=== PATIENT | male | born 1945 | race Caucasian/White ===

== ENCOUNTER 2016-11-13 11:28 | Emergency (ER) | payer MEDICARE ==
[2016-11-13 11:44] VITALS: BP 192/97
--- NOTE | 2016-11-13 12:00 | UC ---
HPI Wound/Suture Re-check - HPI Summary HPI Summary: complaint of soreness in his groin that started last night found a bump in his groin squeezed area and expressed some dime sized pus out of area was painful all night long tender to touch- this morning expressed more pus from wound- yellowish denies fever or chills, dizziness, N/V/D hx DM - not on any medications at this time- intermittently checks blood sugar sees Dr Dos Santos for PCP - History Of Current Complaint Chief Complaint: UCWounds Stated Complaint: WOUND Time Seen by Provider: 11/13/16 11:46 Hx Obtained From: Patient - Allergies/Home Medications Allergies/Adverse Reactions: Allergies Allergy/AdvReac Type Severity Reaction Status Date / Time No Known Allergies Allergy Verified 11/13/16 11:33 Home Medications: Home Medications Zaleplon [Sonata] 10 mg PO PRN 11/13/16 [History] PMH/Surg Hx/FS Hx/Imm Hx Previously Healthy: No - uncontrolled DM, HTN Endocrine History Of: Reports: Diabetes - Not med compliant Denies: Thyroid Disease Cardiovascular History Of: Reports: Hypertension - Not med compliant Denies: Cardiac Disorders Respiratory History Of: Denies: COPD, Asthma GI/ History Of: Denies: Ulcer - Surgical History Surgical History: Yes Surgery Procedure, Year, and Place: cataracts - Family History Known Family History: Positive: Hypertension - parents, Diabetes - parents Negative: Cardiac Disease - Social History Occupation: Disabled Lives: With Family Alcohol Use: None Substance Use Type: Prescribed Smoking Status (MU): Heavy Every Day Tobacco Smoker Type: Cigarettes Amount Used/How Often: 1/2 PPD X 40 YEARS Have You Smoked in the Last Year: Yes Cessation Counseling: Patient Advised to Stop - Immunization History Most Recent Influenza Vaccination: Fall 2015 Review of Systems Constitutional: Negative Skin: Rash Eyes: Negative ENT: Negative Respiratory: Negative Cardiovascular: Negative Gastrointestinal: Negative Genitourinary: Negative Motor: Negative Neurovascular: Negative Musculoskeletal: Negative Neurological: Negative Psychological: Negative All Other Systems Reviewed And Are Negative: Yes Physical Exam Triage Information Reviewed: Yes Appearance: No Pain Distress, Thin Vital Signs: Initial Vital Signs Temp 96.6 F 11/13/16 11:37 Pulse 102 11/13/16 11:37 Resp 16 11/13/16 11:37 BP 192/97 11/13/16 11:37 Pulse Ox 99 11/13/16 11:37 Vital Signs Reviewed: Yes Eyes: Positive: Conjunctiva Clear ENT: Positive: Pharynx normal, TMs normal. Negative: Nasal congestion Neck: Positive: No Lymphadenopathy Respiratory: Positive: Lungs clear, Normal breath sounds, No respiratory distress Cardiovascular: Positive: RRR, No Murmur, Pulses Normal Abdomen Description: Positive: Nontender, Soft Bowel Sounds: Positive: Present Neurological: Positive: Alert Psychological Exam: Normal Skin: Positive: Other - right groin-5x7cm area of redness surrounding dark erythemtous area of [id number] no indurarion beneath Course/Dx - Course Course Of Treatment: exam completed. cellulitis surrounding infected hair follicle. afebrile. elevated blood pressure and pulse tachycardic. will treat for cellulitis with close PCP followup d/t comorbities of uncontrolled HTN and DM. pt states understanding that if he gets a fever, dizziness, N/V/D or area of redness increases or pain increases to proceed to the ED for further evaluation. - Differential Dx - Laceration/Wound Differential Diagnoses: Abscess, Cellulitis Provider Diagnoses: abscess and cellulitis right groin - Physician Notification/Consults Discussed Patient Care With: Dr Busch Time Discussed With Above Provider: 12:27 Discharge - Discharge Plan Condition: Stable Disposition: HOME Prescriptions: Sulfamethox/Trimethoprim DS* [Bactrim DS 800/160 TAB*] 1 tab PO BID #14 tab Patient Education Materials: Cellulitis (ED), Hypertension (ED) Referrals: Viktor Dos Santos MD [Primary Care Provider] - Additional Instructions: Your blood pressure is elevated - please contact Dr Dos Santos to discuss evaluation and treatment for this when you have your cellulitis checked. CELLULITIS What is Cellulitis? Cellulitis is a bacterial infection of the skin and, sometimes, of the tissues beneath the skin. The skin normally has many types of bacteria on it, but intact skin is an effective barrier that keeps bacteria from entering and growing within the body. When there is a break in the skin, bacteria can enter the body and grow there, causing infection. The infection usually affects outer layers of the skin first, and then spreads deeper into body tissues. Cellulitis can affect any area of the body covered by skin, but it is most common on the face or lower part of the legs. Symptoms Might Include: Skin redness that increases in size as the infection spreads Tight, glossy, "stretched" appearance of the skin Pain or tenderness of the area The affected area may be warm or hot to the touch A thin red line (along a vein) from the cellulitis toward the heart Fever Chills, shaking Muscle aches pains Joint stiffness because of swelling around a joint Treatment Recommendations: The healthcare provider may have prescribed an antibiotic medicine. The medicine should be taken until it is completely gone, even if you are feeling better. If you stop taking the medicine early, the infection may not be completely gone, and the medication may not work the next time. If the infection is on your arm or leg, keep it elevated. You may use warm, wet compresses to relieve the pain and help healing. Soak a clean cloth in warm water, wring it out a little, and apply it to the affected site. Leave the soak in place for 15 minutes and repeat often throughout the day. Rest until the fever is gone and the pain and redness have lessened. You may take ibuprofen (Motrin, Advil), or acetaminophen (Tylenol) for pain. These will help ease some of the symptoms but will not cure the infection. Call Your Doctor or Return Here IF: Your fever does not go down with treatment, or it increases to more than 101 F. You are not starting to get better with the treatment within 24 to 36 hours. You have increasing pain, swelling, or chills. You feel drowsy and lethargic, or you have vomiting or diarrhea. You find the redness is spreading or there are red streaks coming from the infected area. The joint or bone under the infected skin becomes painful after the skin has started to heal. You have any new symptoms that worry you
[2016-11-13] MEDS ORDERED: Sulfamethox/Trimethoprim DS 800/160* TAB PO ONE (12:08)
[2016-11-13] MEDS ORDERED: Naproxen TAB* 250 MG PO ONE (12:17)
== END 2016-11-13 12:25 | disposition home or self-care (01) ==
LOC: UCEAST 11:28
DX: L02.214 Cutaneous abscess of groin (principal); L03.314 Cellulitis of groin; F17.210 Nicotine dependence, cigarettes, uncomplicated
CPT/HCPCS: 87070; 87077; 87186; 87205; 87640; 87641; 99212; A9270-GY; G0463

== ENCOUNTER 2017-05-13 13:28 | Emergency (ER) | payer MEDICARE ==
[2017-05-13 14:02] VITALS: BP 171/95
--- NOTE | 2017-05-13 14:55 | UC ---
Lavonne Weeks Alfonso, scribed for Amy Eisenberg MD on 05/13/17 at 1418 . Skin Complaint HPI - HPI Summary HPI Summary: This patient is a 71 year old M presenting to [facility] with a chief complaint of a diffuse rash since 4 days ago. The patient states he thinks that it is shingles. The CC is described as painful and pruritic. Symptoms aggravated and alleviated by nothing. Patient reports skin redness. He denies PMHx of MRSA. Pt has been squeezing and using peroxide and rubbing alcohol on a lesion on his left cheek that he has had the past 2 days. PMHx of shingles, HTN (not medication compliant), and DM (not medication compliant). Patients medications reviewed this visit. High blood pressure noted. - History of Current Complaint Chief Complaint: UCSkin Time Seen by Provider: 05/13/17 14:14 Stated Complaint: POSSIBLE SHINGLES? Hx Obtained From: Patient Onset/Duration: Sudden Onset, Lasting Days - 4, Still Present Skin Exposure Onset/Duration: Days Ago - but unknown how he might have contracted scabies Timing: Constant Onset Severity: Moderate Current Severity: Moderate Pain Intensity: 0 Pain Scale Used: 0-10 Numeric Location: Diffuse Character: Pruritus, Pain, Redness, Raised Aggravating: Nothing Alleviating: Nothing Associated Signs & Symptoms: Positive: Rash - Redness. Negative: Drainage, Red Streaks - Allergy/Home Medications Allergies/Adverse Reactions: Allergies Allergy/AdvReac Type Severity Reaction Status Date / Time No Known Allergies Allergy Verified 11/13/16 11:33 Home Medications: Home Medications celeCOXIB CAP* [CeleBREX CAP*] 200 mg PO DAILY 05/13/17 [History Confirmed 05/13] Review of Systems Constitutional: Negative Skin: Rash - Diffuse, Other - Positive skin redness. Neurovascular: Negative Musculoskeletal: Negative Neurological: Negative Psychological: Negative All Other Systems Reviewed And Are Negative: Yes PMH/Surg Hx/FS Hx/Imm Hx - Additional Past Medical History Additional PMH: shingles Endocrine History: Diabetes Cardiovascular History: Hypertension - Surgical History Surgical History: Yes Surgery Procedure, Year, and Place: cataracts - Family History Known Family History: Positive: Hypertension - parents, Diabetes - parents Negative: Cardiac Disease - Social History Occupation: Disabled Lives: Alone Alcohol Use: None Substance Use Type: Prescribed Smoking Status (MU): Heavy Every Day Tobacco Smoker Type: Cigarettes Amount Used/How Often: 1/2 PPD X 40 YEARS Have You Smoked in the Last Year: Yes - Immunization History Most Recent Influenza Vaccination: Fall 2015 Physical Exam Triage Information Reviewed: Yes Appearance: No Pain Distress, Well-Nourished, Ill-Appearing Vital Signs: Initial Vital Signs Pulse 96 05/13/17 13:59 Resp 18 05/13/17 13:59 BP 171/95 05/13/17 13:59 Pulse Ox 97 05/13/17 13:59 Vital Signs Reviewed: Yes Eyes: Positive: Conjunctiva Clear ENT: Positive: Normal ENT inspection. Negative: Muffled/hoarse voice Neck: Positive: Supple Respiratory: Positive: Lungs clear, Normal breath sounds, No respiratory distress, No accessory muscle use Cardiovascular: Positive: RRR, No Murmur, Pulses Normal, Brisk Capillary Refill Musculoskeletal: Positive: Strength Intact, ROM Intact Neurological: Positive: Alert, Muscle Tone Normal Psychological Exam: Normal Skin: Positive: Other - Diffuse maculopapular excoriated lesions at all extremities and not above the neck. In linear pattern and pruritic. Single erythematous macular lesion to left cheek Course/Dx - Course Course Of Treatment: This patient is a 71 year old M presenting to [facility] with a chief complaint of a diffuse rash since 4 days ago. The patient states he thinks that it is shingles. The CC is described as painful and pruritic. Symptoms aggravated and alleviated by nothing. Patient reports skin redness. He denies PMHx of MRSA. PMHx of shingles, HTN (not medication compliant), and DM ( not medication compliant). Patients medications reviewed this visit. High blood pressure noted. Patient will be discharged with dx scabies and resolving facial abscess with advice to follow up with his PCP and Dr. Cifuentes, dermatology. Pt is agreeable with this plan. - Differential Diagnoses - Skin Complaint Differential Diagnoses: Abscess, Cellulitis, Scabies, Varicella Zoster - Diagnoses Provider Diagnoses: scabies; facial abscess, resolving; HTN in poor control. Discharge - Discharge Plan Condition: Stable Disposition: HOME Prescriptions: Mupirocin 2% OINT* [Bactroban 2 % Oint*] 1 applic TOPICAL BID #1 tube Permethrin [Elimite] 5 % TOPICAL ONCE #1 cre Patient Education Materials: Scabies (ED), Abscess (ED) Referrals: Milla Cifuentes [Medical Doctor] - 3 Days Viktor Dos Santos MD [Primary Care Provider] - 2 Days Additional Instructions: Dr. Eisenberg does not think this is shingles. She thinks it is more likely scabies. She is not sure how you might have gotten scabies. To treat scabies you should apply the cream from the neck to your toes, especially in creases. Leave the cream in place for at least 8 hrs, then wash off. Bag up any clothing of materials that cannot be washed in hot water. Do not apply the permethrin to your face. Please use the mupirocin ointment on the sore of your face. You do not need further peroxide or alcohol on the sore on your face, and do not continue to squeeze it. If you feel it needs squeezing, please seek medical attention. Also your blood pressure was elevated 171/95 today. Please see your doctor within 1 week for a blood pressure recheck. See the trigonometry teacher, Dr. Cifuentes if you have no improvement. The documentation as recorded by the Lavonne juarez Alfonso accurately reflects the service I personally performed and the decisions made by , Amy Eisenberg MD.
== END 2017-05-13 14:54 | disposition home or self-care (01) ==
LOC: UCEAST 13:28
DX: B86 Scabies (principal); L02.01 Cutaneous abscess of face; I10 Essential (primary) hypertension; E11.9 Type 2 diabetes mellitus without complications; Z91.14 Patient's other noncompliance with medication regimen; Z79.1 Long term (current) use of non-steroidal anti-inflammatories (NSAID); F17.210 Nicotine dependence, cigarettes, uncomplicated
CPT/HCPCS: 99212; G0463

== ENCOUNTER → 2017-07-01 11:41 | Emergency (ER) | payer MEDICARE ==
[2017-07-01 11:56] VITALS: BP 168/98
[2017-07-01 13:03] LABS: Urine Bacteria Absent (Absent); Urine Bilirubin Negative (Negative); Urine Glucose 3+(>=500 mg/dL) (Negative); Urine Nitrite Negative (Negative)
[2017-07-01 13:21] LABS: Hematocrit 48 % (42-52); Hemoglobin 16.3 g/dl (14.0-18.0); Mean Corpuscular HGB Conc 34 g/dl (31-36); Mean Corpuscular Hemoglobin 29 pg (27-31); Mean Corpuscular Volume 84 fL (80-94); Mean Platelet Volume 10 um3 (7.4-10.4); Red Cell Distribution Width 14 % (10.5-15); White Blood Count 11.3 10^3/ul (3.5-10.8)
[2017-07-01 13:57] LABS: ALT 45 U/L (7-52); AST 32 U/L (13-39); Albumin 3.7 g/dL (3.2-5.2); Alkaline Phosphatase 89 U/L (34-104); Anion Gap 5 mmol/L (2-11); BUN/Creatinine Ratio 17.5 (8-20); Blood Urea Nitrogen 14 mg/dL (6-24); CO2 Carbon Dioxide 26 mmol/L (22-32); Calcium 9.1 mg/dL (8.6-10.3); Chloride 95 mmol/L (101-111); EGFR African American 123.3 (>60); EGFR Non-African American 95.8 (>60); Globulin 3.4 g/dL (2-4); Glucose 377 mg/dL (70-100); Potassium 4.3 mmol/L (3.5-5.0); Sodium 126 mmol/L (133-145); Total Protein 7.1 g/dL (6.4-8.9)
[2017-07-01 14:15] LABS: Acetaminophen < 15 mcg/mL; Alcohol < 10 mg/dL (<10); Salicylate < 2.50 mg/dL (<30)
[2017-07-01 14:16] LABS: TSH (Thyroid Stimulating Horm) 1.31 mcIU/mL (0.34-5.60)
[2017-07-01 14:52] LABS: Benzodiazepine Urine Screen None Detected (None Detect)
--- NOTE | 2017-07-07 11:20 | ED ---
Psychiatric Complaint - HPI Summary HPI Summary: Pt BIB ambulance and Police on 9.[address] Elliott office called because pt had called making a statement that he was going to shoot himself with a gun and hung up the phone. Pt reports that he does not remember calling the doctor' s office and is adamant about such. He states someone is "setting me up" and never threatened to harm himself. Pt reports that he has no mental health history. Pt reports that he just wants to go home. Pt reports that he was taken off his pain medications. Denies SI/HI and self harm. - History Of Current Complaint Chief Complaint: EDMentalHealth Time Seen by Provider: 07/01/17 11:57 Hx Obtained From: Patient Onset/Duration: Sudden Onset Timing: Constant Severity Initially: Moderate Severity Currently: Moderate Character: Depressed Alleviating Factor(s): Nothing Associated Signs And Symptoms: Positive: Hostile Related History: Positive For: Prior Psychiatric Issues - Risk Factor(s) Completed Suicide Risk Factors: Male - Allergies/Home Medications Allergies/Adverse Reactions: Allergies Allergy/AdvReac Type Severity Reaction Status Date / Time No Known Allergies Allergy Verified 07/01/17 11:51 Home Medications: Home Medications Gabapentin CAP(*) [Neurontin 100 mg CAP(*)] 100 - 200 mg PO TID PRN 07/01/17 [ History Confirmed 07/01/17] Insulin Detemir [Levemir Flextouch] 15 unit SUBCUT QAM 07/01/17 [History Confirmed 07/01/17] Insulin Detemir [Levemir Flextouch] 17 unit SUBCUT QPM 07/01/17 [History Confirmed 07/01/17] Ondansetron ODT TAB* [Zofran 4 MG Odt TAB*] 4 mg PO Q12HR PRN 07/01/17 [History Confirmed 07/01/17] Permethrin 5% CREAM* 1 applic TOPICAL ONCE 07/01/17 [History Confirmed 07/01/17] Zaleplon (NF) [Sonata (NF)] 10 mg PO QPM 07/01/17 [History Confirmed 07/01/17] PMH/Surg Hx/FS Hx/Imm Hx Previously Healthy: No - uncontrolled diabetic Endocrine/Hematology History: Reports: Hx Diabetes - Not med compliant Denies: Hx Thyroid Disease Cardiovascular History: Reports: Hx Hypertension - Not med compliant Denies: Other Cardiovascular Problems/Disorders Respiratory History: Reports: Other Respiratory Problems/Disorders - HISTORY OF PNEUMONIA SEVERAL TIMES PER PATIENT Denies: Hx Asthma, Hx Chronic Obstructive Pulmonary Disease (COPD) GI History: Denies: Hx Ulcer, Other GI Disorders Musculoskeletal History: Denies: Other Musculoskeletal History - CHRONIC BACK PAIN Sensory History: Reports: Hx Cataracts - BILATERAL, Hx Contacts or Glasses - GLASSES-READING Denies: Hx Hearing Aid Opthamlomology History: Reports: Hx Cataracts - BILATERAL, Hx Contacts or Glasses - GLASSES-READING Neurological History: Denies: Other Neuro Impairments/Disorders Psychiatric History: Denies: Hx Eating Disorder, Hx of Violent Episodes Against Others - Surgical History Surgery Procedure, Year, and Place: cataracts Hx Anesthesia Reactions: No Infectious Disease History: No Infectious Disease History: Reports: Hx Hepatitis - Hep C, Hx Shingles - 1998 Denies: Hx Clostridium Difficile, Hx Human Immunodeficiency Virus (HIV), Hx of Known/Suspected MRSA, Hx Tuberculosis, Hx Known/Suspected VRE, Hx Known/ Suspected VRSA, History Other Infectious Disease, Traveled Outside the in Last 30 Days - Family History Known Family History: Positive: Hypertension - parents, Diabetes - parents Negative: Cardiac Disease - Social History Occupation: Unemployed Lives: Alone Alcohol Use: None Hx Substance Use: Yes Substance Use Type: Reports: Prescribed Hx Tobacco Use: Yes Smoking Status (MU): Heavy Every Day Tobacco Smoker Type: Cigarettes Amount Used/How Often: 1/2 PPD X 40 YEARS Have You Smoked in the Last Year: Yes Review of Systems Constitutional: Negative Eyes: Negative Cardiovascular: Negative Respiratory: Negative Musculoskeletal: Negative Skin: Negative Neurological: Negative Positive: Other - angry/hostile All Other Systems Reviewed And Are Negative: Yes Physical Exam Triage Information Reviewed: Yes Vital Signs On Initial Exam: Initial Vitals Temp Pulse Resp BP Pulse Ox 98.7 F 108 16 168/98 100 07/01/17 11:51 07/01/17 11:51 07/01/17 11:51 07/01/17 11:51 07/01/17 11:51 Vital Signs Reviewed: Yes Appearance: Positive: Well-Appearing, Well-Nourished Skin: Positive: Warm, Skin Color Reflects Adequate Perfusion Head/Face: Positive: Normal Head/Face Inspection Neck: Positive: Supple, No Lymphadenopathy Respiratory/Lung Sounds: Positive: Clear to Auscultation, Breath Sounds Present Cardiovascular: Positive: Normal, RRR, Pulses are Symmetrical in both Upper and Lower Extremities Musculoskeletal: Positive: Normal, Strength/ROM Intact Neurological: Positive: Normal, Sensory/Motor Intact Psychiatric: Positive: Patient Uncooperative for Exam - very hostile AVPU Assessment: Alert - [place] Coma Scale Coma Scale Total: 15 Diagnostics - Vital Signs Vital Signs Temp Pulse Resp BP Pulse Ox 07/01/17 11:51 98.7 F 108 16 168/98 100 - Laboratory Lab Results: Lab Results 07/01/17 07/01/17 07/01/17 Range/Units 12:05 12:05 13:09 WBC (3.5-10.8) 10^3/ul RBC (4.0-5.4) 10^6/ul Hgb (14.0-18.0) g/dl Hct (42-52) % MCV (80-94) fL MCH (27-31) pg MCHC (31-36) g/dl RDW (10.5-15) % Plt Count (150-450) 10^3/ul MPV (7.4-10.4) um3 Neut % (Auto) (38-83) % Lymph % (Auto) (25-47) % [place] % (Auto) (1-9) % Eos % (Auto) (0-6) % Baso % (Auto) (0-2) % Absolute Neuts (auto) (1.5-7.7) 10^3/ul Absolute Lymphs (auto) (1.0-4.8) 10^3/ul Absolute Monos (auto) (0-0.8) 10^3/ul Absolute Eos (auto) (0-0.6) 10^3/ul Absolute Basos (auto) (0-0.2) 10^3/ul Absolute Nucleated RBC 10^3/ul Nucleated RBC % Sodium 126 L (133-145) mmol/L Potassium 4.3 (3.5-5.0) mmol/L Chloride 95 L (101-111) mmol/L Carbon Dioxide 26 (22-32) mmol/L Anion Gap 5 (2-11) mmol/L BUN 14 (6-24) mg/dL Creatinine 0.80 (0.67-1.17) mg/dL Est GFR ( Amer) 123.3 (>60) Est GFR (Non-Af Amer) 95.8 (>60) BUN/Creatinine Ratio 17.5 (8-20) Glucose 377 H (70-100) mg/dL Lactic Acid (0.5-2.0) mmol/L Calcium 9.1 (8.6-10.3) mg/dL Total Bilirubin 0.50 (0.2-1.0) mg/dL AST 32 (13-39) U/L ALT 45 (7-52) U/L Alkaline Phosphatase 89 (34-104) U/L Total Protein 7.1 (6.4-8.9) g/dL Albumin 3.7 (3.2-5.2) g/dL Globulin 3.4 (2-4) g/dL Albumin/Globulin Ratio 1.1 (1-3) TSH 1.31 (0.34-5.60) mcIU/mL Urine Color Yellow Urine Appearance Clear Urine pH 6.0 (5-9) Ur Specific [place] 1.037 H (1.010-1.030) Urine Protein 2+(100 mg/dl) H (Negative) Urine Ketones Negative (Negative) Urine Blood Negative (Negative) Urine Nitrate Negative (Negative) Urine Bilirubin Negative (Negative) Urine Urobilinogen Negative (Negative) Ur Leukocyte Esterase Negative (Negative) Urine WBC (Auto) Absent (Absent) Urine RBC (Auto) Trace(0-2/hpf) (Absent) Urine Bacteria Absent (Absent) Urine Glucose 3+(>=500 mg/dl) H (Negative) Salicylates < 2.50 (<30) mg/dL Urine Opiates Screen None detected (None Detect) Acetaminophen < 15 mcg/mL Ur Barbiturates Screen None detected (None Detect) Ur Phencyclidine Scrn None detected (None Detect) Ur Amphetamines Screen None detected (None Detect) U Benzodiazepines Scrn None detected (None Detect) Urine Cocaine Screen None detected (None Detect) U Cannabinoids Screen None detected (None Detect) Serum Alcohol < 10 (<10) mg/dL 07/01/17 07/01/17 Range/Units 13:09 13:09 WBC 11.3 H (3.5-10.8) 10^3/ul RBC 5.70 H (4.0-5.4) 10^6/ul Hgb 16.3 (14.0-18.0) g/dl Hct 48 (42-52) % MCV 84 (80-94) fL MCH 29 (27-31) pg MCHC 34 (31-36) g/dl RDW 14 (10.5-15) % Plt Count 130 L (150-450) 10^3/ul MPV 10 (7.4-10.4) um3 Neut % (Auto) 71.4 (38-83) % Lymph % (Auto) 15.2 L (25-47) % [place] % (Auto) 8.7 (1-9) % Eos % (Auto) 3.2 (0-6) % Baso % (Auto) 1.5 (0-2) % Absolute Neuts (auto) 8.1 H (1.5-7.7) 10^3/ul Absolute Lymphs (auto) 1.7 (1.0-4.8) 10^3/ul Absolute Monos (auto) 1.0 H (0-0.8) 10^3/ul Absolute Eos (auto) 0.4 (0-0.6) 10^3/ul Absolute Basos (auto) 0.2 (0-0.2) 10^3/ul Absolute Nucleated RBC 0.01 10^3/ul Nucleated RBC % 0.1 Sodium (133-145) mmol/L Potassium (3.5-5.0) mmol/L Chloride (101-111) mmol/L Carbon Dioxide (22-32) mmol/L Anion Gap (2-11) mmol/L BUN (6-24) mg/dL Creatinine (0.67-1.17) mg/dL Est GFR ( Amer) (>60) Est GFR (Non-Af Amer) (>60) BUN/Creatinine Ratio (8-20) Glucose (70-100) mg/dL Lactic Acid 1.1 (0.5-2.0) mmol/L Calcium (8.6-10.3) mg/dL Total Bilirubin (0.2-1.0) mg/dL AST (13-39) U/L ALT (7-52) U/L Alkaline Phosphatase (34-104) U/L Total Protein (6.4-8.9) g/dL Albumin (3.2-5.2) g/dL Globulin (2-4) g/dL Albumin/Globulin Ratio (1-3) TSH (0.34-5.60) mcIU/mL Urine Color Urine Appearance Urine pH (5-9) Ur Specific [place] (1.010-1.030) Urine Protein (Negative) Urine Ketones (Negative) Urine Blood (Negative) Urine Nitrate (Negative) Urine Bilirubin (Negative) Urine Urobilinogen (Negative) Ur Leukocyte Esterase (Negative) Urine WBC (Auto) (Absent) Urine RBC (Auto) (Absent) Urine Bacteria (Absent) Urine Glucose (Negative) Salicylates (<30) mg/dL Urine Opiates Screen (None Detect) Acetaminophen mcg/mL Ur Barbiturates Screen (None Detect) Ur Phencyclidine Scrn (None Detect) Ur Amphetamines Screen (None Detect) U Benzodiazepines Scrn (None Detect) Urine Cocaine Screen (None Detect) U Cannabinoids Screen (None Detect) Serum Alcohol (<10) mg/dL Result Diagrams: 07/01/17 13:09 07/01/17 13:09 Lab Statement: Any lab studies that have been ordered have been reviewed, and results considered in the medical decision making process. Course/Dx - Course Course Of Treatment: hostile towards nursing staff and ED staff. He states he denies stating he wants to harm himself and thinks someone is setting him up. Provider states he will need a mental health evaluation prior to leaving. Spoke with Dr. Dos Santos who suggested CT brain d/t new and erratic behavior suggesting infarct. He is refusing this. Also, refusing treatment of his hyperglycemia. He is OK for mental health evaluation at this time as he is refusing health care from the ED. - Differential Dx/Clinical Impression Differential Diagnosis/HQI/PQRI: Positive: Anxiety, Depression, Suicidal Ideation, Suicidal Gesture Provider Diagnosis: Threatening to self Discharge - Discharge Plan Condition: Stable Disposition: HOME Referrals: Viktor Dos Santos MD [Primary Care Provider] - Braxton Elliott DO [Doctor of Osteopathy] - As Soon As Possible
== END | disposition home or self-care (01) ==
LOC: ED 11:41
DX: F91.9 Conduct disorder, unspecified (principal); Z86.79 Personal history of other diseases of the circulatory system
CPT/HCPCS: 36415; 80053; 80307; 80320; 80329; 81003; 81015; 83605; 84443; 85025; 99285; G0480

== ENCOUNTER 2017-09-21 10:24 | Emergency (ER) | payer MEDICARE ==
[2017-09-21 10:49] VITALS: BP 176/87
--- NOTE | 2017-09-21 11:27 | UC ---
Respiratory Complaint HPI - HPI Summary HPI Summary: Pt presents with cough. He is very frustrated, annoyed, and consistently cursing throughout this interview of his symptoms. He tells me that he has had a cough for 3 weeks and refuses to see his PCP because he "hates that cocksucker ". His cough has been productive over the last 5 days - thick yellow/green phlegm. He denies fever, chills, sinus symptoms, SOB, chest pain, abdominal pain , N/V/D/C. He is still smoking daily. - History of Current Complaint Hx Obtained From: Patient Onset/Duration: Gradual Onset Timing: Constant Severity Initially: Mild Severity Currently: Mild Character: Cough: Productive <Trent Barton - Last Filed: 09/21/17 17:04> <Denisse Suarez - Last Filed: 09/21/17 21:34> - History of Current Complaint Chief Complaint: UCRespiratory Stated Complaint: COUGH Time Seen by Provider: 09/21/17 11:26 - Allergies/Home Medications Allergies/Adverse Reactions: Allergies Allergy/AdvReac Type Severity Reaction Status Date / Time No Known Allergies Allergy Verified 07/01/17 11:51 PMH/Surg Hx/FS Hx/Imm Hx Respiratory History: COPD - Surgical History Surgical History: Yes Surgery Procedure, Year, and Place: cataracts - Family History Known Family History: Positive: Hypertension - parents, Diabetes - parents Negative: Cardiac Disease - Social History Occupation: Retired Lives: Alone Alcohol Use: None Substance Use Type: None, Prescribed Smoking Status (MU): Heavy Every Day Tobacco Smoker Type: Cigarettes Amount Used/How Often: 1/2 PPD X 40+ YEARS Have You Smoked in the Last Year: Yes Cessation Counseling: Counseled 3+Min - 10 Min - Immunization History Most Recent Influenza Vaccination: Fall 2015 <Trent Barton - Last Filed: 09/21/17 17:04> Review of Systems Constitutional: Negative Skin: Negative Eyes: Negative ENT: Negative Respiratory: Cough Cardiovascular: Negative Gastrointestinal: Negative Neurological: Negative All Other Systems Reviewed And Are Negative: Yes <Trent Barton - Last Filed: 09/21/17 17:04> Physical Exam Triage Information Reviewed: Yes Appearance: Well-Appearing, Well-Nourished Vital Signs: Initial Vital Signs Temp 97.9 F 09/21/17 10:43 Pulse 101 12/19/17 10:43 Resp 16 09/21/17 10:43 BP 176/87 09/21/17 10:43 Pulse Ox 99 09/21/17 10:43 Vital Signs Reviewed: Yes Eyes: Positive: Conjunctiva Clear. Negative: Conjunctiva Inflamed, Discharge ENT: Positive: Hearing grossly normal, Pharynx normal, TMs normal, Uvula midline. Negative: Pharyngeal erythema, Nasal congestion, Nasal drainage, TM bulging, TM dull, TM red, Tonsillar swelling, Tonsillar exudate, Muffled voice, Hoarse voice, Sinus tenderness Neck: Positive: Supple, Nontender, No Lymphadenopathy Respiratory: Positive: Chest non-tender, No respiratory distress, No accessory muscle use, Crackles - RLL, Wheezing - Throughout Cardiovascular: Positive: RRR, No Murmur, Pulses Normal Neurological: Positive: Alert Skin: Negative: rashes <Trent Barton - Last Filed: 09/21/17 17:04> Vital Signs: Initial Vital Signs Temp 97.9 F 09/21/17 10:43 Pulse 101 09/21/17 10:43 Resp 16 09/21/17 10:43 BP 176/87 09/21/17 10:43 Pulse Ox 99 09/21/17 10:43 <Denisse Suarez - Last Filed: 09/21/17 21:34> Diagnostic Evaluation - Laboratory O2 Sat by Pulse Oximetry: 99 <Trent Barton - Last Filed: 09/21/17 17:04> Respiratory Course/Dx - Course Course Of Treatment: I advised the pt that I would like to get a CXR and he said "fuck that". I told him I would like to give him a Duoneb treatment and he also said "fuck that". Given his strong smoking history, ongoing productive cough, and RLL crackles - will rx for Zpak and albuterol. Advised to follow up with PCP if he worsens or symptoms persist. - Differential Dx/Diagnosis Differential Diagnosis/HQI/PQRI: Aspiration, Asthma, Bronchitis, Exacerbation Of COPD, Influenza, Lower Resp Infection Provider Diagnoses: Cough. Wheezing <Trent Barton - Last Filed: 09/21/17 17:04> Discharge <Trent Barton - Last Filed: 09/21/17 17:04> <Denisse Suarez - Last Filed: 09/21/17 21:34> - Discharge Plan Condition: Stable Disposition: HOME Prescriptions: Albuterol HFA INHALER* [Ventolin HFA Inhaler*] 1 - 2 puff INH Q6H PRN #1 mdi PRN Reason: Cough Azithromycin TAB* [Zithromax TAB (Z-YUSEF) 250 mg #6 tabs] 2 tab PO .TODAY, THEN 1 DAILY #1 yusef Patient Education Materials: Acute Bronchitis (ED) Referrals: No Primary Care Phys,NOPCP [Primary Care Provider] - Additional Instructions: If you develop a fever, SOB, chest pain, new or worsening symptoms - please call your PCP or go to the ED. Attestation Statement User Type: Provider - I was available for consult. This patient was seen by the [facility]. The patient was not presented to, seen by, or examined by me. -Jeffery <Denisse Suarez - Last Filed: 09/21/17 21:34>
== END 2017-09-21 11:47 | disposition home or self-care (01) ==
LOC: UCEAST 10:24
DX: R05 Cough (principal); R06.2 Wheezing; Z72.0 Tobacco use
CPT/HCPCS: 99212; G0463

== ENCOUNTER 2018-04-19 06:38 | Day surgery (SDC) | payer MEDICARE ==
[~2018-04-19 06:38] MED LIST: Acetaminophen TAB* 325 MG PO PRN; Buffered Lidocaine 0.9% SYRIN* 5 ML/SYR SYRINGE INTRADERM ONE
[2018-04-19] MEDS ORDERED: Midazolam* 1 MG/ML 2 ML VIAL (2 MG) ONE (07:22)
[2018-04-19] MEDS ORDERED: Phenylephrine 2.5% OPTH.SOL* 2 ML BTL ONE (07:45)
[2018-04-19] MEDS ORDERED: Neomycin/Polymy/Dex OPHTH.OIN* 3.5 GM ONE (07:45)
[2018-04-19] MEDS ORDERED: Lidocaine 1%* 5 ML VIAL ONE (07:45)
[2018-04-19] MEDS ORDERED: Cyclopentolate 1% OPTH.SOL* 2 ML BTL ONE (07:45)
[2018-04-19] MEDS ORDERED: Ketorolac 0.5% OPHTH (NF) 0.5 % 5 ML BTL ONE (07:45)
[2018-04-19] MEDS ORDERED: Tropicamide 1% OPTH.SOL* BTL ONE (07:45)
[2018-04-19] MEDS ORDERED: Tetracaine 0.5% OPTH.SOL 4 ML* 1 DROP BTL ONE (07:45)
[2018-04-19] MEDS ORDERED: Phenylephr/Ketorolac 1%/0.3% OPH DROP BTL ONE ×2 (07:46→09:15)
[2018-04-19 08:00] VITALS: BP 130/80
--- NOTE | 2018-04-19 10:43 | OP ---
DATE OF OPERATION/DATE OF DICTATION: 04/19/2018 - [facility] DATE OF : 1945. SURGEON: Dr. Gonzales Simmons. IMPLEMENTATION ARCHITECT: None. ANESTHESIA: Topical with intravenous sedation. PRE-OP DIAGNOSIS: Cataract, right eye. POST-OP DIAGNOSIS: Cataract, right eye. OPERATIVE PROCEDURE: Phacoemulsification and cataract extraction with posterior chamber intraocular lens implant, right eye. COMPLICATIONS: None. BLOOD LOSS: None. DESCRIPTION OF PROCEDURE: The patient was brought to the operating room and received a small amount of intravenous sedation. A drop of Tetracaine was placed in his right eye. He was prepped and draped in the usual sterile fashion for ophthalmic surgery and attention was directed to the right eye where a speculum was placed. A paracentesis was created at the 11 o'clock position and 0.1 cc of 1 percent preservative-free Lidocaine was injected into the anterior chamber followed by DisCoVisc. The eye was digitally stabilized while a 2.75 mm keratome was used to create a triplanar clear corneal incision at the 9 o'clock position. A continuous curvilinear capsulorrhexis was created with a cystotome and Utrata forceps. BSS on a cannula was used to hydrodissect the lens from the capsule. Phacoemulsification was performed in a divide-and- conquer technique to create four fragments which were removed. Residual cortical material was removed with irrigation and aspiration. DisCoVisc was used to inflate the capsular bag and an AUOOTO 20.5 diopter lens was folded and inserted into the capsular bag. DisCoVisc was removed using irrigation and aspiration. BSS on a cannula was used to hydrate the corneal stroma and seal the wound. At the end of the case the pupil was round and the lens was centered. The eye was of normal pressure and the wound was water tight. The speculum was removed and topical Maxitrol ointment was placed on the surface of the eye. The eye was closed, patched and shielded and the patient was sent to the recovery room in stable condition with post operative instructions and follow-up appointment given. [id number]/CPS #: [id number] MTDD
== END 2018-04-19 07:58 | disposition home or self-care (01) ==
LOC: OREAST 06:38
PROVIDERS: ATTEND Ophthalmology
DX: H25.11 Age-related nuclear cataract, right eye (principal); E11.42 Type 2 diabetes mellitus with diabetic polyneuropathy; Z79.84 Long term (current) use of oral hypoglycemic drugs; E78.5 Hyperlipidemia, unspecified; B19.20 Unspecified viral hepatitis C without hepatic coma; M54.5 Low back pain; I10 Essential (primary) hypertension; Z72.0 Tobacco use
CPT/HCPCS: A9270-GY; C9447; J2250; V2632

== ENCOUNTER 2018-06-13 00:32 | Emergency (ER) | payer MEDICARE ==
[2018-06-13] MEDS ORDERED: Ketorolac INJ* 60 MG/2 ML VIAL IM ONE (01:06)
[2018-06-13] MEDS ORDERED: Gabapentin CAP(*) 300 MG PO ONE (01:07)
[2018-06-13] MEDS ORDERED: oxyCODONE/Acetamin 5/325 MG* TAB PO ONE (01:07)
--- NOTE | 2018-06-13 02:15 | ED ---
Back Pain - HPI Summary HPI Summary: Patient is a 72 y/o M w/ c/o back pain onsetting in 2003. He states pain radiates to the bottom of his feet and that his "knees are giving out". 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 He states he was taking gabapatin, initially 100 mg 3x a day, which was increased to 300 mg x3 a day. Patient states he ran out of gabapatin eight days ago. However, patient also reports that he experiences no relief in Sx from gabapatin. He also reports he had previously been prescribed Oxycodone. On triage, pain is rated 10/10 and nothing is noted to aggravate/alleviate Sx. Home medications and allergies reviewed. - History of Current Complaint Chief Complaint: EDGeneral Stated Complaint: GENERAL PAIN Time Seen by Provider: 06/13/18 00:52 Hx Obtained From: Patient Onset/Duration: Lasting Weeks - onset 2003, Still Present Onset/Duration: Still Present Timing: Constant Back Pain Location: Radiates To - bottom of feet Severity Currently: Severe - 10/10 Pain Intensity: 10 Pain Scale Used: 0-10 Numeric - 10/10 Aggravating Symptom(s): Nothing Alleviating Symptom(s): Nothing - Allergies/Home Medications Allergies/Adverse Reactions: Allergies Allergy/AdvReac Type Severity Reaction Status Date / Time No Known Allergies Allergy Verified 06/13/18 00:47 PMH/Surg Hx/FS Hx/Imm Hx Endocrine/Hematology History: Reports: Hx Diabetes - type 2 Denies: Hx Thyroid Disease Cardiovascular History: Reports: Hx Hypertension - no meds Denies: Other Cardiovascular Problems/Disorders Respiratory History: Reports: Other Respiratory Problems/Disorders - HISTORY OF PNEUMONIA SEVERAL TIMES PER PATIENT Denies: Hx Asthma, Hx Chronic Obstructive Pulmonary Disease (COPD) GI History: Denies: Hx Ulcer, Other GI Disorders Musculoskeletal History: Denies: Other Musculoskeletal History - CHRONIC BACK PAIN Sensory History: Reports: Hx Cataracts, Hx Contacts or Glasses - GLASSES-READING Denies: Hx Hearing Aid Opthamlomology History: Reports: Hx Cataracts, Hx Contacts or Glasses - GLASSES- READING Neurological History: Denies: Other Neuro Impairments/Disorders Psychiatric History: Denies: Hx Eating Disorder, Hx of Violent Episodes Against Others - Surgical History Surgery Procedure, Year, and Place: cataracts Hx Anesthesia Reactions: No - Immunization History Date of Tetanus Vaccine: unk Date of Influenza Vaccine: fall 2016 Infectious Disease History: No Infectious Disease History: Reports: Hx Hepatitis - Hep C, Hx Shingles - 1998 Denies: Hx Clostridium Difficile, Hx Human Immunodeficiency Virus (HIV), Hx of Known/Suspected MRSA, Hx Tuberculosis, Hx Known/Suspected VRE, Hx Known/ Suspected VRSA, History Other Infectious Disease, Traveled Outside the [place] in Last 30 Days - Family History Known Family History: Positive: Hypertension - parents, Diabetes - parents Negative: Cardiac Disease - Social History Alcohol Use: None Substance Use Type: Reports: None Hx Tobacco Use: Yes Smoking Status (MU): Heavy Every Day Tobacco Smoker Type: Cigarettes Amount Used/How Often: 1/2 PPD X 40+ YEARS Have You Smoked in the Last Year: Yes Review of Systems Negative: Fever - on vitals, temp is 97.9 F Positive: Other - back pain which radiates to bottom of feet; "knees are giving out" All Other Systems Reviewed And Are Negative: Yes Physical Exam - Summary Physical Exam Summary: VITAL SIGNS: Reviewed. GENERAL: Patient is a well-developed and nourished male who is lying comfortable in the stretcher. Patient is not in any acute respiratory distress. HEAD AND FACE: No signs of trauma. No ecchymosis, hematomas or skull depressions. No sinus tenderness. EYES: PERRLA, EOMI x 2, No injected conjunctiva, no nystagmus. EARS: Hearing grossly intact. Ear canals and tympanic membranes are within normal limits. MOUTH: Oropharynx within normal limits. NECK: Supple, trachea is midline, no adenopathy, no JVD, no carotid bruit, no c- spine tenderness, neck with full ROM. CHEST: Symmetric, no tenderness at palpation LUNGS: Clear to auscultation bilaterally. No wheezing or crackles. CVS: Regular rate and rhythm, S1 and S2 present, no murmurs or gallops appreciated. ABDOMEN: Soft, non-tender. No signs of distention. No rebound no guarding, and no masses palpated. Bowel sounds are normal. EXTREMITIES: FROM in all major joints, no edema, no cyanosis or clubbing. Tenderness over lower thoracic spine, no other abnormal findings are noted. NEURO: Alert and oriented x 3. No acute neurological deficits. Speech is normal and follows commands. SKIN: Dry and warm Triage Information Reviewed: Yes Vital Signs On Initial Exam: Initial Vitals Temp Pulse Resp BP Pulse Ox 97.9 F 87 17 145/100 98 06/13/18 00:35 06/13/18 00:35 06/13/18 00:35 06/13/18 00:35 06/13/18 00:35 Vital Signs Reviewed: Yes Diagnostics - Vital Signs Vital Signs Temp Pulse Resp BP Pulse Ox 06/13/18 01:14 16 06/13/18 00:35 97.9 F 87 17 145/100 98 - Laboratory Lab Statement: Any lab studies that have been ordered have been reviewed, and results considered in the medical decision making process. Re-Evaluation - Re-Evaluation First Eval Re-Evaluation Time: 02:10 Comment: Patient will be discharged to home and is instructed to follow up with PCP in 1-2 days. He is agreeable with this plan. Back Pain Course/Dx - Course Assessment/Plan: Patient is a 72 y/o M w/ c/o back pain onsetting in 2003. He states pain radiates to the bottom of his feet and that his "knees are giving out". 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 He states he was taking gabapatin, initially 100 mg 3x a day, which was increased to 300 mg x3 a day. Patient states he ran out of gabapatin eight days ago. However, patient also reports that he experiences no relief in Sx from gabapatin. He also reports he had previously been prescribed Oxycodone. On triage, pain is rated 10/10 and nothing is noted to aggravate/alleviate Sx. PE showed lower thoracic tenderness with no other abnormal findings. During ED course, patient was given Percocet 5/325 tab 1 tab PO ONCE ONE, toradol 60 mg IM ONCE ONE, and neurontin 300 mg PO ED ONCE ONE. Patient will be discharged to home and is instructed to follow up with PCP in 1-2 days and was given the following prescriptions: Cyclobenzaprine TAB* [Flexeril 10 MG TAB*] 10 mg PO BID PRN #20 tab. PRN Reason: Spasms - Back. Gabapentin [Gralise] 300 mg PO TID #30 tab.er.24h. Ibuprofen TAB* [Motrin TAB* 800 MG] 800 mg PO Q6H PRN #30 tab. PRN Reason: Pain. He is agreeable with this treatment plan. He was diagnosed with back pain. - Diagnoses Provider Diagnoses: Back pain Discharge - Sign-Out/Discharge Documenting (check all that apply): Patient Departure - discharge - Discharge Plan Condition: Stable Disposition: HOME Prescriptions: Cyclobenzaprine TAB* [Flexeril 10 MG TAB*] 10 mg PO BID PRN #20 tab PRN Reason: Spasms - Back Gabapentin [Gralise] 300 mg PO TID #30 tab.er.24h Ibuprofen TAB* [Motrin TAB* 800 MG] 800 mg PO Q6H PRN #30 tab PRN Reason: Pain Patient Education Materials: Back Pain (ED) Referrals: [facility] [Outside] - 2 Days Additional Instructions: RETURN TO ED FOR ANY CHANGING OR WORSENING SYMPTOMS. FOLLOW UP WITH PRIMARY CARE PHYSICIAN IN 1-2 DAYS. - Attestation Statements Document Initiated by Scribe: Yes Documenting Scribe: Caio Chambers Provider For Whom Lisa is Documenting (Include Credential): Carlos Mohr MD Scribe Attestation: Caio Weeks, scribed for Carlos Mohr MD on 06/13/18 at 0310.
[2018-06-13 02:39] VITALS: BP 143/87
== END 2018-06-13 02:37 | disposition home or self-care (01) ==
LOC: ED 00:32
DX: M54.9 Dorsalgia, unspecified (principal); E11.9 Type 2 diabetes mellitus without complications; I10 Essential (primary) hypertension; G89.29 Other chronic pain; F17.210 Nicotine dependence, cigarettes, uncomplicated
CPT/HCPCS: 96372; 99282; A9270-GY; J1885

== ENCOUNTER 2018-06-14 09:20 | Emergency (ER) | payer MEDICARE ==
--- NOTE | 2018-06-14 10:26 | ED ---
Back Pain - HPI Summary HPI Summary: This patient is a 72 year old M presenting to [facility] with a chief complaint of left upper back pain. The patient rates the pain 10/10 in severity. Patient reports nausea and dry heaving. Patient denies dysuria, frequent urination, urinary incontinence and fecal incontinence. He was seen by Dr. Mohr yesterday morning and given a Tylenol #3. He was sent home with flexeril, Ibuprofen and Gabapentin. Patient drove, does not want a shot, and realized that the pharmacy just received his medication. He requested to be discharged with no further workup or medications. - History of Current Complaint Chief Complaint: EDGeneral Stated Complaint: BACK PAIN Time Seen by Provider: 06/14/18 09:56 Hx Obtained From: Patient Onset/Duration: Still Present Severity Initially: Severe Severity Currently: Severe Pain Intensity: 10 Pain Scale Used: 0-10 Numeric Associated Signs And Symptoms: Positive: Other - Nausea, dry heaving. Denies dysuria and frequent urination.. Negative: Bladder Incontinence, Bowel Incontinence - Allergies/Home Medications Allergies/Adverse Reactions: Allergies Allergy/AdvReac Type Severity Reaction Status Date / Time No Known Allergies Allergy Verified 06/13/18 00:47 PMH/Surg Hx/FS Hx/Imm Hx Endocrine/Hematology History: Reports: Hx Diabetes - type 2 Denies: Hx Thyroid Disease, Autoimmune Disease Cardiovascular History: Reports: Hx Hypertension - no meds Denies: Other Cardiovascular Problems/Disorders Respiratory History: Reports: Other Respiratory Problems/Disorders - HISTORY OF PNEUMONIA SEVERAL TIMES PER PATIENT Denies: Hx Asthma, Hx Chronic Obstructive Pulmonary Disease (COPD) GI History: Denies: Hx Ulcer, Other GI Disorders Musculoskeletal History: Denies: Other Musculoskeletal History - CHRONIC BACK PAIN Sensory History: Reports: Hx Cataracts, Hx Contacts or Glasses - GLASSES-READING Denies: Hx Hearing Aid Opthamlomology History: Reports: Hx Cataracts, Hx Contacts or Glasses - GLASSES- READING Neurological History: Denies: Other Neuro Impairments/Disorders Psychiatric History: Denies: Hx Eating Disorder, Hx of Violent Episodes Against Others - Surgical History Surgery Procedure, Year, and Place: cataracts Hx Anesthesia Reactions: No - Immunization History Date of Tetanus Vaccine: unk Date of Influenza Vaccine: fall 2016 Infectious Disease History: No Infectious Disease History: Reports: Hx Hepatitis - Hep C, Hx Shingles - 1998 Denies: Hx Clostridium Difficile, Hx Human Immunodeficiency Virus (HIV), Hx of Known/Suspected MRSA, Hx Tuberculosis, Hx Known/Suspected VRE, Hx Known/ Suspected VRSA, History Other Infectious Disease, Traveled Outside the [place] in Last 30 Days - Family History Known Family History: Positive: Hypertension - parents, Diabetes - parents Negative: Cardiac Disease - Social History Alcohol Use: None Substance Use Type: Reports: None Hx Tobacco Use: Yes Smoking Status (MU): Heavy Every Day Tobacco Smoker Type: Cigarettes Amount Used/How Often: 1/2 PPD X 40+ YEARS Have You Smoked in the Last Year: Yes Review of Systems Positive: Vomiting - Dry heaving, Nausea. Negative: Other - Denies bowel incontinence Negative: dysuria, frequency - Denies frequent urination, incontinence Positive: Other - Back pain All Other Systems Reviewed And Are Negative: Yes Physical Exam - Summary Physical Exam Summary: GENERAL: Patient is a well-developed and nourished M who is lying comfortable in the stretcher. Patient is not in any acute respiratory distress. HEAD AND FACE: Normocephalic EYES: PERRLA, EOMI x 2. EARS: Hearing grossly intact. MOUTH: Oropharynx within normal limits. NECK: Supple, trachea is midline, no adenopathy, no JVD, no carotid bruit. CHEST: Symmetric, no tenderness at palpation LUNGS: Clear to auscultation bilaterally. No wheezing or crackles. CVS: Regular rate and rhythm, S1 and S2 present, no murmurs or gallops appreciated. ABDOMEN: Soft, non-tender. Bowel sounds are normal. No abdominal abnormal pulsations. EXTREMITIES: Full ROM in all major joints, no edema, no cyanosis or clubbing. MUSCULOSKELETAL: Tenderness in L spine NEURO: Alert and oriented x 3. No acute neurological deficits. Speech is normal and follows commands. SKIN: Dry and warm Triage Information Reviewed: Yes Vital Signs On Initial Exam: Initial Vitals Temp Pulse Resp BP Pulse Ox 97.5 F 96 16 178/84 99 06/14/18 09:24 06/14/18 09:24 06/14/18 09:24 06/14/18 09:24 06/14/18 09:24 Vital Signs Reviewed: Yes Diagnostics - Vital Signs Vital Signs Temp Pulse Resp BP Pulse Ox 06/14/18 09:24 97.5 F 96 16 178/84 99 - Laboratory Lab Statement: Any lab studies that have been ordered have been reviewed, and results considered in the medical decision making process. Back Pain Course/Dx - Course Assessment/Plan: This patient is a 72 year old M presenting to [facility] with a chief complaint of left upper back pain. Patient drove, does not want a shot, and realized that the pharmacy just received the medication he was prescribed yestserday by Dr. Mohr. He requested to be discharged with no further workup or medications. I recommended for him to follow up with the [facility] because he is seeking a new PCP. I discussed results with patient and he agrees with this plan. He is hemodynamically stable upon discharge. Strict return precautions given and he will otherwise follow up with the [facility]. - Diagnoses Provider Diagnoses: Chronic back pain Discharge - Sign-Out/Discharge Documenting (check all that apply): Patient Departure - Discharge Plan Condition: Stable Disposition: HOME Patient Education Materials: Chronic Back Pain (ED) Referrals: No Primary Care Phys,NOPCP [Primary Care Provider] - 3 Days (Refer to the [facility] for a potentially new PCP. ) Additional Instructions: RETURN TO THE EMERGENCY DEPARTMENT FOR CHANGING OR WORSENING SYMPTOMS. - Attestation Statements Document Initiated by Scribe: Yes Documenting Scribe: Rasta Osuna Provider For Whom Scribe is Documenting (Include Credential): Beto Lambert MD Scribe Attestation: Rasta Weeks, scribed for Beto Lambert MD on 06/14/18 at 1113.
[2018-06-14 10:57] VITALS: BP 0/0
== END 2018-06-14 10:34 | disposition home or self-care (01) ==
LOC: ED 09:20
DX: M54.9 Dorsalgia, unspecified (principal); R11.2 Nausea with vomiting, unspecified; E11.9 Type 2 diabetes mellitus without complications; F17.210 Nicotine dependence, cigarettes, uncomplicated
CPT/HCPCS: 99281

== ENCOUNTER 2018-08-20 03:02 | Emergency (ER) | payer MEDICARE ==
[2018-08-20 03:12] VITALS: BP 124/106
--- NOTE | 2018-08-20 03:27 | ED ---
Lower Extremity - HPI Summary HPI Summary: This patient is a 72 year old M [facility] accompanied with a chief complaint of pedal pain. The patient fell on 5 days ago and has been feeling pain in his feet ever since. He also complains of pedal edema and blisters on his feet that he did not notice prior to his fall. The patient has back pain and fell in his home when his back gave out. He did not feel like he had gotten injured when he fell but noticed problems in his feet the next day. He describes the pain as throbbing from the calf down through his feet. He rates the pain 9/10 in severity. The patient states he is experiencing tachycardia The patient has Hx of diabetes. - History of Current Complaint Chief Complaint: EDExtremityLower Stated Complaint: GENERAL ILLNESS Time Seen by Provider: 08/20/18 03:17 Hx Obtained From: Patient Mechanism Of Injury: Fall From A Standing Position Onset of Pain: Days Onset/Duration: Days Severity Initially: Severe Severity Currently: Severe Pain Intensity: 9 Pain Scale Used: 0-10 Numeric Timing: Constant Location: Is Diffuse - From both calfs down through his feet Character Of Pain: Throbbing Associated Signs And Symptoms: Positive: Swelling, Other - Blistering Aggravating Factor(s): Nothing Alleviating Factor(s): Nothing Able to Bear Weight: Yes - Risk Factors Gout Risk Factors: Age Over 40 - Allergies/Home Medications Allergies/Adverse Reactions: Allergies Allergy/AdvReac Type Severity Reaction Status Date / Time No Known Allergies Allergy Verified 06/13/18 00:47 PMH/Surg Hx/FS Hx/Imm Hx Endocrine/Hematology History: Reports: Hx Diabetes - type 2 Denies: Hx Thyroid Disease Cardiovascular History: Reports: Hx Hypertension - no meds Denies: Other Cardiovascular Problems/Disorders Respiratory History: Reports: Other Respiratory Problems/Disorders - HISTORY OF PNEUMONIA SEVERAL TIMES PER PATIENT Denies: Hx Asthma, Hx Chronic Obstructive Pulmonary Disease (COPD) GI History: Denies: Hx Ulcer, Other GI Disorders Musculoskeletal History: Denies: Other Musculoskeletal History - CHRONIC BACK PAIN Sensory History: Reports: Hx Cataracts, Hx Contacts or Glasses - GLASSES-READING Denies: Hx Hearing Aid Opthamlomology History: Reports: Hx Cataracts, Hx Contacts or Glasses - GLASSES- READING Neurological History: Denies: Other Neuro Impairments/Disorders Psychiatric History: Denies: Hx Eating Disorder, Hx of Violent Episodes Against Others - Surgical History Surgery Procedure, Year, and Place: cataracts Hx Anesthesia Reactions: No - Immunization History Date of Tetanus Vaccine: unk Date of Influenza Vaccine: fall 2016 Infectious Disease History: No Infectious Disease History: Reports: Hx Hepatitis - Hep C, Hx Shingles - 1998 Denies: Hx Clostridium Difficile, Hx Human Immunodeficiency Virus (HIV), Hx of Known/Suspected MRSA, Hx Tuberculosis, Hx Known/Suspected VRE, Hx Known/ Suspected VRSA, History Other Infectious Disease, Traveled Outside the [place] in Last 30 Days - Family History Known Family History: Positive: Hypertension - parents, Diabetes - parents Negative: Cardiac Disease - Social History Alcohol Use: None Substance Use Type: Reports: None Hx Tobacco Use: Yes Smoking Status (MU): Heavy Every Day Tobacco Smoker Type: Cigarettes Amount Used/How Often: 1/2 PPD X 40+ YEARS Have You Smoked in the Last Year: Yes Review of Systems Negative: Fever Positive: Other - Tachycardia Positive: Other - Pain from the calfs down Positive: Other - Blistering on feet All Other Systems Reviewed And Are Negative: Yes Physical Exam - Summary Physical Exam Summary: Appearance: Well-appearing, Well-nourished, lying in bed comfortably. Tachycardia Skin: Warm, dry, no obvious rash. Several blisters on toes of both feet without associated cellulitis. Eyes: sclera anicteric, no conjunctival pallor ENT: mucous membranes moist, pharynx appears normal Neck: Supple, nontender Respiratory: Clear to auscultation, no signs of respiratory distress Cardiovascular: Normal S1, S2. No murmurs. Normal distal pulses in tibial and radial bilaterally. Abdomen: Soft, nontender, normal active bowel sounds present Musculoskeletal: Normal, Strength/ROM Neurological: A&Ox3, awake and alert, mentation is normal, speech is fluent and appropriate. Appears somewhat confused at time. Has difficulty answering questions at times. Psychiatric: affect is normal, does not appear anxious or depressed Triage Information Reviewed: Yes Vital Signs On Initial Exam: Initial Vitals Temp Pulse Resp BP Pulse Ox 98.2 F 139 18 124/106 95 08/20/18 03:06 08/20/18 03:06 08/20/18 03:06 08/20/18 03:06 08/20/18 03:06 Vital Signs Reviewed: Yes Diagnostics - Vital Signs Vital Signs Temp Pulse Resp BP Pulse Ox 08/20/18 03:06 98.2 F 139 18 124/106 95 - Laboratory Result Diagrams: 08/20/18 03:35 08/20/18 03:35 Lab Statement: Any lab studies that have been ordered have been reviewed, and results considered in the medical decision making process. Re-Evaluation - Re-Evaluation First Eval Re-Evaluation Time: 06:11 Comment: I contacted the patient because of an elevated troponin level came back subsequent to his discharge AGAINST MEDICAL ADVICE. I informed him that it indicated possible damage to his heart and was quite serious and that he should return for further evaluation. Patient indicated he would try to do that today. Despite my repeated and clearly stated concerns regarding the seriousness of his situation, the patient did not appear to take this seriously. Lower Extremity Course/Dx - Course Course Of Treatment: This patient is a 72 year old M presenting to [facility] accompanied with a chief complaint of pedal pain. The patient fell on 5 days ago and has been feeling pain in his feet ever since. Soon after arrival, the patient briefly decided he wanted to go home. I explained that he has a very rapid heart rate and may be suffering from some type of cardiac problem, which he seems to understand, but continues to insist on going home. He states "if I on the way home, that's just the way it goes". He did not seem particularly upset at the care thus far. He declined any referrals are discharge instructions but did sign the AMA form. - Diagnoses Provider Diagnoses: Tachycardia, Foot pain, bilateral Discharge - Sign-Out/Discharge Documenting (check all that apply): Patient Departure - Discharge against medical advice. - Discharge Plan Condition: Stable Disposition: AGAINST MEDICAL ADVICE Referrals: No Primary Care Phys,NOPCP [Primary Care Provider] - - Billing Disposition and Condition Condition: STABLE Disposition: Against Medical Advice - Attestation Statements Document Initiated by Scribe: Yes Documenting Scribe: Pal Yu Provider For Whom Lisa is Documenting (Include Credential): Solo Bennett MD Scribe Attestation: Pal Weeks, scribed for Solo Bennett MD on 08/20/18 at 0613. Scribe Documentation Reviewed: Yes Provider Attestation: The documentation as recorded by the Pal juarez accurately reflects the service I personally performed and the decisions made by me, Solo Bennett MD
[2018-08-20] MEDS ORDERED: NS 0.9% 1000 ML* 2,000 ML IV ONE (03:28)
[2018-08-20 03:41] LABS: ABS Basophils 0.2 10^3/ul (0-0.2); ABS Eosinophils 0.2 10^3/ul (0-0.6); ABS Lymphocytes 1.2 10^3/ul (1.0-4.8); ABS Neutrophils 6.8 10^3/ul (1.5-7.7); ABS Nucleated RBC 0 10^3/ul; Hematocrit 43 % (42-52); Hemoglobin 14.6 g/dl (14.0-18.0); Lymphocyte % 12.7 % (25-47); Mean Corpuscular HGB Conc 34 g/dl (31-36); Mean Corpuscular Hemoglobin 29 pg (27-31); Mean Corpuscular Volume 86 fL (80-94); Mean Platelet Volume 8.5 fL (7.4-10.4); Nucleated Red Blood Cells % 0.1; Platelet Count 171 10^3/ul (150-450); Red Blood Count 4.97 10^6/ul (4.00-5.40); Red Cell Distribution Width 14 % (10.5-15); White Blood Count 9.4 10^3/ul (3.5-10.8)
[2018-08-20 03:59] LABS: EGFR Non-African American 73.9 (>60)
== END 2018-08-20 03:49 | disposition left against medical advice (07) ==
LOC: ED 03:02
DX: M79.672 Pain in left foot (principal); M79.671 Pain in right foot; R00.0 Tachycardia, unspecified; F17.210 Nicotine dependence, cigarettes, uncomplicated
CPT/HCPCS: 36415; 80053; 83605; 83735; 84443; 84484; 85025; 99282

== ENCOUNTER 2018-09-13 01:36 | Inpatient (IN) | payer MEDICARE ==
[2018-09-13] MEDS ORDERED: Albuterol/Ipratropium NEB.SOL* Albuterol 2.5 MG/Ipratropium 0.5 MG 3 ML INH ONE (01:42)
[2018-09-13] MEDS ORDERED: Magnesium Sulfate 2 GM IV* 2 GM/50 ML BAG IVPB ONE (01:43)
[2018-09-13] MEDS ORDERED: methylPREDNISolone 125 MG* 2 ML VIAL IV ONE (01:43)
[2018-09-13] MEDS ORDERED: LORazepam INJ* 2 MG/ML 1 ML VIAL IV PUSH ONE ×2 (01:45→03:49)
[2018-09-13] MEDS ORDERED: nitroGLYCERIN DRIP* 25,000 MCG/250 ML BTL IV ONE (01:47)
--- NOTE | 2018-09-13 01:47 | ED ---
Shortness of Breath - HPI Summary HPI Summary: Patient is a 72 y/o M presenting to ED with severe SOB and respiratory distress. He arrived via private car, he was unable to finish sentences secondary to respiratory distress. Provider in room to evaluate patient immediately upon arrival to ED room at 0138. Patient was placed on bipap and given nitro drip, morphine 4 mg IV, solu-medrol 125 mg IV, Ativan 1 mg IV, Lasix 40 mg IV, duoneb. By 0203, patient's condition improved, pulse in room was 127, BP 247/148, and o2 99. Patient reports that Sx onset today at 1600, notes that he is a longtime smoker. On triage, pain is denied, nothing is noted to aggravate/alleviate Sx. Home medications and allergies are reviewed. - History of Current Complaint Time Seen by Provider: 09/13/18 01:39 Hx Obtained From: Patient Onset/Duration: Lasting Hours - reports onset 1600, Still Present, Worse Since Timing: Constant Current Severity: Severe Dyspnea At: Rest Aggrevating Factors: Nothing Alleviating Factors: Oxygen, Other - ED medications Associated Signs & Symptoms: Wheezing - Allergy/Home Medications Allergies/Adverse Reactions: Allergies Allergy/AdvReac Type Severity Reaction Status Date / Time No Known Allergies Allergy Verified 06/13/18 00:47 PMH/Surg Hx/FS Hx/Imm Hx Endocrine/Hematology History: Reports: Hx Diabetes - type 2 Denies: Hx Thyroid Disease Cardiovascular History: Reports: Hx Hypertension - no meds Denies: Other Cardiovascular Problems/Disorders Respiratory History: Reports: Other Respiratory Problems/Disorders - HISTORY OF PNEUMONIA SEVERAL TIMES PER PATIENT Denies: Hx Asthma, Hx Chronic Obstructive Pulmonary Disease (COPD) GI History: Denies: Hx Ulcer, Other GI Disorders Musculoskeletal History: Denies: Other Musculoskeletal History - CHRONIC BACK PAIN Sensory History: Reports: Hx Cataracts, Hx Contacts or Glasses - GLASSES-READING Denies: Hx Hearing Aid Opthamlomology History: Reports: Hx Cataracts, Hx Contacts or Glasses - GLASSES- READING Neurological History: Denies: Other Neuro Impairments/Disorders Psychiatric History: Denies: Hx Eating Disorder, Hx of Violent Episodes Against Others - Surgical History Surgery Procedure, Year, and Place: cataracts Hx Anesthesia Reactions: No - Immunization History Date of Tetanus Vaccine: unk Date of Influenza Vaccine: fall 2016 Infectious Disease History: Reports: Hx Hepatitis - Hep C, Hx Shingles - 1998 Denies: Hx Clostridium Difficile, Hx Human Immunodeficiency Virus (HIV), Hx of Known/Suspected MRSA, Hx Tuberculosis, Hx Known/Suspected VRE, Hx Known/ Suspected VRSA, History Other Infectious Disease - Family History Known Family History: Positive: Hypertension - parents, Diabetes - parents Negative: Cardiac Disease - Social History Alcohol Use: None Substance Use Type: Reports: None Hx Tobacco Use: Yes Smoking Status (MU): Heavy Every Day Tobacco Smoker Type: Cigarettes Amount Used/How Often: 1/2 PPD X 40+ YEARS Have You Smoked in the Last Year: Yes Review of Systems Negative: Fever - on vitals, temp is 96.9 F Positive: Shortness Of Breath All Other Systems Reviewed And Are Negative: Yes Physical Exam - Summary Physical Exam Summary: VITAL SIGNS: Reviewed. GENERAL: Patient is a well-developed and nourished male who is anxious appearing, diaphoretic, and unable to finish sentences secondary to respiratory distress HEAD AND FACE: No signs of trauma. No ecchymosis, hematomas or skull depressions. No sinus tenderness. EYES: PERRLA, EOMI x 2, No injected conjunctiva, no nystagmus. EARS: Hearing grossly intact. Ear canals and tympanic membranes are within normal limits. MOUTH: Oropharynx within normal limits. NECK: Supple, trachea is midline, no adenopathy, no JVD, no carotid bruit, no c- spine tenderness, neck with full ROM. CHEST: Symmetric, no tenderness at palpation LUNGS: Decreased breath sounds bilaterally, rales and rhonci bilaterally CVS: Regular rate and rhythm, S1 and S2 present, no murmurs or gallops appreciated. ABDOMEN: Soft, non-tender. No signs of distention. No rebound no guarding, and no masses palpated. Bowel sounds are normal. EXTREMITIES: FROM in all major joints, no edema, no cyanosis or clubbing. NEURO: Alert and oriented x 3. No acute neurological deficits. Speech is normal and follows commands. SKIN: Dry and warm Triage Information Reviewed: Yes Vital Signs On Initial Exam: Initial Vitals Temp Pulse Resp Pulse Ox 96.9 F 168 40 92 09/13/18 01:41 09/13/18 01:41 09/13/18 01:41 09/13/18 01:41 Vital Signs Reviewed: Yes Diagnostics - Laboratory Result Diagrams: 09/13/18 01:52 09/13/18 01:52 Lab Statement: Any lab studies that have been ordered have been reviewed, and results considered in the medical decision making process. - Radiology CXR Radiology Interpretation Completed By: ED Physician Summary of Radiographic Findings: CXR: interstitial infiltrate consistent with bilateral pulmonary edema. - EKG 0210 Cardiac Rate: Tachycardia - rate of 132 BPM EKG Rhythm: Sinus Tachycardia Ectopy: PACs Summary of EKG Findings: EKG showed sinus tachycardia with rate of 132 BPM, PACs , ST depression in lateral leads and LVH. Re-Evaluation - Re-Evaluation First Eval Re-Evaluation Time: 02:26 Change: Improved Comment: after nitro drip, BP 162/92, patient to be taken off of nitro and given nitro paste Second Eval Re-Evaluation Time: 02:33 Change: Unchanged Comment: Lab called to inform of lactic acid 4.2, trop 0.04 Course/Dx - Course Course Of Treatment: Patient is a 72 y/o M presenting to ED with severe SOB and respiratory distress. He arrived via private car, he was unable to finish sentences secondary to respiratory distress. Provider in room to evaluate patient immediately upon arrival to ED room at 0138. Physical exam showed patient is a well-developed and nourished male who is anxious appearing, diaphoretic, and unable to finish sentences secondary to respiratory distress. Lung exam showed decreased breath sounds bilaterally, rales and rhonci bilaterally. Patient was placed on bipap and given nitro drip, morphine 4 mg IV , solu-medrol 125 mg IV, Ativan 1 mg IV, Lasix 40 mg IV, duoneb. CXR: interstitial infiltrate consistent with bilateral pulmonary edema. By 0203, patient's condition improved, pulse in room was 127, BP 247/148, and o2 99. Patient reports that Sx onset today at 1600, notes that he is a longtime smoker. 0226 - after nitro drip, BP 162/92, patient to be taken off of nitro and given nitro paste. EKG showed sinus tachycardia with rate of 132 BPM, PACs , ST depression in lateral leads and LVH. Labs showed WBC 19.6, RBC 5.72, absolute neuts 11.9 absolute lymphs 4.9, absolute monos 1.8, absolute eos 0.8, APTT 23.7, sodium 131, chloride 98, BUN/creatinine ratio 22.5, glucose 243, lactic acid 4.2, trop 0.04, CRP < 1, BNP 609. Influenza A, B was negative. Blood gas showed ABG 7.34, pCO2 36, pO2 63, HCO3 20.3, o2 sat 93.7, base excess -5.6. Patient also received albuterol 2.5 mg INH Q20M SADAF, two doses, ASA 324 mg PO, insulin 2 units IV PUSH, and magnesium sulfate 2 gm in 50 mls @ 50 mls/ hr IVPB. Patient's case was discussed with Dr. Zamarripa, Dr. Zamarripa accepts patient for admission. - Diagnoses Provider Diagnoses: HTN (hypertension), Pulmonary edema - Physician Notifications Discussed Care of Patient With: Terrie Zamarripa Time Discussed With Above Provider: 02:37 Instructed by Provider To: Other - 0234 - hospitalist paged; 0237 - Patient's case was discussed with Dr. Zamarripa, Dr. Zamarripa accepts patient for admission. - Critical Care Time Critical Care Time: 30-74 min - 50 minutes Discharge - Sign-Out/Discharge Documenting (check all that apply): Patient Departure - admit - Discharge Plan Condition: Good Disposition: ADMITTED TO [facility] Referrals: No Primary Care Phys,NOPCP [Primary Care Provider] - - Attestation Statements Document Initiated by Scribe: Yes Documenting Scribe: ALCIRA LINTON Provider For Whom Jenniferibe is Documenting (Include Credential): MITRA ADLER MD Scribe Attestation: ALCIRA Weeks, scribed for MITRA ADLER MD on 09/13/18 at 0316. Status of Scribe Document: Ready
[2018-09-13] MEDS ORDERED: Morphine VIAL* 4 MG/ML VIAL (1 ml vial) IV ONE (01:48)
[2018-09-13] MEDS ORDERED: LORazepam INJ* 2 MG/ML 1 ML VIAL ONE (01:48)
[2018-09-13] MEDS ORDERED: Furosemide IV* 10 MG/ML VIAL (40 MG) IV ONE (01:48)
[2018-09-13] MEDS ORDERED: Morphine VIAL* 4 MG/ML VIAL (1 ml vial) ONE (01:50)
[2018-09-13] MEDS ORDERED: Magnesium Sulfate 2 GM IV* 0 GM/0 ML BAG ONE (02:03)
[2018-09-13 02:10] LABS: Hematocrit 50 % (42-52); Hemoglobin 16.4 g/dl (14.0-18.0); Mean Corpuscular HGB Conc 33 g/dl (31-36); Mean Corpuscular Hemoglobin 29 pg (27-31); Mean Corpuscular Volume 87 fL (80-94); Mean Platelet Volume 9.8 fL (7.4-10.4); Platelet Count 224 10^3/ul (150-450); Red Blood Count 5.72 10^6/ul (4.00-5.40); Red Cell Distribution Width 14 % (10.5-15); White Blood Count 19.6 10^3/ul (3.5-10.8)
[2018-09-13 02:17] LABS: INR 0.94 (0.77-1.02)
[2018-09-13] MEDS ORDERED: Aspirin 81 mg CHEW TAB* 81 MG TAB.CHEW PO ONE (02:28)
[2018-09-13 02:29] LABS: EGFR Non-African American 84.5 (>60)
[2018-09-13] MEDS ORDERED: Nitroglycerin 2% OINT* 1 GM PAK TOPICAL ONE (02:30)
[2018-09-13] MEDS ORDERED: Insulin REGULAR(*) 1 UNITS UNIT IV PUSH ONE (02:31)
[2018-09-13 02:46] LABS: ABS Basophils 0.2 10^3/ul (0-0.2); ABS Eosinophils 0.8 10^3/ul (0-0.6); ABS Lymphocytes 4.9 10^3/ul (1.0-4.8); ABS Monocytes 1.8 10^3/ul (0-0.8); ABS Neutrophils 11.9 10^3/ul (1.5-7.7); ABS Nucleated RBC 0 10^3/ul; Eosinophil % 3.8 %; Lymphocyte % 25.2 %; Nucleated Red Blood Cells % 0.1
[2018-09-13] MEDS: Albuterol 2.5 MG/3 ML NEB.SOL* (0.083%) INH SCH ×2 (02:48→03:18)
--- NOTE | 2018-09-13 02:57 | ADMNOTE ---
Subjective Date of Service: 09/13/18 Interval History: code status full this is admission h/p pt is a poor historian and sister does not know all his phx and meds hpi this is a 72 yr old wm with hx of copd not on home oxygen but still smokes decided to drive to er after he had increased sob since 4 pm. pt was found in mod respiratory distress. pt got duoneb/ lasix 40 mg ivp along with solumderol. intial wbc is 19 bnp 600 chest x ray did not reveal acute focal infil pt trop was 0.04 and was started with iv nitro drip for his chf symptoms both were d/cd due to dropping sbp to 90s. initial ekg showed st t depression on v4/v5 but later reversed after nitro drip was discontinued by er. pt got ativan 1 mg along with morphine 4 mg for his sob while on bipap. intial abg is 7.34/36/63/21 / sat 94 percent phx copd not on home oxygen still smokes one ppd type ii dm peripheral neuropathy anxiety pshx none social at least one ppd no etoh walks with a parker lives alone fhx htn/dm/cad Review of Systems - Measurements Intake and Output: Intake and Output Last 24 Hours 09/10/18 09/11/18 09/12/18 09/13/18 06:59 06:59 06:59 06:59 Intake Total 18 Balance 18 Weight 150 lb Intake: IV Fluids 18 - Review of Systems General Comments: pertinent as per hpi Objective Active Medications: Nitroglycerin/Dextrose (Nitroglycerin Drip*) 25,000 mcg in 250 mls @ 12 mls/hr IV ED ONCE ONE Stop: 09/13/18 22:36 Last Admin: 09/13/18 02:08 Dose: 6 mls/hr Vital Signs - 8 hr 09/13/18 09/13/18 09/13/18 01:41 01:44 01:58 Temperature 96.9 F Pulse Rate 168 156 145 Respiratory 40 42 32 Rate Blood Pressure 245/187 247/148 (mmHg) O2 Sat by Pulse 92 94 94 Oximetry 09/13/18 09/13/18 09/13/18 01:59 02:00 02:07 Temperature Pulse Rate 157 155 Respiratory 30 39 30 Rate Blood Pressure (mmHg) O2 Sat by Pulse 97 99 Oximetry 09/13/18 09/13/18 02:11 02:44 Temperature Pulse Rate 131 117 Respiratory 44 32 Rate Blood Pressure 182/120 (mmHg) O2 Sat by Pulse 100 94 Oximetry Oxygen Devices in Use Now: BiPAP, Other - bipap Appearance: in mild distress still Eyes: No Scleral Icterus, PERRLA Ears/Nose/Mouth/Throat: - - unable due to bipap Neck: NL Appearance and Movements; NL JVP, Trachea Midline, No Thyroid Enlargement, Masses Respiratory: Symmetrical Chest Expansion and Respiratory Effort, - - very decreased b/s diffuse with scattered wheezing Cardiovascular: NL Sounds; No Murmurs; No JVD, RRR Abdominal: NL Sounds; No Tenderness; No Distention Extremities: No Edema, - - able to raise his ue and le against gravity Skin: No Rash or Ulcers Neurological: Alert and Oriented x 3, NL Sensation, NL Muscle Strength and Tone Result Diagrams: 09/13/18 01:52 09/13/18 02:38 Microbiology and Other Data: Microbiology 09/13/18 01:58 Influenza Types A,B Antigen - Final Nasopharyngeal Specimen received for Influenza A/B Molecular testing EKG Data: ekg ns intial st -t depression on v44/v5 resolved Assess/Plan/Problems-Billing Assessment: this is a 72 yr old wm with hx of copd presented to er with sob ---> most likely due to copd/emphysema excerbation. he was found to have st t depression on intial ekg but later resolved. pt denied any cardiac dz but is a dm and still smokes intial wbc was 19.6 but chest x ray did not reveal any discrete infil. bnp is 600s got lasix 40 mg ivp besides ns bolus one liter from er. - Patient Problems (1) COPD with acute exacerbation Current Visit: Yes Status: Acute Code(s): J44.1 - CHRONIC OBSTRUCTIVE PULMONARY DISEASE W (ACUTE) EXACERBATION SNOMED Code(s): 661558393 Comment: bipap support abg at 8 am resp treatment abx robutussin will use solucortef instead of solumderol due to borderline sbp (2) SIRS (systemic inflammatory response syndrome) Current Visit: Yes Status: Acute Code(s): R65.10 - SIRS OF NON-INFECTIOUS ORIGIN W/O ACUTE ORGAN DYSFUNCTION SNOMED Code(s): 046483656 Comment: flu a/b were both neg ---> due to his copd excerbation with a touch of bronchitis will moniter cbc trend will do blood cx and start with levaquin ivf with ns 100 cc/hr (3) Bronchitis Current Visit: Yes Status: Acute Code(s): J40 - BRONCHITIS, NOT SPECIFIED ACUTE OR CHRONIC SNOMED Code(s): 19952083 Comment: levaquin ck sputum cx (4) Type II diabetes mellitus Current Visit: Yes Status: Acute Comment: ck his a1c insulin ss home meds ordered while waiting for him to update (5) Peripheral neuropathy Current Visit: Yes Status: Acute Code(s): G62.9 - POLYNEUROPATHY, UNSPECIFIED SNOMED Code(s): 634007557 Comment: on neurotin await for his sister to bring home meds to update home med list in am ck b12 (6) Diastolic CHF Current Visit: Yes Status: Acute Code(s): I50.30 - UNSPECIFIED DIASTOLIC ( CONGESTIVE) HEART FAILURE SNOMED Code(s): 190635721 Comment: got lasix 40 mg ivp from er no urine outpt yet this bnp could be just his baseline no prior data available no further lasix written tele with [email or web address] echo in am (7) Anxiety Current Visit: Yes Status: Acute Code(s): F41.9 - ANXIETY DISORDER, UNSPECIFIED SNOMED Code(s): 19054635 Comment: pt got one dose of ativan 1 mg from er on arrival and got another 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 psy consult (8) Cigarette smoker Current Visit: Yes Status: Acute Code(s): F17.210 - NICOTINE DEPENDENCE, CIGARETTES, UNCOMPLICATED SNOMED Code(s): 66989825 Comment: not ready to quit supportive care (9) Full code status Current Visit: Yes Status: Acute Code(s): Z78.9 - OTHER SPECIFIED HEALTH STATUS SNOMED Code(s): 843364004 (10) DVT prophylaxis Current Visit: Yes Status: Acute Code(s): JDX3711 - SNOMED Code(s): 978763190
[2018-09-13] MEDS ORDERED: Acetaminophen TAB* 325 MG PO PRN (03:36)
[2018-09-13] MEDS ORDERED: Albuterol 2.5 MG/3 ML NEB.SOL* (0.083%) INH PRN (03:36)
[2018-09-13] MEDS ORDERED: Cyclobenzaprine TAB* 10 MG PO PRN (03:41)
[2018-09-13] MEDS ORDERED: NS 0.9% 1000 ML* 1,000 ML IV SCH (03:45)
[2018-09-13] MEDS ORDERED: guaiFENesin LIQ* 100 MG/5 ML UDC PO PRN (03:45)
[2018-09-13] MEDS ORDERED: Piperacillin/Tazobac ADVAN(*) 3.375 GM in NS 0.9% 100 ML* 100 ML IVPB SCH (04:00)
[2018-09-13] MEDS ORDERED: Aspirin EC TAB* 325 MG PO SCH (04:00)
[2018-09-13] MEDS ORDERED: Levofloxacin TAB* 750 MG PO SCH ×2 (05:00→06:30)
[2018-09-13 05:39] LABS: ABS Basophils 0.1 10^3/ul (0-0.2); ABS Eosinophils 0 10^3/ul (0-0.6); ABS Lymphocytes 0.3 10^3/ul (1.0-4.8); ABS Monocytes 0.5 10^3/ul (0-0.8); ABS Neutrophils 14.5 10^3/ul (1.5-7.7); ABS Nucleated RBC 0 10^3/ul; Eosinophil % 0.3 %; Hematocrit 42 % (42-52); Hemoglobin 13.8 g/dl (14.0-18.0); Lymphocyte % 2.2 %; Mean Corpuscular HGB Conc 33 g/dl (31-36); Mean Corpuscular Hemoglobin 28 pg (27-31); Mean Corpuscular Volume 85 fL (80-94); Mean Platelet Volume 9.5 fL (7.4-10.4); Nucleated Red Blood Cells % 0; Platelet Count 132 10^3/ul (150-450); Red Blood Count 4.87 10^6/ul (4.00-5.40); Red Cell Distribution Width 14 % (10.5-15); White Blood Count 15.4 10^3/ul (3.5-10.8)
[2018-09-13] MEDS ORDERED: Nitroglycerin 2% OINT* 1 GM PAK TOPICAL SCH (06:00)
[2018-09-13 06:02] LABS: EGFR Non-African American 85.6 (>60)
[2018-09-13 06:05] VITALS: BP 148/63
[2018-09-13] MEDS ORDERED: Albuterol/Ipratropium NEB.SOL* Albuterol 2.5 MG/Ipratropium 0.5 MG 3 ML INH SCH (07:00)
[2018-09-13] MEDS ORDERED: Omeprazole CAP* 20 MG PO SCH (07:30)
[2018-09-13] MEDS ORDERED: Insulin REGULAR(*) 1 UNITS UNIT SUBCUT SCH (07:30)
--- NOTE | 2018-09-13 07:48 | DCNOTE ---
Subjective Date of Service: 09/13/18 Interval History: pt started to pull out his bipap and ready to go home on his own twice . the second time he was pushing staff and pulling out his iv. security officers also called in due to his agitation. he is aao times three with poor decision making ---> called his sister who came in and took pt into her car to drive him home instead of pt's wanted to drive on his own car home ---> witnessed this with two security officers. pt is aao times three and signed ama form himself and knew the risks of leaving ama including Objective Active Medications: Acetaminophen (Tylenol Tab*) 650 mg PO Q6H PRN PRN Reason: FEVER/PAIN Albuterol (Ventolin 2.5 Mg/3 Ml Neb.Laya*) 2.5 mg INH Q2H PRN PRN Reason: sob/wheezing Albuterol/Ipratropium (Duoneb (Albuterol 2.5 Mg/Ipratropium 0.5 Mg)) 1 neb INH RT.[id number] AWAKE [facility] Aspirin (Ecotrin Ec Tab*) 325 mg PO DAILY [facility] Last Admin: 09/13/18 05:28 Dose: 325 mg Cyclobenzaprine HCl (Flexeril Tab*) 10 mg PO BID PRN PRN Reason: SPASMS - BACK Gabapentin (Neurontin Cap(*)) 300 mg PO TID [facility] Guaifenesin (Robitussin*) 5 ml PO Q4H PRN PRN Reason: COUGH Hydrocortisone Sodium Succinate (Solu-Cortef*) 100 mg IV Q8H [facility] Nitroglycerin/Dextrose (Nitroglycerin Drip*) 25,000 mcg in 250 mls @ 12 mls/hr IV ED ONCE ONE Stop: 09/13/18 22:36 Last Admin: 09/13/18 02:08 Dose: 6 mls/hr Sodium Chloride (Ns 0.9% 1000 Ml*) 1,000 mls @ 100 mls/hr IV PER RATE [facility] Insulin Human Regular (Insulin Regular(*)) 0 units SUBCUT ACHS [facility]; Protocol Levofloxacin (Levaquin Tab*) 750 mg PO Q24H [facility] Last Admin: 09/13/18 05:27 Dose: 750 mg Nitroglycerin (Nitroglycerin 2% Oint*) 0.5 inch TOPICAL Q6HR [facility]; Protocol Last Admin: 09/13/18 05:26 Dose: Not Given Omeprazole (Prilosec Cap*) 20 mg PO DAILY@0730 [facility] Vital Signs - 8 hr 09/13/18 09/13/18 09/13/18 01:41 01:44 01:58 Temperature 96.9 F Pulse Rate 168 156 145 Respiratory 40 42 32 Rate Blood Pressure 245/187 247/148 (mmHg) O2 Sat by Pulse 92 94 94 Oximetry 09/13/18 09/13/18 09/13/18 01:59 02:00 02:07 Temperature Pulse Rate 157 155 Respiratory 30 39 30 Rate Blood Pressure (mmHg) O2 Sat by Pulse 97 99 Oximetry 09/13/18 09/13/18 09/13/18 02:11 02:24 02:44 Temperature Pulse Rate 131 133 103 Respiratory 44 36 32 Rate Blood Pressure 182/120 163/92 (mmHg) O2 Sat by Pulse 100 91 94 Oximetry 09/13/18 09/13/18 09/13/18 02:52 03:00 03:07 Temperature Pulse Rate 121 92 106 Respiratory 32 31 23 Rate Blood Pressure 136/78 127/77 (mmHg) O2 Sat by Pulse 94 95 95 Oximetry 09/13/18 09/13/18 09/13/18 03:22 03:28 03:52 Temperature Pulse Rate 103 108 Respiratory 31 33 30 Rate Blood Pressure 94/70 114/80 130/70 (mmHg) O2 Sat by Pulse 95 96 Oximetry 09/13/18 09/13/18 09/13/18 04:00 04:12 04:13 Temperature 96.6 F Pulse Rate 103 105 Respiratory 27 31 Rate Blood Pressure 148/77 147/76 (mmHg) O2 Sat by Pulse 95 96 Oximetry 09/13/18 09/13/18 09/13/18 04:14 04:15 04:16 Temperature 96.9 F Pulse Rate 104 103 Respiratory 22 20 30 Rate Blood Pressure 148/77 130/70 (mmHg) O2 Sat by Pulse 93 97 Oximetry 09/13/18 09/13/18 09/13/18 05:00 05:01 06:00 Temperature Pulse Rate 105 106 Respiratory 30 29 21 Rate Blood Pressure 147/67 (mmHg) O2 Sat by Pulse 97 98 Oximetry 09/13/18 06:01 Temperature Pulse Rate 106 Respiratory 29 Rate Blood Pressure 148/63 (mmHg) O2 Sat by Pulse 92 Oximetry Oxygen Devices in Use Now: BiPAP, Other - bipap Result Diagrams: 09/13/18 05:17 09/13/18 05:17 Microbiology and Other Data: Microbiology 09/13/18 01:58 Influenza Types A,B Antigen - Final Nasopharyngeal Specimen received for Influenza A/B Molecular testing EKG Data: ekg ns intial st -t depression on v44/v5 resolved Assess/Plan/Problems-Billing Assessment: this is a 72 yr old wm with hx of copd presented to er with sob ---> most likely due to copd/emphysema excerbation. he was found to have st t depression on intial ekg but later resolved. pt denied any cardiac dz but is a dm and still smokes intial wbc was 19.6 but chest x ray did not reveal any discrete infil. bnp is 600s got lasix 40 mg ivp besides ns bolus one liter from er. - Patient Problems (1) COPD with acute exacerbation Current Visit: Yes Status: Acute Code(s): J44.1 - CHRONIC OBSTRUCTIVE PULMONARY DISEASE W (ACUTE) EXACERBATION SNOMED Code(s): 146782068 Comment: bipap support abg at 8 am resp treatment abx robutussin will use solucortef instead of solumderol due to borderline sbp (2) SIRS (systemic inflammatory response syndrome) Current Visit: Yes Status: Acute Code(s): R65.10 - SIRS OF NON-INFECTIOUS ORIGIN W/O ACUTE ORGAN DYSFUNCTION SNOMED Code(s): 812861501 Comment: flu a/b were both neg ---> due to his copd excerbation with a touch of bronchitis will moniter cbc trend will do blood cx and start with levaquin ivf with ns 100 cc/hr (3) Bronchitis Current Visit: Yes Status: Acute Code(s): J40 - BRONCHITIS, NOT SPECIFIED ACUTE OR CHRONIC SNOMED Code(s): 64705492 Comment: levaquin ck sputum cx (4) Type II diabetes mellitus Current Visit: Yes Status: Acute Comment: ck his a1c insulin ss home meds ordered while waiting for him to update (5) Peripheral neuropathy Current Visit: Yes Status: Acute Code(s): G62.9 - POLYNEUROPATHY, UNSPECIFIED SNOMED Code(s): 202349364 Comment: on neurotin await for his sister to bring home meds to update home med list in am ck b12 (6) Diastolic CHF Current Visit: Yes Status: Acute Code(s): I50.30 - UNSPECIFIED DIASTOLIC ( CONGESTIVE) HEART FAILURE SNOMED Code(s): 446567982 Comment: got lasix 40 mg ivp from er no urine outpt yet this bnp could be just his baseline no prior data available no further lasix written tele with kenneth echo in am (7) Anxiety Current Visit: Yes Status: Acute Code(s): F41.9 - ANXIETY DISORDER, UNSPECIFIED SNOMED Code(s): 91473920 Comment: pt got one dose of ativan 1 mg from er on arrival and got another 0.5 mg ativan from this information writer still wait for his home meds ? psy consult (8) Cigarette smoker Current Visit: Yes Status: Acute Code(s): F17.210 - NICOTINE DEPENDENCE, CIGARETTES, UNCOMPLICATED SNOMED Code(s): 49046989 Comment: not ready to quit supportive care (9) Full code status Current Visit: Yes Status: Acute Code(s): Z78.9 - OTHER SPECIFIED HEALTH STATUS SNOMED Code(s): 187293083 (10) DVT prophylaxis Current Visit: Yes Status: Acute Code(s): OXB1075 - SNOMED Code(s): 312163985
[2018-09-13] MEDS ORDERED: Hydrocortisone INJ* 100 MG VIAL IV SCH (09:00)
[2018-09-13] MEDS ORDERED: Gabapentin CAP(*) 300 MG PO SCH (09:00)
== END 2018-09-13 07:16 | disposition left against medical advice (07) | DRG 191 ==
LOC: ED 01:36 → ICU 03:36
PROVIDERS: ADMIT Internal Medicine; ATTEND Internal Medicine
PROC: 5A09357 Assistance with Respiratory Ventilation, Less than 24 Consecutive Hours, Continuous Positive Airway Pressure (ICD-10-PCS; principal; 2018-09-13)
DX: J44.1 Chronic obstructive pulmonary disease with (acute) exacerbation (principal); R65.10 Systemic inflammatory response syndrome (SIRS) of non-infectious origin without acute organ dysfunction; I50.30 Unspecified diastolic (congestive) heart failure; J40 Bronchitis, not specified as acute or chronic; E11.42 Type 2 diabetes mellitus with diabetic polyneuropathy; F41.9 Anxiety disorder, unspecified; F17.210 Nicotine dependence, cigarettes, uncomplicated; Z82.49 Family history of ischemic heart disease and other diseases of the circulatory system; Z83.3 Family history of diabetes mellitus
CPT/HCPCS: 36415; 71045; 80053; 80061; 82607; 82803; 83605; 83880; 84443; 84484; 85025; 85610; 85730; 86140; 87040; 93005; 99285; A9270-GY; J1940; J2060; J2270; J2930; J3475

== ENCOUNTER 2018-09-19 02:42 | Inpatient (IN) | payer MEDICARE ==
[2018-09-19] MEDS ORDERED: Ipratropium 0.5MG/2.5ML NEB* 0.5 MG/2.5 ML NEB.SOLN INH ONE (02:50)
[2018-09-19] MEDS ORDERED: Albuterol 0.5% CONC NEB.SOL* 5 MG/ML 20 ml BOT INH ONE (02:50)
[2018-09-19] MEDS ORDERED: methylPREDNISolone 125 MG* 2 ML VIAL IV ONE (02:53)
[2018-09-19] MEDS ORDERED: methylPREDNISolone 125 MG* 2 ML VIAL ONE (02:55)
--- NOTE | 2018-09-19 03:01 | ED ---
Shortness of Breath - HPI Summary HPI Summary: This patient is a 72 year old M presenting to [facility] with a chief complaint of SOB since 1 day ago. Patient was admitted to the [facility] ICU 1 week ago with the same symptoms but signed out AMA. The patient rates the pain 9/10 in severity. Symptoms aggravated by nothing. Symptoms alleviated by nothing. Patient denies swelling in legs, abd pain, or CP. Hx of DM. Patient is a daily smoker. - History of Current Complaint Hx Obtained From: Patient Onset/Duration: Gradual Onset, Lasting Days - 1 day, Still Present Timing: Constant Current Severity: Moderate Dyspnea At: Rest Aggrevating Factors: Nothing Alleviating Factors: Nothing - Allergy/Home Medications Allergies/Adverse Reactions: Allergies Allergy/AdvReac Type Severity Reaction Status Date / Time No Known Allergies Allergy Verified 09/19/18 02:49 PMH/Surg Hx/FS Hx/Imm Hx Endocrine/Hematology History: Reports: Hx Diabetes - type 2 Denies: Hx Thyroid Disease Cardiovascular History: Reports: Hx Hypertension - no meds Denies: Other Cardiovascular Problems/Disorders Respiratory History: Reports: Hx Chronic Obstructive Pulmonary Disease (COPD), Other Respiratory Problems/Disorders - HISTORY OF PNEUMONIA SEVERAL TIMES PER PATIENT Denies: Hx Asthma GI History: Denies: Hx Ulcer, Other GI Disorders Musculoskeletal History: Denies: Other Musculoskeletal History - CHRONIC BACK PAIN,neuropathy Sensory History: Reports: Hx Cataracts, Hx Contacts or Glasses, Hx Hearing Aid Opthamlomology History: Reports: Hx Cataracts, Hx Contacts or Glasses Neurological History: Denies: Other Neuro Impairments/Disorders Psychiatric History: Reports: Hx Anxiety Denies: Hx Eating Disorder, Hx of Violent Episodes Against Others - Surgical History Surgery Procedure, Year, and Place: cataracts Hx Anesthesia Reactions: No - Immunization History Date of Tetanus Vaccine: unk Date of Influenza Vaccine: fall 2016 Infectious Disease History: No Infectious Disease History: Reports: Hx Hepatitis - Hep C, Hx Shingles - 1998 Denies: Hx Clostridium Difficile, Hx Human Immunodeficiency Virus (HIV), Hx of Known/Suspected MRSA, Hx Tuberculosis, Hx Known/Suspected VRE, Hx Known/ Suspected VRSA, History Other Infectious Disease, Traveled Outside the in Last 30 Days - Family History Known Family History: Positive: Hypertension - parents, Diabetes - parents Negative: Cardiac Disease - Social History Alcohol Use: None Substance Use Type: Reports: None Hx Tobacco Use: Yes Smoking Status (MU): Heavy Every Day Tobacco Smoker Type: Cigarettes Amount Used/How Often: 1/2 PPD X 40+ YEARS Have You Smoked in the Last Year: Yes Review of Systems Negative: Fever Negative: Chest Pain Positive: Shortness Of Breath Negative: Abdominal Pain Negative: Edema All Other Systems Reviewed And Are Negative: Yes Physical Exam - Summary Physical Exam Summary: Appearance: Obvious respiratory distress Skin: Warm, dry, no obvious rash Eyes: sclera anicteric, no conjunctival pallor ENT: mucous membranes moist, pharynx appears normal Neck: Supple, nontender Respiratory: audible rhonchi, tachypnea Cardiovascular: Normal S1, S2. No murmurs. Noted to be tachycardic Abdomen: Soft, nontender, normal active bowel sounds present Musculoskeletal: Normal, Strength/ROM Intact, no peripheral edema Neurological: A&Ox3, awake and alert, mentation is normal, speech is fluent and appropriate Psychiatric: affect is normal, does not appear anxious or depressed Triage Information Reviewed: Yes Vital Signs On Initial Exam: Initial Vitals Temp Pulse Resp BP Pulse Ox 97.1 F 159 52 268/152 91 09/19/18 02:46 09/19/18 02:46 09/19/18 02:46 09/19/18 02:46 09/19/18 02:46 Vital Signs Reviewed: Yes Diagnostics - Vital Signs Vital Signs Temp Pulse Resp BP Pulse Ox 09/19/18 02:46 97.1 F 159 52 268/152 91 - Laboratory Result Diagrams: 09/20/18 09:40 09/20/18 09:40 Lab Statement: Any lab studies that have been ordered have been reviewed, and results considered in the medical decision making process. - Radiology CXR Radiology Interpretation Completed By: ED Physician Summary of Radiographic Findings: no acute infiltrates, possible pulmonary vasculature redistribution improved from prior film. - EKG 03:05 Cardiac Rate: Tachycardia - at 140 bpm EKG Rhythm: Sinus Tachycardia Ectopy: PACs - occasional Summary of EKG Findings: sinus tachycardia at [address] depressions in lateral leads (likely rate related) and occasional PACs Course/Dx - Course Course Of Treatment: This patient is a 72 year old M with hx DM presenting to [facility] with a chief complaint of SOB since 1 day ago. Patient was admitted to the [facility] 1 week ago with the same symptoms but signed out AMA. Pt is a daily smoker. An EKG reveals sinus tachycardia at [address] depressions in lateral leads (likely rate related) and occasional PACs. CXR reveals no acute infiltrates, possible pulmonary vasculature redistribution improved from prior film. Test results with no significant abnormalities except for elevated lactic acid. In the ED course the patient was given albuterol, solu-medrol, and Atrovent. We discussed patient care with Dr. Johnson, hospitalist, and they agreed to admit the patient. Patient will be admitted to [facility]. The patient is agreeable with this plan. - Diagnoses Provider Diagnoses: COPD exacerbation, Acute respiratory failure - Physician Notifications Discussed Care of Patient With: Pal Johnson Time Discussed With Above Provider: 04:14 Instructed by Provider To: Admit As Inpatient - Critical Care Time Critical Care Time: 30-74 min Discharge - Sign-Out/Discharge Documenting (check all that apply): Patient Departure - Discharge Plan Condition: Stable Disposition: ADMITTED TO [facility] - Billing Disposition and Condition Condition: STABLE Disposition: Admitted to [facility] - Attestation Statements Document Initiated by Scribe: Yes Documenting Scribe: Kellen Dobbs Provider For Whom Jenniferibe is Documenting (Include Credential): Solo Bennett MD Scribe Attestation: Kellen Weeks scribed for Solo Bennett MD on 09/23/18 at 0227. Scribe Documentation Reviewed: Yes Provider Attestation: The documentation as recorded by the jenniferibKellen ross accurately reflects the service I personally performed and the decisions made by , Solo Bennett MD Status of Scribe Document: Viewed
[2018-09-19 03:11] LABS: Hematocrit 44 % (42-52); Hemoglobin 14.4 g/dl (14.0-18.0); Mean Corpuscular HGB Conc 33 g/dl (31-36); Mean Corpuscular Hemoglobin 28 pg (27-31); Mean Corpuscular Volume 87 fL (80-94); Mean Platelet Volume 9.2 fL (7.4-10.4); Platelet Count 201 10^3/ul (150-450); Red Cell Distribution Width 14 % (10.5-15); White Blood Count 13.9 10^3/ul (3.5-10.8)
[2018-09-19 03:29] LABS: Calcium 9.5 mg/dL (8.6-10.3); EGFR Non-African American 91.6 (>60); Total Bilirubin 0.7 mg/dL (0.2-1.0)
[2018-09-19 03:31] LABS: ABS Basophils 0.1 10^3/ul (0-0.2); ABS Eosinophils 0.7 10^3/ul (0-0.6); ABS Lymphocytes 2.1 10^3/ul (1.0-4.8); ABS Monocytes 1.6 10^3/ul (0-0.8); ABS Neutrophils 9.5 10^3/ul (1.5-7.7); ABS Nucleated RBC 0 10^3/ul; Eosinophil % 4.9 %; Lymphocyte % 14.9 %; Nucleated Red Blood Cells % 0.1
[2018-09-19] MEDS ORDERED: Furosemide IV* 10 MG/ML VIAL (40 MG) IV SLOW PU ONE (04:45)
[2018-09-19] MEDS ORDERED: Albuterol/Ipratropium NEB.SOL* Albuterol 2.5 MG/Ipratropium 0.5 MG 3 ML INH PRN (04:47)
[2018-09-19] MEDS ORDERED: Dextrose 50% Syringe 50 ML* 25 GM/50 ML SYRINGE IV PUSH PRN (04:47)
[2018-09-19] MEDS ORDERED: Ondansetron INJ* 2 MG/ML VIAL IV PRN (04:47)
[2018-09-19] MEDS ORDERED: Morphine VIAL* 4 MG/ML VIAL (1 ml vial) IV ONE (05:07)
[2018-09-19] MEDS ORDERED: Nicotine Inhaler* 10 MG AMP INH PRN (05:10)
[2018-09-19] MEDS: Enoxaparin(*) 40 MG/0.4 ML SYR SUBCUT SCH (06:17)
[2018-09-19] MEDS: Ibuprofen TAB* 800 MG PO PRN ×2 (06:22→06:25)
[2018-09-19] MEDS: Mouth Piece, Nicotine* 1 EACH CARTRIDGE INH ONE ×2 (08:05→08:49)
--- NOTE | 2018-09-19 08:37 | HP ---
ADMISSION HISTORY AND PHYSICAL: DATE OF ADMISSION: 09/18/18 PRIMARY CARE PROVIDER: None. HEALTHCARE PROXY: "They are in [place]." CODE STATUS: Presumed full. SOURCE OF INFORMATION: History obtained from interview with the patient and discussion with ER staff. RELIABILITY: Very poor from the patient. CHIEF COMPLAINT: Hyperventilation. HISTORY OF PRESENT ILLNESS: This is a 72-year-old man with past medical history as outlined from his previous medical history and what could be obtained today including a reported history of COPD not on home oxygen and long- term tobacco use, who was recently admitted on 09/13/18 with hypoxic respiratory failure thought in the setting of COPD and bronchitis, potentially element of CHF, was admitted to the ICU at that point and left against medical advice approximately 4 hours after admission, now returning with hypoxic respiratory failure. The patient is awake but minimally interactive with this author. He does relay that after discharge he felt better, but then yesterday started feeling increasingly short of breath. He could not identify any exacerbating or relieving factors contributing to his shortness of breath or further characterize his shortness of breath. He does note he had an associated cough and that he felt better lying flat but reports over the night woke up feeling short of breath again and therefore, presented to the emergency room. On presentation to the emergency room, he was noted to be tachypneic and quite hypertensive. He was treated with albuterol, ipratropium, and 125 mg of methylprednisolone, placed on Vapotherm and I was consulted for admission. The patient notes he has had swelling in his feet and pain in his feet for many years. When seen by this author, he is moaning because of the pain in his feet. He declines the majority of my physical exam and the remainder of the history and physical. He does deny fevers, chills, night sweats, sick contacts. PAST MEDICAL HISTORY: Includes reportedly COPD from past medical records, current tobacco use, anxiety, type 2 diabetes, peripheral neuropathy, lower back pain per the patient. MEDICATIONS: From previous hospital stay, the patient will not confirm at this time: 1. Amlodipine 5 mg daily. 2. Janumet mg daily. 3. Metformin 1 tab daily, unknown dose. 4. Ibuprofen 800 mg every 6 hours as needed for pain. 5. Gabapentin 300 mg 3 times daily and a 300 mg tab twice daily. 6. Flexeril 10 mg twice daily as needed. 7. Albuterol 1 to 2 puffs every 6 hours as needed. ALLERGIES: From chart, no known drug allergies. FAMILY HISTORY: From chart hypertension, diabetes, and CAD. SOCIAL HISTORY: A 53-[id number]-[id number] history at least. No alcohol. Denies illicits. REVIEW OF SYSTEMS: Per HPI, otherwise unable to obtain. PHYSICAL EXAMINATION The patient declines the majority of my physical exam. I am able to listen to his lungs without deep inspiration. He is moaning because of pain in his feet and it makes auscultation difficult to appreciate, but I do appreciate rales in the lower lung soliman. He will not open his mouth. Heart sounds are difficult to appreciate, if not distant. He will not allow me to examine his abdomen. He has no lower extremity edema. His right first toe has significant ulceration without surrounding erythema. He is oriented. He knows he in a hospital and how he got here. He is able to indicate why he came here. When queried why he left the hospital last time, he indicates because "I was pissed off." Otherwise, no other apparent agitation. VITAL SIGNS: In the emergency room on presentation, blood pressure 268/152, it was 160/80 without antihypertensives administered; heart rate is 97; respiratory rate is 27; he was 88% on room air, increased to 98% on 40 L per minute 40% oxygen; T- max is 97.1. DIAGNOSTIC STUDIES/LAB DATA: Labs reviewed notable for a white blood cell count of 13.9, 68% neutrophils, hemoglobin 14.4, platelets 201,000. He has a VBG notable for pO2 of 50 on 40 L per minute 40% oxygen Vapotherm. He has a lactic acid of 3.0. Glucose 281. BNP 986. Chest x-ray notable for no focal consolidation potentially, early consolidation in the right lower base; however, increased pulmonary vascular congestion on this author's read, confirmed with a.m. official read. EKG: Sinus tachycardia, 140 beats per minute on presentation with deep ST depressions in V4 through V6, suspected LVH. ASSESSMENT AND PLAN: 1. Hypoxic respiratory failure in the setting of chronic obstructive pulmonary disease versus congestive heart failure. Pneumonia cannot be ruled out, although I favor congestive heart failure at this point. He has received 125 mg of IV methylprednisolone. We will continue IV steroids to continue 24 hours from now. 40 mg of IV Lasix now. 2 mg of IV morphine to assist with breathing and pain. Strict I's and O's. Daily weights. Low threshold to initiate antibiotics if other evidence of infection. Although elevated leukocytosis could be in the setting of reactive process to chronic obstructive pulmonary disease exacerbation and/or previous steroids he received just 6 days prior. We will admit to the intensive care unit to continue Vapotherm, titrate as able after initiation of above interventions. Official read of chest x-ray is pending this morning. 2. Type 2 diabetes. I am holding home medications until can be confirmed. Please note home medications all need to be confirmed, as the patient is not willing to converse in a meaningful manner with this author. Add hemoglobin A1c to ER labs. 3. Lactic acidosis, suspect in the setting of hypoxia. I do not believe this is sepsis and additionally has no other evidence of end-organ failure nor a source. Repeat with labs in 1 hour from now. 4. Hypertension, improved after initiation of Vapotherm here. Monitor and restart amlodipine 5 mg today. 5. Active tobacco use, suspect contributing to presentation as well as early departure on last hospital stay. Administer high-dose nicotine patch as well as nicotine inhaler. 6. ST depressions on presenting EKG, suspect rate related. Resolved on previous stay with rate control. Repeat EKG now. Check troponin at 6 hours at 6 a.m. 7. DVT prophylaxis. Lovenox. TIME SPENT: Greater than 60 minutes was spent on the admission of this patient , greater than half was spent [id number] with the patient. [id number]/[facility] #: [id number] [facility]PITALKim
[2018-09-19] MEDS: Nicotine PATCH 21 MG/24 HR* PATCH TRANSDERM SCH (08:48)
[2018-09-19] MEDS: Insulin LISPRO* 1 UNITS UNIT SUBCUT SCH ×4 (08:48→20:58)
[2018-09-19] MEDS: amLODIPine TAB* 5 MG PO SCH (08:49)
--- NOTE | 2018-09-19 08:59 | PN ---
Hospitalist Progress Note Date of Service: 09/19/18 I have seen and examined Mr. Sung and assume his care today. I evaluated him at 7:00 this morning and he declined my interview and exam. He had removed vapotherm and was resting comfortably. Then his RN paged me that he was dressed and wanting to leave so I came back to re-evaluate him. I explained my concerns and what I planned to work up and treat today and he is unable to repeat my concerns back to me. At this time, he does not have the ability to safely decide to leave; he needs an ABG and ammonia now. He denies any etoh/ drug use. After a long discussion, he agrees to stay. Care discussed with his nurse, who will try to re-insert an IV since he removed it; re-apply telemetry. Will await the TTE results, trend troponins, continue to treat as presumed copd exacerbation, and control blood pressure. I will continue to follow him closely. Appreciate social work consult to help evaluate his home situation. He says his only contact is his sister in [place] but he has no support here.
[2018-09-19] MEDS ORDERED: Gabapentin CAP(*) 300 MG PO SCH (09:00)
[2018-09-19] MEDS ORDERED: Spiriva Inhaler DEVICE* 1 EACH DEVICE INH ONE (09:00)
[2018-09-19] MEDS ORDERED: Haloperidol INJ IV/IM* 5 MG/ML AMP ONE (10:15)
[2018-09-19] MEDS ORDERED: hydrALAZINE IV* 20 MG/ML VIAL IV SLOW PU PRN (10:32)
[2018-09-19] MEDS ORDERED: LORazepam INJ* 2 MG/ML 1 ML VIAL IV PUSH PRN (10:33)
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
--- NOTE | 2018-09-19 11:10 | ECHO ---
Patient: CEM MÉNDEZ [facility] Rec#: [id number] : 1945 Date: 09/19/2018 Age: 72y Height: 175.26 cm / 69.0 in Weight: 58.97 kg / 130.0 lbs Sex: M BSA: 1.72 Room#: ICU7 Admit Date#: 09/19/2018 Type: Inpatient Referring: Pal Johnson MD Reading: Zana Pat MD Clinical Pharmacist: Helene Rizo [facility] Transthoracic Echocardiogram Indication: CHF BP: 173/125 HR: 92 Rhythm: NSR with PACs Findings History: DM, smoker,HTN,COPD. Technical Comments: The study is technically difficult. Patient only minimally cooperative with positioning. SSN and subcostal views not attempted. Completed at 0835. Left Ventricle: The left ventricular chamber size is decreased. Moderate concentric left ventricular hypertrophy is observed. Septal wall hypertrophy is observed. There is normal left ventricular systolic function. The estimated ejection fraction is 55-60%. Abnormal left ventricular diastolic function is observed. Left Atrium: The left atrium is moderately dilated. Right Ventricle: The right ventricular cavity size is normal. The right ventricular global systolic function is normal. Right Atrium: The right atrial cavity size is normal. Aortic Valve: The aortic valve is trileaflet. There is evidence of aortic sclerosis without stenosis. There is moderate aortic stenosis. Mitral Valve: There is mitral annular calcification. The mitral valve leaflets are mildly thickened. There is mild to moderate mitral regurgitation. There is no evidence of mitral stenosis. Tricuspid Valve: The tricuspid valve leaflets are normal. There is mild to moderate tricuspid regurgitation. There is evidence of mild pulmonary hypertension. There is no tricuspid stenosis. Pulmonic Valve: The pulmonic valve appears normal. There is mild pulmonic regurgitation. There is no pulmonic stenosis. Pericardium: The pericardium appears normal. Aorta: The ascending aorta is not well visualized. The aortic arch is not well visualized. There is no dilation of the aortic root. Pulmonary Artery: The main pulmonary artery appears normal. Venous: The venous system is not well visualized. Summary: There was not any prior study for comparison. Conclusions Moderate concentric left ventricular hypertrophy is observed. There is normal left ventricular systolic function. The estimated ejection fraction is 55-60%. There is evidence of aortic sclerosis without stenosis. There is mild to moderate mitral regurgitation. There is mild to moderate tricuspid regurgitation. There is evidence of mild pulmonary hypertension. The pericardium appears normal. Measurements Name Value Normal Range RVIDd (AP) 2D 2.9 cm (0.9 - 2.6) RVDdMajor (2D) 3.2 cm (2.2 - 4.4) RAd ISD 4CH 5.1 cm (3.4 - 4.9) RA (A4C)W 3.2 cm (2.9 - 4.6) IVSd (2D) 1.9 cm (0.6 - 1) LVPWd (2D) 1.4 cm (0.6 - 1) LVIDd (2D) 3.3 cm (3.6 - 5.4) Aortic Annulus 1.9 cm (1.4 - 2.6) Ao root diameter (2D) 3.3 cm (2.1 - 3.5) LA dimension (AP) 2D 4.6 cm (2.3 - 3.8) LAd ISD 4CH 4.6 cm (2.9 - 5.3) LA ISD 4CH W 4 cm (2.5 - 4.5) Name Value Normal Range LA ESV SP 4CH (A/L) 44 ml - LA ESV SP 2CH (A/L) 68 ml - LA ESV BP (A/L) 66 ml - LA ESV BP (A/L) index 38.26 ml/m2 - LA ESV SP 4CH (MOD) 40 ml - LA ESV SP 2CH (MOD) 63 ml - Name Value Normal Range MV E-wave Vmax 1.3 m/sec - MV deceleration time 123 msec - MV A-wave Vmax 1.2 m/sec - MV E:A ratio 1.1 ratio - LV septal e' Vmax 0.04 m/sec - LV lateral e' Vmax 0.05 m/sec - LV E:e' septal ratio 32.5 ratio - LV E:e' lateral ratio 26 ratio - Name Value Normal Range AV Vmax 1 m/sec - AV VTI 14 cm - AV peak gradient 3.93 mmHg - AV mean gradient 1.44 mmHg - LVOT Vmax 0.8 m/sec - LVOT VTI 16.13 cm - LVOT peak gradient 2.73 mmHg - LVOT mean gradient 1.5 mmHg - AR PHT 278 msec - AR peak gradient 33 mmHg - Name Value Normal Range MR Vmax 4.8 m/sec - MR VTI 148 cm - Name Value Normal Range TR Vmax 2.7 m/sec - TR peak gradient 29 mmHg - RAP 8 mmHg - RVSP 37 mmHg - Name Value Normal Range PV Vmax 0.9 m/sec - PV peak gradient 3.43 mmHg -
[2018-09-19] MEDS: Mometasone/Formoter 200/5 MDI INH SCH ×2 (13:23→20:41)
[2018-09-19] MEDS: Tiotropium CAP.INH* CAP.INH/18 MCG (USE ORDER SET !) INH SCH (13:24)
[2018-09-19 16:23] LABS: Barbiturates Urine Screen None Detected (None Detect); Benzodiazepine Urine Screen Presumptive Positive (None Detect); Urine Cannabinoids Screen None Detected (None Detect)
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
[2018-09-19] MEDS ORDERED: LORazepam INJ* 2 MG/ML 1 ML VIAL IV PUSH ONE (20:18)
[2018-09-19] MEDS: Nicotine Patch Removal NOTE FOLLOW UP SCH (21:00)
--- NOTE | 2018-09-20 06:47 | PN ---
Subjective Date of Service: 09/20/18 Interval History: Uneventful night per the nurse's report. He refused his blood draws several times but has not required any ativan this morning. When I went to see him he was sleeping but alerted to voice and had no complaints. He denies shortness of breath, chest pain, nausea, or any pain. He says he ate breakfast but is thirsty for some juice. Objective Active Medications: Acetaminophen (Tylenol Tab*) 650 mg PO Q6H PRN PRN Reason: PAIN Albuterol/Ipratropium (Duoneb (Albuterol 2.5 Mg/Ipratropium 0.5 Mg)) 1 neb INH [id number] AWAKE PRN PRN Reason: sob/wheezing Amlodipine Besylate (Norvasc Tab*) 5 mg PO DAILY [facility] Last Admin: 09/19/18 08:49 Dose: 5 mg Dextrose (D50w Syringe 50 Ml*) 12.5 gm IV PUSH .FOR FS < 60 - SS PRN PRN Reason: FS < 60 Enoxaparin Sodium (Lovenox(*)) 40 mg SUBCUT Q24H [facility] Last Admin: 09/19/18 06:17 Dose: 40 mg Hydralazine HCl (Apresoline Iv*) 5 mg IV SLOW PU Q6H PRN PRN Reason: SYSTOLIC BP GREATER THAN: Ibuprofen (Motrin Tab*) 800 mg PO Q6H PRN PRN Reason: PAIN Last Admin: 09/19/18 06:25 Dose: 800 mg Insulin Human Lispro (Humalog*) 0 units SUBCUT ACHS [facility]; Protocol Last Admin: 09/19/18 20:58 Dose: 1 units Lorazepam (Ativan Inj*) 1 mg IV PUSH Q6H PRN PRN Reason: AGITATION Last Admin: 09/19/18 16:12 Dose: 1 mg Methylprednisolone Sodium Succinate (Solu-Medrol 40 Mg) 40 mg IV Q12HR [facility] Mometasone Furoate/Formoterol Fumar (Dulera 200/5 Mdi*) 2 puff INH BID [facility] Last Admin: 09/19/18 20:41 Dose: Not Given Nicotine (Nicotine Inhaler*) 10 mg INH Q2H PRN PRN Reason: CRAVING Last Admin: 09/19/18 08:48 Dose: 10 mg Nicotine (Nicotine Patch 21 Mg/24 Hr*) 1 patch TRANSDERM DAILY@0800 [facility] Last Admin: 09/19/18 08:48 Dose: 1 patch Ondansetron HCl (Zofran Inj*) 4 mg IV Q4H PRN PRN Reason: NAUSEA Pharmacy Profile Note (Nicotine Patch Removal Note*) 1 note FOLLOW UP 2100 [facility] Last Admin: 09/19/18 21:00 Dose: 1 note Tiotropium [place] (Spiriva Cap.Inh*) 1 cap INH DAILY [facility] Last Admin: 09/19/18 13:24 Dose: Not Given Oxygen Devices in Use Now: None Appearance: sleepy but awakens and answers simple questions. follows simple commands. Eyes: No Scleral Icterus Ears/Nose/Mouth/Throat: NL Teeth, Lips, Gums Neck: NL Appearance and Movements; NL JVP Respiratory: Symmetrical Chest Expansion and Respiratory Effort, Clear to Auscultation Cardiovascular: NL Sounds; No Murmurs; No JVD, RRR Abdominal: NL Sounds; No Tenderness; No Distention Lymphatic: No Cervical Adenopathy Extremities: - - superficial ulcer on toe and heel Neurological: - - moves all 4 extremities but does not cooperate with a complete neuro exam Result Diagrams: 09/20/18 09:40 09/20/18 09:40 Microbiology and Other Data: Microbiology 09/19/18 06:10 Nasal Screen MRSA (PCR) - Final Nasal Mrsa Not Detected Assess/Plan/Problems-Billing Assessment: This is a 72 year old man with history of chronic pain who presented to the ED with shortness of breath and was found to hypertensive emergency. - Patient Problems (1) Hypertensive emergency Current Visit: Yes Status: Acute Code(s): I16.1 - HYPERTENSIVE EMERGENCY SNOMED Code(s): 808099838378800 Comment: Resolved. UDS was positive for benzos and opiates (he received opiates here but had not yet gotten benzos) but it is unclear what caused the htn emergency and I wonder if he ingested another illicit substance that did not show on the UDS. Check CT head given level of HTN and now drowsiness (I suspect this is related to ativan) BP is okay now with little intervention (2) NSTEMI (non-ST elevated myocardial infarction) Current Visit: Yes Status: Acute Code(s): I21.4 - NON-ST ELEVATION (NSTEMI) MYOCARDIAL INFARCTION SNOMED Code(s): 23841228 Comment: likely demand in setting of HTN emergency, but should have an ischemic eval based on his behavior yesterday, he would not cooperate with a stress test if he clears up mentally today and we are able to have this discussion with him , I would certainly pursue an ischemic eval (3) Acute bronchitis with COPD Current Visit: No Status: Acute Code(s): J44.0 - CHRONIC OBSTRUCTIVE PULMON DISEASE W ACUTE LOWER RESP INFCT; J20.9 - ACUTE BRONCHITIS, UNSPECIFIED SNOMED Code(s): 999224257318362 Comment: continue nebs and solumedrol lungs are clear (4) Cigarette smoker Current Visit: No Status: Acute Code(s): F17.210 - NICOTINE DEPENDENCE, CIGARETTES, UNCOMPLICATED SNOMED Code(s): 40443228 Comment: not ready to quit supportive care with nicotine patch (5) Peripheral neuropathy Current Visit: No Status: Acute Code(s): G62.9 - POLYNEUROPATHY, UNSPECIFIED SNOMED Code(s): 976337908 Comment: neurontin on hold given his agitation yesterday can resume when mentation clears (6) Type II diabetes mellitus Current Visit: No Status: Acute (7) Agitation Current Visit: Yes Status: Acute Code(s): R45.1 - RESTLESSNESS AND AGITATION SNOMED Code(s): 425627609 Comment: appreciate Dr. Mcbride's input yesterday--agreed that he does not have capacity to make decision to leave the hospital
[2018-09-20] MEDS: Mometasone/Formoter 200/5 MDI INH SCH ×2 (07:08→20:36)
[2018-09-20] MEDS: Tiotropium CAP.INH* CAP.INH/18 MCG (USE ORDER SET !) INH SCH (07:08)
[2018-09-20] MEDS: Enoxaparin(*) 40 MG/0.4 ML SYR SUBCUT SCH (07:19)
[2018-09-20] MEDS: Nicotine PATCH 21 MG/24 HR* PATCH TRANSDERM SCH (09:18)
[2018-09-20] MEDS: Insulin LISPRO* 1 UNITS UNIT SUBCUT SCH ×5 (09:18→21:17)
[2018-09-20] MEDS: amLODIPine TAB* 5 MG PO SCH (09:18)
[2018-09-20] MEDS: methylPREDNISolone SOD 40 MG* 1 ML VIAL IV SCH ×2 (09:19→20:41)
[2018-09-20 09:48] LABS: ABS Basophils 0 10^3/ul (0-0.2); ABS Eosinophils 0.2 10^3/ul (0-0.6); ABS Lymphocytes 1.2 10^3/ul (1.0-4.8); ABS Monocytes 1.1 10^3/ul (0-0.8); ABS Neutrophils 12.5 10^3/ul (1.5-7.7); ABS Nucleated RBC 0 10^3/ul; Eosinophil % 1.1 %; Hematocrit 38 % (42-52); Hemoglobin 12.9 g/dl (14.0-18.0); Lymphocyte % 7.8 %; Mean Corpuscular HGB Conc 34 g/dl (31-36); Mean Corpuscular Hemoglobin 28 pg (27-31); Mean Corpuscular Volume 84 fL (80-94); Mean Platelet Volume 8.5 fL (7.4-10.4); Nucleated Red Blood Cells % 0; Platelet Count 147 10^3/ul (150-450); Red Blood Count 4.54 10^6/ul (4.00-5.40); Red Cell Distribution Width 14 % (10.5-15)
[2018-09-20 09:57] LABS: INR 1.17 (0.77-1.02)
[2018-09-20 10:05] LABS: Albumin 3.2 g/dL (3.2-5.2); BUN/Creatinine Ratio 26.1 (8-20); Calcium 9.1 mg/dL (8.6-10.3); EGFR Non-African American 113.4 (>60); Globulin 3.3 g/dL (2-4); Indirect Bilirubin 0.4 mg/dL (0.3-1.0); Potassium 3.6 mmol/L (3.5-5.0); Total Bilirubin 0.5 mg/dL (0.2-1.0); Total Protein 6.5 g/dL (6.4-8.9)
[2018-09-20] MEDS ORDERED: LORazepam INJ* 2 MG/ML 1 ML VIAL IV PUSH PRN (11:08)
[2018-09-20] MEDS: Acetaminophen TAB* 325 MG PO PRN ×2 (13:34→19:55)
[2018-09-20] MEDS: Ibuprofen TAB* 800 MG PO PRN ×2 (13:35→19:56)
[2018-09-20] MEDS: Lactulose* 15 ML UDC PO SCH ×2 (16:28→20:00)
--- NOTE | 2018-09-20 16:37 | PN ---
Progress Note - Progress Note Date of Service: 09/19/18 Note: Preliminary CXR read not entered in ED. Radiologist final read today shows ongoing chronic change. Pt. admitted. No change in treatment needed at this time.
[2018-09-20] MEDS ORDERED: LORazepam INJ* 2 MG/ML 1 ML VIAL IV PUSH ONE (19:04)
[2018-09-20] MEDS: Nicotine Patch Removal NOTE FOLLOW UP SCH (20:41)
[2018-09-20] MEDS ORDERED: LORazepam INJ* 2 MG/ML 1 ML VIAL IM ONE (21:58)
[2018-09-21] MEDS ORDERED: LORazepam INJ* 2 MG/ML 1 ML VIAL IM ONE (00:07)
[2018-09-21] MEDS: Haloperidol INJ IV/IM* 5 MG/ML AMP IM ONE ×2 (00:17→01:59)
[2018-09-21] MEDS ORDERED: Benzonatate CAP* 100 MG PO PRN (01:55)
[2018-09-21] MEDS ORDERED: Zolpidem TAB* 5 MG PO PRN (01:56)
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
[2018-09-21] MEDS: LORazepam TAB(*) 1 MG PO PRN ×2 (03:21→08:51)
[2018-09-21] MEDS: amLODIPine TAB* 5 MG PO SCH ×2 (04:17→07:07)
[2018-09-21] MEDS: Tiotropium CAP.INH* CAP.INH/18 MCG (USE ORDER SET !) INH SCH ×2 (07:36→07:40)
[2018-09-21] MEDS: Mometasone/Formoter 200/5 MDI INH SCH ×3 (07:36→21:59)
[2018-09-21] MEDS: Nicotine PATCH 21 MG/24 HR* PATCH TRANSDERM SCH (08:00)
[2018-09-21] MEDS: Lactulose* 15 ML UDC PO SCH ×3 (08:00→21:59)
[2018-09-21] MEDS: Enoxaparin(*) 40 MG/0.4 ML SYR SUBCUT SCH (08:00)
[2018-09-21] MEDS ORDERED: LORazepam TAB(*) 1 MG PO PRN (08:43)
[2018-09-21] MEDS: Insulin LISPRO* 1 UNITS UNIT SUBCUT SCH ×4 (08:48→21:59)
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
[2018-09-21] MEDS: methylPREDNISolone SOD 40 MG* 1 ML VIAL IV SCH (09:25)
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
[2018-09-21] MEDS: Insulin GLARGINE(*) 1 UNITS UNIT SUBCUT SCH (18:17)
[2018-09-21] MEDS ORDERED: traZODone TAB* 50 MG TAB PO SCH (21:00)
[2018-09-21] MEDS ORDERED: Amitriptyline TAB* 25 MG PO SCH (21:00)
[2018-09-21] MEDS ORDERED: CMC:Doxepin (NF) 25 MG CAP PO SCH (21:00)
[2018-09-21] MEDS: risperiDONE TAB* 1 MG PO SCH (22:00)
[2018-09-21] MEDS: Nicotine Patch Removal NOTE FOLLOW UP SCH (22:00)
[2018-09-22] MEDS: Acetaminophen TAB* 325 MG PO PRN ×2 (12:01→17:54)
[2018-09-22] MEDS: Nicotine PATCH 21 MG/24 HR* PATCH TRANSDERM SCH (13:50)
[2018-09-22] MEDS: Lactulose* 15 ML UDC PO SCH ×2 (13:50→21:16)
[2018-09-22] MEDS: Mometasone/Formoter 200/5 MDI INH SCH ×2 (13:50→21:15)
[2018-09-22] MEDS: amLODIPine TAB* 5 MG PO SCH (13:50)
[2018-09-22] MEDS: Tiotropium CAP.INH* CAP.INH/18 MCG (USE ORDER SET !) INH SCH (13:51)
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
[2018-09-22] MEDS: Insulin LISPRO* 1 UNITS UNIT SUBCUT SCH ×2 (14:28→17:10)
[2018-09-22] MEDS: Insulin GLARGINE(*) 1 UNITS UNIT SUBCUT SCH (15:21)
[2018-09-22] MEDS: Ibuprofen TAB* 800 MG PO PRN (17:54)
[2018-09-22] MEDS: risperiDONE TAB* 1 MG PO SCH (21:15)
[2018-09-22] MEDS: Nicotine Patch Removal NOTE FOLLOW UP SCH (21:15)
[2018-09-23] MEDS: Insulin LISPRO* 1 UNITS UNIT SUBCUT SCH (07:53)
[2018-09-23] MEDS: Ibuprofen TAB* 800 MG PO PRN (07:54)
[2018-09-23] MEDS: Lactulose* 15 ML UDC PO SCH (08:01)
[2018-09-23] MEDS: Mometasone/Formoter 200/5 MDI INH SCH (08:01)
[2018-09-23] MEDS: amLODIPine TAB* 5 MG PO SCH (08:01)
[2018-09-23] MEDS: Tiotropium CAP.INH* CAP.INH/18 MCG (USE ORDER SET !) INH SCH (08:02)
[2018-09-23] MEDS: Nicotine PATCH 21 MG/24 HR* PATCH TRANSDERM SCH (08:02)
[2018-09-23 08:03] VITALS: BP 164/68
[2018-09-23] MEDS: Acetaminophen TAB* 325 MG PO PRN (08:04)
[2018-09-23 08:09] LABS: HDL Cholesterol 45.7 mg/dL
[2018-09-23] MEDS: Insulin GLARGINE(*) 1 UNITS UNIT SUBCUT SCH (15:12)
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
== END 2018-09-23 17:15 | disposition home or self-care (01) | DRG 189 ==
LOC: ED 02:42 → ICU 04:47 → MEDTELE 10:07 → BSU 09-21 12:02
PROVIDERS: ADMIT Internal Medicine; ATTEND Psychiatry & Neurology Psychiatry
DX: J96.01 Acute respiratory failure with hypoxia (principal); I21.4 Non-ST elevation (NSTEMI) myocardial infarction; E87.2 Acidosis; I16.1 Hypertensive emergency; F11.20 Opioid dependence, uncomplicated; R41.0 Disorientation, unspecified; I10 Essential (primary) hypertension; J44.9 Chronic obstructive pulmonary disease, unspecified; Z97.4 Presence of external hearing-aid; F17.210 Nicotine dependence, cigarettes, uncomplicated; Z82.49 Family history of ischemic heart disease and other diseases of the circulatory system; Z83.3 Family history of diabetes mellitus; F41.9 Anxiety disorder, unspecified; R00.0 Tachycardia, unspecified; E11.42 Type 2 diabetes mellitus with diabetic polyneuropathy; E11.621 Type 2 diabetes mellitus with foot ulcer; L97.519 Non-pressure chronic ulcer of other part of right foot with unspecified severity; Z78.1 Physical restraint status; G89.29 Other chronic pain; J20.9 Acute bronchitis, unspecified; R45.1 Restlessness and agitation; F29 Unspecified psychosis not due to a substance or known physiological condition; Z98.42 Cataract extraction status, left eye; Z98.41 Cataract extraction status, right eye; F39 Unspecified mood [affective] disorder
CPT/HCPCS: 36415; 36600; 70450; 71045; 80048; 80053; 80061; 80076; 80307; 82140; 82803; 83036; 83605; 83880; 84484; 85025; 85610; 87641; 93005; 93306; 94640; 99285; A9270-GY; J1630; J1650; J1940; J2060; J2270; J2405; J2920; J2930; J7611

== ENCOUNTER 2018-10-13 18:24 | Inpatient (IN) | payer MEDICARE ==
[2018-10-13] MEDS ORDERED: NS 0.9% 1000 ML** 2,000 ML IV ONE (18:58)
[2018-10-13] MEDS ORDERED: Vancomycin(*) 1,250 MG in NS 0.9% 250 ML* 250 ML IVPB ONE (18:58)
[2018-10-13] MEDS ORDERED: Piperacillin/Tazobac ADVAN(*) 3.375 GM in NS 0.9% 100 ML* 100 ML IVPB ONE (18:58)
[2018-10-13 19:04] LABS: ABS Basophils 0.1 10^3/ul (0-0.2); ABS Eosinophils 0.1 10^3/ul (0-0.6); ABS Lymphocytes 1.1 10^3/ul (1.0-4.8); ABS Monocytes 0.9 10^3/ul (0-0.8); ABS Neutrophils 5.7 10^3/ul (1.5-7.7); ABS Nucleated RBC 0 10^3/ul; Eosinophil % 1.8 %; Hematocrit 49 % (42-52); Hemoglobin 16.5 g/dl (14.0-18.0); Lymphocyte % 13.7 %; Mean Corpuscular HGB Conc 34 g/dl (31-36); Mean Corpuscular Hemoglobin 28 pg (27-31); Mean Corpuscular Volume 84 fL (80-94); Mean Platelet Volume 9.6 fL (7.4-10.4); Nucleated Red Blood Cells % 0.2; Platelet Count 122 10^3/ul (150-450); Red Cell Distribution Width 14 % (10.5-15); White Blood Count 7.9 10^3/ul (3.5-10.8)
[2018-10-13 19:22] LABS: ALT 82 U/L (7-52); AST 52 U/L (13-39); Albumin 3.9 g/dL (3.2-5.2); Albumin/Globulin Ratio 1.2 (1-3); Alkaline Phosphatase 80 U/L (34-104); Anion Gap 11 mmol/L (2-11); BUN/Creatinine Ratio 28.8 (8-20); Blood Urea Nitrogen 23 mg/dL (6-24); CO2 Carbon Dioxide 28 mmol/L (22-32); Calcium 9.8 mg/dL (8.6-10.3); Chloride 103 mmol/L (101-111); EGFR African American 115.6 (>60); EGFR Non-African American 95.6 (>60); Globulin 3.2 g/dL (2-4); Glucose 205 mg/dL (70-100); Potassium 3.3 mmol/L (3.5-5.0); Sodium 142 mmol/L (135-145); Total Protein 7.1 g/dL (6.4-8.9)
[2018-10-13 19:33] LABS: Creatine Kinase 43 U/L (10-223)
[2018-10-13 19:33] LABS: Activated Partial Thrombo Time 36.2 seconds (26.0-36.3); INR 1.05 (0.77-1.02)
[2018-10-13] MEDS ORDERED: LORazepam INJ* 2 MG/ML 1 ML VIAL ONE (19:53)
[2018-10-13] MEDS ORDERED: Thiamine IV* 100 MG/ML 2 ML VIAL IV ONE (19:57)
[2018-10-13] MEDS ORDERED: LORazepam INJ* 2 MG/ML 1 ML VIAL IV PUSH ONE (19:59)
--- NOTE | 2018-10-13 20:14 | ED ---
Altered Mental Status - HPI Summary HPI Summary: The patient is a 72 y/o M presenting to [facility] arriving by ambulance with a chief complaint of natural gas intoxication tonight. EMS was called to the scene where they found the patient lying on a mattress in the room while the oven was open in the kitchen and turned on. Per EMS, he has a normal affect now. He has ecchymosis over the right eye, which he states was from falling multiple times yesterday. A fishing hook was also found in his hair. - History Of Current Complaint Chief Complaint: EDAltMentalStatus Stated Complaint: INHALATION EXPOSURE Time Seen by Provider: 10/13/18 18:42 Hx Obtained From: Patient Onset/Duration: Unknown, Still Present Timing: Lasting Hours Severity Initially: Severe Severity Currently: Severe Aggravating Factor(s): Unknown Alleviating Factor(s): Unknown Associated Signs And Symptoms: Positive: Recent Trauma - ecchymosis over the right eye - Allergies/Home Medications Allergies/Adverse Reactions: Allergies Allergy/AdvReac Type Severity Reaction Status Date / Time No Known Allergies Allergy Verified 09/19/18 02:49 PMH/Surg Hx/FS Hx/Imm Hx Endocrine/Hematology History: Reports: Hx Diabetes - type 2 Denies: Hx Thyroid Disease Cardiovascular History: Reports: Hx Hypertension - no meds Denies: Other Cardiovascular Problems/Disorders Respiratory History: Reports: Hx Chronic Obstructive Pulmonary Disease (COPD), Hx Pneumonia, Other Respiratory Problems/Disorders - HISTORY OF PNEUMONIA SEVERAL TIMES PER PATIENT Denies: Hx Asthma GI History: Denies: Hx Ulcer, Other GI Disorders Musculoskeletal History: Denies: Other Musculoskeletal History - CHRONIC BACK PAIN,neuropathy Sensory History: Reports: Hx Cataracts, Hx Contacts or Glasses, Hx Hearing Aid Opthamlomology History: Reports: Hx Cataracts, Hx Contacts or Glasses Neurological History: Denies: Other Neuro Impairments/Disorders Psychiatric History: Reports: Hx Anxiety Denies: Hx Eating Disorder, Hx of Violent Episodes Against Others - Surgical History Surgery Procedure, Year, and Place: cataracts Hx Anesthesia Reactions: No - Immunization History Date of Tetanus Vaccine: unk Date of Influenza Vaccine: fall 2016 Infectious Disease History: No Infectious Disease History: Reports: Hx Hepatitis - Hep C, Hx Shingles - 1998 Denies: Hx Clostridium Difficile, Hx Human Immunodeficiency Virus (HIV), Hx of Known/Suspected MRSA, Hx Tuberculosis, Hx Known/Suspected VRE, Hx Known/ Suspected VRSA, History Other Infectious Disease, Traveled Outside the [place] in Last 30 Days - Family History Known Family History: Positive: Hypertension - parents, Diabetes - parents Negative: Cardiac Disease - Social History Alcohol Use: Daily Substance Use Type: Reports: None Hx Tobacco Use: Yes Smoking Status (MU): Heavy Every Day Tobacco Smoker Type: Cigarettes Amount Used/How Often: 1/2 PPD X 40+ YEARS Have You Smoked in the Last Year: Yes Review of Systems Negative: Fever, Chills Negative: Erythema Negative: Sore Throat Negative: Chest Pain Negative: Shortness Of Breath, Cough Negative: Abdominal Pain, Vomiting, Nausea Negative: dysuria, hematuria Negative: Myalgia, Edema Positive: Bruising - over the right orbital. Negative: Rash Neurological: Other - natural gas exposure and intoxication All Other Systems Reviewed And Are Negative: Yes Physical Exam - Summary Physical Exam Summary: Constitutional: Well-developed, Well-nourished, Alert, Cooperative Skin: Dry, hypothermic, Abrasion on dorsum of left foot HENT: Supraorbital and infraorbital ecchymosis; No otero's sign; Abrasion on right forehead; No contusion; No hemotympanum; No maxilla facial tenderness or instability; Dentition are smooth; No dental trauma; No trismus; Dry oral mucosa with dry secretion in the mouth Eyes: EOM normal, PERRL Neck: Trachea is midline. No stridor; No JVD; No step off; No posterior cervical spine tenderness Cardio: Rhythm regular, rate normal Heart sounds normal; Intact distal pulses; The pedal pulses are 2+ and symmetric. Radial pulses are 2+ and symmetric. Pulmonary/Chest wall: Effort normal; Breath sounds normal; Equal chest rise; No flail segment; No rib tenderness; No sternal tenderness Abd: Soft, Appearance normal. No distension; No tenderness; No palpable pulsatile mass; No Cullens sign; No Rivera-Turners sign Musculoskeletal: Full ROM and no tenderness at hips, ankles, shoulders, elbows and knees; No joint swelling; No vertebral body tenderness; No paraspinal tenderness; No step off or deformity of the spine; Pelvis is stable to lateral compression and rock Neuro: Alert, Oriented x3, Strength 5/5 all extremities. : No blood at urethral meatus Psych: Mood and affect Normal Triage Information Reviewed: Yes Vital Signs On Initial Exam: Initial Vitals Temp Pulse Resp BP Pulse Ox 95.9 F 93 22 211/118 98 10/13/18 18:34 10/13/18 18:34 10/13/18 18:34 10/13/18 18:34 10/13/18 18:34 Vital Signs Reviewed: Yes Diagnostics - Vital Signs Vital Signs Temp Pulse Resp BP Pulse Ox 10/13/18 20:00 16 10/13/18 19:09 92 21 100 10/13/18 18:34 95.9 F 93 22 211/118 98 - Laboratory Lab Results: Lab Results 10/13/18 10/13/18 10/13/18 Range/Units 18:46 18:50 18:50 WBC 7.9 (3.5-10.8) 10^3/ul RBC 5.80 H (4.00-5.40) 10^6/ul Hgb 16.5 (14.0-18.0) g/dl Hct 49 (42-52) % MCV 84 (80-94) fL MCH 28 (27-31) pg MCHC 34 (31-36) g/dl RDW 14 (10.5-15) % Plt Count 122 L (150-450) 10^3/ul MPV 9.6 (7.4-10.4) fL Neut % (Auto) 72.3 % Lymph % (Auto) 13.7 % [place] % (Auto) 11.4 % Eos % (Auto) 1.8 % Baso % (Auto) 0.8 % Absolute Neuts (auto) 5.7 (1.5-7.7) 10^3/ul Absolute Lymphs (auto) 1.1 (1.0-4.8) 10^3/ul Absolute Monos (auto) 0.9 H (0-0.8) 10^3/ul Absolute Eos (auto) 0.1 (0-0.6) 10^3/ul Absolute Basos (auto) 0.1 (0-0.2) 10^3/ul Absolute Nucleated RBC 0 10^3/ul Nucleated RBC % 0.2 INR (Anticoag Therapy) 1.05 H (0.77-1.02) APTT 36.2 (26.0-36.3) seconds Patient Temperature ABG pH (7.35-7.45) ABG pH (Temp Correct) ABG pCO2 (35-45) mmHg ABG pCO2 (Temp Corrct ABG pO2 (80-100) mmHg ABG pO2 (Temp Correct ABG HCO3 (19-31) mmol/L ABG O2 Saturation (94.0-98.0) % ABG Base Excess (-2.0-2.0) mmol/L Carbon Monoxide Screen (<4.0) % Respiration Rate O2 Delivery Device Ventilator Type Vent Mode FiO2 Inspiratory Time PEEP Pressure Support Pressure Control EPAP IPAP BiPAP Sodium 142 (135-145) mmol/L Potassium 3.3 L (3.5-5.0) mmol/L Chloride 103 (101-111) mmol/L Carbon Dioxide 28 (22-32) mmol/L Anion Gap 11 (2-11) mmol/L BUN 23 (6-24) mg/dL Creatinine 0.80 (0.67-1.17) mg/dL Est GFR ( Amer) 115.6 (>60) Est GFR (Non-Af Amer) 95.6 (>60) BUN/Creatinine Ratio 28.8 H (8-20) Glucose 205 H (70-100) mg/dL Lactic Acid (0.5-2.0) mmol/L Calcium 9.8 (8.6-10.3) mg/dL Total Bilirubin 1.10 H (0.2-1.0) mg/dL AST 52 H (13-39) U/L ALT 82 H (7-52) U/L Alkaline Phosphatase 80 (34-104) U/L Total Creatine Kinase 43 (10-223) U/L Total Protein 7.1 (6.4-8.9) g/dL Albumin 3.9 (3.2-5.2) g/dL Globulin 3.2 (2-4) g/dL Albumin/Globulin Ratio 1.2 (1-3) 10/13/18 10/13/18 10/13/18 Range/Units 18:51 18:51 19:16 WBC (3.5-10.8) 10^3/ul RBC (4.00-5.40) 10^6/ul Hgb (14.0-18.0) g/dl Hct (42-52) % MCV (80-94) fL MCH (27-31) pg MCHC (31-36) g/dl RDW (10.5-15) % Plt Count (150-450) 10^3/ul MPV (7.4-10.4) fL Neut % (Auto) % Lymph % (Auto) % [place] % (Auto) % Eos % (Auto) % Baso % (Auto) % Absolute Neuts (auto) (1.5-7.7) 10^3/ul Absolute Lymphs (auto) (1.0-4.8) 10^3/ul Absolute Monos (auto) (0-0.8) 10^3/ul Absolute Eos (auto) (0-0.6) 10^3/ul Absolute Basos (auto) (0-0.2) 10^3/ul Absolute Nucleated RBC 10^3/ul Nucleated RBC % INR (Anticoag Therapy) (0.77-1.02) APTT (26.0-36.3) seconds Patient Temperature Not Reportable ABG pH 7.47 H (7.35-7.45) ABG pH (Temp Correct) Not Reportable ABG pCO2 40 (35-45) mmHg ABG pCO2 (Temp Corrct Not Reportable ABG pO2 229 H (80-100) mmHg ABG pO2 (Temp Correct Not Reportable ABG HCO3 28.8 (19-31) mmol/L ABG O2 Saturation 100.0 H (94.0-98.0) % ABG Base Excess 5.0 H (-2.0-2.0) mmol/L Carbon Monoxide Screen <4.0 (<4.0) % Respiration Rate Not Reportable O2 Delivery Device oxymask Ventilator Type Not Reportable Vent Mode Not Reportable FiO2 Not Reportable Inspiratory Time Not Reportable PEEP Not Reportable Pressure Support Not Reportable Pressure Control Not Reportable EPAP Not Reportable IPAP Not Reportable BiPAP Not Reportable Sodium (135-145) mmol/L Potassium (3.5-5.0) mmol/L Chloride (101-111) mmol/L Carbon Dioxide (22-32) mmol/L Anion Gap (2-11) mmol/L BUN (6-24) mg/dL Creatinine (0.67-1.17) mg/dL Est GFR ( Amer) (>60) Est GFR (Non-Af Amer) (>60) BUN/Creatinine Ratio (8-20) Glucose (70-100) mg/dL Lactic Acid 1.6 (0.5-2.0) mmol/L Calcium (8.6-10.3) mg/dL Total Bilirubin (0.2-1.0) mg/dL AST (13-39) U/L ALT (7-52) U/L Alkaline Phosphatase (34-104) U/L Total Creatine Kinase (10-223) U/L Total Protein (6.4-8.9) g/dL Albumin (3.2-5.2) g/dL Globulin (2-4) g/dL Albumin/Globulin Ratio (1-3) Result Diagrams: 10/13/18 18:50 10/13/18 18:50 Lab Statement: Any lab studies that have been ordered have been reviewed, and results considered in the medical decision making process. - CT Maxillofacial CT CT Interpretation Completed By: Radiologist Summary of CT Findings: Scalp hematoma overlying the right frontal sinus with swelling overlying the right orbit. No underlying fracture. ED physician has reviewed this report. Cervical Spine CT CT Interpretation Completed By: Radiologist Summary of CT Findings: 1. No evidence of acute fracture involving the cervical vertebral bodies or posterior elements. No malalignment. 2. Multilevel degenerative cervical disc disease and facet disease. No significant central canal stenosis. No significant central canal stenosis. Variable degrees of neural foraminal narrowing secondary to degenerative changes of the uncovertebral joints and facet joints. ED physician has reviewed this report. Altered Mental Statu Course/Dx - Course Course Of Treatment: The patient is a 72 y/o M presenting to [facility] arriving by ambulance with a chief complaint of natural gas intoxication tonight. EMS was called to the scene where they found the patient lying on a mattress in the room while the oven was open in the kitchen and turned on. Per EMS, he has a normal affect now. He has ecchymosis over the right eye, which he states was from falling multiple times yesterday. A fishing hook was also found in his hair. Upon physical exam, the patient exhibits supraorbital and infraorbital ecchymosis, dry oral mucosa with dry secretion in the mouth, abrasion on dorsum of left foot, abrasion on right forehead, and hypothermia. Sepsis protocol in place at 18:55. In the ED course, the patient was given Ns, Piperacillin Sod/ Tazobactam Sod, Lopressor, Ativan, Vancomycin, and Vitamin B1. Blood work reveals low plt count, and elevated ABG pH, pO2, base excess, BUN/Creatinine, AST, ALT, bilirubin, and ammonia. Brain CT is negative. Maxillofacial CT shows hematoma over right eye. Cervical Spine CT reveals degenerative changes. I spoke with Dr. Loza, hospitalist, at 20:00; he accepts the patient for admission. He is diagnosed with delirium, hypothermia, fall, and orbital trauma. He agrees with the plan for admission. Pending CXR. - Diagnoses Provider Diagnoses: Delirium, Hypothermia, Fall, Traumatic orbital hematoma - Provider Notifications Discussed Care Of Patient With: Chico Loza Time Discussed With Above Provider: 20:00 Instructed by Provider To: Other - Dr. Loza accepts the patient for admission. Discharge - Sign-Out/Discharge Documenting (check all that apply): Patient Departure - Patient will be admitted to [facility] [place] for further care. - Discharge Plan Condition: Stable Disposition: ADMITTED TO [facility] Referrals: No Primary Care Phys,NOPCP [Primary Care Provider] - - Billing Disposition and Condition Condition: STABLE Disposition: Admitted to [facility] - Attestation Statements Document Initiated by Scribe: Yes Documenting Scribe: Geeta Monet Provider For Whom Lisa is Documenting (Include Credential): Dr. Cristopher Pruitt MD Scribe Attestation: Geeta Weeks, scribed for Dr. Cristopher Pruitt MD on 10/13/18 at 2221. Scribe Documentation Reviewed: Yes Provider Attestation: The documentation as recorded by the Geeta juarez accurately reflects the service I personally performed and the decisions made by me, Dr. Cristopher Pruitt MD Status of Scribe Document: Viewed
[2018-10-13] MEDS ORDERED: Metoprolol Tartrate IV* 1 MG/ML 5 ML VIAL IV ONE (20:30)
[2018-10-13] MEDS ORDERED: Metoprolol Tartrate IV* 1 MG/ML 5 ML VIAL ONE (20:30)
[2018-10-13 22:14] LABS: Alcohol < 10 mg/dL (<10)
[2018-10-13] MEDS ORDERED: hydrALAZINE IV* 20 MG/ML VIAL IV SLOW PU PRN (22:28)
[2018-10-13] MEDS ORDERED: NS 0.9% 1000 ML** 1,000 ML IV SCH (22:30)
[2018-10-13 23:01] LABS: Urine Appearance Cloudy; Urine Bacteria Absent (Absent); Urine Bilirubin Negative (Negative); Urine Blood Negative (Negative); Urine Color Amber; Urine Glucose 1+(50 mg/dL) (Negative); Urine Ketones 1+ (Negative); Urine Nitrite Negative (Negative); Urine Protein 3+(>=500 mg/dL) (Negative); Urine Red Blood Cell Trace(0-2/hpf) (Absent); Urine Urobilinogen Positive (Negative); Urine White Blood Cell Trace(0-5/hpf) (Absent)
[2018-10-13 23:16] LABS: Barbiturates Urine Screen None Detected (None Detect); Benzodiazepine Urine Screen Presumptive Positive (None Detect); Urine Cannabinoids Screen None Detected (None Detect)
[2018-10-14] MEDS ORDERED: Dextrose 50% Syringe 50 ML* 25 GM/50 ML SYRINGE IV PUSH PRN (00:13)
[2018-10-14] MEDS ORDERED: Mouth Piece, Nicotine* 1 EACH CARTRIDGE INH ONE (01:00)
[2018-10-14] MEDS ORDERED: traMADol TAB* 50 MG ONE (01:50)
[2018-10-14] MEDS: Nicotine Inhaler* 10 MG AMP INH PRN (01:58)
[2018-10-14] MEDS: amLODIPine TAB* 5 MG PO ONE ×2 (02:04→03:43)
[2018-10-14] MEDS: LORazepam INJ* 2 MG/ML 1 ML VIAL IV PUSH PRN ×3 (03:38→21:45)
--- NOTE | 2018-10-14 04:10 | HP ---
HISTORY AND PHYSICAL: DATE OF ADMISSION: 10/13/18 PROVIDER: Claudia Oscar NP. PRIMARY CARE PROVIDER: None. ATTENDING PHYSICIAN WHILE IN THE HOSPITAL: Dr. Chico Loza * (dictated by Claudia Oscar NP). CHIEF COMPLAINT: Natural gas exposure. Other chief complaint is fall/head injury. RELIABILITY: Very poor from the patient due to recent Ativan. SOURCE OF INFORMATION: Obtained from sister in [place] and ER staff and old medical records. HISTORY OF PRESENT ILLNESS: Mr. Sung is a 72-year-old male with a significant past medical history. Per the sister, she received a call from the police department saying that the stove gas was on in his apartment, the refrigerator door was opened, but the ship pilot lights were not on the stove, unknown time. The patient's sister reports that the patient has been complaining that he does have a chronic pain for which he stated to his sister last week that if he was unable to get pain medication, he would buy them off the street. I did inquire with the sister if the patient drinks alcohol, the sister reports no, he does not drink alcohol. The patient did verbalize 3 times when asked about alcohol drinking and he denied x3 consumption of alcohol. He does report that he is a smoker. According to the emergency room record, the patient arrived by ambulance with complaints of natural gas intoxication. He was found down lying on the mattress in a room while the oven door was opened in the kitchen and turned on. Per EMS, he was found to have ecchymosis over his right eye, for which the patient reports that he fell yesterday. EMS also took a fishing hook out of his hair. Per nursing note from the emergency room, the patient arrived with the a complaint of altered mental status in his home lying on the bed in his apartment filled with natural gas at "explosive levels." The patient had a rectal temp that was 95.9 on arrival to the emergency room and was found to be hypertensive. The sister reports that she is concerned that the patient is depressed and that the oven being on and natural gas from the house could have been a suicide attempt. This is unclear at this time. The patient did have an alcohol level drawn, which was negative. He has a urine tox that is currently pending. Given his altered mental status and head injury, we were asked to see and evaluate him for admission. While in the emergency room, the patient was found to be hypothermic with a temperature of 95.9 rectally. He was placed on sepsis protocol for meeting SIRS criteria with hypothermia, heart rate of 93 and tachypnea. He was given a fluid bolus in the emergency room and IV antibiotics, vanco and Zosyn. PAST MEDICAL HISTORY: Obtained from his old records including reportedly COPD, current tobacco use, anxiety, type 2 diabetes, peripheral neuropathy, lower back pain. HOME MEDICATIONS: According to the records from 09/19/18: 1. Amlodipine 5 mg p.o. daily. 2. Janumet mg daily. 3. Metformin 1 tab unknown dosage. 4. Ibuprofen 800 mg every 6 hours as needed for pain. 5. Gabapentin 300 mg 3 times a day and a 300 mg tab twice daily. 6. Flexeril 10 mg as needed. 7. Albuterol 1 to 2 puffs every 6 hours. ALLERGIES: According to the chart, there is no known drug allergies. FAMILY HISTORY: According to the chart of hypertension, diabetes, and CAD. SOCIAL HISTORY: According to his chart, [id number] history at least of smoking. No alcohol or illicit drug use. REVIEW OF SYSTEMS: The patient is afebrile. He answered some questions, but is very drowsy on the stretcher. He reports no to chest pain, cough or shortness of breath. He does report that he fell. The rest of the review of systems was unobtainable due to the patient's cooperation. PHYSICAL EXAMINATION GENERAL: Mr. Sung is a 72-year-old male, resting on the stretcher in the emergency room. He is drowsy due to recent Ativan dosing of 4 mg. He has his eyes closed for most of his exam and evaluation. He does open his eyes to command. He has a large ecchymotic area to the right orbit and forehead, abrasion to his midforehead. HEENT: Right orbit with ecchymosis and swelling. Left pupil is 2 mm and constricts. Tongue is dry. Mucous membranes are dry. No other head lacerations are noted. NECK: Supple. No C-spine tenderness to palpation. LUNGS: Diminished bilaterally. The patient is only taking shallow breaths. No chest tenderness or rib tenderness with palpation. CARDIAC: S1, S2. Irregular rate and rhythm. No murmurs, rubs or gallops. ABDOMEN: Soft and nontender. Bowel sounds are present x4. They are hypoactive. EXTREMITIES: Pedal pulses are +2 bilaterally. He has abrasions noted to bilateral extremities to his knees and foot as well. NEUROLOGIC: He is drowsy, resting on the stretcher in the emergency room. He does answer some questions appropriately, but other questions he does not respond. He does look at the interviewer when talk to, but falls asleep quickly. Pupils are equal and reactive to light. SKIN: Abrasions to bilateral lower extremities. He has abrasions to his right forehead and ecchymosis noted around the right orbit, eyelid, and periorbital area. DIAGNOSTIC STUDIES/LABORATORY DATA: WBCs are 7.9, RBCs 5.80, hemoglobin 16.5, hematocrit was 49, platelet count 122. INR was 1.05, aPTT was 36.2, pH was 7.47 , pCO2 was 40, pO2 was 229, HCO3 was 28.8, oxygen saturation was 100%, base excess was 5. Sodium 142, potassium 3.3, chloride 103, carbon dioxide was 28, anion gap was 11, BUN was 23, creatinine 0.80, glucose was 205, lactic acid 1.6 and 0.6, calcium 9.8, bilirubin was 1.10, ASTs were 52, ALTs were 82, ammonia level was 58. Urine was chris, cloudy, pH was 5, specific gravity 1.030, urine protein was 3+, ketones were 1+, urine blood was negative, nitrites were negative, bilirubin was negative, urobilinogen was positive, leukocyte esterase was negative, wbc's were trace, rbc's were trace, bacteria was absent, glucose was 1+. Serum alcohol was less than 10. Opiates, barbiturates, amphetamines, cocaine, and cannabinoids were all negative. Benzodiazepine was positive, but he did receive Ativan 4 mg in the emergency room prior to this urine toxicology. He had a CT of the brain. Radiologist's impression: No acute intracranial pathology, right frontal and supraorbital scalp hematoma. He had a CT of the cervical spine, no evidence of acute fracture involving the cervical vertebral bodies or posterior elements and no malalignment. Multi- degenerative cervical disk disease and facet disease. No significant central canal stenosis. Variable degrees of neuroforaminal narrowing secondary to degenerative changes in the uncovertebral joint and facet joints. He had a maxillofacial CT, scalp hematoma overlying the right frontal sinus with swelling over the right orbit. No underlying fracture. ASSESSMENT AND PLAN: Mr. Sung is a 72-year-old male, who presented to the emergency room by EMS for natural gas exposure. Per the nursing triage report, natural gas levels in the house were explosive level. The patient had altered mental status. We were asked to see and evaluate him for admission. He will be admitted inpatient for: 1. Altered mental status. I suspect this could be related to possibly natural gas exposure, as there were reports of natural gas at explosive levels in his house when the EMS arrived. This also could be related to his recent head injury. He does have a large hematoma noted to the right side of his head. At this time, we will place the patient on the medical floor, we will monitor him on telemetry. We will repeat lab work in the morning. He should have q.4 hours neuro checks. I am not going to continue his antibiotics at this time as he does not appear to be toxic or toxic appearing. His chest x-ray is within normal limits. He has no abdominal pain. His urinalysis is within normal limits. He does not have a white count. He is afebrile. If the patient does develop a fever or becomes toxic appearing, we will resume IV antibiotics. Spoke to sister on the phone she was concerned of possible suicide attempt, may want to consult psychiatry in the morning for consult. 2. Diabetes. I will place him on Accu-Cheks a.c. and h.s. with lispro sliding scale. I will hold his Lantus and Janumet at this time until doses can be confirmed. 3. Hypertension. I will continue his Norvasc 5 mg p.o. daily, this dosing may need to be adjusted. He will have hydralazine 5 mg IV push as needed for systolic blood pressure greater than 180. 4. Tobacco abuse. I will place him on nicotine patch and he can have nicotine inhalers as needed. 5. Fluids, electrolytes, and nutrition. He can have a heart-healthy, no caffeine diet. 6. DVT prophylaxis. I will place him on SCDs. We are going to hold on chemical prophylaxis at this time as he does have a large hematoma noted to the right side of his head. 7. Code status. It is assumed he wants to be a full code. This needs to be readdressed in the a.m. We need to verify his home medications when he is able to answer questions. TIME SPENT: Time spent on this admission was 60 minutes, greater than half that time was spent [id number] with the patient, obtaining my history and physical, the other half of the time was spent going over my plan of care and implementing my plan of care. I have discussed this with my attending, Dr. Chico Loza, he is in agreement with my plan. CLAUDIA OSCAR, FACILITY ASSISTANT [id number]/CPS #: [id number] ALFA
[2018-10-14] MEDS: Nicotine PATCH 21 MG/24 HR* PATCH TRANSDERM SCH (07:38)
[2018-10-14 07:46] LABS: ABS Basophils 0.1 10^3/ul (0-0.2); ABS Eosinophils 0.2 10^3/ul (0-0.6); ABS Lymphocytes 1.2 10^3/ul (1.0-4.8); ABS Monocytes 0.9 10^3/ul (0-0.8); ABS Neutrophils 6.8 10^3/ul (1.5-7.7); ABS Nucleated RBC 0 10^3/ul; Eosinophil % 2.1 %; Hematocrit 41 % (42-52); Hemoglobin 13.6 g/dl (14.0-18.0); Lymphocyte % 13.5 %; Mean Corpuscular HGB Conc 34 g/dl (31-36); Mean Corpuscular Hemoglobin 28 pg (27-31); Mean Corpuscular Volume 84 fL (80-94); Mean Platelet Volume 9.6 fL (7.4-10.4); Nucleated Red Blood Cells % 0; Platelet Count 106 10^3/ul (150-450); Red Blood Count 4.83 10^6/ul (4.00-5.40); Red Cell Distribution Width 14 % (10.5-15); White Blood Count 9.2 10^3/ul (3.5-10.8)
[2018-10-14 08:10] LABS: BUN/Creatinine Ratio 27.4 (8-20); EGFR African American 128.5 (>60); EGFR Non-African American 106.2 (>60); Potassium 3.2 mmol/L (3.5-5.0)
[2018-10-14] MEDS ORDERED: amLODIPine TAB* 5 MG PO SCH (09:00)
[2018-10-14] MEDS ORDERED: Gabapentin CAP(*) 100 MG PO SCH (09:00)
[2018-10-14] MEDS: Insulin LISPRO* 1 UNITS UNIT SUBCUT SCH ×3 (09:07→16:52)
[2018-10-14] MEDS: amLODIPine TAB* 5 MG PO SCH (09:07)
[2018-10-14 11:16] LABS: Albumin 3.5 g/dL (3.2-5.2); Albumin/Globulin Ratio 1.3 (1-3); Globulin 2.6 g/dL (2-4); Indirect Bilirubin 0.7 mg/dL (0.3-1.0); Magnesium 1.6 mg/dL (1.9-2.7); Total Protein 6.1 g/dL (6.4-8.9)
[2018-10-14] MEDS: NS 0.9% 1000 ML** 1,000 ML IV SCH (11:41)
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
[2018-10-14] MEDS ORDERED: Albuterol 2.5 MG/3 ML NEB.SOL* (0.083%) INH PRN (15:31)
[2018-10-14] MEDS ORDERED: Magnesium Sulfate IV* 3 GM in NS 0.9% 100 ML* 100 ML IVPB ONE (17:52)
[2018-10-14] MEDS: Nicotine Patch Removal NOTE PATCH OFF SCH (21:39)
[2018-10-14] MEDS: traMADol TAB* 50 MG PO PRN (23:37)
[2018-10-15] MEDS ORDERED: LORazepam INJ* 2 MG/ML 1 ML VIAL IV PUSH ONE (00:40)
[2018-10-15 09:06] LABS: ABS Basophils 0.1 10^3/ul (0-0.2); ABS Eosinophils 0.2 10^3/ul (0-0.6); ABS Lymphocytes 0.9 10^3/ul (1.0-4.8); ABS Monocytes 0.9 10^3/ul (0-0.8); ABS Neutrophils 4.5 10^3/ul (1.5-7.7); ABS Nucleated RBC 0 10^3/ul; Eosinophil % 3.8 %; Hematocrit 38 % (42-52); Lymphocyte % 13.7 %; Mean Corpuscular HGB Conc 34 g/dl (31-36); Mean Corpuscular Hemoglobin 28 pg (27-31); Mean Corpuscular Volume 84 fL (80-94); Nucleated Red Blood Cells % 0; Red Blood Count 4.57 10^6/ul (4.00-5.40); Red Cell Distribution Width 14 % (10.5-15); White Blood Count 6.6 10^3/ul (3.5-10.8)
[2018-10-15 09:08] LABS: Platelet Count 96 10^3/ul (150-450)
[2018-10-15 09:23] LABS: Albumin 2.9 g/dL (3.2-5.2); BUN/Creatinine Ratio 22.4 (8-20); Calcium 8.6 mg/dL (8.6-10.3); EGFR African American 141.9 (>60); EGFR Non-African American 117.3 (>60); Globulin 2.9 g/dL (2-4); Magnesium 1.9 mg/dL (1.9-2.7); Potassium 2.8 mmol/L (3.5-5.0); Total Protein 5.8 g/dL (6.4-8.9)
[2018-10-15] MEDS: Nicotine PATCH 21 MG/24 HR* PATCH TRANSDERM SCH (09:25)
[2018-10-15] MEDS: Insulin LISPRO* 1 UNITS UNIT SUBCUT SCH ×3 (09:25→17:04)
[2018-10-15] MEDS: traMADol TAB* 50 MG PO PRN (09:26)
[2018-10-15] MEDS: LORazepam INJ* 2 MG/ML 1 ML VIAL IV PUSH PRN ×3 (09:26→23:18)
[2018-10-15] MEDS: amLODIPine TAB* 5 MG PO SCH (09:27)
[2018-10-15] MEDS ORDERED: Potassium Chloride LIQUID* 20 MEQ PACKET PO ONE (10:02)
[2018-10-15] MEDS: NS 0.9% 1000 ML** 1,000 ML IV SCH (10:59)
[2018-10-15] MEDS ORDERED: KCL 20 MEQ/100 ML IVPREMIX* 40 MEQ/200 ML BAG ONE (11:00)
[2018-10-15] MEDS ORDERED: Potassium Chloride LIQUID* 20 MEQ PACKET ONE (11:01)
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
[2018-10-15] MEDS: KCL 20 MEQ/100 ML IVPREMIX* 20 MEQ/100 ML BAG IV SCH ×2 (15:16→15:17)
[2018-10-15] MEDS: Acetaminophen TAB* 325 MG PO PRN (15:21)
[2018-10-15] MEDS ORDERED: hydrALAZINE IV* 20 MG/ML VIAL IV SLOW PU ONE (15:35)
--- NOTE | 2018-10-15 17:01 | CONSULT ---
Consult Consult: Psychiatry attempted to evaluate this 72 y.o. , white gentleman with a history of recurrent delirium, opioid misuse and antisocial personality traits in his room on , however, the patient is confused, mute and unable to participate meaningfully in an exam. Psychiatry will attempt to speak with him again tomorrow.
[2018-10-15] MEDS ORDERED: Haloperidol INJ IV/IM* 5 MG/ML AMP ONE (17:16)
[2018-10-15] MEDS ORDERED: Haloperidol INJ IV/IM* 5 MG/ML AMP IM ONE (17:21)
[2018-10-15] MEDS: Nicotine Patch Removal NOTE PATCH OFF SCH ×2 (20:38→23:23)
[2018-10-16] MEDS ORDERED: Haloperidol INJ IV/IM* 5 MG/ML AMP IV SLOW PU ONE (01:17)
[2018-10-16] MEDS: hydrALAZINE IV* 20 MG/ML VIAL IV SLOW PU PRN ×2 (04:27→20:06)
[2018-10-16] MEDS: LORazepam INJ* 2 MG/ML 1 ML VIAL IV PUSH PRN ×2 (06:07→11:56)
[2018-10-16] MEDS ORDERED: KCL 20 MEQ/100 ML IVPREMIX* 20 MEQ/100 ML BAG IV SCH (09:00)
[2018-10-16 09:07] LABS: ABS Basophils 0.1 10^3/ul (0-0.2); ABS Eosinophils 0.3 10^3/ul (0-0.6); ABS Lymphocytes 1.1 10^3/ul (1.0-4.8); ABS Monocytes 0.7 10^3/ul (0-0.8); ABS Neutrophils 4.4 10^3/ul (1.5-7.7); ABS Nucleated RBC 0 10^3/ul; Eosinophil % 3.9 %; Hematocrit 39 % (42-52); Hemoglobin 12.9 g/dl (14.0-18.0); Lymphocyte % 16.2 %; Mean Corpuscular HGB Conc 34 g/dl (31-36); Mean Corpuscular Hemoglobin 28 pg (27-31); Mean Corpuscular Volume 84 fL (80-94); Nucleated Red Blood Cells % 0; Platelet Count 85 10^3/ul (150-450); Red Blood Count 4.62 10^6/ul (4.00-5.40); Red Cell Distribution Width 14 % (10.5-15); White Blood Count 6.5 10^3/ul (3.5-10.8)
[2018-10-16 09:09] LABS: BUN/Creatinine Ratio 17.2 (8-20); Calcium 8.4 mg/dL (8.6-10.3); EGFR African American 167.6 (>60); EGFR Non-African American 138.5 (>60); Magnesium 1.5 mg/dL (1.9-2.7)
[2018-10-16 09:22] LABS: Potassium 2.6 mmol/L (3.5-5.0)
[2018-10-16] MEDS: KCL 20 MEQ/100 ML IVPREMIX* 20 MEQ/100 ML BAG IV SCH ×3 (09:55→14:17)
[2018-10-16] MEDS: Nicotine PATCH 21 MG/24 HR* PATCH TRANSDERM SCH (09:55)
[2018-10-16] MEDS: amLODIPine TAB* 5 MG PO SCH (09:58)
[2018-10-16] MEDS: Insulin LISPRO* 1 UNITS UNIT SUBCUT SCH ×3 (09:58→16:59)
[2018-10-16] MEDS ORDERED: Magnesium Sulfate IV* 3 GM in NS 0.9% 100 ML* 100 ML IVPB ONE (10:00)
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
[2018-10-16 16:06] LABS: C Reactive Protein 19.62 mg/L (<8.01)
[2018-10-16 16:37] LABS: Erythrocyte Sed Rate 26 mm/Hr (0-40)
[2018-10-16] MEDS: NS 0.9% 1000 ML** 1,000 ML IV SCH (16:48)
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
[2018-10-16] MEDS: Nicotine Patch Removal NOTE PATCH OFF SCH ×2 (20:08→20:17)
[2018-10-16] MEDS: Acetaminophen TAB* 325 MG PO PRN (21:15)
[2018-10-16] MEDS: traMADol TAB* 50 MG PO PRN (21:37)
[2018-10-16] MEDS ORDERED: Potassium Chlor TAB* 20 MEQ TAB.ER PO ONE (22:29)
[2018-10-17] MEDS: NS 0.9% 1000 ML** 1,000 ML IV SCH ×2 (06:27→22:11)
[2018-10-17 06:57] LABS: BUN/Creatinine Ratio 15.9 (8-20); Calcium 8.1 mg/dL (8.6-10.3); EGFR African American 152.3 (>60); EGFR Non-African American 125.9 (>60); Magnesium 1.8 mg/dL (1.9-2.7); Potassium 3.1 mmol/L (3.5-5.0)
[2018-10-17] MEDS ORDERED: Magnesium Sulfate 2 GM IV* 2 GM/50 ML BAG IVPB ONE (07:25)
[2018-10-17] MEDS: Insulin LISPRO* 1 UNITS UNIT SUBCUT SCH ×3 (08:07→17:04)
[2018-10-17] MEDS: Nicotine PATCH 21 MG/24 HR* PATCH TRANSDERM SCH ×2 (08:14→08:20)
[2018-10-17] MEDS: amLODIPine TAB* 5 MG PO SCH (08:14)
[2018-10-17] MEDS: KCL 20 MEQ/100 ML IVPREMIX* 20 MEQ/100 ML BAG IV SCH ×3 (10:04→14:53)
[2018-10-17] MEDS: traMADol TAB* 50 MG PO PRN (14:15)
[2018-10-17] MEDS: Acetaminophen TAB* 325 MG PO PRN (15:45)
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
--- NOTE | 2018-10-17 16:55 | PN ---
Subjective Date of Service: 10/17/18 Interval History: Patient more alert today, appears agitated. Patient know he is in the hospital , Patient informed this was signwriter was there to evaluate him, Patient states" i don't fing care'" will not voice why is here. breakfast was offered, patient reports "i am fasting." when asked when he started fasting states yesterday. unable to provide information about why stove was on in apartment , or when he fell, or why he fell. no reports of fevers overnight . Patient remains uncooperative during the exam. Family History: Unchanged from Admission Social History: Unchanged from Admission Past Medical History: Unchanged from Admission Objective Active Medications: Acetaminophen (Tylenol Tab*) 650 mg PO Q4H PRN PRN Reason: FEVER/PAIN Last Admin: 10/17/18 15:45 Dose: 650 mg Albuterol (Ventolin 2.5 Mg/3 Ml Neb.Laya*) 2.5 mg INH Q4H PRN PRN Reason: SOB/WHEEZING Amlodipine Besylate (Norvasc Tab*) 10 mg PO DAILY [facility] Last Admin: 10/17/18 08:14 Dose: 10 mg Dextrose (D50w Syringe 50 Ml*) 12.5 gm IV PUSH .FOR FS < 60 - SS PRN PRN Reason: FS < 60 Hydralazine HCl (Apresoline Iv*) 5 mg IV SLOW PU Q6H PRN PRN Reason: Systolic Bp Greater Than:170 Last Admin: 10/16/18 20:06 Dose: 5 mg Sodium Chloride (Ns 0.9% 1000 Ml*) 1,000 mls @ 75 mls/hr IV PER RATE [facility] Last Admin: 10/17/18 06:27 Dose: 75 mls/hr Insulin Human Lispro (Humalog*) 0 units SUBCUT [facility]; Protocol Last Admin: 10/17/18 11:59 Dose: Not Given Lorazepam (Ativan Inj*) 1 mg IV PUSH Q6H PRN PRN Reason: AGITATION Last Admin: 10/16/18 11:56 Dose: 1 mg Nicotine (Nicotine Patch 21 Mg/24 Hr*) 1 patch TRANSDERM DAILY@0800 [facility] Last Admin: 10/17/18 08:20 Dose: Not Given Nicotine (Nicotine Inhaler*) 10 mg INH Q2H PRN PRN Reason: CRAVING Last Admin: 10/14/18 01:58 Dose: 10 mg Pharmacy Profile Note (Nicotine Patch Removal Note*) 1 note PATCH OFF 2100 [facility] Last Admin: 10/16/18 20:17 Dose: 1 note Potassium Chloride (Klor Con Er Tab*) 20 meq PO ONCE ONE Stop: 10/17/18 18:01 Tramadol HCl (Ultram*) 50 mg PO Q6H PRN PRN Reason: PAIN Last Admin: 10/17/18 14:15 Dose: 50 mg Vital Signs - 8 hr 10/17/18 10/17/18 10/17/18 12:09 12:17 14:15 Temperature 98.4 F Pulse Rate 137 82 Respiratory 18 16 Rate Blood Pressure 142/65 (mmHg) O2 Sat by Pulse 100 Oximetry 10/17/18 10/17/18 15:43 15:52 Temperature 98.3 F Pulse Rate 87 Respiratory 16 18 Rate Blood Pressure 154/58 (mmHg) O2 Sat by Pulse 96 Oximetry Oxygen Devices in Use Now: None Appearance: agitated Eyes: No Scleral Icterus, PERRLA Ears/Nose/Mouth/Throat: Clear Oropharnyx, Mucous Membranes Moist Neck: NL Appearance and Movements; NL JVP, Trachea Midline Respiratory: Symmetrical Chest Expansion and Respiratory Effort, Clear to Auscultation Cardiovascular: NL Sounds; No Murmurs; No JVD, No Edema Abdominal: NL Sounds; No Tenderness; No Distention Extremities: No Edema, No Clubbing, Cyanosis Skin: No Rash or Ulcers Neurological: - - patient uncooperative, answers some questions Nutrition: Taking PO's Result Diagrams: 10/16/18 08:45 10/17/18 06:30 Additional Lab and Data: Lab Results Microbiology and Other Data: Microbiology 10/13/18 22:43 Urine Culture - Final Urine No Growth (<1,000 CFU/mL) 10/13/18 19:08 Aerobic Blood Culture - Preliminary Blood Venous No Growth Day 1 Anaerobic Blood Culture - Preliminary No Growth Day 1 10/13/18 19:26 Aerobic Blood Culture - Preliminary Blood Venous No Growth Day 1 Anaerobic Blood Culture - Preliminary No Growth Day 1 Assess/Plan/Problems-Billing Assessment: Patient is a 72yo male with a PMH for COPD, DMII, Antisocial personality disorder, and previous suicidal ideation who presents to the hospital after being found in his house with the gas running. Patient has persistent AMS and also has urinary retention and difficulty swallowing with a very dry mouth. - Patient Problems (1) Toxic metabolic encephalopathy Current Visit: Yes Status: Acute Code(s): G92 - TOXIC ENCEPHALOPATHY SNOMED Code(s): 404571297 Comment: - Improving slightly - Unknown cause, patient is not able to give a reliable history - Gas exposure possibly contributing but ABG now unremarkable - Slightly elevated ammonia now normal and not likely contributing. - Possibly primary psychiatric, unable to tolerate MRI to R/O CVA or anoxic brain injury - Dry mucosa, urinary retention, Delirium/agitation, QT prolongation are all consistent with Anticholinergic overdose, will continue hydration, and monitor. - will contact patient's pharmacy in the AM - [facility] reports that the patient never picked up the doxapin perscription sent in september. last amitriptyline perscription was picked up on May 05 and that was for 60 tablets (2 month supply) - All of the above symptoms are improving, likely intentional/unintentional TCA overdose. - Patient was previously on Amitriptyline and Doxapin with previous suicidal ideation - No current suicidal ideation or capability to carry out suicide, not on 1:1 monitoring - Psych consult pending. (2) Block, conduction Current Visit: Yes Status: Acute Code(s): I45.9 - CONDUCTION DISORDER, UNSPECIFIED SNOMED Code(s): 92352551 Comment: resolved - Abnormal sinus rhythm with prolonged QT and initial t wave inversions and ST depressions - All improving, likely from TCA overdose QTC 434 on 10/15- improved - Continue telemetry and check echo to rule out cardiomyopathy as cause of sinus arrythmia. echo pending (3) COPD (chronic obstructive pulmonary disease) Current Visit: Yes Status: Acute Code(s): J44.9 - CHRONIC OBSTRUCTIVE PULMONARY DISEASE, UNSPECIFIED SNOMED Code(s): 04751887 Comment: - Not in exacerbation - Albuterol PRN, avoid anticholinergics (4) DVT prophylaxis Current Visit: No Status: Acute Code(s): SDB7270 - SNOMED Code(s): 001224943 Comment: - Heparin SubQ. (5) Full code status Current Visit: No Status: Acute Code(s): Z78.9 - OTHER SPECIFIED HEALTH STATUS SNOMED Code(s): 896862035 Status and Disposition: Inpatient with encephalopathy pending psych consult.
[2018-10-17] MEDS ORDERED: Potassium Chlor TAB* 20 MEQ TAB.ER PO ONE (18:00)
[2018-10-17] MEDS: Nicotine Patch Removal NOTE PATCH OFF SCH (20:56)
[2018-10-18] MEDS: hydrALAZINE IV* 20 MG/ML VIAL IV SLOW PU PRN ×2 (00:11→05:50)
[2018-10-18] MEDS: traMADol TAB* 50 MG PO PRN ×2 (02:22→14:23)
[2018-10-18 07:02] LABS: BUN/Creatinine Ratio 12.1 (8-20); Calcium 8.3 mg/dL (8.6-10.3); EGFR African American 167.6 (>60); EGFR Non-African American 138.5 (>60); Magnesium 1.5 mg/dL (1.9-2.7); Potassium 3.2 mmol/L (3.5-5.0)
[2018-10-18] MEDS ORDERED: Magnesium Sulfate IV* 3 GM in NS 0.9% 100 ML* 100 ML IVPB ONE (07:39)
[2018-10-18] MEDS: Potassium Chlor TAB* 20 MEQ TAB.ER PO SCH ×2 (08:26→21:28)
[2018-10-18] MEDS: Insulin LISPRO* 1 UNITS UNIT SUBCUT SCH ×3 (08:26→18:03)
[2018-10-18] MEDS: Nicotine PATCH 21 MG/24 HR* PATCH TRANSDERM SCH (08:26)
[2018-10-18] MEDS: amLODIPine TAB* 5 MG PO SCH (08:26)
[2018-10-18 09:09] LABS: TSH (Thyroid Stimulating Horm) 2.16 mcIU/mL (0.34-5.60)
[2018-10-18] MEDS: KCL 20 MEQ/100 ML IVPREMIX* 20 MEQ/100 ML BAG IV SCH ×3 (10:20→14:21)
[2018-10-18] MEDS: LORazepam INJ* 2 MG/ML 1 ML VIAL IV PUSH PRN (16:04)
[2018-10-18] MEDS ORDERED: LORazepam INJ* 2 MG/ML 1 ML VIAL IM ONE (16:29)
--- NOTE | 2018-10-18 16:35 | ECHO ---
Patient: CEM MÉNDEZ [facility] Rec#: [id number] : 1945 Date: 10/18/2018 Age: 72y Height: 165.1 cm / 65.0 in Weight: 63.1 kg / 139.1 lbs Sex: M BSA: 1.7 Room#: [facility] Admit Date#: 10/13/2018 Type: Inpatient Referring: John Herrera Reading: Zana Pat MD Turn Down Worker: Olivia Moreno RN RDCS CC: Erwin Toro MD Transthoracic Echocardiogram Indication: Syncope BP: 140/67 HR: 88 Rhythm: NSR with PACs Findings History: COPD, smoker, DM Technical Comments: The study quality is fair. The study was technically limited due to the patient's inability to lay in the left lateral decubitus position. The patient had difficulty cooperating with positioning. Left Ventricle: The left ventricular chamber size is decreased. Moderate to severe concentric left ventricular hypertrophy is observed. There is increased basal septal hypertrophy noted without evidence of an increased gradient across the left ventricular outflow tract. Global left ventricular wall motion and contractility are within normal limits. There is normal left ventricular systolic function. The estimated ejection fraction is 60-65%. Abnormal left ventricular diastolic function is observed. The patient was unable to perform a Valsalva maneuver. Left Atrium: The left atrium is moderately dilated. Right Ventricle: The right ventricular cavity size is normal. The right ventricular global systolic function is normal. Right Atrium: The right atrial cavity size is normal. Aortic Valve: The aortic valve is trileaflet. The aortic valve leaflets are mildly thickened. There is moderate thickening of the non coronary cusp. There is aortic annular calcification. There is mild to moderate aortic regurgitation. There is mild aortic stenosis. The peak instantaneous gradient of the aortic valve is 9 mmHg. The aortic valve area, by peak velocities, is calculated at 2.1 cm2. The aortic valve area, by VTI's, is calculated at 2 cm2. Mitral Valve: There is mitral annular calcification. The mitral valve leaflets are mildly thickened. There is mild mitral regurgitation. Tricuspid Valve: The tricuspid valve leaflets are normal. There is mild tricuspid regurgitation. Unable to estimate the right ventricular systolic pressure. Pulmonic Valve: The pulmonic valve appears normal. There is mild to moderate pulmonic regurgitation. Pericardium: There is no significant pericardial effusion. Aorta: The ascending aorta is not well visualized. The aortic arch is not well visualized. There is no dilation of the aortic root. Pulmonary Artery: The main pulmonary artery appears normal. Venous: The venous system is not well visualized. The inferior vena cava is not visualized. Summary: There are no significant changes when compared to the previous study done on 09/19/18 Conclusions Moderate to severe concentric left ventricular hypertrophy is observed. There is increased basal septal hypertrophy noted without evidence of an increased gradient across the left ventricular outflow tract. There is normal left ventricular systolic function. The estimated ejection fraction is 60-65%. There is moderate thickening of the non coronary cusp. There is mild to moderate aortic regurgitation. There is mild aortic stenosis. The aortic valve area, by peak velocities, is calculated at 2.1 cm2. There is mild mitral regurgitation. There is mild tricuspid regurgitation. Unable to estimate the right ventricular systolic pressure. There is no significant pericardial effusion. Measurements Name Value Normal Range RVDdMajor (2D) 3.2 cm (2.2 - 4.4) RAd ISD 4CH 4.9 cm (3.4 - 4.9) RA (A4C)W 3.4 cm (2.9 - 4.6) IVSd (2D) 1.7 cm (0.6 - 1) LVPWd (2D) 1.7 cm (0.6 - 1) LVIDd (2D) 3.4 cm (3.6 - 5.4) LVIDs (2D) 2.1 cm - LV FS (2D) 38 % (25 - 45) Aortic Annulus 1.6 cm (1.4 - 2.6) Ao root diameter (2D) 3.3 cm (2.1 - 3.5) Ascending Ao 3 cm (2.1 - 3.4) LA dimension (AP) 2D 4 cm (2.3 - 3.8) LAd ISD 4CH 5.1 cm (2.9 - 5.3) LA ISD 4CH W 4.3 cm (2.5 - 4.5) Name Value Normal Range LA ESV SP 4CH (A/L) 66 ml - LA ESV SP 2CH (A/L) 87 ml - LA ESV BP (A/L) 79 ml - LA ESV BP (A/L) index 46.5 ml/m2 - LA ESV SP 4CH (MOD) 64 ml - LA ESV SP 2CH (MOD) 81 ml - Name Value Normal Range MV E-wave Vmax 1.4 m/sec - MV deceleration time 149 msec - MV A-wave Vmax 1.2 m/sec - MV E:A ratio 1.2 ratio - LV septal e' Vmax 0.05 m/sec - LV lateral e' Vmax 0.05 m/sec - LV E:e' septal ratio 28 ratio - LV E:e' lateral ratio 28 ratio - Name Value Normal Range AV Vmax 1.5 m/sec - AV VTI 29.4 cm - AV peak gradient 9 mmHg - AV mean gradient 5.5 mmHg - LVOT diameter 1.9 cm - LVOT Vmax 1.1 m/sec - LVOT VTI 20.3 cm - LVOT peak gradient 4 mmHg - LVOT mean gradient 2 mmHg - DOI (VTI) 0.69 ratio - DOI (Vmax) 0.73 ratio - SUNG (continuity Vmax) 2.1 cm2 - SUNG (continuity VTI) 2 cm2 - AR PHT 455 msec - Name Value Normal Range PV Vmax 0.99 m/sec -
--- NOTE | 2018-10-18 17:53 | PN ---
Subjective Date of Service: 10/18/18 Interval History: patient is more awake today. remains resistant to answering questions. Patient continues to swear and refuse testing. Patient states that "I want to felisa go home." Patient pulled IV site out of left wrist. Patient was cooperative to get echo, went to MRI and they were able to obtain a few images before the patient pulled part of the machine. received call from the patient's niece Lalita Fernando who reports that the patient has contacted her several times today stating " I can not live like this any longer, I don't want to live like this." Patient denies chest pain or shortness of breath this AM , denies abd pain n/v/ d. Family History: Unchanged from Admission Social History: Unchanged from Admission Past Medical History: Unchanged from Admission Objective Active Medications: Acetaminophen (Tylenol Tab*) 650 mg PO Q4H PRN PRN Reason: FEVER/PAIN Last Admin: 10/17/18 15:45 Dose: 650 mg Albuterol (Ventolin 2.5 Mg/3 Ml Neb.Laya*) 2.5 mg INH Q4H PRN PRN Reason: SOB/WHEEZING Amlodipine Besylate (Norvasc Tab*) 10 mg PO DAILY [facility] Last Admin: 10/18/18 08:26 Dose: Not Given Dextrose (D50w Syringe 50 Ml*) 12.5 gm IV PUSH .FOR FS < 60 - SS PRN PRN Reason: FS < 60 Hydralazine HCl (Apresoline Iv*) 5 mg IV SLOW PU Q6H PRN PRN Reason: Systolic Bp Greater Than:170 Last Admin: 10/18/18 05:50 Dose: 5 mg Insulin Human Lispro (Humalog*) 0 units SUBCUT [facility]; Protocol Last Admin: 10/18/18 11:55 Dose: Not Given Lorazepam (Ativan Inj*) 1 mg IV PUSH Q6H PRN PRN Reason: AGITATION Last Admin: 10/16/18 11:56 Dose: 1 mg Magnesium Oxide (Magox 400 Tab*) 800 mg PO DAILY [facility] Nicotine (Nicotine Patch 21 Mg/24 Hr*) 1 patch TRANSDERM DAILY@0800 [facility] Last Admin: 10/18/18 08:26 Dose: Not Given Nicotine (Nicotine Inhaler*) 10 mg INH Q2H PRN PRN Reason: CRAVING Last Admin: 10/14/18 01:58 Dose: 10 mg Pharmacy Profile Note (Nicotine Patch Removal Note*) 1 note PATCH OFF 2100 [facility] Last Admin: 10/17/18 20:56 Dose: Not Given Potassium Chloride (Klor Con Er Tab*) 20 meq PO BID [facility] Last Admin: 10/18/18 08:26 Dose: Not Given Tramadol HCl (Ultram*) 50 mg PO Q6H PRN PRN Reason: PAIN Last Admin: 10/18/18 14:23 Dose: 50 mg Vital Signs - 8 hr 10/18/18 10/18/18 10/18/18 14:23 16:23 16:35 Respiratory 16 18 18 Rate Oxygen Devices in Use Now: None Eyes: No Scleral Icterus Ears/Nose/Mouth/Throat: Clear Oropharnyx, Mucous Membranes Moist Neck: NL Appearance and Movements; NL JVP, Trachea Midline Respiratory: Symmetrical Chest Expansion and Respiratory Effort, Clear to Auscultation Cardiovascular: NL Sounds; No Murmurs; No JVD, No Edema Abdominal: NL Sounds; No Tenderness; No Distention Skin: - - bilat jennifer orbital regions with hematoma, abrasion and swelling noted to right forehead, scattered abrasion noted to bilat knees Neurological: Alert and Oriented x 3 Nutrition: Taking PO's Result Diagrams: 10/16/18 08:45 10/18/18 06:00 Additional Lab and Data: Lab Results Microbiology and Other Data: Microbiology 10/13/18 22:43 Urine Culture - Final Urine No Growth (<1,000 CFU/mL) 10/13/18 19:08 Aerobic Blood Culture - Preliminary Blood Venous No Growth Day 1 Anaerobic Blood Culture - Preliminary No Growth Day 1 10/13/18 19:26 Aerobic Blood Culture - Preliminary Blood Venous No Growth Day 1 Anaerobic Blood Culture - Preliminary No Growth Day 1 Assess/Plan/Problems-Billing Assessment: Patient is a 72yo male with a PMH for COPD, DMII, Antisocial personality disorder, and previous suicidal ideation who presents to the hospital after being found in his house with the gas running. Patient has persistent AMS and also has urinary retention and difficulty swallowing with a very dry mouth. - Patient Problems (1) Toxic metabolic encephalopathy Current Visit: Yes Status: Acute Code(s): G92 - TOXIC ENCEPHALOPATHY SNOMED Code(s): 234583083 Comment: - Improving slightly - Unknown cause, patient is not able to give a reliable history - Gas exposure possibly contributing but ABG unremarkable - Slightly elevated ammonia now normal and not likely contributing. - Possibly primary psychiatric - MRI shows small left infact on limited imaging - spoke to neurology - Dry mucosa, urinary retention, Delirium/agitation, QT prolongation are all consistent with Anticholinergic overdose, will continue hydration, and monitor. - [facility] reports that the patient never picked up the doxapin perscription sent in september. last amitriptyline perscription was picked up on May 05 and that was for 60 tablets (2 month supply)- levels still pending - All of the above symptoms are improving, likely intentional/unintentional TCA overdose. - Patient was previously on Amitriptyline and Doxapin with previous suicidal ideation - 1:1 monitoring for safety - Patient reports that he want to leave today, recieved call from kiran Fernando who reports that the patient has called her several times today stating that he can not live like this anymore and lauren snot want to live like this. - will have psych re evaluate patient tomorrow - Psych consult - reports patient without capcity - will likely need short term rehab (2) Block, conduction Current Visit: Yes Status: Acute Code(s): I45.9 - CONDUCTION DISORDER, UNSPECIFIED SNOMED Code(s): 16038509 Comment: resolved - Abnormal sinus rhythm with prolonged QT and initial t wave inversions and ST depressions - All improving, likely from TCA overdose QTC 434 on 10/15- improved - Continue telemetry and check -echo EF 65% (3) COPD (chronic obstructive pulmonary disease) Current Visit: Yes Status: Acute Code(s): J44.9 - CHRONIC OBSTRUCTIVE PULMONARY DISEASE, UNSPECIFIED SNOMED Code(s): 43430752 Comment: - Not in exacerbation - Albuterol PRN, avoid anticholinergics (4) DVT prophylaxis Current Visit: No Status: Acute Code(s): WZG1318 - SNOMED Code(s): 010944045 Comment: scd's (5) Full code status Current Visit: No Status: Acute Code(s): Z78.9 - OTHER SPECIFIED HEALTH STATUS SNOMED Code(s): 083598842 Status and Disposition: Inpatient with encephalopathy pending psych consult.
[2018-10-18 19:05] LABS: HDL Cholesterol 28.2 mg/dL
[2018-10-18] MEDS: Nicotine Patch Removal NOTE PATCH OFF SCH (21:26)
[2018-10-18 22:44] LABS: Nortriptyline <20 ng/mL (70-170)
[2018-10-18 23:34] LABS: Hematocrit 37 % (42-52); Hemoglobin 12.6 g/dl (14.0-18.0); Mean Corpuscular HGB Conc 34 g/dl (31-36); Mean Corpuscular Hemoglobin 28 pg (27-31); Mean Corpuscular Volume 83 fL (80-94); Mean Platelet Volume 9.4 fL (7.4-10.4); Platelet Count 109 10^3/ul (150-450); Red Blood Count 4.45 10^6/ul (4.00-5.40); Red Cell Distribution Width 15 % (10.5-15); White Blood Count 8.3 10^3/ul (3.5-10.8)
[2018-10-19] MEDS ORDERED: Haloperidol INJ IV/IM* 5 MG/ML AMP IM ONE ×2 (01:00→22:37)
[2018-10-19] MEDS: Acetaminophen TAB* 325 MG PO PRN (04:28)
[2018-10-19 06:30] LABS: BUN/Creatinine Ratio 9.7 (8-20); Calcium 8.3 mg/dL (8.6-10.3); EGFR African American 155.2 (>60); EGFR Non-African American 128.3 (>60); Magnesium 1.6 mg/dL (1.9-2.7); Potassium 3.4 mmol/L (3.5-5.0)
[2018-10-19] MEDS ORDERED: Magnesium Sulfate 2 GM IV* 2 GM/50 ML BAG IVPB ONE (08:23)
--- NOTE | 2018-10-19 08:58 | PN ---
Progress Note - Progress Note Date of Service: 10/19/18 Note: I was asked to see and evaluate the patient regarding an abnormal MRI he had yesterday. The patient is admitted for AMS, encephalopathy. During his admission, he has exhibited aggressive behaviour, at times violent. I went in this morning to talk with the patient, he refused to talk with me or comply with any examination, rolling over in his bed and not speaking. At this point, I cannot make any meaningful recommendations. If possible, I would try to repeat his MRI (reviewed) for better quality. Apparently, he became violent and aggressive in the MRI scanner. If there is evidence of a stroke and the patient will cooperate, you could obtain and Echocardiogram, carotid U/S or CTA , check cholesterol and strive for secondary stroke risk factor reduction. If I can be of further assistance, do not hesitate to contact me.
[2018-10-19] MEDS: Insulin LISPRO* 1 UNITS UNIT SUBCUT SCH ×3 (09:16→18:13)
[2018-10-19] MEDS: Nicotine PATCH 21 MG/24 HR* PATCH TRANSDERM SCH (10:13)
[2018-10-19] MEDS: Magnesium Oxide TAB* 400 MG PO SCH (10:14)
[2018-10-19] MEDS: amLODIPine TAB* 5 MG PO SCH (10:14)
[2018-10-19] MEDS: Potassium Chlor TAB* 20 MEQ TAB.ER PO SCH ×2 (10:14→21:47)
[2018-10-19] MEDS: KCL 20 MEQ/100 ML IVPREMIX* 20 MEQ/100 ML BAG IV SCH ×2 (10:15→12:10)
--- NOTE | 2018-10-19 16:52 | CONSULT ---
Identification - Patient Identification Reason for Psychiatric Consultation: Violent Behavior -: Patient is a 72 year old, M admitted on 10/13/18. - MHU Identification Employment Status: Disabled Hx Psychiatric Hospitalization: Yes History - Objective HPI: Mr. Sung is seen for follow up by the psychiatric consult team today. He remains somnolent and minimally interactive today, although staff notes indicate that he becomes combative and violent at times. 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 He refused to interact with the consulting neurology team this morning. As per the attending's notes the patient's niece called the hospital to alert them of statements attributed to the patient over the phone of a suicidal nature. He is quoted as saying to her "I can not live like this any longer. I don't want to live like this." When asked about this statement he does not deny it, saying "Of course I fucking said it. I can't be in this hospital anymore. I want to go home!" He denies SI. I called the patient's sister, Mayela Fernando ([phone]), who is his healthcare proxy, and updated her. She states "He's in so much pain. I think he just wants to get out ot the hospital to get more street drugs." She expresses that she would be favorable to sedating the patient for any further diagnostic testing which would be indicated. Exam Appearance: Thin Framed Hygiene: Dirty Grooming: Disheveled Psychomotor Activities: Abnormal-Decreased Exhibits Abnormal Movement: No Attitude and Relatedness: Irritable Eye Contact: Poor - Speech Quality: Unpressured Latencies: Long Quantity: Terse Patient's Decription of Mood: "Fine" Observed Affect: Tense Affect Consistent with: Euthymia Patient's Thought Process: Circumstantial Thought Content: No Passive Wish, No Suicidal Planning, No Homicidal Ideation, No Paranoid Ideation Experiencing Hallucinations: No, Sensorium is Clear Type of Hallucinations: Visual: No, Auditory: No, Command: No Level of Consciousness: Lethargic Orientation: No Intact, No Orientated to Time, No Orientated to Place, No Orientated to Person Impulse Control: Poor Insight and Judgement: Impaired Impression - Impression Clinical Impression: 72 y.o. , white male with a history of recurrent delirium, long standing dependence to opioids and recent psychiatric care on the [facility] secondary to homicidal ideation who returned to [facility] [place] [place] on October 13 for his 3rd medical admission in the past month, this time for acute confusion, whom the primary team would like assessed for suicidality. Inpatient DSM-V Dx: F05 Merits Inpatient Hospitalization: No Plan - Treatment Plan Treatment Plan: Patient remains confused and still denying SI. He lacks capacity to refuse further neuroimaging or stroke work up. We will start quetiapine 50mg PO BID for agitation and delirium. Continue 1:1 for combativeness. Psychiatry will continue to follow. Continued Medication Management: Start Medication Medications: Current Medications Acetaminophen (Tylenol Tab*) 650 mg PO Q4H PRN PRN Reason: FEVER/PAIN Last Admin: 10/19/18 04:28 Dose: 650 mg Albuterol (Ventolin 2.5 Mg/3 Ml Neb.Laya*) 2.5 mg INH Q4H PRN PRN Reason: SOB/WHEEZING Amlodipine Besylate (Norvasc Tab*) 10 mg PO DAILY [facility] Last Admin: 10/19/18 10:14 Dose: Not Given Dextrose (D50w Syringe 50 Ml*) 12.5 gm IV PUSH .FOR FS < 60 - SS PRN PRN Reason: FS < 60 Hydralazine HCl (Apresoline Iv*) 5 mg IV SLOW PU Q6H PRN PRN Reason: Systolic Bp Greater Than:170 Last Admin: 10/18/18 05:50 Dose: 5 mg Insulin Human Lispro (Humalog*) 0 units SUBCUT [facility]; Protocol Last Admin: 10/19/18 12:17 Dose: 1 unit Lorazepam (Ativan Inj*) 1 mg IV PUSH Q6H PRN PRN Reason: AGITATION Last Admin: 10/16/18 11:56 Dose: 1 mg Magnesium Oxide (Magox 400 Tab*) 800 mg PO DAILY [facility] Last Admin: 10/19/18 10:14 Dose: Not Given Nicotine (Nicotine Patch 21 Mg/24 Hr*) 1 patch TRANSDERM DAILY@0800 [facility] Last Admin: 10/19/18 10:13 Dose: Not Given Nicotine (Nicotine Inhaler*) 10 mg INH Q2H PRN PRN Reason: CRAVING Last Admin: 10/14/18 01:58 Dose: 10 mg Pharmacy Profile Note (Nicotine Patch Removal Note*) 1 note PATCH OFF 2100 [facility] Last Admin: 10/18/18 21:26 Dose: Not Given Potassium Chloride (Klor Con Er Tab*) 20 meq PO BID [facility] Last Admin: 10/19/18 10:14 Dose: Not Given Tramadol HCl (Ultram*) 50 mg PO Q6H PRN PRN Reason: PAIN Last Admin: 10/18/18 14:23 Dose: 50 mg - Discharge Plan Discharge Plan: Consider Longer Term Tx
--- NOTE | 2018-10-19 18:44 | PN ---
Subjective Date of Service: 10/19/18 Interval History: Patient continues to refuse care. Patient states " I want to fucking go home". patient is refusing medications. Patient is refusing to see neurologist or have further testing done. Patient in bed with eyes closed pulling covers over head. Will not respond to questions when asked. Family History: Unchanged from Admission Social History: Unchanged from Admission Past Medical History: Unchanged from Admission Objective Active Medications: Acetaminophen (Tylenol Tab*) 650 mg PO Q4H PRN PRN Reason: FEVER/PAIN Last Admin: 10/19/18 04:28 Dose: 650 mg Albuterol (Ventolin 2.5 Mg/3 Ml Neb.Laya*) 2.5 mg INH Q4H PRN PRN Reason: SOB/WHEEZING Amlodipine Besylate (Norvasc Tab*) 10 mg PO DAILY [facility] Last Admin: 10/19/18 10:14 Dose: Not Given Dextrose (D50w Syringe 50 Ml*) 12.5 gm IV PUSH .FOR FS < 60 - SS PRN PRN Reason: FS < 60 Hydralazine HCl (Apresoline Iv*) 5 mg IV SLOW PU Q6H PRN PRN Reason: Systolic Bp Greater Than:170 Last Admin: 10/18/18 05:50 Dose: 5 mg Insulin Human Lispro (Humalog*) 0 units SUBCUT [facility]; Protocol Last Admin: 10/19/18 18:13 Dose: 2 unit Lorazepam (Ativan Inj*) 1 mg IV PUSH Q6H PRN PRN Reason: AGITATION Last Admin: 10/16/18 11:56 Dose: 1 mg Magnesium Oxide (Magox 400 Tab*) 800 mg PO DAILY [facility] Last Admin: 10/19/18 10:14 Dose: Not Given Nicotine (Nicotine Patch 21 Mg/24 Hr*) 1 patch TRANSDERM DAILY@0800 [facility] Last Admin: 10/19/18 10:13 Dose: Not Given Nicotine (Nicotine Inhaler*) 10 mg INH Q2H PRN PRN Reason: CRAVING Last Admin: 10/14/18 01:58 Dose: 10 mg Pharmacy Profile Note (Nicotine Patch Removal Note*) 1 note PATCH OFF 2100 [facility] Last Admin: 10/18/18 21:26 Dose: Not Given Potassium Chloride (Klor Con Er Tab*) 20 meq PO BID [facility] Last Admin: 10/19/18 10:14 Dose: Not Given Quetiapine Fumarate (Seroquel Tab*) 50 mg PO BID [facility] Tramadol HCl (Ultram*) 50 mg PO Q6H PRN PRN Reason: PAIN Last Admin: 10/18/18 14:23 Dose: 50 mg Vital Signs - 8 hr 10/19/18 10/19/18 11:11 16:12 Temperature 98.6 F 98.3 F Pulse Rate 104 84 Respiratory 20 Rate Blood Pressure 150/71 156/75 (mmHg) O2 Sat by Pulse 97 98 Oximetry Oxygen Devices in Use Now: None Appearance: thin elderly male, resting on bed with eyes closed unkept Eyes: No Scleral Icterus Ears/Nose/Mouth/Throat: Clear Oropharnyx, Mucous Membranes Moist Neck: NL Appearance and Movements; NL JVP, Trachea Midline Respiratory: Symmetrical Chest Expansion and Respiratory Effort, Clear to Auscultation Cardiovascular: NL Sounds; No Murmurs; No JVD, No Edema Abdominal: NL Sounds; No Tenderness; No Distention Extremities: No Edema, No Clubbing, Cyanosis Skin: - - bilat jennifer orbital hematoma improving, abrasion to right forehead, abrasion to bilat knees and lower legs. Neurological: - - unable to determine as patient resistent to answer questions Result Diagrams: 10/18/18 23:22 10/19/18 05:45 Additional Lab and Data: Lab Results Microbiology and Other Data: Microbiology 10/13/18 22:43 Urine Culture - Final Urine No Growth (<1,000 CFU/mL) 10/13/18 19:08 Aerobic Blood Culture - Preliminary Blood Venous No Growth Day 1 Anaerobic Blood Culture - Preliminary No Growth Day 1 10/13/18 19:26 Aerobic Blood Culture - Preliminary Blood Venous No Growth Day 1 Anaerobic Blood Culture - Preliminary No Growth Day 1 Assess/Plan/Problems-Billing Assessment: Patient is a 72yo male with a PMH for COPD, DMII, Antisocial personality disorder, and previous suicidal ideation who presents to the hospital after being found in his house with the gas running. Patient has persistent AMS and also has urinary retention and difficulty swallowing with a very dry mouth. - Patient Problems (1) Toxic metabolic encephalopathy Current Visit: Yes Status: Acute Code(s): G92 - TOXIC ENCEPHALOPATHY SNOMED Code(s): 219693621 Comment: - Improving slightly - Unknown cause, patient is not able to give a reliable history - Gas exposure possibly contributing but ABG unremarkable - Slightly elevated ammonia now normal and not likely contributing. - Possibly primary psychiatric- patient remians defiant and agressive at times - MRI shows small left infact on limited imaging - spoke to neurology- patient refused exam from neurology - neurology recommended - carotid duplex, echo , lipids and risks modifcations - patient is currently refusing - Dry mucosa, urinary retention, Delirium/agitation, QT prolongation are all consistent with Anticholinergic overdose, will continue monitor. - [facility] reports that the patient never picked up the doxapin perscription sent in september. last amitriptyline perscription was picked up on May 05 and that was for 60 tablets (2 month supply)- levels were negative - this is not likely the cause of his altered mental status - 1:1 monitoring for safety- patient remains a unsafe, aggressive and combative at times. - seen by Psych today - patient without capcity - will likely need short term rehab or (2) Block, conduction Current Visit: Yes Status: Acute Code(s): I45.9 - CONDUCTION DISORDER, UNSPECIFIED SNOMED Code(s): 79106931 Comment: resolved - Abnormal sinus rhythm with prolonged QT and initial t wave inversions and ST depressions - unlikely from TCA overdose - tCA drug level were negative - Continue telemetry - patient is refusing at this time - echo EF 65% (3) COPD (chronic obstructive pulmonary disease) Current Visit: Yes Status: Acute Code(s): J44.9 - CHRONIC OBSTRUCTIVE PULMONARY DISEASE, UNSPECIFIED SNOMED Code(s): 06631990 Comment: - Not in exacerbation - Albuterol PRN, avoid anticholinergics (4) DVT prophylaxis Current Visit: No Status: Acute Code(s): CRG8662 - SNOMED Code(s): 214987161 Comment: scd's (5) Full code status Current Visit: No Status: Acute Code(s): Z78.9 - OTHER SPECIFIED HEALTH STATUS SNOMED Code(s): 075245288 Status and Disposition: Inpatient with encephalopathy pending psych consult.
[2018-10-19] MEDS: QUEtiapine TAB* 25 MG PO SCH (19:30)
[2018-10-19] MEDS ORDERED: Potassium Chlor TAB* 20 MEQ TAB.ER PO ONE (19:42)
[2018-10-19] MEDS ORDERED: Magnesium Oxide TAB* 400 MG PO ONE (19:42)
[2018-10-19] MEDS: Nicotine Patch Removal NOTE PATCH OFF SCH (21:47)
--- NOTE | 2018-10-19 21:55 | EEG ---
ELECTROENCEPHALOGRAPHY: DATE OF STUDY: 10/19/18 LOCATION: He is an inpatient in room 437. REFERRING PROVIDER: Claudia Oconnell NP. CLINICAL PROBLEM: Delirium, agitation. Rule out seizures. MEDICATIONS: Include: 1. . 2. Lorazepam. 3. Hydralazine. 4. Insulin. 5. Amlodipine. REPORT: This 16-channel EEG is remarkable for background rhythms consisting essentially of low-voltage pattern. There is some central beta activity as well. The patient pulled up electrodes, which we reapplied. There was intermittent movement artifact. Activation procedures are not attempted. There is an audible posterior alpha rhythm. There are no clinical events. There are no focal, lateralized, or epileptiform abnormalities. CLINICAL IMPRESSION: Normal EEG and disorganization of background rhythms. There are no focal or epileptiform features to this recording. [id number]/[facility] #: [id number] MTDD
[2018-10-20 07:00] LABS: ABS Basophils 0.1 10^3/ul (0-0.2); ABS Eosinophils 0.3 10^3/ul (0-0.6); ABS Lymphocytes 1.4 10^3/ul (1.0-4.8); ABS Monocytes 1.2 10^3/ul (0-0.8); ABS Neutrophils 4.9 10^3/ul (1.5-7.7); ABS Nucleated RBC 0 10^3/ul; Hematocrit 38 % (42-52); Hemoglobin 13.1 g/dl (14.0-18.0); Lymphocyte % 17.5 %; Mean Corpuscular HGB Conc 35 g/dl (31-36); Mean Corpuscular Hemoglobin 29 pg (27-31); Mean Corpuscular Volume 82 fL (80-94); Mean Platelet Volume 9.5 fL (7.4-10.4); Nucleated Red Blood Cells % 0.1; Platelet Count 118 10^3/ul (150-450); Red Blood Count 4.61 10^6/ul (4.00-5.40); Red Cell Distribution Width 14 % (10.5-15); White Blood Count 7.9 10^3/ul (3.5-10.8)
[2018-10-20 07:13] LABS: BUN/Creatinine Ratio 10.1 (8-20); Calcium 8.7 mg/dL (8.6-10.3); EGFR African American 137.2 (>60); EGFR Non-African American 113.4 (>60); Magnesium 1.6 mg/dL (1.9-2.7); Potassium 3.3 mmol/L (3.5-5.0)
[2018-10-20] MEDS: QUEtiapine TAB* 25 MG PO SCH ×2 (08:18→18:00)
[2018-10-20] MEDS: amLODIPine TAB* 5 MG PO SCH (08:20)
[2018-10-20] MEDS: Nicotine PATCH 21 MG/24 HR* PATCH TRANSDERM SCH (08:21)
[2018-10-20] MEDS: Magnesium Oxide TAB* 400 MG PO SCH ×2 (08:22→22:15)
[2018-10-20] MEDS: Insulin LISPRO* 1 UNITS UNIT SUBCUT SCH ×3 (08:22→17:53)
[2018-10-20] MEDS: Potassium Chlor TAB* 20 MEQ TAB.ER PO SCH (08:22)
[2018-10-20] MEDS ORDERED: Diazepam TAB(*) 5 MG PO ONE (12:58)
--- NOTE | 2018-10-20 13:10 | CONSULT ---
Identification - Patient Identification Reason for Psychiatric Consultation: Violent Behavior -: Patient is a 72 year old, M admitted on 10/13/18. - MHU Identification Employment Status: Disabled Hx Psychiatric Hospitalization: Yes History - Objective HPI: Mr. Sung is seen again for follow up by the psychiatric consult team today. He remains lethargic and somatic, complaining bitterly of pain in his bilateral feet and demonstrating the inability to ambulate. Earlier efforts to get him to the bathroom were unsuccessful and he reportedly nearly collapsed on the floor in his room. During my examination he tries to get out of bed with assistance but is not strong enough to stand up. He is wincing at times and does not make spontaneous speech. Nursing staff on -S indicate that he has made statements today that he can "leave here and get real pain medicine out on the street...I know where to get it." He is also quoted as saying that he "doesn't want to be alive anymore." On exam Solo reiterates that he is not having suicidal thoughts passively or actively. He demonstrates no coherent understanding of his medical issues or need for hospitalization and again demands to be discharged. Exam Appearance: Thin Framed Hygiene: Dirty Grooming: Disheveled Psychomotor Activities: Abnormal-Decreased Exhibits Abnormal Movement: No Attitude and Relatedness: Irritable Eye Contact: Poor - Speech Quality: Unpressured Latencies: Long Quantity: Terse Patient's Decription of Mood: "Fine" Observed Affect: Tense Affect Consistent with: Euthymia Patient's Thought Process: Circumstantial Thought Content: No Passive Wish, No Suicidal Planning, No Homicidal Ideation, No Paranoid Ideation Experiencing Hallucinations: No, Sensorium is Clear Type of Hallucinations: Visual: No, Auditory: No, Command: No Level of Consciousness: Lethargic Orientation: No Intact, No Orientated to Time, No Orientated to Place, No Orientated to Person Impulse Control: Poor Insight and Judgement: Impaired Impression - Impression Clinical Impression: 72 y.o. , white male with a history of recurrent delirium, long standing dependence to opioids and recent psychiatric care on the [facility] secondary to homicidal ideation who [place] [facility] [place] for his 3rd medical admission in the past month, this time for acute confusion, whom the primary team would like assessed for suicidality. Inpatient DSM-V Dx: F05 Merits Inpatient Hospitalization: No Plan - Treatment Plan Treatment Plan: Patient remains confused and still denying SI. Appears uncomfortable, in pain and unable to ambulate. He lacks capacity to refuse further neuroimaging or stroke work up. We have started quetiapine 50mg PO BID for agitation and delirium and will start mirtazapine for strong suggestion of depressive illness. Continue 1:1 for combativeness. Psychiatry will continue to follow. Continued Medication Management: Start Medication Medications: Current Medications Acetaminophen (Tylenol Tab*) 650 mg PO Q4H PRN PRN Reason: FEVER/PAIN Last Admin: 10/19/18 04:28 Dose: 650 mg Albuterol (Ventolin 2.5 Mg/3 Ml Neb.Laya*) 2.5 mg INH Q4H PRN PRN Reason: SOB/WHEEZING Amlodipine Besylate (Norvasc Tab*) 10 mg PO DAILY [facility] Last Admin: 10/20/18 08:20 Dose: 10 mg Dextrose (D50w Syringe 50 Ml*) 12.5 gm IV PUSH .FOR FS < 60 - SS PRN PRN Reason: FS < 60 Hydralazine HCl (Apresoline Iv*) 5 mg IV SLOW PU Q6H PRN PRN Reason: Systolic Bp Greater Than:170 Last Admin: 10/18/18 05:50 Dose: 5 mg Insulin Human Lispro (Humalog*) 0 units SUBCUT [facility]; Protocol Last Admin: 10/20/18 12:06 Dose: Not Given Lorazepam (Ativan Inj*) 1 mg IV PUSH Q6H PRN PRN Reason: AGITATION Last Admin: 10/16/18 11:56 Dose: 1 mg Magnesium Oxide (Magox 400 Tab*) 800 mg PO BID [facility] Nicotine (Nicotine Patch 21 Mg/24 Hr*) 1 patch TRANSDERM DAILY@0800 [facility] Last Admin: 10/20/18 08:21 Dose: Not Given Nicotine (Nicotine Inhaler*) 10 mg INH Q2H PRN PRN Reason: CRAVING Last Admin: 10/14/18 01:58 Dose: 10 mg Pharmacy Profile Note (Nicotine Patch Removal Note*) 1 note PATCH OFF 2100 [facility] Last Admin: 10/19/18 21:47 Dose: Not Given Potassium Chloride (Klor Con Er Tab*) 40 meq PO BID [facility] Quetiapine Fumarate (Seroquel Tab*) 50 mg PO Q12H [facility] Last Admin: 10/20/18 08:18 Dose: 50 mg Tramadol HCl (Ultram*) 50 mg PO Q6H PRN PRN Reason: PAIN Last Admin: 10/18/18 14:23 Dose: 50 mg
[2018-10-20] MEDS: traMADol TAB* 50 MG PO PRN (18:00)
[2018-10-20] MEDS: Acetaminophen TAB* 325 MG PO SCH (19:00)
--- NOTE | 2018-10-20 19:02 | PN ---
Subjective Date of Service: 10/20/18 Interval History: Patient seen today, awake, does not seem to be confused is converse at time and falls asleep at time. He is simply not Family History: Unchanged from Admission Social History: Unchanged from Admission Past Medical History: Unchanged from Admission Objective Active Medications: Acetaminophen (Tylenol Tab*) 650 mg PO Q6H [facility] Albuterol (Ventolin 2.5 Mg/3 Ml Neb.Laya*) 2.5 mg INH Q4H PRN PRN Reason: SOB/WHEEZING Amlodipine Besylate (Norvasc Tab*) 10 mg PO DAILY [facility] Last Admin: 10/20/18 08:20 Dose: 10 mg Dextrose (D50w Syringe 50 Ml*) 12.5 gm IV PUSH .FOR FS < 60 - SS PRN PRN Reason: FS < 60 Hydralazine HCl (Apresoline Iv*) 5 mg IV SLOW PU Q6H PRN PRN Reason: Systolic Bp Greater Than:170 Last Admin: 10/18/18 05:50 Dose: 5 mg Insulin Human Lispro (Humalog*) 0 units SUBCUT [facility]; Protocol Last Admin: 10/20/18 17:53 Dose: Not Given Magnesium Oxide (Magox 400 Tab*) 800 mg PO BID [facility] Mirtazapine (Remeron Tab*) 15 mg PO BEDTIME [facility] Nicotine (Nicotine Patch 21 Mg/24 Hr*) 1 patch TRANSDERM DAILY@0800 [facility] Last Admin: 10/20/18 08:21 Dose: Not Given Nicotine (Nicotine Inhaler*) 10 mg INH Q2H PRN PRN Reason: CRAVING Last Admin: 10/14/18 01:58 Dose: 10 mg Pharmacy Profile Note (Nicotine Patch Removal Note*) 1 note PATCH OFF 2100 [facility] Last Admin: 10/19/18 21:47 Dose: Not Given Potassium Chloride (Klor-Con Liquid*) 40 meq PO BID [facility] Quetiapine Fumarate (Seroquel Tab*) 50 mg PO Q12H [facility] Last Admin: 10/20/18 18:00 Dose: 50 mg Vital Signs - 8 hr 10/20/18 10/20/18 10/20/18 15:15 15:37 17:19 Pulse Rate 80 Respiratory 18 16 16 Rate Blood Pressure 157/76 (mmHg) O2 Sat by Pulse 98 Oximetry 10/20/18 18:00 Pulse Rate Respiratory 16 Rate Blood Pressure (mmHg) O2 Sat by Pulse Oximetry Oxygen Devices in Use Now: None Appearance: Ecchymosis, right temporal. and left eye ecchymosis and hematoma Eyes: No Scleral Icterus Ears/Nose/Mouth/Throat: - - poour dental hygiene Neck: NL Appearance and Movements; NL JVP Respiratory: Symmetrical Chest Expansion and Respiratory Effort Cardiovascular: NL Sounds; No Murmurs; No JVD, RRR Abdominal: NL Sounds; No Tenderness; No Distention Neurological: Alert and Oriented x 3 Result Diagrams: 10/20/18 06:35 10/20/18 06:35 Additional Lab and Data: Lab Results Microbiology and Other Data: Microbiology 10/13/18 22:43 Urine Culture - Final Urine No Growth (<1,000 CFU/mL) 10/13/18 19:08 Aerobic Blood Culture - Preliminary Blood Venous No Growth Day 1 Anaerobic Blood Culture - Preliminary No Growth Day 1 10/13/18 19:26 Aerobic Blood Culture - Preliminary Blood Venous No Growth Day 1 Anaerobic Blood Culture - Preliminary No Growth Day 1 Assess/Plan/Problems-Billing Assessment: Patient is a 72yo male with a PMH for COPD, DMII, Antisocial personality disorder, and previous suicidal ideation who presents to the hospital after being found in his house with the gas running. Patient has persistent AMS and also has urinary retention and difficulty swallowing with a very dry mouth. - Patient Problems (1) Toxic metabolic encephalopathy Current Visit: Yes Status: Acute Code(s): G92 - TOXIC ENCEPHALOPATHY SNOMED Code(s): 000516779 Comment: - Improving slightly - Unknown cause, patient is not able to give a reliable history - Gas exposure possibly contributing but ABG unremarkable but by now and his hospital day # 7 it should have cleared by now. - Slightly elevated ammonia now normal and not likely contributing. - I believe it is mainly psychiatric with personality and manipulative behavior - patient remians defiant and agressive at times - Initial MRI shows small left infact on limited imaging - spoke to neurology- patient refused exam from neurology - neurology recommended - carotid duplex, echo , lipids and risks modifcations - I did send for repeat MRI today will follow up MRI and neuro input in am and will revisit with psychiatry input - 1:1 monitoring for safety- patient remains a unsafe, aggressive and combative at times. - seen by Psych - patient without capcity - will likely need short term rehab (2) COPD (chronic obstructive pulmonary disease) Current Visit: Yes Status: Acute Code(s): J44.9 - CHRONIC OBSTRUCTIVE PULMONARY DISEASE, UNSPECIFIED SNOMED Code(s): 01445805 Comment: - Not in exacerbation - Albuterol PRN, avoid anticholinergics (3) DVT prophylaxis Current Visit: No Status: Acute Code(s): NKJ5033 - SNOMED Code(s): 301298175 Comment: scd's Status and Disposition: Inpatient with encephalopathy pending psych consult.
[2018-10-20] MEDS ORDERED: Mirtazapine TAB* 15 MG PO SCH (21:00)
[2018-10-20] MEDS: Nicotine Patch Removal NOTE PATCH OFF SCH (21:00)
[2018-10-20] MEDS: Potassium Chloride LIQUID* 20 MEQ PACKET PO SCH (22:15)
[2018-10-21] MEDS: Acetaminophen TAB* 325 MG PO SCH ×4 (02:16→21:08)
[2018-10-21 06:30] LABS: BUN/Creatinine Ratio 14.7 (8-20); Calcium 9.1 mg/dL (8.6-10.3); EGFR African American 124.6 (>60); Magnesium 1.8 mg/dL (1.9-2.7); Potassium 3.4 mmol/L (3.5-5.0)
[2018-10-21] MEDS: QUEtiapine TAB* 25 MG PO SCH (07:50)
[2018-10-21] MEDS: amLODIPine TAB* 5 MG PO SCH (07:50)
[2018-10-21] MEDS: Magnesium Oxide TAB* 400 MG PO SCH ×2 (07:51→21:12)
[2018-10-21] MEDS: Potassium Chloride LIQUID* 20 MEQ PACKET PO SCH ×2 (07:56→21:12)
[2018-10-21] MEDS: Insulin LISPRO* 1 UNITS UNIT SUBCUT SCH ×3 (08:25→17:31)
[2018-10-21] MEDS: Nicotine PATCH 21 MG/24 HR* PATCH TRANSDERM SCH (08:25)
--- NOTE | 2018-10-21 11:21 | CONS ---
CONSULTATION REPORT: DATE OF CONSULT: 10/21/18 LOCATION: Current location is 437. PRIMARY CARE PROVIDER: He has no reported primary care provider. REASON FOR CONSULTATION: Altered mental status. SOURCE OF INFORMATION: The patient was unable to give me any history. I was able to go back and look at the admission H and P as well as progress notes to piece together his HPI. This is the second time I have tried to evaluate the patient. This morning he is somewhat sedated, but not violent, although he was minimally compliant with the examination and only spoke his name. With that said, the consultation is limited by the patient's refusal to cooperate. HISTORY OF PRESENT ILLNESS: Per prior records, Mr. Sung is a 72-year-old gentleman who has a reported past medical history of COPD with tobacco use, anxiety, type 2 diabetes, peripheral neuropathy, lower back pain. He was admitted on 10/13/17 with possible suicide attempt. Apparently, the police were called to his house. His stove gas was on in his apartment, the refrigerator door was open, pilot steam yacht lights were not on the stove. It is unclear how long he was in this environment. He had been asking for pain medication for his chronic pain that he was unable to get them a week prior and would buy them off the street. A sister reported that he does not drink alcohol, which he denied as well. It is unclear whether there was any drug use. He denied at one point that there was a suicide attempt. He was also noted to have bruising around his eyes and he reported that he fell. He also had a fishing hook in his hair. Apparently, the natural gas was at "explosive levels." He was found to be hypertensive and with a temperature of 95.9 in the ER and was placed on sepsis protocol. Throughout the last 8 days, the patient has been intermittently violent, at times very combative, at times threatening to hurt himself and others, at times trying to leave against medical advice, and Psychiatry has been called to see him. They feel that he is not competent to make medical decisions. He has been monitored with a full-time nurse in the room. On my first attempt to see him, he was belligerent and would refuse to turn over or answer any questions. Other times, he appeared to be more awake and alert, but often was belligerent and refusing to answer or participate in any attempts to care for him. Initially, he had a brain CT, this is on admission, that showed no acute intracranial pathology with a right frontal supraorbital scalp hematoma. Cervical spine CT showed no evidence of acute fracture involving the cervical vertebral bodies, multilevel degenerative cervical disk disease, variable degree of neuroforaminal narrowing, no significant canal stenosis. Maxillofacial CT showed scalp hematoma overlying the right frontal sinus with swelling overlying the right orbit. Chest x-ray on admission, no evidence for active cardiopulmonary disease. The next day, a transthoracic echocardiogram was done; report notes no significant changes when compared to previous study on 09/19/18. Moderate to severe concentric left ventricular hypertrophy is observed. There is increased basal septal hypertrophy noted without evidence of an increased gradient across the left ventricular outflow, normal left ventricular systolic function, estimated ejection fraction 60% to 65%, moderate thickening of a noncoronary cusp, mild to moderate aortic regurgitation, mild aortic stenosis, mild mitral regurgitation, mild tricuspid regurgitation, no significant pericardial effusion. At one point, he was sent for MRI of the brain, he became extremely combative and tried to attack the machine. Very limited studies were done, but an ADC and DWI were obtained, which was consistent with a small infarct in the left parietal lobe measuring 6 mm in size. He was given some medication and had another MRI yesterday with better quality, although he had some movement, which appears to show a similar DWI change with more subtle changes on ADC, difficult to correlate, at least suggestive of the fact that this is a subacute stroke. I was asked to see the patient to evaluate his delirium. Again, the patient would not give me any information this morning. PAST MEDICAL HISTORY: As noted above. PAST SURGICAL HISTORY: Not reported. MEDICATIONS: Per the admission records, his home medications include: 1. Amlodipine. 2. Janumet. 3. Metformin. 4. Ibuprofen. 5. Gabapentin. 6. Flexeril. 7. Albuterol. Current hospital medications: 1. Acetaminophen. 2. Albuterol. 3. Norvasc. 4. Hydralazine. 5. Insulin. 6. Magnesium oxide. 7. Mirtazapine. 8. Nicotine inhaler. 9. Nicotine patch. 10. Potassium chloride. 11. Seroquel 50 mg q.12 hours. 12. He has also received Valium and Ativan. ALLERGIES: No known drug allergies. FAMILY HISTORY: Per the chart, hypertension, diabetes and CAD. SOCIAL HISTORY: Per the chart, [id number] smoking. No alcohol or illicit drug use. REVIEW OF SYSTEMS: The patient refused to answer any questions this morning. He is somnolent, did receive Seroquel, but does awaken and will not answer my questions. PHYSICAL EXAM: Vitals: Temp of 97.1 this morning, pulse of 77, respiratory rate of 19, O2 sat of 93%, blood pressure 150/41 to 154/90 to 148/60. In general, he is a poorly nourished, disheveled gentleman lying in his bed. He is sleeping, but does awaken to voice. He is normocephalic. He has ecchymoses around both eyes and across his nose to the extent that he would comply. His sclerae appear anicteric. Mucous membranes are difficult to assess. Lips are dry. He appears to have some poor dentition. Neck appears to be supple. Chest was clear to auscultation bilaterally. Cardiovascular was regular rate and rhythm. No murmurs were appreciated. Abdomen was soft. Extremities: Very thin with scattered ecchymoses. No clubbing, cyanosis, or edema was appreciated. Neurologic Examination: Again somnolent, but awakens. Followed some simple commands, largely nonverbal, he would say his name. Difficult to assess his speech quality or quantity, but in the last several days he has been very verbal and fluent per the nurse. Cranial nerves were difficult to assess. He would not open his eyes, but his pupils at one point appeared to be equal, unclear if they were reactive. He does look around, but would not follow. Visual soliman cannot be assessed. No obvious nystagmus. Face appears to be symmetric, but there is some trauma. He did appear to hear what I was saying. Cannot assess his tongue or palate or sternocleidomastoid or trapezius. Motor Exam: He would not move his extremities much except wiggle his fingers and toes , but per the nurse, he has been moving all extremities. He has been agitated up, moving around. No focal neurologic deficits have noticed. DTRs cannot be assessed because of patient positioning and noncompliance. Sensation: He did withdraw to pain x4. He would not participate with [id number] or rapid alternating movements. There were no obvious resting tremors. Gait could not be tested. DIAGNOSTIC STUDIES/LAB DATA: Recent lab work includes sodium of 140, potassium of 3.4, glucose of 163, magnesium of 1.8, blood sugar 138 to 219 to 261. His TSH of 2.16. Vitamin B12 was 658. Cholesterol of 108, LDL 65, HDL of 28.2. Ammonia from 10/14/18 of 53, ammonia from 10/13/18 of 58. CK of 25 from . C-reactive protein of 19.2 from 10/16/18. Total bili from 10/15/18 of 1.0 , direct bili from 10/14/18 of 0.3. It should be noted that the patient has often refused lab draws and has become violent with the engineer second assistant. Imaging: As noted above. Microbiology: No growth in his urine. Blood anaerobic cultures negative x5 days. He also had an electroencephalogram that was normal with disorganized background rhythms, but no focal epileptiform features. ASSESSMENT AND PLAN: Mr. Sung is a 72-year-old gentleman who was admitted to the hospital with a possible suicide attempt. He has been extremely violent and aggressive throughout his stay and any history that I obtain was from a chart review. This is my second attempt to evaluate and assess the patient. He initially was very aggressive and I was unable to assess at all. Today, it is a minimal assessment to the extent that he would participate. 1. He has been admitted with delirium with likely underlying psychiatric issues as well. From the standpoint of a delirium, his medical issues seemed to be largely resolved. His lab work appeared stable. He does not appear to have any infection. Cultures are negative. His respiratory status per his vital signs appears to be relatively intact. He is on several medications that could affect his level of alertness and cognitive function including mirtazapine , which could make him very sleepy; Seroquel, obviously which could make him very sleepy as well, but would not necessarily contribute to his overt violent and aggressive behavior. He does not appear to be in any significant pain that might exacerbate the delirium. He has not had any recent ingestions of drugs or alcohol that we are aware of, although his drug history is unknown. His MRI of the brain shows significant atrophy and what appears to be a subacute to chronic stroke in the left parietal region. Given the small size of the stroke , I would not expect this to contribute to his psychiatric presentation. There is no history of seizures and EEG was normal. My suspicion for underlying seizures is very low. In short, I see no obvious medical or neurologic reasons for his underlying delirium, although I would defer to Psychiatry regarding his psychiatric assessment. Per Psychiatry, I would continue the Seroquel and mirtazapine, follow his labs and electrolytes. 2. From a stroke standpoint, I would maximize his therapy, which includes smoking cessation, he is on nicotine patch; a baby aspirin a day; tight blood pressure and diabetes control; and cholesterol control, his LDL is 65, which is in a good range. Avoid any drugs such as cocaine or stimulants, which could worsen blood pressure and contribute to an acute stroke. 3. From a neurology perspective, he seems to be fairly stable. I will sign off for now, but remain available for any new neurologic issues. Thank you for the opportunity to participate in his care. [id number]/[facility] #: [id number] ALFA
--- NOTE | 2018-10-21 13:34 | CONSULT ---
Identification - Patient Identification Reason for Psychiatric Consultation: Violent Behavior -: Patient is a 72 year old, M admitted on 10/13/18. - MHU Identification Employment Status: Disabled Hx Psychiatric Hospitalization: Yes History - Objective HPI: Mr. Sung is seen in his room on 4-S. He is sedated and difficult to arouse. Nursing staff indicate that quetiapine therapy has rendered him less agitated at times but obtunded in the daytime. Staff note that Mr. Sung made suicidal statements to a 1:1 aide last evening but I cannot see reference to these in the staff documentation section of his medical record. Adherence with medications seems to be improving. Exam Appearance: Thin Framed Hygiene: Dirty Grooming: Disheveled Psychomotor Activities: Abnormal-Decreased Exhibits Abnormal Movement: No Attitude and Relatedness: Irritable Eye Contact: Poor - Speech Quality: Unpressured Latencies: Long Quantity: Terse Patient's Decription of Mood: "Fine" Observed Affect: Tense Affect Consistent with: Euthymia Patient's Thought Process: Circumstantial Thought Content: No Passive Wish, No Suicidal Planning, No Homicidal Ideation, No Paranoid Ideation Experiencing Hallucinations: No, Sensorium is Clear Type of Hallucinations: Visual: No, Auditory: No, Command: No Level of Consciousness: Obtunded Orientation: No Intact, No Orientated to Time, No Orientated to Place, No Orientated to Person Impulse Control: Poor Insight and Judgement: Impaired Impression - Impression Clinical Impression: 72 y.o. , white male with a history of recurrent delirium, long standing dependence to opioids and recent psychiatric care on the [facility] secondary to homicidal ideation who returned to [facility] on October 13 for his 3rd medical admission in the past month, this time for acute confusion, whom the primary team would like assessed for suicidality. Inpatient DSM-V Dx: F05 Merits Inpatient Hospitalization: No Plan - Treatment Plan Treatment Plan: Patient appears overly sedated, likely from quetiapine. Will decrease the dose to 50mg PO qhs. He lacks capacity to make informed medical decisions due to continued confusion. Continue mirtazapine 15mg PO qhs for strong suggestion of depressive illness. Continue 1:1 for combativeness. This clinician will not be available over the weekend but will return to reassess Solo on October 24. Continued Medication Management: Start Medication Medications: Current Medications Acetaminophen (Tylenol Tab*) 650 mg PO Q6H [facility] Last Admin: 10/21/18 12:44 Dose: Not Given Albuterol (Ventolin 2.5 Mg/3 Ml Neb.Laya*) 2.5 mg INH Q4H PRN PRN Reason: SOB/WHEEZING Amlodipine Besylate (Norvasc Tab*) 10 mg PO DAILY [facility] Last Admin: 10/21/18 07:50 Dose: 10 mg Dextrose (D50w Syringe 50 Ml*) 12.5 gm IV PUSH .FOR FS < 60 - SS PRN PRN Reason: FS < 60 Hydralazine HCl (Apresoline Iv*) 5 mg IV SLOW PU Q6H PRN PRN Reason: Systolic Bp Greater Than:170 Last Admin: 10/18/18 05:50 Dose: 5 mg Insulin Human Lispro (Humalog*) [address] [facility]; Protocol Last Admin: 10/21/18 12:44 Dose: Not Given Magnesium Oxide (Magox 400 Tab*) 800 mg PO BID [facility] Last Admin: 10/21/18 07:51 Dose: 800 mg Mirtazapine (Remeron Tab*) 15 mg PO BEDTIME [facility] Last Admin: 10/20/18 22:16 Dose: 15 mg Nicotine (Nicotine Patch 21 Mg/24 Hr*) 1 patch TRANSDERM DAILY@0800 [facility] Last Admin: 10/21/18 08:25 Dose: Not Given Nicotine (Nicotine Inhaler*) 10 mg INH Q2H PRN PRN Reason: CRAVING Last Admin: 10/14/18 01:58 Dose: 10 mg Pharmacy Profile Note (Nicotine Patch Removal Note*) 1 note PATCH OFF 2100 [facility] Last Admin: 10/20/18 21:00 Dose: Not Given Potassium Chloride (Klor-Con Liquid*) 40 meq PO BID [facility] Last Admin: 10/21/18 07:56 Dose: 40 meq Quetiapine Fumarate (Seroquel Tab*) 50 mg PO BEDTIME [facility]
--- NOTE | 2018-10-21 16:50 | PN ---
Subjective Date of Service: 10/21/18 Interval History: Patient seen today. He is very drowsy and difficult to arouse. He does open eyes on tactile stimuli but he falls back asleep very easily. I did review both neurology and psychiatry input. Currently I do agree to cut back on his seroquel to see if his mentation improves by am. MRI result discussed with neurology no acute infarct. It did show small subacute parietal infarct. I did discuss with neurology and the subacute infarct is is not a cause to trigger delirium. Social History: Unchanged from Admission Past Medical History: Unchanged from Admission Objective Active Medications: Acetaminophen (Tylenol Tab*) 650 mg PO Q6H [facility] Last Admin: 10/21/18 12:44 Dose: Not Given Albuterol (Ventolin 2.5 Mg/3 Ml Neb.Laya*) 2.5 mg INH Q4H PRN PRN Reason: SOB/WHEEZING Amlodipine Besylate (Norvasc Tab*) 10 mg PO DAILY [facility] Last Admin: 10/21/18 07:50 Dose: 10 mg Dextrose (D50w Syringe 50 Ml*) 12.5 gm IV PUSH .FOR FS < 60 - SS PRN PRN Reason: FS < 60 Hydralazine HCl (Apresoline Iv*) 5 mg IV SLOW PU Q6H PRN PRN Reason: Systolic Bp Greater Than:170 Last Admin: 10/18/18 05:50 Dose: 5 mg Insulin Human Lispro (Humalog*) 0 units SUBCUT AC [facility]; Protocol Last Admin: 10/21/18 12:44 Dose: Not Given Magnesium Oxide (Magox 400 Tab*) 800 mg PO BID [facility] Last Admin: 10/21/18 07:51 Dose: 800 mg Mirtazapine (Remeron Tab*) 15 mg PO BEDTIME [facility] Last Admin: 10/20/18 22:16 Dose: 15 mg Nicotine (Nicotine Patch 21 Mg/24 Hr*) 1 patch TRANSDERM DAILY@0800 [facility] Last Admin: 10/21/18 08:25 Dose: Not Given Nicotine (Nicotine Inhaler*) 10 mg INH Q2H PRN PRN Reason: CRAVING Last Admin: 10/14/18 01:58 Dose: 10 mg Pharmacy Profile Note (Nicotine Patch Removal Note*) 1 note PATCH OFF 2100 [facility] Last Admin: 10/20/18 21:00 Dose: Not Given Potassium Chloride (Klor-Con Liquid*) 40 meq PO BID [facility] Last Admin: 10/21/18 07:56 Dose: 40 meq Quetiapine Fumarate (Seroquel Tab*) 50 mg PO BEDTIME [facility] Vital Signs - 8 hr 10/21/18 11:35 Temperature 98.2 F Pulse Rate 28 Respiratory 16 Rate Blood Pressure 117/46 (mmHg) O2 Sat by Pulse 94 Oximetry Oxygen Devices in Use Now: None Appearance: confused, drowsy. difficult to follow command. maintaining airway well. Eyes: No Scleral Icterus, - - Ecchymosis, right temporal. and left eye ecchymosis and hematoma Ears/Nose/Mouth/Throat: NL Teeth, Lips, Gums Neck: NL Appearance and Movements; NL JVP Respiratory: Symmetrical Chest Expansion and Respiratory Effort, Clear to Auscultation Cardiovascular: NL Sounds; No Murmurs; No JVD Extremities: No Edema Neurological: - - drowsy, lethargic Result Diagrams: 10/20/18 06:35 10/21/18 05:52 Additional Lab and Data: Lab Results Microbiology and Other Data: Microbiology 10/13/18 22:43 Urine Culture - Final Urine No Growth (<1,000 CFU/mL) 10/13/18 19:08 Aerobic Blood Culture - Preliminary Blood Venous No Growth Day 1 Anaerobic Blood Culture - Preliminary No Growth Day 1 10/13/18 19:26 Aerobic Blood Culture - Preliminary Blood Venous No Growth Day 1 Anaerobic Blood Culture - Preliminary No Growth Day 1 Assess/Plan/Problems-Billing Assessment: Patient is a 72yo male with a PMH for COPD, DMII, Antisocial personality disorder, and previous suicidal ideation who presents to the hospital after being found in his house with the gas running. Patient has persistent AMS and also has urinary retention and difficulty swallowing with a very dry mouth. - Patient Problems (1) Toxic metabolic encephalopathy Current Visit: Yes Status: Acute Code(s): G92 - TOXIC ENCEPHALOPATHY SNOMED Code(s): 633841570 Comment: - Improving slightly - patient is not able to give a reliable history - Gas exposure possibly contributing but ABG unremarkable but by now and his hospital day # 8 it should have cleared by now. - Slightly elevated ammonia now normal and not likely contributing. - I believe it is mainly psychiatric with personality and manipulative behavior - patient remians defiant and agressive at times - Initial MRI shows small left infact on limited imaging - spoke to neurology-I did send for repeat MRI small subacute infarct. Not a causative for the delerium - 1:1 monitoring for safety- patient remains a unsafe, aggressive and combative at times. - seen by Psych - patient without capcity - will likely need short term rehab! At this time I see no medical reason to explain his behavior. He is overly sedated now. I will cut back on seroquel to 50 mg HS from bid, and will stop his remeron tonight as he is very sleep already. Will reassess mentation in am and I will contact psychiatry to reassess (2) COPD (chronic obstructive pulmonary disease) Current Visit: Yes Status: Acute Code(s): J44.9 - CHRONIC OBSTRUCTIVE PULMONARY DISEASE, UNSPECIFIED SNOMED Code(s): 45753399 Comment: - Not in exacerbation - Albuterol PRN, avoid anticholinergics (3) DVT prophylaxis Current Visit: No Status: Acute Code(s): BEO4797 - SNOMED Code(s): 163769710 Comment: scd's Status and Disposition: Inpatient with encephalopathy pending psych consult.
[2018-10-21] MEDS ORDERED: Haloperidol INJ IV/IM* 5 MG/ML AMP IM ONE (19:30)
[2018-10-21] MEDS ORDERED: QUEtiapine TAB* 25 MG PO SCH (21:00)
[2018-10-21] MEDS: Nicotine Patch Removal NOTE PATCH OFF SCH (21:08)
[2018-10-22] MEDS: Acetaminophen TAB* 325 MG PO SCH ×5 (00:54→18:02)
[2018-10-22] MEDS: Haloperidol INJ IV/IM* 5 MG/ML AMP IM PRN ×4 (02:32→21:04)
[2018-10-22] MEDS: Nicotine PATCH 21 MG/24 HR* PATCH TRANSDERM SCH (07:51)
[2018-10-22] MEDS: Magnesium Oxide TAB* 400 MG PO SCH ×2 (07:51→23:03)
[2018-10-22] MEDS: amLODIPine TAB* 5 MG PO SCH (07:51)
[2018-10-22] MEDS: Potassium Chloride LIQUID* 20 MEQ PACKET PO SCH ×2 (07:51→23:04)
[2018-10-22] MEDS: Insulin LISPRO* 1 UNITS UNIT SUBCUT SCH ×3 (07:51→16:54)
[2018-10-22] MEDS ORDERED: Mirtazapine TAB* 15 MG PO PRN (11:57)
[2018-10-22] MEDS ORDERED: QUEtiapine TAB* 25 MG PO SCH (17:00)
[2018-10-22] MEDS ORDERED: risperiDONE TAB* 1 MG PO SCH (17:00)
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
[2018-10-22] MEDS ORDERED: Mouth Piece, Nicotine* 1 EACH CARTRIDGE ONE (22:21)
[2018-10-22] MEDS: Nicotine Inhaler* 10 MG AMP INH PRN (22:22)
[2018-10-22] MEDS: Nicotine Patch Removal NOTE PATCH OFF SCH (23:03)
[2018-10-22] MEDS ORDERED: Haloperidol INJ IV/IM* 5 MG/ML AMP IM ONE (23:05)
[2018-10-23] MEDS: Acetaminophen TAB* 325 MG PO SCH ×4 (02:08→19:41)
[2018-10-23] MEDS ORDERED: LORazepam INJ* 2 MG/ML 1 ML VIAL IV PUSH ONE (03:20)
[2018-10-23] MEDS ORDERED: diPHENhydraMINE IV* 50 MG/ML 1 ml VIAL (BENADRYL) IV ONE (03:20)
[2018-10-23] MEDS ORDERED: LORazepam INJ* 2 MG/ML 1 ML VIAL IM ONE (03:20)
[2018-10-23] MEDS ORDERED: Haloperidol INJ IV/IM* 5 MG/ML AMP IM ONE (03:20)
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
[2018-10-23] MEDS ORDERED: LORazepam INJ* 2 MG/ML 1 ML VIAL ONE (03:26)
[2018-10-23] MEDS: Insulin LISPRO* 1 UNITS UNIT SUBCUT SCH ×3 (07:06→17:27)
[2018-10-23] MEDS: amLODIPine TAB* 5 MG PO SCH (07:08)
[2018-10-23] MEDS: Potassium Chloride LIQUID* 20 MEQ PACKET PO SCH (07:08)
[2018-10-23] MEDS: Nicotine PATCH 21 MG/24 HR* PATCH TRANSDERM SCH (07:08)
[2018-10-23] MEDS: Magnesium Oxide TAB* 400 MG PO SCH ×2 (07:08→19:43)
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
[2018-10-23] MEDS ORDERED: Haloperidol INJ IV/IM* 5 MG/ML AMP IM PRN (13:30)
--- NOTE | 2018-10-23 13:33 | PN ---
Progress Note - Progress Note Date of Service: 10/23/18 Note: Discussed case with Psychiatrist balloon seller. Update on patient behaviour and last 24 hrs events. Recommended to maintain him on risperidal S/L, and if not accepting treatment (which he has not been accepting meals, testing, medications ) to use Haldol PO or IM and he will continue to assist with finding place for inpatient psych.
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
[2018-10-23] MEDS: risperiDONE TAB* 1 MG PO SCH (19:41)
[2018-10-23] MEDS: Nicotine Patch Removal NOTE PATCH OFF SCH (19:49)
[2018-10-23] MEDS ORDERED: Morphine INJ* 2 MG/ML 1 ML SYRINGE (TWO MG - NEW SYRINGE VERSION) IV ONE (21:27)
[2018-10-23] MEDS ORDERED: oxyCODONE TAB* 5 MG TAB PO ONE (22:07)
[2018-10-23] MEDS: Haloperidol TAB* 5 MG PO PRN (22:27)
[2018-10-24] MEDS: Acetaminophen TAB* 325 MG PO SCH ×4 (02:39→20:40)
[2018-10-24] MEDS: Haloperidol TAB* 5 MG PO PRN ×2 (03:56→20:41)
[2018-10-24 07:51] LABS: ABS Basophils 0.1 10^3/ul (0-0.2); ABS Eosinophils 0.3 10^3/ul (0-0.6); ABS Lymphocytes 1.8 10^3/ul (1.0-4.8); ABS Neutrophils 4.8 10^3/ul (1.5-7.7); ABS Nucleated RBC 0 10^3/ul; Eosinophil % 3.6 %; Hematocrit 39 % (42-52); Hemoglobin 13.2 g/dl (14.0-18.0); Lymphocyte % 22.5 %; Mean Corpuscular HGB Conc 34 g/dl (31-36); Mean Corpuscular Hemoglobin 28 pg (27-31); Mean Corpuscular Volume 83 fL (80-94); Mean Platelet Volume 8.5 fL (7.4-10.4); Nucleated Red Blood Cells % 0.1; Platelet Count 148 10^3/ul (150-450); Red Blood Count 4.68 10^6/ul (4.00-5.40); Red Cell Distribution Width 14 % (10.5-15); White Blood Count 7.9 10^3/ul (3.5-10.8)
[2018-10-24 08:09] LABS: BUN/Creatinine Ratio 18.6 (8-20); Calcium 9.6 mg/dL (8.6-10.3); EGFR African American 106.4 (>60); EGFR Non-African American 87.9 (>60); Magnesium 1.9 mg/dL (1.9-2.7); Phosphorus 3.5 mg/dL (2.5-5.0); Potassium 4.4 mmol/L (3.5-5.0)
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
[2018-10-24] MEDS ORDERED: Insulin GLARGINE(*) 1 UNITS UNIT ONE (10:17)
[2018-10-24] MEDS: Insulin GLARGINE(*) 1 UNITS UNIT SUBCUT SCH (10:20)
[2018-10-24] MEDS: Insulin LISPRO* 1 UNITS UNIT SUBCUT SCH ×3 (10:20→17:54)
[2018-10-24] MEDS: amLODIPine TAB* 5 MG PO SCH (10:54)
[2018-10-24] MEDS: Heparin VIAL(*) 5000 UNITS/ML VIAL (FIVE THOUSAND) SUBCUT SCH ×2 (10:54→21:15)
[2018-10-24] MEDS: Nicotine PATCH 21 MG/24 HR* PATCH TRANSDERM SCH (10:54)
[2018-10-24] MEDS: Magnesium Oxide TAB* 400 MG PO SCH ×2 (10:54→20:41)
[2018-10-24] MEDS: Nicotine Inhaler* 10 MG AMP INH PRN (12:05)
[2018-10-24] MEDS ORDERED: Mouth Piece, Nicotine* 1 EACH CARTRIDGE ONE (12:07)
[2018-10-24 12:18] LABS: ABS Basophils 0.1 10^3/ul (0-0.2); ABS Eosinophils 0.3 10^3/ul (0-0.6); ABS Lymphocytes 1.2 10^3/ul (1.0-4.8); ABS Monocytes 0.8 10^3/ul (0-0.8); ABS Neutrophils 5.2 10^3/ul (1.5-7.7); ABS Nucleated RBC 0 10^3/ul; Eosinophil % 3.9 %; Hematocrit 40 % (42-52); Hemoglobin 13.2 g/dl (14.0-18.0); Lymphocyte % 16.2 %; Mean Corpuscular HGB Conc 34 g/dl (31-36); Mean Corpuscular Hemoglobin 28 pg (27-31); Mean Corpuscular Volume 83 fL (80-94); Mean Platelet Volume 8.9 fL (7.4-10.4); Nucleated Red Blood Cells % 0; Platelet Count 156 10^3/ul (150-450); Red Blood Count 4.76 10^6/ul (4.00-5.40); Red Cell Distribution Width 15 % (10.5-15); White Blood Count 7.6 10^3/ul (3.5-10.8)
[2018-10-24 12:35] LABS: EGFR African American 119.1 (>60); EGFR Non-African American 98.4 (>60)
[2018-10-24 12:38] LABS: Activated Partial Thrombo Time 37.6 seconds (26.0-36.3); INR 1.06 (0.77-1.02)
--- NOTE | 2018-10-24 15:07 | CONSULT ---
Identification - Patient Identification Reason for Psychiatric Consultation: Violent Behavior -: Patient is a 72 year old, M admitted on 10/13/18. - MHU Identification Employment Status: Disabled Hx Psychiatric Hospitalization: Yes History - Objective HPI: Mr. Sung is seen on the [address] [place] [address] unit, to where he was transferred over the weekend. Again he is somnolent and difficult to arouse. I relied on collateral information from his sister, Mayela Fernando ([phone]), his aide, Rosa , and Nurse, Zach. Solo is cooperative, although lethargic, and indicates that he continues to have significant pain in his bilateral feet. His sister reports that she had a reasonable conversation with him over the phone around lunchtime today and feels perhaps he is improving. She does voice frustration regarding her perception that more could be done to reduce his pain. "My God, he's in agony. Of course he wants to leave...to go and get street drugs to treat himself!" I invited her to perhaps consider abbreviating her visit to [place] so that she could more effectively advocate for him here in person, if that is what she wishes to do. Staff on [address] [place] [address] indicate that the patient is still not able to ambulate unassisted. The last PT note I could find in the record was from October 21, and at that time they opined that he was too sedated to participate in physical rehabilitation. Mr. Sung again denies SI/ HI or thoughts to harm himself or others. He is somewhat docile on exam, although I understand he acted out considerably over the weekend. Exam Appearance: Thin Framed Hygiene: Dirty Grooming: Disheveled Psychomotor Activities: Abnormal-Decreased Exhibits Abnormal Movement: No Attitude and Relatedness: Cooperative Eye Contact: Poor - Speech Quality: Unpressured Latencies: Long Quantity: Terse Patient's Decription of Mood: "Fine" Observed Affect: Tense Affect Consistent with: Dysphoria Patient's Thought Process: Circumstantial Thought Content: No Passive Wish, No Suicidal Planning, No Homicidal Ideation, No Paranoid Ideation Experiencing Hallucinations: No, Sensorium is Clear Type of Hallucinations: Visual: No, Auditory: No, Command: No Level of Consciousness: Obtunded Orientation: No Intact, No Orientated to Time, No Orientated to Place, No Orientated to Person Impulse Control: Poor Insight and Judgement: Impaired Impression - Impression Clinical Impression: 72 y.o. , white male with a history of recurrent delirium, long standing dependence to opioids and recent psychiatric care on the [facility] secondary to homicidal ideation who returned to [facility] on October 13 for his 3rd medical admission in the past month, this time for acute confusion, whom the primary team would like assessed for suicidality. Inpatient DSM-V Dx: F05 Merits Inpatient Hospitalization: No Plan - Treatment Plan Treatment Plan: Patient's presentation continues to be one of lethargy and abulia, punctuated by moments of agitation and acting out. Despite being taken off quetiapine and placed on risperidone, which he is non-adherent with, his lethargy has not improved. My clinical sense of him is that he is an individual with a chronic pain disorder and long-term substance misuse, along with severe underlying personality pathology, whose physical health and cognitive functioning have deteriorated to the point where he can no longer care for himself. I have encouraged his family to be more directly involved in his treatment. He continues to lack capacity to make informed medical decisions due to confusion. I see no rationale for BSU care, given his inability to participate meaningfully in milieu programming. He requires placement. For now we recommend continuation of mirtazapine 15mg PO qhs and risperidone 1mg PO qhs. Continue 1:1 for combativeness. Psychiatry will continue to follow. Continued Medication Management: Start Medication Medications: Current Medications Acetaminophen (Tylenol Tab*) 650 mg PO Q6H [facility] Last Admin: 10/24/18 11:58 Dose: 650 mg Albuterol (Ventolin 2.5 Mg/3 Ml Neb.Laya*) 2.5 mg INH Q4H PRN PRN Reason: SOB/WHEEZING Amlodipine Besylate (Norvasc Tab*) 10 mg PO DAILY [facility] Last Admin: 10/24/18 10:54 Dose: Not Given Dextrose (D50w Syringe 50 Ml*) 12.5 gm IV PUSH .FOR FS < 60 - SS PRN PRN Reason: FS < 60 Haloperidol (Haldol Tab*) 5 mg PO Q6H PRN PRN Reason: AGITATION Last Admin: 10/24/18 03:56 Dose: 5 mg Haloperidol Lactate (Haldol Inj Iv/Im*) 5 mg IM Q6H PRN PRN Reason: AGITATION Heparin Sodium (Porcine) (Heparin Vial(*)) 5,000 units SUBCUT Q12HR [facility] Last Admin: 10/24/18 10:54 Dose: Not Given Hydralazine HCl (Apresoline Iv*) 5 mg IV SLOW PU Q6H PRN PRN Reason: Systolic Bp Greater Than:170 Last Admin: 10/18/18 05:50 Dose: 5 mg Insulin Glargine (Lantus(*)) 12 units SUBCUT Q24H [facility] Last Admin: 10/24/18 10:20 Dose: 12 units Insulin Human Lispro (Humalog*) 0 units SUBCUT AC [facility]; Protocol Last Admin: 10/24/18 13:05 Dose: 2 unit Magnesium Oxide (Magox 400 Tab*) 800 mg PO BID [facility] Last Admin: 10/24/18 10:54 Dose: Not Given Nicotine (Nicotine Patch 21 Mg/24 Hr*) 1 patch TRANSDERM DAILY@0800 [facility] Last Admin: 10/24/18 10:54 Dose: Not Given Nicotine (Nicotine Inhaler*) 10 mg INH Q2H PRN PRN Reason: CRAVING Last Admin: 10/24/18 12:05 Dose: 10 mg Pharmacy Profile Note (Nicotine Patch Removal Note*) 1 note PATCH OFF 2100 [facility] Last Admin: 10/23/18 19:49 Dose: Not Given Risperidone (Risperdal) 0.5 mg PO 1100 [facility] Last Admin: 10/24/18 10:54 Dose: Not Given Risperidone (Risperdal*) 1 mg PO 2000 [facility] Last Admin: 10/23/18 19:41 Dose: 1 mg
[2018-10-24] MEDS ORDERED: Docusate CAP* 100 MG PO PRN (17:45)
[2018-10-24] MEDS: Senna TAB PO PRN (20:40)
[2018-10-24] MEDS: risperiDONE TAB* 1 MG PO SCH (20:40)
[2018-10-24] MEDS: Nicotine Patch Removal NOTE PATCH OFF SCH (21:23)
[2018-10-25] MEDS: Acetaminophen TAB* 325 MG PO SCH ×4 (02:12→18:10)
[2018-10-25] MEDS: Nicotine PATCH 21 MG/24 HR* PATCH TRANSDERM SCH (08:47)
[2018-10-25] MEDS: amLODIPine TAB* 5 MG PO SCH (08:47)
[2018-10-25] MEDS: Insulin LISPRO* 1 UNITS UNIT SUBCUT SCH ×3 (08:48→18:09)
[2018-10-25] MEDS: Heparin VIAL(*) 5000 UNITS/ML VIAL (FIVE THOUSAND) SUBCUT SCH ×2 (08:48→22:08)
[2018-10-25] MEDS: Insulin GLARGINE(*) 1 UNITS UNIT SUBCUT SCH (08:48)
[2018-10-25] MEDS: Magnesium Oxide TAB* 400 MG PO SCH ×2 (08:53→22:04)
--- NOTE | 2018-10-25 10:28 | CONSULT ---
Identification - Patient Identification Reason for Psychiatric Consultation: Violent Behavior -: Patient is a 72 year old, M admitted on 10/13/18. - MHU Identification Employment Status: Disabled Hx Psychiatric Hospitalization: Yes History - Objective HPI: Mr. Sung appears to be having a good day per [facility] staff. He awoke this morning and took all his scheduled meds. With assistance he was able to use the bathroom to urinate. He's gone several days without agitation. On exam he is asleep and unarousable. I left a message with his niece, Angelito Fernando [phone]), to try to get a sense of what the family's wishes are for his continued care. Exam Appearance: Thin Framed Hygiene: Dirty Grooming: Disheveled Psychomotor Activities: Abnormal-Decreased Exhibits Abnormal Movement: No Level of Consciousness: Obtunded Impression - Impression Clinical Impression: 72 y.o. , white male with a history of recurrent delirium, long standing dependence to opioids and recent psychiatric care on the [facility] secondary to homicidal ideation who returned to [facility] on [place] 13 for his 3rd medical admission in the past month, this time for acute confusion, whom the primary team would like assessed for suicidality. Inpatient DSM-V Dx: F05 Merits Inpatient Hospitalization: No Plan - Treatment Plan Treatment Plan: Patient's presentation is perhaps improving in terms of encephalopathy and agitation. He remains lethargic and needing assistance with ambulation. My clinical sense of him is that he is an individual with a chronic pain disorder and long-term substance misuse, along with severe underlying personality pathology, whose physical health and cognitive functioning have deteriorated to the point where he can no longer care for himself. I have encouraged his family to be more directly involved in his treatment. He continues to lack capacity to make informed medical decisions due to confusion. I see no rationale for BSU care, given his inability to participate meaningfully in milieu programming. He requires placement. For now we recommend continuation of risperidone 0.5mg PO qday and 1mg PO qhs. May cancel 1:1 on trial basis. Psychiatry will continue to follow. Continued Medication Management: Start Medication Medications: Current Medications Acetaminophen (Tylenol Tab*) 650 mg PO Q6H [facility] Last Admin: 10/25/18 08:47 Dose: 650 mg Albuterol (Ventolin 2.5 Mg/3 Ml Neb.Laya*) 2.5 mg INH Q4H PRN PRN Reason: SOB/WHEEZING Amlodipine Besylate (Norvasc Tab*) 10 mg PO DAILY [facility] Last Admin: 10/25/18 08:47 Dose: 10 mg Dextrose (D50w Syringe 50 Ml*) 12.5 gm IV PUSH .FOR FS < 60 - SS PRN PRN Reason: FS < 60 Docusate Sodium (Colace Cap*) 100 mg PO BID PRN PRN Reason: CONSTIPATION Haloperidol (Haldol Tab*) 5 mg PO Q6H PRN PRN Reason: AGITATION Last Admin: 10/24/18 20:41 Dose: 5 mg Haloperidol Lactate (Haldol Inj Iv/Im*) 5 mg IM Q6H PRN PRN Reason: AGITATION Heparin Sodium (Porcine) (Heparin Vial(*)) 5,000 units SUBCUT Q12HR [facility] Last Admin: 10/25/18 08:48 Dose: 5,000 units Hydralazine HCl (Apresoline Iv*) 5 mg IV SLOW PU Q6H PRN PRN Reason: Systolic Bp Greater Than:170 Last Admin: 10/18/18 05:50 Dose: 5 mg Insulin Glargine (Lantus(*)) 12 units SUBCUT Q24H [facility] Last Admin: 10/25/18 08:48 Dose: 12 units Insulin Human Lispro (Humalog*) 0 units SUBCUT AC [facility]; Protocol Last Admin: 10/25/18 08:48 Dose: 4 unit Magnesium Oxide (Magox 400 Tab*) 800 mg PO BID [facility] Last Admin: 10/25/18 08:53 Dose: Not Given Nicotine (Nicotine Patch 21 Mg/24 Hr*) 1 patch TRANSDERM DAILY@0800 [facility] Last Admin: 10/25/18 08:47 Dose: 1 patch Nicotine (Nicotine Inhaler*) 10 mg INH Q2H PRN PRN Reason: CRAVING Last Admin: 10/24/18 12:05 Dose: 10 mg Pharmacy Profile Note (Nicotine Patch Removal Note*) 1 note PATCH OFF 2100 [facility] Last Admin: 10/24/18 21:23 Dose: Not Given Risperidone (Risperdal) 0.5 mg PO 1100 [facility] Last Admin: 10/24/18 10:54 Dose: Not Given Risperidone (Risperdal*) 1 mg PO 2000 [facility] Last Admin: 10/24/18 20:40 Dose: 1 mg Senna (Senokot Tab*) 2 tab PO BEDTIME PRN PRN Reason: CONSTIPATION Last Admin: 10/24/18 20:40 Dose: 2 tab
--- NOTE | 2018-10-25 15:26 | PN ---
Subjective Date of Service: 10/25/18 Interval History: Patient more conversant today. Has not needed 1:1 for many hours now. He reports back pain. Says he sees Braxton Elliott for pain management, and has PCP at [place]. He does not remember circumstances of admission. States he is safe at home, "turns on gas" to keep warm. States closest family is sister Mayela Fernando. Family History: Unchanged from Admission Social History: Unchanged from Admission Past Medical History: Unchanged from Admission Objective Active Medications: Acetaminophen (Tylenol Tab*) 650 mg PO Q6H [facility] Last Admin: 10/25/18 13:22 Dose: 650 mg Albuterol (Ventolin 2.5 Mg/3 Ml Neb.Laya*) 2.5 mg INH Q4H PRN PRN Reason: SOB/WHEEZING Amlodipine Besylate (Norvasc Tab*) 10 mg PO DAILY [facility] Last Admin: 10/25/18 08:47 Dose: 10 mg Dextrose (D50w Syringe 50 Ml*) 12.5 gm IV PUSH .FOR FS < 60 - SS PRN PRN Reason: FS < 60 Docusate Sodium (Colace Cap*) 100 mg PO BID PRN PRN Reason: CONSTIPATION Last Admin: 10/25/18 13:22 Dose: 100 mg Haloperidol (Haldol Tab*) 5 mg PO Q6H PRN PRN Reason: AGITATION Last Admin: 10/24/18 20:41 Dose: 5 mg Haloperidol Lactate (Haldol Inj Iv/Im*) 5 mg IM Q6H PRN PRN Reason: AGITATION Heparin Sodium (Porcine) (Heparin Vial(*)) 5,000 units SUBCUT Q12HR [facility] Last Admin: 10/25/18 08:48 Dose: 5,000 units Hydralazine HCl (Apresoline Iv*) 5 mg IV SLOW PU Q6H PRN PRN Reason: Systolic Bp Greater Than:170 Last Admin: 10/18/18 05:50 Dose: 5 mg Insulin Glargine (Lantus(*)) 12 units SUBCUT Q24H [facility] Last Admin: 10/25/18 08:48 Dose: 12 units Insulin Human Lispro (Humalog*) 0 units SUBCUT [facility]; Protocol Last Admin: 10/25/18 13:22 Dose: 4 unit Magnesium Oxide (Magox 400 Tab*) 800 mg PO BID [facility] Last Admin: 10/25/18 08:53 Dose: Not Given Nicotine (Nicotine Patch 21 Mg/24 Hr*) 1 patch TRANSDERM DAILY@0800 [facility] Last Admin: 10/25/18 08:47 Dose: 1 patch Nicotine (Nicotine Inhaler*) 10 mg INH Q2H PRN PRN Reason: CRAVING Last Admin: 10/24/18 12:05 Dose: 10 mg Pharmacy Profile Note (Nicotine Patch Removal Note*) 1 note PATCH OFF 2100 [facility] Last Admin: 10/24/18 21:23 Dose: Not Given Risperidone (Risperdal) 0.5 mg PO 1100 [facility] Last Admin: 10/25/18 13:22 Dose: 0.5 mg Risperidone (Risperdal*) 1 mg PO 2000 [facility] Last Admin: 10/24/18 20:40 Dose: 1 mg Senna (Senokot Tab*) 2 tab PO BEDTIME PRN PRN Reason: CONSTIPATION Last Admin: 10/24/18 20:40 Dose: 2 tab Vital Signs - 8 hr 10/25/18 10/25/18 10/25/18 07:53 08:05 12:13 Temperature 36.6 C 37.0 C Pulse Rate 83 93 Respiratory 16 16 18 Rate Blood Pressure 138/66 152/55 (mmHg) O2 Sat by Pulse 95 96 Oximetry Oxygen Devices in Use Now: None Appearance: alert, conversant, sometimes staring into space Ears/Nose/Mouth/Throat: Clear Oropharnyx Respiratory: Symmetrical Chest Expansion and Respiratory Effort, Clear to Percussion Cardiovascular: NL Sounds; No Murmurs; No JVD, RRR Abdominal: NL Sounds; No Tenderness; No Distention, No Hepatosplenomegaly Extremities: No Edema Neurological: - - oriented to place, self Lines/Tubes/Other Access: Clean, Dry and Intact Peripheral IV Nutrition: Taking PO's Result Diagrams: 10/24/18 11:58 10/24/18 11:58 Additional Lab and Data: Laboratory Tests 10/24/18 10/24/18 10/25/18 11:58 17:07 07:50 POC Glucose (mg/dL) 250 H 297 H 315 H 10/25/18 12:14 POC Glucose (mg/dL) 346 H Assess/Plan/Problems-Billing Assessment: Patient is a 72yo male with a PMH for COPD, DMII, Antisocial personality disorder, and previous suicidal ideation who presents to the hospital after being found in his house with the gas running. - Patient Problems (1) Agitation Current Visit: No Status: Acute Priority: High Code(s): R45.1 - RESTLESSNESS AND AGITATION SNOMED Code(s): 423238882 Comment: -currently he does not have capacity to make decision to leave the hospital -more alert and cooperative today -appreciate psychiatry consult input today -will plan for adult home, assisted living, or SNF -continue present medication (2) Type II diabetes mellitus Current Visit: No Status: Acute Priority: Medium Comment: - poorly controled, eating better - SS humalog - increased Lantus daily (3) Stroke, lacunar Current Visit: Yes Status: Acute Priority: Medium Code(s): I63.81 - OTHER CEREB INFRC DUE TO OCCLS OR STENOSIS OF SMALL ARTERY SNOMED Code(s): 842755990 Comment: -MRI on 10/20 showed subacute infarct -not contributing to delirium at this time (4) Psychosis Current Visit: No Status: Acute Priority: High Comment: - discussed with Dr. Mcbride - no plan for psychiatric hospitalization (5) Urinary retention Current Visit: Yes Status: Acute Priority: Low Code(s): R33.9 - RETENTION OF URINE, UNSPECIFIED SNOMED Code(s): 730595957 Comment: resolved (6) DVT prophylaxis Current Visit: No Status: Acute Code(s): MLT9502 - SNOMED Code(s): 150204370 Comment: - SC heparin Status and Disposition: Should plan for adult home, SNF
[2018-10-25] MEDS ORDERED: Insulin GLARGINE(*) 1 UNITS UNIT SUBCUT SCH (15:30)
[2018-10-25] MEDS: risperiDONE TAB* 1 MG PO SCH (22:04)
[2018-10-25] MEDS: Haloperidol TAB* 5 MG PO PRN (22:04)
[2018-10-26] MEDS: Acetaminophen TAB* 325 MG PO SCH ×4 (00:42→22:18)
[2018-10-26] MEDS: Insulin LISPRO* 1 UNITS UNIT SUBCUT SCH ×5 (00:42→17:52)
[2018-10-26] MEDS: Benzocaine/Menthol LOZ* 1 LOZENGE PO PRN ×2 (00:43→22:22)
[2018-10-26] MEDS: Nicotine Patch Removal NOTE PATCH OFF SCH ×2 (01:04→22:25)
[2018-10-26] MEDS: amLODIPine TAB* 5 MG PO SCH (07:50)
[2018-10-26] MEDS: Heparin VIAL(*) 5000 UNITS/ML VIAL (FIVE THOUSAND) SUBCUT SCH ×3 (07:51→22:23)
[2018-10-26] MEDS: Magnesium Oxide TAB* 400 MG PO SCH ×2 (07:51→22:22)
[2018-10-26] MEDS: Nicotine PATCH 21 MG/24 HR* PATCH TRANSDERM SCH (07:58)
[2018-10-26] MEDS ORDERED: Insulin GLARGINE(*) 1 UNITS UNIT SUBCUT SCH (13:30)
[2018-10-26] MEDS ORDERED: Dextrose 50% Syringe 50 ML* 25 GM/50 ML SYRINGE IV PUSH PRN (13:32)
--- NOTE | 2018-10-26 13:37 | PN ---
Subjective Date of Service: 10/26/18 Interval History: Pt seen and examined. Meds and labs reviewed. CC: N/A ROS: When asked how he feels, he mentions ok, and prefers to go back to sleep and uninterested in answering specific questions to complete 14 point ROS PHYSICAL EXAM: GEN APPEARANCE: Asleep, arousable, non-compliant w/participating during exam, not in acute distress HEENT: NC/AT, PERRLA, moist oral mucosa, (-) throat erythema NECK: Soft, supple, (-) cervical LAD, (-)JVD HEART: S1S2 WNL, RRR, No MRG CHEST: CTA, BL, GAE, No W/R/R ABD: Soft, ND/NT, NABS 4x Q EXT: No C/C/E SKIN: Warm to touch Family History: Unchanged from Admission Social History: Unchanged from Admission Past Medical History: Unchanged from Admission Objective Active Medications: Acetaminophen (Tylenol Tab*) 650 mg PO Q6H [facility] Last Admin: 10/26/18 12:40 Dose: 650 mg Albuterol (Ventolin 2.5 Mg/3 Ml Neb.Laya*) 2.5 mg INH Q4H PRN PRN Reason: SOB/WHEEZING Amlodipine Besylate (Norvasc Tab*) 10 mg PO DAILY [facility] Last Admin: 10/26/18 07:50 Dose: 10 mg Dextrose (D50w Syringe 50 Ml*) 12.5 gm IV PUSH .FOR FS < 60 - SS PRN PRN Reason: FS < 60 Dextrose (D50w Syringe 50 Ml*) 12.5 gm IV PUSH .FOR FS < 60 - SS PRN PRN Reason: FS < 60 Docusate Sodium (Colace Cap*) 100 mg PO BID PRN PRN Reason: CONSTIPATION Last Admin: 10/25/18 13:22 Dose: 100 mg Haloperidol (Haldol Tab*) 5 mg PO Q6H PRN PRN Reason: AGITATION Last Admin: 10/25/18 22:04 Dose: 5 mg Heparin Sodium (Porcine) (Heparin Vial(*)) 5,000 units SUBCUT Q8HR [facility] Last Admin: 10/26/18 12:40 Dose: 5,000 units Hydralazine HCl (Apresoline Iv*) 5 mg IV SLOW PU Q6H PRN PRN Reason: Systolic Bp Greater Than:170 Last Admin: 10/18/18 05:50 Dose: 5 mg Insulin Glargine (Lantus(*)) 24 units SUBCUT Q24H [facility] Insulin Human Lispro (Humalog*) 0 units SUBCUT AC [facility]; Protocol Last Admin: 10/26/18 12:39 Dose: 5 unit Insulin Human Lispro (Humalog*) 6 units SUBCUT AC [facility] Magnesium Oxide (Magox 400 Tab*) 800 mg PO BID [facility] Last Admin: 10/26/18 07:51 Dose: 800 mg Nicotine (Nicotine Patch 21 Mg/24 Hr*) 1 patch TRANSDERM DAILY@0800 [facility] Last Admin: 10/26/18 07:58 Dose: 1 patch Nicotine (Nicotine Inhaler*) 10 mg INH Q2H PRN PRN Reason: CRAVING Last Admin: 10/24/18 12:05 Dose: 10 mg Pharmacy Profile Note (Nicotine Patch Removal Note*) 1 note PATCH OFF 2100 [facility] Last Admin: 10/26/18 01:04 Dose: Not Given Risperidone (Risperdal) 0.5 mg PO 1100 [facility] Last Admin: 10/26/18 11:30 Dose: 0.5 mg Risperidone (Risperdal*) 1 mg PO 2000 [facility] Last Admin: 10/25/18 22:04 Dose: 1 mg Senna (Senokot Tab*) 2 tab PO BEDTIME PRN PRN Reason: CONSTIPATION Last Admin: 10/24/18 20:40 Dose: 2 tab Throat Lozenges (Chloraseptic Ganesh*) 1 ganesh PO Q6H PRN PRN Reason: SORE THROAT Last Admin: 10/26/18 00:43 Dose: 1 ganesh Vital Signs - 8 hr 10/26/18 10/26/18 07:32 08:19 Temperature 97.3 F Pulse Rate 82 Respiratory 16 16 Rate Blood Pressure 154/68 (mmHg) O2 Sat by Pulse 99 Oximetry Oxygen Devices in Use Now: None Result Diagrams: 10/24/18 11:58 10/24/18 11:58 Additional Lab and Data: Laboratory Tests 10/24/18 10/24/18 10/25/18 11:58 17:07 07:50 POC Glucose (mg/dL) 250 H 297 H 315 H 10/25/18 12:14 POC Glucose (mg/dL) 346 H Microbiology and Other Data: Microbiology 10/13/18 22:43 Urine Urine Culture - Final No Growth (<1,000 CFU/mL) 10/13/18 19:26 Blood Venous Aerobic Blood Culture - Final 10/13/18 19:26 Blood Venous Anaerobic Blood Culture - Final No Growth Day 5 No Growth Day 5 10/13/18 19:08 Blood Venous Aerobic Blood Culture - Final 10/13/18 19:08 Blood Venous Anaerobic Blood Culture - Final No Growth Day 5 No Growth Day 5 Assess/Plan/Problems-Billing Assessment: Patient is a 72yo male with a PMH for COPD, DMII, Antisocial personality disorder, and previous suicidal ideation who presents to the hospital after being found in his house with the gas running. - Patient Problems (1) Agitation Current Visit: No Status: Acute Priority: High Code(s): R45.1 - RESTLESSNESS AND AGITATION SNOMED Code(s): 109534241 Comment: -currently he does not have capacity to make decision to leave the hospital -Appreciate Psych input and per psych, they agree pt has no capacity and likely above behavior due to chronic pain d/o w/long-term substance misuse and underlying PD? -will plan for adult home, assisted living, or SNF -continue present medication -D/C PRN IV Haldol, continue w/PO Risperdal and PO Haldol; continue watchful waiting (2) Type II diabetes mellitus Current Visit: No Status: Acute Priority: Medium Comment: -Uncontroled, eating better -Increased Lantus and placed pt on pre-meals -Continue ISS and watchful waiting (3) Stroke, lacunar Current Visit: Yes Status: Acute Priority: Medium Code(s): I63.81 - OTHER CEREB INFRC DUE TO OCCLS OR STENOSIS OF SMALL ARTERY SNOMED Code(s): 475202642 Comment: -MRI on 10/20 showed subacute infarct -not contributing to delirium at this time (4) Psychosis Current Visit: No Status: Acute Priority: High Comment: - discussed with Dr. Mcbride - no plan for psychiatric hospitalization (5) Urinary retention Current Visit: Yes Status: Acute Priority: Low Code(s): R33.9 - RETENTION OF URINE, UNSPECIFIED SNOMED Code(s): 326213178 Comment: resolved (6) DVT prophylaxis Current Visit: No Status: Acute Code(s): GVL1132 - SNOMED Code(s): 780059548 Comment: - SC heparin Status and Disposition: -For SNF placement? -Will ask PT to re-assess
--- NOTE | 2018-10-26 14:36 | CONSULT ---
Identification - Patient Identification Reason for Psychiatric Consultation: Incapacitating Symptoms -: Patient is a 72 year old, M admitted on 10/13/18. - MHU Identification Employment Status: Disabled Hx Psychiatric Hospitalization: Yes History - Objective HPI: Mr. Sung appears more alert than at any point during this extended hospitalization. He is sitting up in bed and greets me in a friendly fashion as I enter, shaking my hand and saying "Hi Doc." He seems in disbelief that he has been in the hospital for 13 days and is sticking to his story that his confusion and disorientation were the result of a fall on the ice outside his apartment in [facility]. He states that his gas stoves were on to augment the furnace in his apartment and denies SI. He continues to complain of intermittent pain in his feet. Mr. Sung is expressing his desire to go home and is not able to identify any risks to doing so. He is off 1:1 for several days with a reduction in waxing/waning sensorium. Exam Appearance: Thin Framed Hygiene: Normal Grooming: Disheveled Psychomotor Activities: Abnormal-Decreased Exhibits Abnormal Movement: No Attitude and Relatedness: Cooperative Eye Contact: Fair - Speech Quality: Unpressured Latencies: Normal Quantity: Appropriate Patient's Decription of Mood: "Fine" Observed Affect: Fair Affect Consistent with: Euthymia Patient's Thought Process: Coherent, Circumstantial Thought Content: No Passive Wish, No Suicidal Planning, No Homicidal Ideation, No Paranoid Ideation Experiencing Hallucinations: No, Sensorium is Clear Type of Hallucinations: Visual: No, Auditory: No, Command: No Level of Consciousness: Alert Orientation: No Intact, No Orientated to Time, No Orientated to Place, No Orientated to Person Impulse Control: Poor Insight and Judgement: Impaired Impression - Impression Clinical Impression: 72 y.o. , white male with a history of recurrent delirium, long standing dependence to opioids and recent psychiatric care on the [facility] secondary to homicidal ideation who returned to [facility] [place] 13 for his 3rd medical admission in the past month, this time for acute confusion, whom the primary team would like assessed for suicidality. Inpatient DSM-V Dx: F05 Merits Inpatient Hospitalization: No Plan - Treatment Plan Treatment Plan: The patient's encephalopathy appears to be improving with rest and low dose risperidone. He still lacks capacity to refuse [facility] placement due to his inability to demonstrate a facile understanding of his situation or the risks of refusing care. Psychiatry recommends continuing risperidone 0.5mg PO qday and 1mg PO qhs. Patient is pending placement in a [facility]O situation. Recommend PT/ OT care. His sister, Mayela Fernando ([phone]) is vacationing in [place] and not due to return to the area until November 05. Psychiatry will continue to follow. Continued Medication Management: Start Medication Medications: Current Medications Acetaminophen (Tylenol Tab*) 650 mg PO Q6H [facility] Last Admin: 10/26/18 12:40 Dose: 650 mg Albuterol (Ventolin 2.5 Mg/3 Ml Neb.Laya*) 2.5 mg INH Q4H PRN PRN Reason: SOB/WHEEZING Amlodipine Besylate (Norvasc Tab*) 10 mg PO DAILY [facility] Last Admin: 10/26/18 07:50 Dose: 10 mg Dextrose (D50w Syringe 50 Ml*) 12.5 gm IV PUSH .FOR FS < 60 - SS PRN PRN Reason: FS < 60 Docusate Sodium (Colace Cap*) 100 mg PO BID PRN PRN Reason: CONSTIPATION Last Admin: 10/25/18 13:22 Dose: 100 mg Haloperidol (Haldol Tab*) 5 mg PO Q6H PRN PRN Reason: AGITATION Last Admin: 10/25/18 22:04 Dose: 5 mg Heparin Sodium (Porcine) (Heparin Vial(*)) 5,000 units SUBCUT Q8HR [facility] Last Admin: 10/26/18 12:40 Dose: 5,000 units Hydralazine HCl (Apresoline Iv*) 5 mg IV SLOW PU Q6H PRN PRN Reason: Systolic Bp Greater Than:170 Last Admin: 10/18/18 05:50 Dose: 5 mg Insulin Glargine (Lantus(*)) 24 units SUBCUT Q24H [facility] Insulin Human Lispro (Humalog*) 0 units SUBCUT AC [facility]; Protocol Last Admin: 10/26/18 12:39 Dose: 5 unit Insulin Human Lispro (Humalog*) 6 units SUBCUT AC [facility] Magnesium Oxide (Magox 400 Tab*) 800 mg PO BID [facility] Last Admin: 10/26/18 07:51 Dose: 800 mg Nicotine (Nicotine Patch 21 Mg/24 Hr*) 1 patch TRANSDERM DAILY@0800 [facility] Last Admin: 10/26/18 07:58 Dose: 1 patch Nicotine (Nicotine Inhaler*) 10 mg INH Q2H PRN PRN Reason: CRAVING Last Admin: 10/24/18 12:05 Dose: 10 mg Pharmacy Profile Note (Nicotine Patch Removal Note*) 1 note PATCH OFF 2100 [facility] Last Admin: 10/26/18 01:04 Dose: Not Given Risperidone (Risperdal) 0.5 mg PO 1100 [facility] Last Admin: 10/26/18 11:30 Dose: 0.5 mg Risperidone (Risperdal*) 1 mg PO 1999 [facility] Last Admin: 10/25/18 22:04 Dose: 1 mg Senna (Senokot Tab*) 2 tab PO BEDTIME PRN PRN Reason: CONSTIPATION Last Admin: 10/24/18 20:40 Dose: 2 tab Throat Lozenges (Chloraseptic Candelario*) 1 candelario PO Q6H PRN PRN Reason: SORE THROAT Last Admin: 10/26/18 00:43 Dose: 1 candelario
[2018-10-26] MEDS: Senna TAB PO PRN (22:19)
[2018-10-26] MEDS: risperiDONE TAB* 1 MG PO SCH (22:20)
[2018-10-26] MEDS: Haloperidol TAB* 5 MG PO PRN (22:21)
[2018-10-27] MEDS: Acetaminophen TAB* 325 MG PO SCH ×4 (01:00→19:46)
[2018-10-27 05:28] LABS: Hematocrit 36 % (42-52); Hemoglobin 12.4 g/dl (14.0-18.0); Mean Corpuscular HGB Conc 34 g/dl (31-36); Mean Corpuscular Hemoglobin 28 pg (27-31); Mean Corpuscular Volume 83 fL (80-94); Mean Platelet Volume 8.5 fL (7.4-10.4); Platelet Count 154 10^3/ul (150-450); Red Blood Count 4.37 10^6/ul (4.00-5.40); Red Cell Distribution Width 14 % (10.5-15); White Blood Count 7.5 10^3/ul (3.5-10.8)
[2018-10-27 05:44] LABS: Albumin 3.3 g/dL (3.2-5.2); Albumin/Globulin Ratio 0.9 (1-3); BUN/Creatinine Ratio 22.7 (8-20); Calcium 9.1 mg/dL (8.6-10.3); EGFR African American 144.4 (>60); EGFR Non-African American 119.3 (>60); Globulin 3.5 g/dL (2-4); Magnesium 1.8 mg/dL (1.9-2.7); Phosphorus 3.9 mg/dL (2.5-5.0); Potassium 4.1 mmol/L (3.5-5.0); Total Bilirubin 0.3 mg/dL (0.2-1.0); Total Protein 6.8 g/dL (6.4-8.9)
[2018-10-27] MEDS: Heparin VIAL(*) 5000 UNITS/ML VIAL (FIVE THOUSAND) SUBCUT SCH ×3 (07:01→22:34)
[2018-10-27] MEDS: Magnesium Oxide TAB* 400 MG PO SCH ×3 (08:31→22:33)
[2018-10-27] MEDS: amLODIPine TAB* 5 MG PO SCH (08:31)
[2018-10-27] MEDS: Nicotine PATCH 21 MG/24 HR* PATCH TRANSDERM SCH (08:32)
[2018-10-27] MEDS: Insulin LISPRO* 1 UNITS UNIT SUBCUT SCH ×6 (08:32→17:19)
[2018-10-27] MEDS ORDERED: Magnesium Sulfate 2 GM IV* 2 GM/50 ML BAG IVPB ONE (09:05)
--- NOTE | 2018-10-27 14:44 | PN ---
Subjective Date of Service: 10/27/18 Interval History: Pt seen and examined. Meds and labs reviewed. CC: N/A ROS: Denied FISHER/dizziness, F/C, N/V, CP, SOB, increased cough, sputum production , abd pain, diarrhea, constipation, dysuria, myalgias, arthralgias, throat pain , and new skin lesions. The rest of the 14 point ROS are unremarkable. PHYSICAL EXAM: GEN APPEARANCE: Awake, not in acute distress HEENT: NC/AT, PERRLA, moist oral mucosa, (-) throat erythema NECK: Soft, supple, (-) cervical LAD, (-)JVD HEART: S1S2 WNL, RRR, No MRG CHEST: CTA, BL, GAE, No W/R/R ABD: Soft, ND/NT, NABS 4x Q EXT: No C/C/E SKIN: Warm to touch PSYCH: No active psychosis, hallucinations, depression, SI/HI, pt more re- directable and follows requests Family History: Unchanged from Admission Social History: Unchanged from Admission Past Medical History: Unchanged from Admission Objective Active Medications: Acetaminophen (Tylenol Tab*) 650 mg PO Q6H [facility] Last Admin: 10/27/18 12:39 Dose: 650 mg Albuterol (Ventolin 2.5 Mg/3 Ml Neb.Laya*) 2.5 mg INH Q4H PRN PRN Reason: SOB/WHEEZING Amlodipine Besylate (Norvasc Tab*) 10 mg PO DAILY [facility] Last Admin: 10/27/18 08:31 Dose: 10 mg Dextrose (D50w Syringe 50 Ml*) 12.5 gm IV PUSH .FOR FS < 60 - SS PRN PRN Reason: FS < 60 Docusate Sodium (Colace Cap*) 100 mg PO BID PRN PRN Reason: CONSTIPATION Last Admin: 10/25/18 13:22 Dose: 100 mg Haloperidol (Haldol Tab*) 5 mg PO Q6H PRN PRN Reason: AGITATION Last Admin: 10/26/18 22:21 Dose: 5 mg Heparin Sodium (Porcine) (Heparin Vial(*)) 5,000 units SUBCUT Q8HR [facility] Last Admin: 10/27/18 12:41 Dose: 5,000 units Hydralazine HCl (Apresoline Iv*) 5 mg IV SLOW PU Q6H PRN PRN Reason: Systolic Bp Greater Than:170 Last Admin: 10/18/18 05:50 Dose: 5 mg Insulin Glargine (Lantus(*)) 30 units SUBCUT Q24H [facility] Insulin Human Lispro (Humalog*) 0 units SUBCUT AC [facility]; Protocol Last Admin: 10/27/18 12:27 Dose: Not Given Insulin Human Lispro (Humalog*) 10 units SUBCUT [facility] Last Admin: 10/27/18 12:41 Dose: 10 units Magnesium Oxide (Magox 400 Tab*) 800 mg PO TID [facility] Last Admin: 10/27/18 12:39 Dose: 800 mg Nicotine (Nicotine Patch 21 Mg/24 Hr*) 1 patch TRANSDERM DAILY@0800 [facility] Last Admin: 10/27/18 08:32 Dose: 1 patch Nicotine (Nicotine Inhaler*) 10 mg INH Q2H PRN PRN Reason: CRAVING Last Admin: 10/24/18 12:05 Dose: 10 mg Pharmacy Profile Note (Nicotine Patch Removal Note*) 1 note PATCH OFF 2100 [facility] Last Admin: 10/26/18 22:25 Dose: 1 note Risperidone (Risperdal) 0.5 mg PO 1100 [facility] Last Admin: 10/27/18 12:39 Dose: 0.5 mg Risperidone (Risperdal*) 1 mg PO 2000 [facility] Last Admin: 10/26/18 22:20 Dose: 1 mg Senna (Senokot Tab*) 2 tab PO BEDTIME PRN PRN Reason: CONSTIPATION Last Admin: 10/26/18 22:19 Dose: 2 tab Throat Lozenges (Chloraseptic Ganesh*) 1 ganesh PO Q6H PRN PRN Reason: SORE THROAT Last Admin: 10/26/18 22:22 Dose: 1 ganesh Vital Signs - 8 hr 10/27/18 10/27/18 10/27/18 07:34 07:54 07:55 Temperature 98.2 F Pulse Rate 79 Respiratory 22 22 22 Rate Blood Pressure 153/69 (mmHg) O2 Sat by Pulse 99 Oximetry Oxygen Devices in Use Now: None Result Diagrams: 10/27/18 05:15 10/27/18 05:15 Additional Lab and Data: Laboratory Tests 10/24/18 10/24/18 10/25/18 11:58 17:07 07:50 POC Glucose (mg/dL) 250 H 297 H 315 H 10/25/18 12:14 POC Glucose (mg/dL) 346 H Microbiology and Other Data: Microbiology 10/13/18 22:43 Urine Urine Culture - Final No Growth (<1,000 CFU/mL) 10/13/18 19:26 Blood Venous Aerobic Blood Culture - Final 10/13/18 19:26 Blood Venous Anaerobic Blood Culture - Final No Growth Day 5 No Growth Day 5 10/13/18 19:08 Blood Venous Aerobic Blood Culture - Final 10/13/18 19:08 Blood Venous Anaerobic Blood Culture - Final No Growth Day 5 No Growth Day 5 Assess/Plan/Problems-Billing Assessment: Patient is a 72yo male with a PMH for COPD, DMII, Antisocial personality disorder, and previous suicidal ideation who presents to the hospital after being found in his house with the gas running. - Patient Problems (1) Agitation Current Visit: No Status: Acute Priority: High Code(s): R45.1 - RESTLESSNESS AND AGITATION SNOMED Code(s): 846868719 Comment: -Currently he does not have capacity to make decision to leave the hospital and/ or refuse [facility] -Appreciate Psych input and re-eval; per psych, they agree pt has no capacity and likely above behavior due to chronic pain d/o w/long-term substance misuse and underlying PD? -Will plan for adult home, assisted living, or SNF -Continue present medication -c/w/PO Risperdal and PO Haldol; continue watchful waiting (2) Type II diabetes mellitus Current Visit: No Status: Acute Priority: Medium Comment: -Uncontroled, eating better -Increased Lantus and pre-meals -Continue ISS and watchful waiting (3) Stroke, lacunar Current Visit: Yes Status: Acute Priority: Medium Code(s): I63.81 - OTHER CEREB INFRC DUE TO OCCLS OR STENOSIS OF SMALL ARTERY SNOMED Code(s): 666985388 Comment: -MRI on 10/20 showed subacute infarct -not contributing to delirium at this time (4) Psychosis Current Visit: No Status: Acute Priority: High Comment: - discussed with Dr. Mcbride - no plan for psychiatric hospitalization (5) Urinary retention Current Visit: Yes Status: Acute Priority: Low Code(s): R33.9 - RETENTION OF URINE, UNSPECIFIED SNOMED Code(s): 051217325 Comment: resolved (6) DVT prophylaxis Current Visit: No Status: Acute Code(s): LJC6491 - SNOMED Code(s): 974102927 Comment: - SC heparin Status and Disposition: -Corrected Magnesium level via IV and increased PO maintenance -Per PT, pt requires 1 assist w/GB & RW -D/W Care coordinators and placement is pending at this time
[2018-10-27] MEDS: Insulin GLARGINE(*) 1 UNITS UNIT SUBCUT SCH (15:51)
[2018-10-27] MEDS: risperiDONE TAB* 1 MG PO SCH (19:47)
[2018-10-27] MEDS: Nicotine Patch Removal NOTE PATCH OFF SCH (22:34)
[2018-10-28] MEDS: Acetaminophen TAB* 325 MG PO SCH ×5 (01:40→22:51)
[2018-10-28] MEDS: Heparin VIAL(*) 5000 UNITS/ML VIAL (FIVE THOUSAND) SUBCUT SCH ×3 (05:40→22:52)
[2018-10-28] MEDS: hydrALAZINE IV* 20 MG/ML VIAL IV SLOW PU PRN (06:30)
[2018-10-28 07:29] LABS: ABS Basophils 0.1 10^3/ul (0-0.2); ABS Eosinophils 0.3 10^3/ul (0-0.6); ABS Lymphocytes 1.3 10^3/ul (1.0-4.8); ABS Monocytes 0.7 10^3/ul (0-0.8); ABS Neutrophils 4.5 10^3/ul (1.5-7.7); ABS Nucleated RBC 0 10^3/ul; Eosinophil % 3.7 %; Hematocrit 36 % (42-52); Hemoglobin 12.1 g/dl (14.0-18.0); Lymphocyte % 18.9 %; Mean Corpuscular HGB Conc 34 g/dl (31-36); Mean Corpuscular Hemoglobin 28 pg (27-31); Mean Corpuscular Volume 83 fL (80-94); Mean Platelet Volume 9.3 fL (7.4-10.4); Nucleated Red Blood Cells % 0; Platelet Count 139 10^3/ul (150-450); Red Blood Count 4.31 10^6/ul (4.00-5.40); Red Cell Distribution Width 14 % (10.5-15); White Blood Count 6.7 10^3/ul (3.5-10.8)
[2018-10-28] MEDS: Magnesium Oxide TAB* 400 MG PO SCH ×3 (08:38→22:51)
[2018-10-28] MEDS: amLODIPine TAB* 5 MG PO SCH (08:38)
[2018-10-28] MEDS: Nicotine PATCH 21 MG/24 HR* PATCH TRANSDERM SCH (08:38)
[2018-10-28] MEDS: Insulin LISPRO* 1 UNITS UNIT SUBCUT SCH ×6 (08:39→18:07)
[2018-10-28 08:58] LABS: BUN/Creatinine Ratio 22.1 (8-20); Calcium 8.7 mg/dL (8.6-10.3); EGFR African American 94.8 (>60); EGFR Non-African American 78.4 (>60); Magnesium 1.9 mg/dL (1.9-2.7); Potassium 4.6 mmol/L (3.5-5.0)
--- NOTE | 2018-10-28 11:22 | CONSULT ---
Identification - Patient Identification Reason for Psychiatric Consultation: Patient Distress -: Patient is a 72 year old, M admitted on 10/13/18. - MHU Identification Employment Status: Disabled Hx Psychiatric Hospitalization: Yes History - Objective HPI: Solo continues to improve in terms of his alertness and clarity of thought. He is calm, cooperative and respectful. He's expresses interest in the upcoming Super Bowl and asks several questions about who is playing and what the betting line is. He denies any thoughts of hurting himself but does indicate that he misses his sister Mayela, who is on vacation in [place]. I reached out to Mayela ([phone]) and appraised her of the situation. Solo will need to be enrolled in Medicaid and she is aware that she will need to submit some of his financial documents to the Medicaid Navigator upon her return to [place] on November 05. I also informed her that this clinician will be signing off from Solo's case. She expressed gratitude for the care he has received here. Exam Appearance: Thin Framed Hygiene: Normal Grooming: Fairly Well Kept Psychomotor Activities: Abnormal-Decreased Exhibits Abnormal Movement: No Attitude and Relatedness: Cooperative Eye Contact: Fair - Speech Quality: Unpressured Latencies: Normal Quantity: Appropriate Patient's Decription of Mood: "Fine" Observed Affect: Fair Affect Consistent with: Euthymia Patient's Thought Process: Coherent, Circumstantial Thought Content: No Passive Wish, No Suicidal Planning, No Homicidal Ideation, No Paranoid Ideation Experiencing Hallucinations: No, Sensorium is Clear Type of Hallucinations: Visual: No, Auditory: No, Command: No Level of Consciousness: Alert Orientation: No Intact, No Orientated to Time, No Orientated to Place, No Orientated to Person Impulse Control: Tenuous Insight and Judgement: Fair Impression - Impression Clinical Impression: 72 y.o. , white male with a history of recurrent delirium, long standing dependence to opioids and recent psychiatric care on the [facility] secondary to homicidal ideation who returned to [facility] on October 13 for his 3rd medical admission in the past month, this time for acute confusion, whom the primary team would like assessed for suicidality. Inpatient DSM-V Dx: F05 Merits Inpatient Hospitalization: No Plan - Treatment Plan Treatment Plan: The patient's encephalopathy appears to be improving with rest and low dose risperidone. He still lacks capacity to refuse [facility] placement due to his inability to demonstrate a facile understanding of his situation or the risks of refusing care. Psychiatry recommends continuing risperidone 0.5mg PO qday and 1mg PO qhs. Patient is pending placement in a [facility] situation. Recommend PT/ OT care. His sister, Mayela Fernando ([phone]) is vacationing in [place] and not due to return to the area until November 05. Psychiatry is signing off but can be reconsulted in the event of any changes in the patient's presentation. Continued Medication Management: Start Medication Medications: Current Medications Acetaminophen (Tylenol Tab*) 650 mg PO Q6H [facility] Last Admin: 10/28/18 05:39 Dose: 650 mg Albuterol (Ventolin 2.5 Mg/3 Ml Neb.Laya*) 2.5 mg INH Q4H PRN PRN Reason: SOB/WHEEZING Amlodipine Besylate (Norvasc Tab*) 10 mg PO DAILY [facility] Last Admin: 10/28/18 08:38 Dose: 10 mg Dextrose (D50w Syringe 50 Ml*) 12.5 gm IV PUSH .FOR FS < 60 - SS PRN PRN Reason: FS < 60 Docusate Sodium (Colace Cap*) 100 mg PO BID PRN PRN Reason: CONSTIPATION Last Admin: 10/25/18 13:22 Dose: 100 mg Haloperidol (Haldol Tab*) 5 mg PO Q6H PRN PRN Reason: AGITATION Last Admin: 10/26/18 22:21 Dose: 5 mg Heparin Sodium (Porcine) (Heparin Vial(*)) 5,000 units SUBCUT Q8HR [facility] Last Admin: 10/28/18 05:40 Dose: 5,000 units Hydralazine HCl (Apresoline Iv*) 5 mg IV SLOW PU Q6H PRN PRN Reason: Systolic Bp Greater Than:170 Last Admin: 10/28/18 06:30 Dose: 5 mg Insulin Glargine (Lantus(*)) 30 units SUBCUT Q24H [facility] Last Admin: 10/27/18 15:51 Dose: 30 units Insulin Human Lispro (Humalog*) 0 units SUBCUT AC [facility]; Protocol Last Admin: 10/28/18 08:39 Dose: 5 unit Insulin Human Lispro (Humalog*) 10 units SUBCUT [facility] Last Admin: 10/28/18 08:39 Dose: 10 units Magnesium Oxide (Magox 400 Tab*) 800 mg PO TID [facility] Last Admin: 10/28/18 08:38 Dose: 800 mg Nicotine (Nicotine Patch 21 Mg/24 Hr*) 1 patch TRANSDERM DAILY@0800 [facility] Last Admin: 10/28/18 08:38 Dose: 1 patch Nicotine (Nicotine Inhaler*) 10 mg INH Q2H PRN PRN Reason: CRAVING Last Admin: 10/24/18 12:05 Dose: 10 mg Pharmacy Profile Note (Nicotine Patch Removal Note*) 1 note PATCH OFF 2100 [facility] Last Admin: 10/27/18 22:34 Dose: 1 note Risperidone (Risperdal) 0.5 mg PO 1100 [facility] Last Admin: 10/27/18 12:39 Dose: 0.5 mg Risperidone (Risperdal*) 1 mg PO 1999 [facility] Last Admin: 10/27/18 19:47 Dose: 1 mg Senna (Senokot Tab*) 2 tab PO BEDTIME PRN PRN Reason: CONSTIPATION Last Admin: 10/26/18 22:19 Dose: 2 tab Throat Lozenges (Chloraseptic Candelario*) 1 candelario PO Q6H PRN PRN Reason: SORE THROAT Last Admin: 10/26/18 22:22 Dose: 1 cadnelario - Discharge Plan Discharge Plan: Outpatient Follow Up
--- NOTE | 2018-10-28 16:10 | PN ---
Subjective Date of Service: 10/28/18 Interval History: Pt seen and examined. Meds and labs reviewed. CC: N/A ROS: Denied FISHER/dizziness, F/C, N/V, CP, SOB, increased cough, sputum production , abd pain, diarrhea, constipation, dysuria, myalgias, arthralgias, throat pain , and new skin lesions. The rest of the 14 point ROS are unremarkable. PHYSICAL EXAM: GEN APPEARANCE: Awake, not in acute distress HEENT: NC/AT, PERRLA, moist oral mucosa, (-) throat erythema NECK: Soft, supple, (-) cervical LAD, (-)JVD HEART: S1S2 WNL, RRR, No MRG CHEST: CTA, BL, GAE, No W/R/R ABD: Soft, ND/NT, NABS 4x Q EXT: No C/C/E SKIN: Warm to touch PSYCH: No active psychosis, hallucinations, depression, SI/HI Family History: Unchanged from Admission Social History: Unchanged from Admission Past Medical History: Unchanged from Admission Objective Active Medications: Acetaminophen (Tylenol Tab*) 650 mg PO Q6H [facility] Last Admin: 10/28/18 05:39 Dose: 650 mg Albuterol (Ventolin 2.5 Mg/3 Ml Neb.Laya*) 2.5 mg INH Q4H PRN PRN Reason: SOB/WHEEZING Amlodipine Besylate (Norvasc Tab*) 10 mg PO DAILY [facility] Last Admin: 10/28/18 08:38 Dose: 10 mg Dextrose (D50w Syringe 50 Ml*) 12.5 gm IV PUSH .FOR FS < 60 - SS PRN PRN Reason: FS < 60 Docusate Sodium (Colace Cap*) 100 mg PO BID PRN PRN Reason: CONSTIPATION Last Admin: 10/25/18 13:22 Dose: 100 mg Haloperidol (Haldol Tab*) 5 mg PO Q6H PRN PRN Reason: AGITATION Last Admin: 10/26/18 22:21 Dose: 5 mg Heparin Sodium (Porcine) (Heparin Vial(*)) 5,000 units SUBCUT Q8HR [facility] Last Admin: 10/28/18 05:40 Dose: 5,000 units Hydralazine HCl (Apresoline Iv*) 5 mg IV SLOW PU Q6H PRN PRN Reason: Systolic Bp Greater Than:170 Last Admin: 10/28/18 06:30 Dose: 5 mg Insulin Glargine (Lantus(*)) 30 units SUBCUT Q24H [facility] Last Admin: 10/27/18 15:51 Dose: 30 units Insulin Human Lispro (Humalog*) 0 units SUBCUT [facility]; Protocol Last Admin: 10/28/18 08:39 Dose: 5 unit Insulin Human Lispro (Humalog*) 10 units SUBCUT [facility] Last Admin: 10/28/18 08:39 Dose: 10 units Magnesium Oxide (Magox 400 Tab*) 800 mg PO TID [facility] Last Admin: 10/28/18 08:38 Dose: 800 mg Nicotine (Nicotine Patch 21 Mg/24 Hr*) 1 patch TRANSDERM DAILY@0800 [facility] Last Admin: 10/28/18 08:38 Dose: 1 patch Nicotine (Nicotine Inhaler*) 10 mg INH Q2H PRN PRN Reason: CRAVING Last Admin: 10/24/18 12:05 Dose: 10 mg Pharmacy Profile Note (Nicotine Patch Removal Note*) 1 note PATCH OFF 2100 [facility] Last Admin: 10/27/18 22:34 Dose: 1 note Risperidone (Risperdal) 0.5 mg PO 1100 [facility] Last Admin: 10/27/18 12:39 Dose: 0.5 mg Risperidone (Risperdal*) 1 mg PO 2000 [facility] Last Admin: 10/27/18 19:47 Dose: 1 mg Senna (Senokot Tab*) 2 tab PO BEDTIME PRN PRN Reason: CONSTIPATION Last Admin: 10/26/18 22:19 Dose: 2 tab Throat Lozenges (Chloraseptic Ganesh*) 1 ganesh PO Q6H PRN PRN Reason: SORE THROAT Last Admin: 10/26/18 22:22 Dose: 1 ganesh Vital Signs - 8 hr 10/28/18 11:16 Temperature 97.2 F Pulse Rate 82 Respiratory 22 Rate Blood Pressure 142/67 (mmHg) O2 Sat by Pulse 98 Oximetry Oxygen Devices in Use Now: None Result Diagrams: 10/28/18 07:08 10/28/18 07:08 Additional Lab and Data: Laboratory Tests 10/24/18 10/24/18 10/25/18 11:58 17:07 07:50 POC Glucose (mg/dL) 250 H 297 H 315 H 10/25/18 12:14 POC Glucose (mg/dL) 346 H Microbiology and Other Data: Microbiology 10/13/18 22:43 Urine Urine Culture - Final No Growth (<1,000 CFU/mL) 10/13/18 19:26 Blood Venous Aerobic Blood Culture - Final 10/13/18 19:26 Blood Venous Anaerobic Blood Culture - Final No Growth Day 5 No Growth Day 5 10/13/18 19:08 Blood Venous Aerobic Blood Culture - Final 10/13/18 19:08 Blood Venous Anaerobic Blood Culture - Final No Growth Day 5 No Growth Day 5 Assess/Plan/Problems-Billing Assessment: Patient is a 72yo male with a PMH for COPD, DMII, Antisocial personality disorder, and previous suicidal ideation who presents to the hospital after being found in his house with the gas running. - Patient Problems (1) Agitation Current Visit: No Status: Acute Priority: High Code(s): R45.1 - RESTLESSNESS AND AGITATION SNOMED Code(s): 687075131 Comment: -Stable -Currently he does not have capacity to make decision to leave the hospital and/ or refuse [facility] -Appreciate Psych input and re-eval; per psych, they agree pt has no capacity and likely above behavior due to chronic pain d/o w/long-term substance misuse and underlying PD? -Will plan for adult home, assisted living, or SNF -Continue present medication -c/w/PO Risperdal and PO Haldol; continue watchful waiting (2) Type II diabetes mellitus Current Visit: No Status: Acute Priority: Medium Comment: -Improved control -Continue current regimen and watchful waiting (3) Stroke, lacunar Current Visit: Yes Status: Acute Priority: Medium Code(s): I63.81 - OTHER CEREB INFRC DUE TO OCCLS OR STENOSIS OF SMALL ARTERY SNOMED Code(s): 446298036 Comment: -MRI on 10/20 showed subacute infarct -not contributing to delirium at this time (4) Psychosis Current Visit: No Status: Acute Priority: High Comment: - discussed with Dr. Mcbride - no plan for psychiatric hospitalization (5) Urinary retention Current Visit: Yes Status: Acute Priority: Low Code(s): R33.9 - RETENTION OF URINE, UNSPECIFIED SNOMED Code(s): 967465705 Comment: resolved (6) DVT prophylaxis Current Visit: No Status: Acute Code(s): ABP4855 - SNOMED Code(s): 139557408 Comment: - SC heparin Status and Disposition: -Per PT, pt requires 1 assist w/GB & RW -D/W Care coordinators and placement is pending at this time; will re-discuss in AM regarding placement vs. placing pt in swing status in AM
[2018-10-28] MEDS: Insulin GLARGINE(*) 1 UNITS UNIT SUBCUT SCH (16:34)
[2018-10-28] MEDS: Senna TAB PO PRN (22:50)
[2018-10-28] MEDS: Haloperidol TAB* 5 MG PO PRN (22:51)
[2018-10-28] MEDS: risperiDONE TAB* 1 MG PO SCH (22:51)
[2018-10-28] MEDS: Nicotine Patch Removal NOTE PATCH OFF SCH (23:20)
[2018-10-29] MEDS: Acetaminophen TAB* 325 MG PO SCH ×4 (05:48→17:31)
[2018-10-29] MEDS: Heparin VIAL(*) 5000 UNITS/ML VIAL (FIVE THOUSAND) SUBCUT SCH ×3 (06:32→21:43)
[2018-10-29 06:56] LABS: Hematocrit 36 % (42-52); Hemoglobin 12.1 g/dl (14.0-18.0); Mean Corpuscular HGB Conc 34 g/dl (31-36); Mean Corpuscular Hemoglobin 28 pg (27-31); Mean Corpuscular Volume 83 fL (80-94); Mean Platelet Volume 9.1 fL (7.4-10.4); Platelet Count 152 10^3/ul (150-450); Red Blood Count 4.32 10^6/ul (4.00-5.40); Red Cell Distribution Width 15 % (10.5-15); White Blood Count 7.1 10^3/ul (3.5-10.8)
[2018-10-29 07:17] LABS: BUN/Creatinine Ratio 24.7 (8-20); Calcium 9.3 mg/dL (8.6-10.3); EGFR African American 120.9 (>60); EGFR Non-African American 99.9 (>60); Potassium 4.4 mmol/L (3.5-5.0)
[2018-10-29] MEDS: Insulin LISPRO* 1 UNITS UNIT SUBCUT SCH ×6 (09:24→17:31)
[2018-10-29] MEDS: Magnesium Oxide TAB* 400 MG PO SCH ×3 (09:25→20:48)
[2018-10-29] MEDS: amLODIPine TAB* 5 MG PO SCH (09:26)
[2018-10-29] MEDS: Nicotine PATCH 21 MG/24 HR* PATCH TRANSDERM SCH (09:26)
[2018-10-29] MEDS: Insulin GLARGINE(*) 1 UNITS UNIT SUBCUT SCH (14:11)
--- NOTE | 2018-10-29 15:10 | PN ---
Subjective Date of Service: 10/29/18 Interval History: Pt seen and examined. Meds and labs reviewed. CC: N/A ROS: Denied FISHER/dizziness, F/C, N/V, CP, SOB, increased cough, sputum production , abd pain, diarrhea, constipation, dysuria, myalgias, arthralgias, throat pain , and new skin lesions. The rest of the 14 point ROS are unremarkable. PHYSICAL EXAM: GEN APPEARANCE: Asleep, but arousable, not in acute distress HEENT: NC/AT, PERRLA, moist oral mucosa, (-) throat erythema NECK: Soft, supple, (-) cervical LAD, (-)JVD HEART: S1S2 WNL, RRR, No MRG CHEST: CTA, BL, GAE, No W/R/R ABD: Soft, ND/NT, NABS 4x Q EXT: No C/C/E SKIN: Warm to touch PSYCH: No active psychosis, hallucinations, depression, SI/HI Family History: Unchanged from Admission Social History: Unchanged from Admission Past Medical History: Unchanged from Admission Objective Active Medications: Acetaminophen (Tylenol Tab*) 650 mg PO Q6H [facility] Last Admin: 10/29/18 12:04 Dose: 650 mg Albuterol (Ventolin 2.5 Mg/3 Ml Neb.Laya*) 2.5 mg INH Q4H PRN PRN Reason: SOB/WHEEZING Amlodipine Besylate (Norvasc Tab*) 10 mg PO DAILY [facility] Last Admin: 10/29/18 09:26 Dose: 10 mg Dextrose (D50w Syringe 50 Ml*) 12.5 gm IV PUSH .FOR FS < 60 - SS PRN PRN Reason: FS < 60 Docusate Sodium (Colace Cap*) 100 mg PO BID PRN PRN Reason: CONSTIPATION Last Admin: 10/25/18 13:22 Dose: 100 mg Haloperidol (Haldol Tab*) 5 mg PO Q6H PRN PRN Reason: AGITATION Last Admin: 10/28/18 22:51 Dose: 5 mg Heparin Sodium (Porcine) (Heparin Vial(*)) 5,000 units SUBCUT Q8HR [facility] Last Admin: 10/29/18 14:10 Dose: 5,000 units Hydralazine HCl (Apresoline Iv*) 5 mg IV SLOW PU Q6H PRN PRN Reason: Systolic Bp Greater Than:170 Last Admin: 10/28/18 06:30 Dose: 5 mg Insulin Glargine (Lantus(*)) 30 units SUBCUT Q24H [facility] Last Admin: 10/29/18 14:11 Dose: 30 units Insulin Human Lispro (Humalog*) 0 units SUBCUT [facility]; Protocol Last Admin: 10/29/18 12:04 Dose: 1 unit Insulin Human Lispro (Humalog*) 10 units SUBCUT [facility] Last Admin: 10/29/18 12:05 Dose: 10 units Magnesium Oxide (Magox 400 Tab*) 800 mg PO TID [facility] Last Admin: 10/29/18 14:10 Dose: 800 mg Nicotine (Nicotine Patch 21 Mg/24 Hr*) 1 patch TRANSDERM DAILY@0800 [facility] Last Admin: 10/29/18 09:26 Dose: 1 patch Nicotine (Nicotine Inhaler*) 10 mg INH Q2H PRN PRN Reason: CRAVING Last Admin: 10/24/18 12:05 Dose: 10 mg Pharmacy Profile Note (Nicotine Patch Removal Note*) 1 note PATCH OFF 2100 [facility] Last Admin: 10/28/18 23:20 Dose: 1 note Risperidone (Risperdal) 0.5 mg PO 1100 [facility] Last Admin: 10/29/18 12:04 Dose: 0.5 mg Risperidone (Risperdal*) 1 mg PO 2000 [facility] Last Admin: 10/28/18 22:51 Dose: 1 mg Senna (Senokot Tab*) 2 tab PO BEDTIME PRN PRN Reason: CONSTIPATION Last Admin: 10/28/18 22:50 Dose: 2 tab Throat Lozenges (Chloraseptic Ganesh*) 1 ganesh PO Q6H PRN PRN Reason: SORE THROAT Last Admin: 10/26/18 22:22 Dose: 1 ganesh Vital Signs - 8 hr 10/29/18 10/29/18 07:20 08:00 Temperature 96.7 F Pulse Rate 82 Respiratory 20 16 Rate Blood Pressure 148/65 (mmHg) O2 Sat by Pulse 97 Oximetry Oxygen Devices in Use Now: None Result Diagrams: 10/29/18 06:39 10/29/18 06:39 Additional Lab and Data: Laboratory Tests 10/24/18 10/24/18 10/25/18 11:58 17:07 07:50 POC Glucose (mg/dL) 250 H 297 H 315 H 10/25/18 12:14 POC Glucose (mg/dL) 346 H Microbiology and Other Data: Microbiology 10/13/18 22:43 Urine Urine Culture - Final No Growth (<1,000 CFU/mL) 10/13/18 19:26 Blood Venous Aerobic Blood Culture - Final 10/13/18 19:26 Blood Venous Anaerobic Blood Culture - Final No Growth Day 5 No Growth Day 5 10/13/18 19:08 Blood Venous Aerobic Blood Culture - Final 10/13/18 19:08 Blood Venous Anaerobic Blood Culture - Final No Growth Day 5 No Growth Day 5 Assess/Plan/Problems-Billing Assessment: Patient is a 72yo male with a PMH for COPD, DMII, Antisocial personality disorder, and previous suicidal ideation who presents to the hospital after being found in his house with the gas running. - Patient Problems (1) Agitation Current Visit: No Status: Acute Priority: High Code(s): R45.1 - RESTLESSNESS AND AGITATION SNOMED Code(s): 474214972 Comment: -Stable -Currently he does not have capacity to make decision to leave the hospital and/ or refuse EDUARDO -Appreciate Psych input and re-eval; per psych, they agree pt has no capacity and likely above behavior due to chronic pain d/o w/long-term substance misuse and underlying PD? -Will plan for adult home, assisted living, or SNF -Continue present medication -c/w/PO Risperdal and PO Haldol; continue watchful waiting (2) Type II diabetes mellitus Current Visit: No Status: Acute Priority: Medium Comment: -Improved control -Continue current regimen and watchful waiting (3) Stroke, lacunar Current Visit: Yes Status: Acute Priority: Medium Code(s): I63.81 - OTHER CEREB INFRC DUE TO OCCLS OR STENOSIS OF SMALL ARTERY SNOMED Code(s): 467299179 Comment: -MRI on 10/20 showed subacute infarct -not contributing to delirium at this time (4) Psychosis Current Visit: No Status: Acute Priority: High Comment: - discussed with Dr. Mcbride - no plan for psychiatric hospitalization (5) Urinary retention Current Visit: Yes Status: Acute Priority: Low Code(s): R33.9 - RETENTION OF URINE, UNSPECIFIED SNOMED Code(s): 311384529 Comment: resolved (6) DVT prophylaxis Current Visit: No Status: Acute Code(s): IYM9493 - SNOMED Code(s): 190259381 Comment: - SC heparin Status and Disposition: -Per PT, pt requires 1 assist w/GB & RW -re-D/W front desk coordinator today and placement is still pending vs. swing status
[2018-10-29] MEDS: risperiDONE TAB* 1 MG PO SCH (20:48)
[2018-10-29] MEDS: Nicotine Patch Removal NOTE PATCH OFF SCH (21:43)
[2018-10-30] MEDS: Acetaminophen TAB* 325 MG PO SCH ×4 (00:19→17:48)
[2018-10-30] MEDS: Heparin VIAL(*) 5000 UNITS/ML VIAL (FIVE THOUSAND) SUBCUT SCH ×3 (05:33→21:46)
--- NOTE | 2018-10-30 08:02 | PN ---
Subjective Date of Service: 10/30/18 Interval History: HD #18 on 10/30/18 72 yo M with PMH COPD, DMII, antisocial personality disorder, pain and opioid dependence who presented delirious to the hospital after being found in his house with gas running, several admissions in the past few months, psych following and determined to have lack of capacity no active medical issues awaiting placement. No overnight events, VSS, HTN 152-162/64-72 otherwise normal. This morning seen sleeping in bed, rouses to voice and follows commands and is pleasant but does not interact much. He has no complaints, nurses report he is compliant with care. ROS: No CP, SOB, GI/, MSK complaints. Family History: Unchanged from Admission Social History: Unchanged from Admission Past Medical History: Unchanged from Admission Objective Active Medications: Acetaminophen (Tylenol Tab*) 650 mg PO Q6H [facility] Last Admin: 10/30/18 00:19 Dose: 650 mg Albuterol (Ventolin 2.5 Mg/3 Ml Neb.Laya*) 2.5 mg INH Q4H PRN PRN Reason: SOB/WHEEZING Amlodipine Besylate (Norvasc Tab*) 10 mg PO DAILY [facility] Last Admin: 10/29/18 09:26 Dose: 10 mg Dextrose (D50w Syringe 50 Ml*) 12.5 gm IV PUSH .FOR FS < 60 - SS PRN PRN Reason: FS < 60 Docusate Sodium (Colace Cap*) 100 mg PO BID PRN PRN Reason: CONSTIPATION Last Admin: 10/25/18 13:22 Dose: 100 mg Haloperidol (Haldol Tab*) 5 mg PO Q6H PRN PRN Reason: AGITATION Last Admin: 10/28/18 22:51 Dose: 5 mg Heparin Sodium (Porcine) (Heparin Vial(*)) 5,000 units SUBCUT Q8HR [facility] Last Admin: 10/30/18 05:33 Dose: 5,000 units Hydralazine HCl (Apresoline Iv*) 5 mg IV SLOW PU Q6H PRN PRN Reason: Systolic Bp Greater Than:170 Last Admin: 10/28/18 06:30 Dose: 5 mg Insulin Glargine (Lantus(*)) 30 units SUBCUT Q24H [facility] Last Admin: 10/29/18 14:11 Dose: 30 units Insulin Human Lispro (Humalog*) 0 units SUBCUT [facility]; Protocol Last Admin: 10/29/18 17:30 Dose: 4 unit Insulin Human Lispro (Humalog*) 10 units SUBCUT [facility] Last Admin: 10/29/18 17:31 Dose: 10 units Magnesium Oxide (Magox 400 Tab*) 800 mg PO TID [facility] Last Admin: 10/29/18 20:48 Dose: 800 mg Nicotine (Nicotine Patch 21 Mg/24 Hr*) 1 patch TRANSDERM DAILY@0800 [facility] Last Admin: 10/29/18 09:26 Dose: 1 patch Nicotine (Nicotine Inhaler*) 10 mg INH Q2H PRN PRN Reason: CRAVING Last Admin: 10/24/18 12:05 Dose: 10 mg Pharmacy Profile Note (Nicotine Patch Removal Note*) 1 note PATCH OFF 2100 [facility] Last Admin: 10/29/18 21:43 Dose: 1 note Risperidone (Risperdal) 0.5 mg PO 1100 [facility] Last Admin: 10/29/18 12:04 Dose: 0.5 mg Risperidone (Risperdal*) 1 mg PO 2000 [facility] Last Admin: 10/29/18 20:48 Dose: 1 mg Senna (Senokot Tab*) 2 tab PO BEDTIME PRN PRN Reason: CONSTIPATION Last Admin: 10/28/18 22:50 Dose: 2 tab Throat Lozenges (Chloraseptic Candelario*) 1 candelario PO Q6H PRN PRN Reason: SORE THROAT Last Admin: 10/26/18 22:22 Dose: 1 candelario Vital Signs - 8 hr 10/30/18 10/30/18 00:25 04:02 Temperature 97.4 F 98.8 F Pulse Rate 89 90 Respiratory 18 16 Rate Blood Pressure 162/72 152/64 (mmHg) O2 Sat by Pulse 97 96 Oximetry Oxygen Devices in Use Now: None Appearance: Disheveled man sleeping in bed Ears/Nose/Mouth/Throat: NL Teeth, Lips, Gums, Mucous Membranes Moist Neck: NL Appearance and Movements; NL JVP, Trachea Midline Respiratory: Symmetrical Chest Expansion and Respiratory Effort, Clear to Auscultation Cardiovascular: NL Sounds; No Murmurs; No JVD Abdominal: NL Sounds; No Tenderness; No Distention Extremities: No Edema Skin: No Rash or Ulcers Neurological: - - Oriented to self, place, rough event Result Diagrams: 10/29/18 06:39 10/29/18 06:39 Additional Lab and Data: Laboratory Tests 10/24/18 10/24/18 10/25/18 11:58 17:07 07:50 POC Glucose (mg/dL) 250 H 297 H 315 H 10/25/18 12:14 POC Glucose (mg/dL) 346 H Microbiology and Other Data: Microbiology 10/13/18 22:43 Urine Urine Culture - Final No Growth (<1,000 CFU/mL) 10/13/18 19:26 Blood Venous Aerobic Blood Culture - Final 10/13/18 19:26 Blood Venous Anaerobic Blood Culture - Final No Growth Day 5 No Growth Day 5 10/13/18 19:08 Blood Venous Aerobic Blood Culture - Final 10/13/18 19:08 Blood Venous Anaerobic Blood Culture - Final No Growth Day 5 No Growth Day 5 Assess/Plan/Problems-Billing Assessment: 72 yo M with PMH COPD, DMII, antisocial personality disorder, pain and opioid dependence who presented delirious to the hospital after being found in his house with gas running, several admissions in the past few months, psych following and determined to have lack of capacity no active medical issues awaiting placement. - Patient Problems (1) Delirium Current Visit: No Status: Acute Code(s): R41.0 - DISORIENTATION, UNSPECIFIED SNOMED Code(s): 5781539 Comment: Resolving The patient's encephalopathy appears to be improving with rest and low dose risperidone. He still lacks capacity to refuse EDUARDO placement due to his inability to demonstrate a facile understanding of his situation or the risks of refusing care. Psychiatry recommends continuing risperidone 0.5mg PO qday and 1mg PO qhs. Patient is pending placement in a EDUARDO situation. Recommend PT/ OT care. His sister, Mayela Fernando ([phone]) is vacationing in [place] and not due to return to the area until November 05. Psychiatry is signing off but can be reconsulted in the event of any changes in the patient's presentation. (2) Stroke, lacunar Current Visit: Yes Status: Acute Priority: Medium Code(s): I63.81 - OTHER CEREB INFRC DUE TO OCCLS OR STENOSIS OF SMALL ARTERY SNOMED Code(s): 197817323 Comment: -MRI on 10/20 showed subacute infarct -not contributing to delirium at this time (3) Toxic metabolic encephalopathy Current Visit: Yes Status: Acute Code(s): G92 - TOXIC ENCEPHALOPATHY SNOMED Code(s): 744269494 Comment: - Improved. Fully awake, alert at times. Drowsy and sedated after medications. - patient is not able to give a reliable history as he does not partcipate - Gas exposure possibly contributing but ABG unremarkable - Slightly elevated ammonia now normal and not likely contributing. - Initial MRI shows small left infact Not a causative for the delerium - Has been physically aggressive in this hospitlization, continue percautions (4) COPD (chronic obstructive pulmonary disease) Current Visit: Yes Status: Acute Code(s): J44.9 - CHRONIC OBSTRUCTIVE PULMONARY DISEASE, UNSPECIFIED SNOMED Code(s): 19610768 Comment: - Not in exacerbation - Albuterol PRN, avoid anticholinergics (5) Hypertension Current Visit: Yes Status: Acute Code(s): I10 - ESSENTIAL (PRIMARY) HYPERTENSION SNOMED Code(s): 71553213 Comment: Continue home amlodipine, c/b HTN urgency/emergency in earlier hospitlization -Start HCTZ 12.5mg 10/30 (6) Type II diabetes mellitus Current Visit: No Status: Acute Priority: Medium Comment: -Improved control -Lantus 30U QHS, ISS (7) DVT prophylaxis Current Visit: No Status: Acute Code(s): ZPG4374 - SNOMED Code(s): 288056761 Comment: - SC heparin Status and Disposition: -Per PT, pt requires 1 assist w/GB & RW - placement is still pending vs. swing status
[2018-10-30] MEDS: Nicotine PATCH 21 MG/24 HR* PATCH TRANSDERM SCH (08:30)
[2018-10-30] MEDS: Magnesium Oxide TAB* 400 MG PO SCH ×3 (08:30→21:45)
[2018-10-30] MEDS: amLODIPine TAB* 5 MG PO SCH (08:30)
[2018-10-30] MEDS: Insulin LISPRO* 1 UNITS UNIT SUBCUT SCH ×6 (08:31→17:49)
[2018-10-30] MEDS: Insulin GLARGINE(*) 1 UNITS UNIT SUBCUT SCH (16:27)
[2018-10-30] MEDS ORDERED: Insulin GLARGINE(*) 1 UNITS UNIT SUBCUT SCH (16:30)
[2018-10-30] MEDS: Hydrochlorothiazide TAB* 25 MG PO SCH (17:50)
[2018-10-30] MEDS: risperiDONE TAB* 1 MG PO SCH (21:46)
[2018-10-30] MEDS: Nicotine Patch Removal NOTE PATCH OFF SCH (22:35)
[2018-10-31] MEDS: Acetaminophen TAB* 325 MG PO SCH ×4 (01:31→20:49)
[2018-10-31] MEDS: Heparin VIAL(*) 5000 UNITS/ML VIAL (FIVE THOUSAND) SUBCUT SCH ×3 (05:09→20:50)
[2018-10-31 05:58] LABS: ABS Basophils 0.1 10^3/ul (0-0.2); ABS Eosinophils 0.3 10^3/ul (0-0.6); ABS Lymphocytes 1.3 10^3/ul (1.0-4.8); ABS Monocytes 0.8 10^3/ul (0-0.8); ABS Neutrophils 4.8 10^3/ul (1.5-7.7); ABS Nucleated RBC 0 10^3/ul; Eosinophil % 4.2 %; Hematocrit 35 % (42-52); Hemoglobin 11.9 g/dl (14.0-18.0); Mean Corpuscular HGB Conc 34 g/dl (31-36); Mean Corpuscular Hemoglobin 28 pg (27-31); Mean Corpuscular Volume 84 fL (80-94); Mean Platelet Volume 9.4 fL (7.4-10.4); Nucleated Red Blood Cells % 0; Platelet Count 131 10^3/ul (150-450); Red Cell Distribution Width 15 % (10.5-15); White Blood Count 7.4 10^3/ul (3.5-10.8)
[2018-10-31 06:20] LABS: Calcium 9.3 mg/dL (8.6-10.3); EGFR African American 112.4 (>60); EGFR Non-African American 92.9 (>60); Potassium 4.3 mmol/L (3.5-5.0)
[2018-10-31] MEDS: amLODIPine TAB* 5 MG PO SCH (09:00)
[2018-10-31] MEDS: Hydrochlorothiazide TAB* 25 MG PO SCH (09:00)
[2018-10-31] MEDS: Magnesium Oxide TAB* 400 MG PO SCH ×3 (09:01→20:50)
[2018-10-31] MEDS: Insulin LISPRO* 1 UNITS UNIT SUBCUT SCH ×6 (09:02→17:48)
[2018-10-31] MEDS: Nicotine PATCH 21 MG/24 HR* PATCH TRANSDERM SCH (09:02)
--- NOTE | 2018-10-31 10:02 | PN ---
Subjective Date of Service: 10/31/18 Interval History: States "I'm vertical" when I asked how he was. Denies pain, all other c/o. Family History: Unchanged from Admission Social History: Unchanged from Admission Past Medical History: Unchanged from Admission Objective Active Medications: Acetaminophen (Tylenol Tab*) 650 mg PO Q6H [facility] Last Admin: 10/31/18 09:01 Dose: 650 mg Albuterol (Ventolin 2.5 Mg/3 Ml Neb.Laya*) 2.5 mg INH Q4H PRN PRN Reason: SOB/WHEEZING Amlodipine Besylate (Norvasc Tab*) 10 mg PO DAILY [facility] Last Admin: 10/31/18 09:00 Dose: 10 mg Dextrose (D50w Syringe 50 Ml*) 12.5 gm IV PUSH .FOR FS < 60 - SS PRN PRN Reason: FS < 60 Docusate Sodium (Colace Cap*) 100 mg PO BID PRN PRN Reason: CONSTIPATION Last Admin: 10/25/18 13:22 Dose: 100 mg Haloperidol (Haldol Tab*) 5 mg PO Q6H PRN PRN Reason: AGITATION Last Admin: 10/28/18 22:51 Dose: 5 mg Heparin Sodium (Porcine) (Heparin Vial(*)) 5,000 units SUBCUT Q8HR [facility] Last Admin: 10/31/18 05:09 Dose: 5,000 units Hydrochlorothiazide (Hydrodiuril Tab*) 12.5 mg PO DAILY [facility] Last Admin: 10/31/18 09:00 Dose: 12.5 mg Ibuprofen (Motrin Tab*) 600 mg PO Q8H PRN PRN Reason: PAIN Insulin Glargine (Lantus(*)) 35 units SUBCUT 1630 [facility] Insulin Human Lispro (Humalog*) 0 units SUBCUT AC [facility]; Protocol Last Admin: 10/31/18 09:02 Dose: 1 unit Insulin Human Lispro (Humalog*) 10 units SUBCUT [facility] Last Admin: 10/31/18 09:02 Dose: 10 units Magnesium Oxide (Magox 400 Tab*) 800 mg PO TID [facility] Last Admin: 10/31/18 09:01 Dose: 800 mg Nicotine (Nicotine Inhaler*) 10 mg INH Q2H PRN PRN Reason: CRAVING Last Admin: 10/24/18 12:05 Dose: 10 mg Nicotine (Nicotine Patch 14 Mg/24 Hr*) 1 patch TRANSDERM DAILY [facility] Pharmacy Profile Note (Nicotine Patch Removal Note*) 1 note PATCH OFF 2100 [facility] Last Admin: 10/30/18 22:35 Dose: 1 note Risperidone (Risperdal) 0.5 mg PO 1100 [facility] Last Admin: 10/30/18 12:34 Dose: 0.5 mg Risperidone (Risperdal*) 1 mg PO 2000 [facility] Last Admin: 10/30/18 21:46 Dose: 1 mg Senna (Senokot Tab*) 2 tab PO BEDTIME PRN PRN Reason: CONSTIPATION Last Admin: 10/28/18 22:50 Dose: 2 tab Throat Lozenges (Chloraseptic Ganesh*) 1 ganesh PO Q6H PRN PRN Reason: SORE THROAT Last Admin: 10/26/18 22:22 Dose: 1 ganesh Vital Signs - 8 hr 10/31/18 10/31/18 10/31/18 03:51 07:27 08:00 Temperature 98.1 F 98.0 F Pulse Rate 81 87 Respiratory 22 18 18 Rate Blood Pressure 154/72 151/84 (mmHg) O2 Sat by Pulse 99 99 Oximetry Oxygen Devices in Use Now: None Appearance: Alert, partly up in bed. Neutral affect. Looks comfortable. Eyes: No Scleral Icterus Neck: NL Appearance and Movements; NL JVP, No Thyroid Enlargement, Masses Respiratory: Symmetrical Chest Expansion and Respiratory Effort, Clear to Auscultation, Clear to Percussion Cardiovascular: NL Sounds; No Murmurs; No JVD, RRR, No Edema, - Extremities: No Edema, No Clubbing, Cyanosis, - Skin: No Rash or Ulcers, No Nodules or Sclerosis, - Neurological: NL Sensation - Answers "[place]" when I asked where he lives. Passive. No tremor Result Diagrams: 10/31/18 05:27 10/31/18 05:27 Additional Lab and Data: Laboratory Tests 10/24/18 10/24/18 10/25/18 11:58 17:07 07:50 POC Glucose (mg/dL) 250 H 297 H 315 H 10/25/18 12:14 POC Glucose (mg/dL) 346 H Microbiology and Other Data: Microbiology 10/13/18 22:43 Urine Urine Culture - Final No Growth (<1,000 CFU/mL) 10/13/18 19:26 Blood Venous Aerobic Blood Culture - Final 10/13/18 19:26 Blood Venous Anaerobic Blood Culture - Final No Growth Day 5 No Growth Day 5 10/13/18 19:08 Blood Venous Aerobic Blood Culture - Final 10/13/18 19:08 Blood Venous Anaerobic Blood Culture - Final No Growth Day 5 No Growth Day 5 Assess/Plan/Problems-Billing Assessment: 72 yo M with PMH COPD, DMII, antisocial personality disorder, pain and opioid dependence who presented delirious to the hospital after being found in his house with gas running, several admissions in the past few months, psych following and determined to have lack of capacity no active medical issues awaiting placement. - Patient Problems (1) Toxic metabolic encephalopathy Current Visit: Yes Status: Acute Code(s): G92 - TOXIC ENCEPHALOPATHY SNOMED Code(s): 263293514 Comment: - Improved. Fully awake, alert at times. - Slightly elevated ammonia now normal and not likely contributing. - Initial MRI shows small left infact Not a causative for the delerium - Has been physically aggressive in this hospitlization, continue percautions. Continue risperidone as per Dr. Mcbride. (2) Hypertension Current Visit: Yes Status: Acute Code(s): I10 - ESSENTIAL (PRIMARY) HYPERTENSION SNOMED Code(s): 02903030 Comment: Continue home amlodipine and new med HCTZ 12.5 mg. (3) COPD (chronic obstructive pulmonary disease) Current Visit: Yes Status: Acute Code(s): J44.9 - CHRONIC OBSTRUCTIVE PULMONARY DISEASE, UNSPECIFIED SNOMED Code(s): 09910050 Comment: - Not in exacerbation - Albuterol PRN, avoid anticholinergics (4) Type II diabetes mellitus Current Visit: No Status: Acute Priority: Medium Comment: Increase Lantus to 35U 10/31, continue ISS. (5) Stroke, lacunar Current Visit: Yes Status: Acute Priority: Medium Code(s): I63.81 - OTHER CEREB INFRC DUE TO OCCLS OR STENOSIS OF SMALL ARTERY SNOMED Code(s): 981783246 Comment: -MRI on 10/20 showed subacute infarct -not contributing to delirium at this time Status and Disposition: -Per PT, pt requires 1 assist w/GB & RW - placement is still pending vs. swing status
[2018-10-31] MEDS: Ibuprofen TAB* 600 MG PO PRN (12:05)
[2018-10-31] MEDS ORDERED: Insulin GLARGINE(*) 1 UNITS UNIT SUBCUT SCH (16:30)
[2018-10-31] MEDS: risperiDONE TAB* 1 MG PO SCH (20:49)
[2018-10-31] MEDS: Nicotine Patch Removal NOTE PATCH OFF SCH (21:54)
[2018-11-01] MEDS: Acetaminophen TAB* 325 MG PO SCH ×4 (01:40→17:21)
[2018-11-01] MEDS: Heparin VIAL(*) 5000 UNITS/ML VIAL (FIVE THOUSAND) SUBCUT SCH ×3 (05:59→22:03)
[2018-11-01] MEDS: Magnesium Oxide TAB* 400 MG PO SCH ×3 (08:00→20:14)
[2018-11-01] MEDS: amLODIPine TAB* 5 MG PO SCH (08:00)
[2018-11-01] MEDS: Hydrochlorothiazide TAB* 25 MG PO SCH (08:00)
[2018-11-01] MEDS: Nicotine PATCH 14 MG/24 HR* PATCH TRANSDERM SCH (08:00)
[2018-11-01] MEDS: Insulin LISPRO* 1 UNITS UNIT SUBCUT SCH ×7 (08:01→20:51)
[2018-11-01] MEDS ORDERED: Dextrose 50% Syringe 50 ML* 25 GM/50 ML SYRINGE IV PUSH PRN (12:06)
--- NOTE | 2018-11-01 12:33 | PN ---
Subjective Date of Service: 11/01/18 Interval History: no c/o Family History: Unchanged from Admission Social History: Unchanged from Admission Past Medical History: Unchanged from Admission Objective Active Medications: Acetaminophen (Tylenol Tab*) 650 mg PO Q6H [facility] Last Admin: 11/01/18 12:06 Dose: 650 mg Albuterol (Ventolin 2.5 Mg/3 Ml Neb.Laya*) 2.5 mg INH Q4H PRN PRN Reason: SOB/WHEEZING Amlodipine Besylate (Norvasc Tab*) 10 mg PO DAILY [facility] Last Admin: 11/01/18 08:00 Dose: 10 mg Dextrose (D50w Syringe 50 Ml*) 12.5 gm IV PUSH .FOR FS < 60 - SS PRN PRN Reason: FS < 60 Docusate Sodium (Colace Cap*) 100 mg PO BID PRN PRN Reason: CONSTIPATION Last Admin: 10/25/18 13:22 Dose: 100 mg Haloperidol (Haldol Tab*) 5 mg PO Q6H PRN PRN Reason: AGITATION Last Admin: 10/28/18 22:51 Dose: 5 mg Heparin Sodium (Porcine) (Heparin Vial(*)) 5,000 units SUBCUT Q8HR [facility] Last Admin: 11/01/18 05:59 Dose: 5,000 units Hydrochlorothiazide (Hydrodiuril Tab*) 12.5 mg PO DAILY [facility] Last Admin: 11/01/18 08:00 Dose: 12.5 mg Ibuprofen (Motrin Tab*) 600 mg PO Q8H PRN PRN Reason: PAIN Last Admin: 10/31/18 12:05 Dose: 600 mg Insulin Glargine (Lantus(*)) 40 units SUBCUT 1630 [facility] Insulin Human Lispro (Humalog*) 0 units SUBCUT ACHS [facility]; Protocol Insulin Human Lispro (Humalog*) 12 units SUBCUT AC [facility] Magnesium Oxide (Magox 400 Tab*) 800 mg PO TID [facility] Last Admin: 11/01/18 08:00 Dose: 800 mg Nicotine (Nicotine Inhaler*) 10 mg INH Q2H PRN PRN Reason: CRAVING Last Admin: 10/24/18 12:05 Dose: 10 mg Nicotine (Nicotine Patch 14 Mg/24 Hr*) 1 patch TRANSDERM DAILY [facility] Last Admin: 11/01/18 08:00 Dose: 1 patch Pharmacy Profile Note (Nicotine Patch Removal Note*) 1 note PATCH OFF 2100 [facility] Last Admin: 10/31/18 21:54 Dose: 1 note Risperidone (Risperdal) 0.5 mg PO 1100 [facility] Last Admin: 11/01/18 12:06 Dose: 0.5 mg Risperidone (Risperdal*) 1 mg PO 2000 [facility] Last Admin: 10/31/18 20:49 Dose: 1 mg Senna (Senokot Tab*) 2 tab PO BEDTIME PRN PRN Reason: CONSTIPATION Last Admin: 10/28/18 22:50 Dose: 2 tab Throat Lozenges (Chloraseptic Ganesh*) 1 ganesh PO Q6H PRN PRN Reason: SORE THROAT Last Admin: 10/26/18 22:22 Dose: 1 ganesh Vital Signs - 8 hr 11/01/18 11/01/18 07:25 07:46 Temperature 97.4 F Pulse Rate 80 Respiratory 18 16 Rate Blood Pressure 188/70 (mmHg) O2 Sat by Pulse 100 Oximetry Oxygen Devices in Use Now: None Appearance: Alert, partly up in bed. Passive. Looks comfortable. Neurological: NL Sensation - Confabulates. No tremor. Result Diagrams: 10/31/18 05:27 10/31/18 05:27 Additional Lab and Data: Laboratory Tests 10/24/18 10/24/18 10/25/18 11:58 17:07 07:50 POC Glucose (mg/dL) 250 H 297 H 315 H 10/25/18 12:14 POC Glucose (mg/dL) 346 H Microbiology and Other Data: Microbiology 10/13/18 22:43 Urine Urine Culture - Final No Growth (<1,000 CFU/mL) 10/13/18 19:26 Blood Venous Aerobic Blood Culture - Final 10/13/18 19:26 Blood Venous Anaerobic Blood Culture - Final No Growth Day 5 No Growth Day 5 10/13/18 19:08 Blood Venous Aerobic Blood Culture - Final 10/13/18 19:08 Blood Venous Anaerobic Blood Culture - Final No Growth Day 5 No Growth Day 5 Assess/Plan/Problems-Billing Assessment: 72 yo M with PMH COPD, DMII, antisocial personality disorder, pain and opioid dependence who presented delirious to the hospital after being found in his house with gas running, several admissions in the past few months, psych following and determined to have lack of capacity no active medical issues awaiting placement. - Patient Problems (1) Toxic metabolic encephalopathy Current Visit: Yes Status: Acute Code(s): G92 - TOXIC ENCEPHALOPATHY SNOMED Code(s): 930806671 Comment: - Improved. Fully awake, alert at times. - Slightly elevated ammonia now normal and not likely contributing. - Initial MRI shows small left infact Not a causative for the delerium - Has been physically aggressive in this hospitlization, continue percautions. Continue risperidone as per Dr. Mcbride. (2) Hypertension Current Visit: Yes Status: Acute Code(s): I10 - ESSENTIAL (PRIMARY) HYPERTENSION SNOMED Code(s): 87142898 Comment: Continue home amlodipine and new med HCTZ 12.5 mg. (3) COPD (chronic obstructive pulmonary disease) Current Visit: Yes Status: Acute Code(s): J44.9 - CHRONIC OBSTRUCTIVE PULMONARY DISEASE, UNSPECIFIED SNOMED Code(s): 77994822 Comment: - Not in exacerbation - Albuterol PRN, avoid anticholinergics (4) Type II diabetes mellitus Current Visit: No Status: Acute Priority: Medium Comment: Increase Lantus to 40U on 11/01, increase scheduled Lispro to 12U ac on 11/01, continue ISS. (5) Stroke, lacunar Current Visit: Yes Status: Acute Priority: Medium Code(s): I63.81 - OTHER CEREB INFRC DUE TO OCCLS OR STENOSIS OF SMALL ARTERY SNOMED Code(s): 395185542 Comment: -MRI on 10/20 showed subacute infarct -not contributing to delirium at this time Status and Disposition: -Per PT, pt requires 1 assist w/GB & RW - placement is still pending vs. swing status
[2018-11-01] MEDS ORDERED: Insulin GLARGINE(*) 1 UNITS UNIT SUBCUT SCH (16:30)
--- NOTE | 2018-11-01 17:26 | PN ---
Progress Note - Progress Note Date of Service: 11/01/18 Note: Time spent on discharge including exam of patient, discussion with patient, nurse, CM, review of EMR and preparation of discharge documents is 40 minutes.
[2018-11-01] MEDS: Ibuprofen TAB* 600 MG PO PRN (20:14)
[2018-11-01] MEDS: risperiDONE TAB* 1 MG PO SCH (20:15)
[2018-11-01] MEDS: Nicotine Patch Removal NOTE PATCH OFF SCH (20:47)
[2018-11-02] MEDS: Acetaminophen TAB* 325 MG PO SCH ×3 (00:31→13:09)
[2018-11-02] MEDS: Heparin VIAL(*) 5000 UNITS/ML VIAL (FIVE THOUSAND) SUBCUT SCH (06:09)
[2018-11-02] MEDS: Insulin LISPRO* 1 UNITS UNIT SUBCUT SCH ×4 (09:37→13:10)
[2018-11-02] MEDS: Hydrochlorothiazide TAB* 25 MG PO SCH (09:38)
[2018-11-02] MEDS: Ibuprofen TAB* 600 MG PO PRN (09:38)
[2018-11-02] MEDS: Magnesium Oxide TAB* 400 MG PO SCH (09:38)
[2018-11-02] MEDS: Nicotine PATCH 14 MG/24 HR* PATCH TRANSDERM SCH (09:38)
[2018-11-02] MEDS: amLODIPine TAB* 5 MG PO SCH (09:38)
--- NOTE | 2018-11-02 11:17 | PN ---
Subjective Date of Service: 11/02/18 Interval History: HD #21 on 72 yo M with PMH COPD, DMII, antisocial personality disorder, pain and opioid dependence who presented delirious to the hospital after being found in his house with gas running, several admissions in the past few months, psych following and determined to have lack of capacity no active medical issues awaiting placement. Stable to go today No overnight events, VSS, otherwise normal. This morning seen sleeping in bed, rouses to voice and follows commands and is pleasant but does not interact much. He has no complaints, nurses report he is compliant with care. ROS: No CP, SOB, GI/, MSK complaints. Family History: Unchanged from Admission Social History: Unchanged from Admission Past Medical History: Unchanged from Admission Objective Active Medications: Acetaminophen (Tylenol Tab*) 650 mg PO Q6H [facility] Last Admin: 11/02/18 06:09 Dose: 650 mg Albuterol (Ventolin 2.5 Mg/3 Ml Neb.Laya*) 2.5 mg INH Q4H PRN PRN Reason: SOB/WHEEZING Amlodipine Besylate (Norvasc Tab*) 10 mg PO DAILY [facility] Last Admin: 11/02/18 09:38 Dose: 10 mg Dextrose (D50w Syringe 50 Ml*) 12.5 gm IV PUSH .FOR FS < 60 - SS PRN PRN Reason: FS < 60 Docusate Sodium (Colace Cap*) 100 mg PO BID PRN PRN Reason: CONSTIPATION Last Admin: 10/25/18 13:22 Dose: 100 mg Haloperidol (Haldol Tab*) 5 mg PO Q6H PRN PRN Reason: AGITATION Last Admin: 10/28/18 22:51 Dose: 5 mg Heparin Sodium (Porcine) (Heparin Vial(*)) 5,000 units SUBCUT Q8HR [facility] Last Admin: 11/02/18 06:09 Dose: 5,000 units Hydrochlorothiazide (Hydrodiuril Tab*) 12.5 mg PO DAILY [facility] Last Admin: 11/02/18 09:38 Dose: 12.5 mg Ibuprofen (Motrin Tab*) 600 mg PO Q8H PRN PRN Reason: PAIN Last Admin: 11/02/18 09:38 Dose: 600 mg Insulin Glargine (Lantus(*)) 40 units SUBCUT 1630 [facility] Last Admin: 11/01/18 17:22 Dose: 40 units Insulin Human Lispro (Humalog*) 0 units SUBCUT ACHS [facility]; Protocol Last Admin: 11/02/18 09:37 Dose: 2 units Insulin Human Lispro (Humalog*) 12 units SUBCUT AC [facility] Last Admin: 11/02/18 09:37 Dose: 12 units Magnesium Oxide (Magox 400 Tab*) 800 mg PO TID [facility] Last Admin: 11/02/18 09:38 Dose: 800 mg Nicotine (Nicotine Inhaler*) 10 mg INH Q2H PRN PRN Reason: CRAVING Last Admin: 10/24/18 12:05 Dose: 10 mg Nicotine (Nicotine Patch 14 Mg/24 Hr*) 1 patch TRANSDERM DAILY [facility] Last Admin: 11/02/18 09:38 Dose: Not Given Pharmacy Profile Note (Nicotine Patch Removal Note*) 1 note PATCH OFF 2100 [facility] Last Admin: 11/01/18 20:47 Dose: 1 note Risperidone (Risperdal) 0.5 mg PO 1100 [facility] Last Admin: 11/02/18 09:38 Dose: 0.5 mg Risperidone (Risperdal*) 1 mg PO 1999 [facility] Last Admin: 11/01/18 20:15 Dose: 1 mg Senna (Senokot Tab*) 2 tab PO BEDTIME PRN PRN Reason: CONSTIPATION Last Admin: 10/28/18 22:50 Dose: 2 tab Throat Lozenges (Chloraseptic Candelario*) 1 candelario PO Q6H PRN PRN Reason: SORE THROAT Last Admin: 10/26/18 22:22 Dose: 1 candelario Vital Signs - 8 hr 11/02/18 11/02/18 06:30 08:00 Temperature 97.3 F Pulse Rate 89 Respiratory 17 18 Rate Blood Pressure 144/76 (mmHg) O2 Sat by Pulse 99 Oximetry Oxygen Devices in Use Now: None Appearance: Well man in NAD Eyes: No Scleral Icterus, PERRLA Ears/Nose/Mouth/Throat: NL Teeth, Lips, Gums Neck: Trachea Midline Respiratory: Symmetrical Chest Expansion and Respiratory Effort, Clear to Auscultation Cardiovascular: NL Sounds; No Murmurs; No JVD, RRR Abdominal: NL Sounds; No Tenderness; No Distention, No Hepatosplenomegaly Lymphatic: No Cervical Adenopathy Skin: No Rash or Ulcers Result Diagrams: 10/31/18 05:27 10/31/18 05:27 Additional Lab and Data: Laboratory Tests Microbiology and Other Data: Microbiology 10/13/18 22:43 Urine Urine Culture - Final No Growth (<1,000 CFU/mL) 10/13/18 19:26 Blood Venous Aerobic Blood Culture - Final 10/13/18 19:26 Blood Venous Anaerobic Blood Culture - Final No Growth Day 5 No Growth Day 5 10/13/18 19:08 Blood Venous Aerobic Blood Culture - Final 10/13/18 19:08 Blood Venous Anaerobic Blood Culture - Final No Growth Day 5 No Growth Day 5 Assess/Plan/Problems-Billing Assessment: 72 yo M with PMH COPD, DMII, antisocial personality disorder, pain and opioid dependence who presented delirious to the hospital after being found in his house with gas running, several admissions in the past few months, psych following and determined to have lack of capacity no active medical issues awaiting placement. - Patient Problems (1) Delirium Current Visit: No Status: Acute Code(s): R41.0 - DISORIENTATION, UNSPECIFIED SNOMED Code(s): 6041889 Comment: Resolving The patient's encephalopathy appears to be improving with rest and low dose risperidone. He still lacks capacity to refuse [facility] placement due to his inability to demonstrate a facile understanding of his situation or the risks of refusing care. Psychiatry recommends continuing risperidone 0.5mg PO qday and 1mg PO qhs. Patient is pending placement in a [facility] situation. Recommend PT/ OT care. His sister, Mayela Fernando ([phone]) is vacationing in [place] and not due to return to the area until November 05. Psychiatry is signing off but can be reconsulted in the event of any changes in the patient's presentation. (2) Stroke, lacunar Current Visit: Yes Status: Acute Priority: Medium Code(s): I63.81 - OTHER CEREB INFRC DUE TO OCCLS OR STENOSIS OF SMALL ARTERY SNOMED Code(s): 979330612 Comment: -MRI on 10/20 showed subacute infarct -not contributing to delirium at this time (3) Toxic metabolic encephalopathy Current Visit: Yes Status: Acute Code(s): G92 - TOXIC ENCEPHALOPATHY SNOMED Code(s): 934263329 Comment: - Improved. Fully awake, alert at times. - Slightly elevated ammonia now normal and not likely contributing. - Initial MRI shows small left infact Not a causative for the delerium - Has been physically aggressive in this hospitlization, continue percautions. Continue risperidone as per Dr. Mcbride. (4) COPD (chronic obstructive pulmonary disease) Current Visit: Yes Status: Acute Code(s): J44.9 - CHRONIC OBSTRUCTIVE PULMONARY DISEASE, UNSPECIFIED SNOMED Code(s): 17702224 Comment: - Not in exacerbation - Albuterol PRN, avoid anticholinergics (5) Hypertension Current Visit: Yes Status: Acute Code(s): I10 - ESSENTIAL (PRIMARY) HYPERTENSION SNOMED Code(s): 46986540 Comment: Continue home amlodipine and new med HCTZ 12.5 mg. (6) Type II diabetes mellitus Current Visit: No Status: Acute Priority: Medium Comment: Increase Lantus to 40U on 11/01, increase scheduled Lispro to 12U ac on 11/01, continue ISS. (7) DVT prophylaxis Current Visit: No Status: Acute Code(s): MCF2460 - SNOMED Code(s): 052993342 Comment: - SC heparin Status and Disposition: -Per PT, pt requires 1 assist w/GB & RW - placement is still pending vs. swing status
[2018-11-02 12:14] VITALS: BP 151/50
--- NOTE | 2018-11-02 13:15 | DS ---
CC: Dr. Erwin Toro DATE OF ADMISSION: 10/13/2018. DATE OF DISCHARGE: 11/02/2018. PRIMARY DIAGNOSES: Encephalopathy, delirium, lacunar stroke. SECONDARY DIAGNOSES: COPD, hypertension, type 2 diabetes, chronic opiate dependence, mood disorder, antisocial personality disorder. MEDICATIONS ON DISCHARGE: 1. Doxepin 25 mg p.o. b.i.d. 2. Glargine 10 units subcu at bedtime. 3. Sitagliptin/Metformin combo medication 100/1,000 one tab p.o. daily. 4. Trazodone 50 mg p.o. at bedtime. 5. Acetaminophen 650 mg p.o. q.6 hours prn. 6. Albuterol inhalers or Ventolin 2.5 mg inhaled q.4 hours prn. 7. Amlodipine 10 mg p.o. daily. 8. Hydrochlorothiazide 12.5 mg p.o. daily. 9. Ibuprofen 800 mg p.o. q.8 hours prn pain. 10. Insulin Lispro sliding scale with meals for BMI less than 30. 11. Lactulose 15 ml p.o. b.i.d. prn for constipation. 12. Magnesium Oxide 400 mg p.o. b.i.d. 13. Nicotine inhaler 10 mg inhaled q.2 hours prn for cravings. 14. Nicotine patch 14 mg apply one patch in the morning and take off at bedtime. 15. Risperdal 0.5 mg p.o. q.a.m. and Risperdal 1 mg p.o. at bedtime at 8:00. Medication changes on discharge: The addition of Risperdal, the addition of blood pressure medications Amlodipine and Hydrochlorothiazide. Otherwise medications remain the same. HISTORY OF PRESENT ILLNESS AND HOSPITAL COURSE: This is a 72-year-old man with the above past medical history who presented to the emergency room on 2018. He was brought in by the police department after he was found to be in his apartment confused with the gas stove running and the refrigerator door open. Per EMS, he was found lying down on a mattress in a room while the oven door was open in the kitchen and the gas was turned on and not responsive. He was found to have a bruise over his right eye and was taken to the emergency room. He was also noted to be hypothermic by EMS to 95.9. In the emergency room, he, as noted, was found to be hypothermic with a temperature of 95.9. He had a heart rate of 93. He was tachypneic in the 20s and his blood pressure was noted to be stable. He had labs done which was notable for heme concentration and hemoglobin of 16.5. An ABG was done and pH was 7.47, PCO2 was 40, PO2 was 229, and bicarb was 28. BMP was done and unremarkable. LFT's were drawn and were unremarkable. Ammonia level was 58. Urine sample was done and notable for 3+ ketones, 1+ blood, otherwise unremarkable. Serum alcohol was less than 10. A urine toxicology screen was done that was negative aside from benzodiazepines, although he had received Ativan in the emergency room prior to his urine toxicology secondary to agitation. He had imaging done in the emergency room that was notable for a CT of the brain which showed only a right frontal and supraorbital scalp hematoma. He had a CT done of the cervical spine that did not show any acute fracture. He had a maxillofacial CT that was also unremarkable. Overall, because of the patient's hypothermia and his altered mental status, noted to be lethargic on his admission at physical exam, opening eyes only to command, he was admitted for altered mental status, hypothermia, and sepsis. He was admitted to the Medical Service where he had a complicated hospital stay which is outlined by problem as follows: PROBLEM LIST: 1. Altered mental status: This was found to be multifactorial. He had a natural gas exposure. Further studies were done, including and MRI, that showed a subacute lacunar infarct that is unclear when that could have happened and whether it contributed to his altered mental status. Furthermore, he had hypothermia due to prolonged cold exposure in his home which could have contributed to his altered mental status. Over time with supportive care, fluids, optimization from a stroke standpoint, and ultimately psychiatric involvement, his encephalopathy cleared, although he continued to not be able to make decisions for himself and was deemed not to have capacity by Psychiatry ; thus, his sister, Mayela Fernando, who telephone number is [phone], in decision with Psychiatry planned to transfer the patient to a intermediate facility where he continues to work on physical strength rehabilitation in the absence of him being able to refuse care. His sister, who will be returning November 05 from being out of town, will be involved in discharge planning with the patient moving forward. 2. Natural gas exposure: As above, this contributed to his altered mental status and toxic metabolic encephalopathy. He shows no significant changes to cognition or memory, although time will have to tell in terms of whether he has a long- standing toxic metabolic encephalopathy. His ABG remains stable. He is free of oxygen on the day of discharge. 3. Agitation: His hospital course was complicated by significant agitation, including confusion and being at times physically and verbally argumentative with staff. Psychiatry was consulted who started Risperdal 0.5 mg p.o. q.a.m. and 1 mg p.o. at bedtime with behavior improving significantly. Psychiatry ultimately did sign off four days prior to discharge as the patient has had stable behavior without any complications on the hospital floor. 4. COPD: He is on Albuterol as a home medication. 5. Hypertension: He is on Amlodipine and HCTZ 12.5 mg which are new medications for him. His baseline blood pressure in the hospital was running in the systolic 150s to 160s and when starting medication became normotensive. 6. History of type 2 diabetes: His Lantus was increased and he will be discharged on his home Sitagliptin and Metformin. 7. Mood disorder: He was admitted on Doxepin, unclear whether he was taking his medication and he will be discharged on home Doxepin, Trazodone, and new medication of Risperidone. He will need psychiatric follow-up on discharge. He denies that his presentation was a suicide attempt to the psychiatric team who followed along in his hospitalization until four days prior to discharge. REVIEW OF SYSTEMS DONE ON DAY OF DISCHARGE: The patient is cooperative with care. He has no complaints. He denies chest pain, shortness of breath, GI, , or MSK complications. VITALS ON THE DAY OF DISCHARGE: Blood pressure 144/76, temperature 97.3, pulse rate is sinus at 89, respiratory rate 16, he is satting 99 percent on room air. PHYSICAL EXAM ON DAY OF DISCHARGE: Man lying in bed in NAD, following commands, minimally engaged in my exam. RRR no MRG CTABL belly soft NT ND, No e/o edema LABORATORY DATA/DIAGNOSTIC STUDIES: Laboratory data prior to discharge: The patient's last set of labs was done on 10/31/2018 that showed a hemoglobin of 11.9, hematocrit of 35, normal white blood cell count and platelets of 131 which has been consistent with his baseline. He had a BMP drawn on 10/31/2018 which showed a sodium 132, potassium 4.3, chloride 98, carbon dioxide 29, BUN 23 , creatinine 0.82, glucose 200. Microbiology done on this hospitalization includes blood cultures and urine cultures which were no growth to date. Imaging done on this hospitalization included the brain CT, cervical spine CT, maxillofacial CT, the results of which are noted in the HPI. He also had an MRI done 10/18/2018 which showed a small infarct in the left parietal lobe, age indeterminate. He had an EEG on 10/19/2018 which showed no evidence of epileptic discharges, no focal features to suggest seizure. TIME SPENT: Forty minutes were spent on the planning of this discharge with over half of that spent at the bedside explaining the plan of care to the patient. His sister, as noted above, Mayela Fernando, has been involved with discharge planning and she will continue to serve as the healthcare proxy for this patient as he is determined not to have capacity to make decisions for himself by Psychiatry, who followed along in this hospitalization. His primary care provider is Dr. Erwin Toro and he will be cc'd on this discharge summary. DISPOSITION: The patient will be transferred to a senior living for continued physical therapy and return to baseline function. His sister will need to be involved in his discharge planning moving forward as safe discharge plans need to be determined as this patient continues to clear from his metabolic encephalopathy. If there are any questions regarding the care of this patient or his hospital course, please do not hesitate to reach out. He is stable for transfer to the senior living and this discharge summary may act as the history and physical. Discharge packet is included. Problems to follow post hospitalization: 1) Determine safe dispo plan-psychiatry found this patient not to have capacity and his sister should help in ultimate decision making for him 2) May need psychiatric med adjustments for his mood d/o, he did not receive his home Doxepin while in hospital and if pt is overly sedated this can be d/c [id number]/[facility] #: [id number] [facility]Kim
== END 2018-11-02 13:50 | DRG 917 ==
LOC: ED 18:24 → MED 22:17 → MEDTELE 10-18 20:08 → MED 10-22 16:30
PROVIDERS: ADMIT Internal Medicine; ATTEND Internal Medicine
PROC: 4A00X4Z Measurement of Central Nervous Electrical Activity, External Approach (ICD-10-PCS; principal; 2018-10-19)
DX: T59.892A Toxic effect of other specified gases, fumes and vapors, intentional self-harm, initial encounter (principal); I63.81 Other cerebral infarction due to occlusion or stenosis of small artery; G92 Toxic encephalopathy; F11.20 Opioid dependence, uncomplicated; F05 Delirium due to known physiological condition; I10 Essential (primary) hypertension; S05.11XA Contusion of eyeball and orbital tissues, right eye, initial encounter; W19.XXXA Unspecified fall, initial encounter; H91.90 Unspecified hearing loss, unspecified ear; G89.29 Other chronic pain; F41.9 Anxiety disorder, unspecified; S90.812A Abrasion, left foot, initial encounter; T68.XXXA Hypothermia, initial encounter; E11.42 Type 2 diabetes mellitus with diabetic polyneuropathy; J44.9 Chronic obstructive pulmonary disease, unspecified; M54.5 Low back pain; S00.03XA Contusion of scalp, initial encounter; I45.9 Conduction disorder, unspecified; R33.9 Retention of urine, unspecified; R13.10 Dysphagia, unspecified; R45.1 Restlessness and agitation; F29 Unspecified psychosis not due to a substance or known physiological condition; F39 Unspecified mood [affective] disorder; R45.850 Homicidal ideations; I08.3 Combined rheumatic disorders of mitral, aortic and tricuspid valves; F60.2 Antisocial personality disorder; F17.210 Nicotine dependence, cigarettes, uncomplicated; Z98.42 Cataract extraction status, left eye; Z98.41 Cataract extraction status, right eye; Z97.4 Presence of external hearing-aid; Y92.003 Bedroom of unspecified non-institutional (private) residence as the place of occurrence of the external cause; Z86.19 Personal history of other infectious and parasitic diseases; Z82.49 Family history of ischemic heart disease and other diseases of the circulatory system; Z83.3 Family history of diabetes mellitus; Z72.89 Other problems related to lifestyle; Z79.4 Long term (current) use of insulin
CPT/HCPCS: 36415; 36600; 70450; 70486; 70551; 71045; 72125; 80048; 80053; 80061; 80076; 80307; 80320; 80335; 81003; 81015; 82140; 82375; 82550; 82565; 82607; 82803; 82947; 83036; 83605; 83735; 84100; 84443; 84520; 85025; 85027; 85060; 85610; 85652; 85730; 86140; 87040; 87086; 93005; 93306; 95816; 99284; A9270-GY; G0480; G8978-GP-CJ; G8979-GP-CI; J0360; J1630; J1644; J2060; J2543; J3370; J3411; J3475; J3480; J3490

== ENCOUNTER 2018-11-09 15:55 | Emergency (ER) | payer MEDICARE ==
[2018-11-09] MEDS ORDERED: Nicotine Inhaler* 10 MG AMP INH PRN (16:30)
--- NOTE | 2018-11-09 16:34 | ED ---
Psychiatric Complaint - HPI Summary HPI Summary: Pt is a 72 y/o male brought in by EMS who presents to the ED c/o anger. As per EMS, he lives at [facility] and was on a window trying to jump out. Pt was saying that he would harm anybody that would try to approach him. When asked, pt denies trying to jump out the window. He states he is upset because he wants fresh air and to be outside. Pt was recently deemed unable to make decisions for himself after a suicide attempt, and has been at [facility] for the past few weeks. As per [facility] staff, pt does not need to stay there however he is not allowed to sign himself out. Pt is hypertensive and didnt take his HTN medications today. He denies any CP, SOB, SI, HI, or visual/ auditory hallucinations. PMHx anxiety and suicide attempt. - History Of Current Complaint Time Seen by Provider: 11/09/18 16:18 Hx Obtained From: Patient, EMS Onset/Duration: Gradual Onset, Resolved Timing: Constant Severity Currently: None Character: Angry Aggravating Factor(s): Nothing Alleviating Factor(s): Nothing Associated Signs And Symptoms: Positive: Hostile Related History: Positive For: Prior Psychiatric Issues Has Suicidal: Reports: Has Prior Attempt(s). Denies: Thoughts Has Homicidal: Denies: Thoughts - Allergies/Home Medications Allergies/Adverse Reactions: Allergies Allergy/AdvReac Type Severity Reaction Status Date / Time No Known Allergies Allergy Verified 11/09/18 17:32 Home Medications: Home Medications Acetaminophen TAB* [Tylenol TAB*] 650 mg PO Q6H PRN 11/09/18 [History Confirmed 11/09/18] Ibuprofen TAB* [Motrin TAB* 800 MG] 800 mg PO Q8H PRN 11/09/18 [History Confirmed 11/09/18] Insulin GLARGINE(*) [Lantus(*)] 10 units SUBCUT BEDTIME 11/09/18 [History Confirmed 11/09/18] Lactulose* 15 ml PO BID PRN 11/09/18 [History Confirmed 11/09/18] risperiDONE TAB* [Risperdal*] 1 mg PO BEDTIME 11/09/18 [History Confirmed ] PMH/Surg Hx/FS Hx/Imm Hx Endocrine/Hematology History: Reports: Hx Diabetes - type 2 Denies: Hx Thyroid Disease Cardiovascular History: Reports: Hx Hypertension - no meds Denies: Hx Pacemaker/ICD, Other Cardiovascular Problems/Disorders Respiratory History: Reports: Hx Chronic Obstructive Pulmonary Disease (COPD), Hx Pneumonia, Other Respiratory Problems/Disorders - HISTORY OF PNEUMONIA SEVERAL TIMES PER PATIENT Denies: Hx Asthma GI History: Denies: Hx Ulcer, Other GI Disorders Musculoskeletal History: Denies: Other Musculoskeletal History - CHRONIC BACK PAIN,neuropathy Sensory History: Reports: Hx Cataracts, Hx Contacts or Glasses Denies: Hx Hearing Aid Opthamlomology History: Reports: Hx Cataracts, Hx Contacts or Glasses Neurological History: Denies: Other Neuro Impairments/Disorders Psychiatric History: Reports: Hx Anxiety, Hx Suicide Attempt Denies: Hx Eating Disorder, Hx Panic Disorder, Hx of Violent Episodes Against Others - Surgical History Surgery Procedure, Year, and Place: cataracts Hx Anesthesia Reactions: No - Immunization History Date of Tetanus Vaccine: unk Date of Influenza Vaccine: fall 2016 Infectious Disease History: Reports: Hx Hepatitis - Hep C, Hx Shingles - 1998 Denies: Hx Clostridium Difficile, Hx Human Immunodeficiency Virus (HIV), Hx of Known/Suspected MRSA, Hx Tuberculosis, Hx Known/Suspected VRE, Hx Known/ Suspected VRSA, History Other Infectious Disease - Family History Known Family History: Positive: Hypertension - parents, Diabetes - parents Negative: Cardiac Disease - Social History Alcohol Use: None Hx Tobacco Use: Yes Smoking Status (MU): Heavy Every Day Tobacco Smoker Type: Cigarettes Amount Used/How Often: 1/2 PPD X 40+ YEARS Have You Smoked in the Last Year: Yes Review of Systems Negative: Chest Pain Negative: Shortness Of Breath Negative: Other - SI, HI, auditory/visual hallucinations All Other Systems Reviewed And Are Negative: Yes Physical Exam - Summary Physical Exam Summary: GENERAL: Patient is a well-developed and nourished M who is lying comfortable in the stretcher. Patient is not in any acute respiratory distress. HEAD AND FACE: Normocephalic EYES: PERRLA, EOMI x 2. EARS: Hearing grossly intact. MOUTH: Oropharynx within normal limits. NECK: Supple, trachea is midline, no adenopathy, no JVD, no carotid bruit. CHEST: Symmetric, no tenderness at palpation LUNGS: Clear to auscultation bilaterally. No wheezing or crackles. CVS: Regular rate and rhythm, S1 and S2 present, no murmurs or gallops appreciated. ABDOMEN: Soft, non-tender. Bowel sounds are normal. No abdominal abnormal pulsations. EXTREMITIES: Full ROM in all major joints, no edema, no cyanosis or clubbing. NEURO: Alert and oriented x 3. No acute neurological deficits. Speech is normal and follows commands. SKIN: Dry and warm Triage Information Reviewed: Yes Vital Signs Reviewed: Yes Diagnostics - Laboratory Result Diagrams: 11/09/18 17:12 11/09/18 17:12 Lab Statement: Any lab studies that have been ordered have been reviewed, and results considered in the medical decision making process. Re-Evaluation - Re-Evaluation First Eval Re-Evaluation Time: 17:15 Change: Unchanged Comment: Pt is medically cleared for a MHE. Course/Dx - Course Course Of Treatment: Pt is a 72 y/o male brought in by EMS who presents to the ED c/o anger. As per EMS, he lives at [facility] and was on a window trying to jump out. Pt was saying that he would harm anybody that would try to approach him. PMHx anxiety and suicide attempt. Pt will be signed out to Dr. Mohr, pending MHE and disposition. Dx is aggressive behavior. - Differential Dx/Clinical Impression Provider Diagnosis: Aggressive behavior Discharge - Sign-Out/Discharge Documenting (check all that apply): Sign-Out Patient Signing out patient TO: Carlos Mohr Patient Received Moderate/Deep Sedation with Procedure: No - Discharge Plan Referrals: Erwin Toro DO [Primary Care Provider] - - Attestation Statements Document Initiated by Scribe: Yes Documenting Scribe: Bibi Krishnamurthy Provider For Whom Scribe is Documenting (Include Credential): Beto Lambert MD Scribe Attestation: Bibi Weeks, scribed for Beto Lambert MD on 11/09/18 at 1844. Scribe Documentation Reviewed: Yes Provider Attestation: The documentation as recorded by the scribBibi ross accurately reflects the service I personally performed and the decisions made by me, eBto Lambert MD Status of Scribe Document: Viewed
[2018-11-09] MEDS ORDERED: Mouth Piece, Nicotine* 1 EACH CARTRIDGE ONE (16:40)
[2018-11-09] MEDS ORDERED: Nicotine Inhaler* 10 MG AMP ONE (16:40)
[2018-11-09 16:56] LABS: Urine Appearance Clear; Urine Bilirubin Negative (Negative); Urine Blood Negative (Negative); Urine Color Yellow; Urine Glucose 3+(>=500 mg/dL) (Negative); Urine Ketones Negative (Negative); Urine Nitrite Negative (Negative); Urine Protein Negative (Negative); Urine Specific Gravity 1.014 (1.010-1.030); Urine Urobilinogen Negative (Negative)
[2018-11-09 17:04] LABS: Barbiturates Urine Screen None Detected (None Detect); Benzodiazepine Urine Screen Presumptive Positive (None Detect); Urine Cannabinoids Screen None Detected (None Detect)
[2018-11-09 17:25] LABS: ABS Basophils 0.1 10^3/ul (0-0.2); ABS Eosinophils 0.4 10^3/ul (0-0.6); ABS Lymphocytes 1.1 10^3/ul (1.0-4.8); ABS Monocytes 0.9 10^3/ul (0-0.8); ABS Neutrophils 5.4 10^3/ul (1.5-7.7); ABS Nucleated RBC 0 10^3/ul; Eosinophil % 5.6 %; Hematocrit 37 % (42-52); Hemoglobin 12.1 g/dl (14.0-18.0); Lymphocyte % 13.7 %; Mean Corpuscular HGB Conc 33 g/dl (31-36); Mean Corpuscular Hemoglobin 28 pg (27-31); Mean Corpuscular Volume 85 fL (80-94); Mean Platelet Volume 9.1 fL (7.4-10.4); Nucleated Red Blood Cells % 0; Platelet Count 107 10^3/ul (150-450); Red Cell Distribution Width 15 % (10.5-15); White Blood Count 7.9 10^3/ul (3.5-10.8)
[2018-11-09 17:45] LABS: ALT 47 U/L (7-52); AST 25 U/L (13-39); Albumin 3.7 g/dL (3.2-5.2); Albumin/Globulin Ratio 1.2 (1-3); Alkaline Phosphatase 68 U/L (34-104); Anion Gap 3 mmol/L (2-11); BUN/Creatinine Ratio 20.9 (8-20); Blood Urea Nitrogen 18 mg/dL (6-24); CO2 Carbon Dioxide 29 mmol/L (22-32); Chloride 101 mmol/L (101-111); EGFR African American 106.4 (>60); EGFR Non-African American 87.9 (>60); Globulin 3.1 g/dL (2-4); Glucose 253 mg/dL (70-100); Potassium 4.3 mmol/L (3.5-5.0); Sodium 133 mmol/L (135-145); Total Protein 6.8 g/dL (6.4-8.9)
[2018-11-09] MEDS ORDERED: Mouth Piece, Nicotine* 1 EACH CARTRIDGE INH ONE (18:00)
[2018-11-09 18:08] LABS: Acetaminophen < 15 mcg/mL; Alcohol < 10 mg/dL (<10); Salicylate < 2.50 mg/dL (<30)
[2018-11-09 18:15] LABS: TSH (Thyroid Stimulating Horm) 3.05 mcIU/mL (0.34-5.60)
--- NOTE | 2018-11-09 19:14 | ED ---
Progress - Progress Note Progress Note: This patient was signed out to Dr. Mohr from Dr. Lambert upon provider shift change pending mental health evaluation. This patient will be signed out to Dr. Whitmore from Dr. Mohr upon provider shift change pending MHE. Re-Evaluation - Re-Evaluation First Eval Re-Evaluation Time: 17:15 Change: Unchanged Comment: Pt is medically cleared for a MHE. Course/Dx - Course Course Of Treatment: This patient was signed out to Dr. Mohr from Dr. Lambert upon provider shift change pending mental health evaluation. Dr. Warner recommended re-evaluation in the morning and that the patient be held in the ED in the meantime. This patient will be signed out to Dr. Whitmore from Dr. Mohr upon provider shift change pending MHE. - Diagnoses Provider Diagnoses: Aggressive behavior - Provider Notifications Discussed Care Of Patient With: Erwin Warner Time Discussed With Above Provider: 20:43 Instructed by Provider To: Other - Dr. Warner recommends that the patient be re -evaluated in the morning and that the patient be held in the ED in the meantime. Discharge - Sign-Out/Discharge Documenting (check all that apply): Sign-Out Patient, Receiving Sign-Out Signing out patient TO: Sloo Whitmore Receiving patient FROM: Beto Lambert Patient Received Moderate/Deep Sedation with Procedure: No - Discharge Plan Condition: Stable Referrals: Erwin Toro DO [Primary Care Provider] - - Attestation Statements Document Initiated by Scribe: Yes Documenting Scribe: Kellen Dobbs Provider For Whom Scribe is Documenting (Include Credential): Carlos Mohr MD Scribe Attestation: Kellen Weeks, scribed for Carlos Mohr MD on 11/10/18 at 0646. Status of Scribe Document: Ready
[2018-11-09] MEDS ORDERED: amLODIPine TAB* 5 MG PO ONE (21:28)
[2018-11-09] MEDS ORDERED: cloNIDine TAB* 0.1 MG PO ONE (21:29)
[2018-11-09] MEDS ORDERED: Acetaminophen TAB* 325 MG PO ONE (23:42)
--- NOTE | 2018-11-10 07:11 | ED ---
Progress - Progress Note Progress Note: This patient was signed out to Dr. Whitmore from Dr. Mohr upon provider shift change at 07:00 11/10/18 pending MHE. After MHE, Dr. Mcbride has cleared the patient for discharge. - Consult/PCP Time Called: 18:30 Re-Evaluation - Re-Evaluation First Eval Re-Evaluation Time: 17:15 Change: Unchanged Comment: Pt is medically cleared for a MHE. Course/Dx - Course Course Of Treatment: This patient was signed out to Dr. Whitmore from Dr. Mohr upon provider shift change at 07:00 11/10/18 pending MHE. After MHE, Dr. Mcbride has cleared the patient for discharge.He is being discharged back to [facility]. He doesn't want to go and we tried to get his sister to take him in but she refused. He was deemed to not have capacity last admission and we will send him to the long-term. - Diagnoses Provider Diagnoses: Aggressive behavior - Provider Notifications Discussed Care Of Patient With: Ke Mcbride Time Discussed With Above Provider: 09:00 Instructed by Provider To: Other - Cleared the patient for discharge Discharge - Sign-Out/Discharge Documenting (check all that apply): Patient Departure - DC Patient Received Moderate/Deep Sedation with Procedure: No - Discharge Plan Condition: Stable Disposition: HOME Referrals: Erwin Toro DO [Primary Care Provider] - - Billing Disposition and Condition Condition: STABLE Disposition: Home - Attestation Statements Document Initiated by Lisa: Yes Documenting Scribe: Too Yu Provider For Whom Lisa is Documenting (Include Credential): Solo Whitmore MD Scribe Attestation: IToo, taylored for Solo Whitmore MD on 11/10/18 at 1252. Scribe Documentation Reviewed: Yes Provider Attestation: The documentation as recorded by the Too juarez accurately reflects the service I personally performed and the decisions made by me, Solo Whitmore MD Status of Scribe Document: Viewed
--- NOTE | 2018-11-10 08:34 | PN ---
ED Flex Patient Progress Note Date of Service: 11/10/18 Subjective: This is a 72 year-old M who is pending observed secondary to aggressive behavior. patient currently resting comfortable in bed. Objective: Vitals: Most recent vital signs documented below. General NAD, Alert and oriented x3. Heart: rrr at 70 bpm Lungs: CTA or with rales, rhonchi, wheezing Laboratory: Current laboratory results documented below. Assessment: Aggressive behavior Plan: Pending psychiatric to observe will follow up daily until disposition made condition: stable Vital Signs Temp Pulse Resp BP Pulse Ox 97.3 F 93 18 178/76 100 11/10/18 07:28 11/10/18 07:28 11/10/18 07:28 11/10/18 07:28 11/10/18 07:28 Lab Results - Entire Visit 11/09/18 11/09/18 11/09/18 17:12 17:12 16:29 WBC 7.9 RBC 4.30 Hgb 12.1 L Hct 37 L MCV 85 MCH 28 MCHC 33 RDW 15 Plt Count 107 L MPV 9.1 Neut % (Auto) 68.4 Lymph % (Auto) 13.7 [place] % (Auto) 11.2 Eos % (Auto) 5.6 Baso % (Auto) 1.1 Absolute Neuts (auto) 5.4 Absolute Lymphs (auto) 1.1 Absolute Monos (auto) 0.9 H Absolute Eos (auto) 0.4 Absolute Basos (auto) 0.1 Absolute Nucleated RBC 0 Nucleated RBC % 0 Sodium 133 L Potassium 4.3 Chloride 101 Carbon Dioxide 29 Anion Gap 3 BUN 18 Creatinine 0.86 Est GFR ( Amer) 106.4 Est GFR (Non-Af Amer) 87.9 BUN/Creatinine Ratio 20.9 H Glucose 253 H Calcium 9.0 Total Bilirubin 0.30 AST 25 ALT 47 Alkaline Phosphatase 68 Total Protein 6.8 Albumin 3.7 Globulin 3.1 Albumin/Globulin Ratio 1.2 TSH 3.05 Urine Color Urine Appearance Urine pH Ur Specific Kendall Urine Protein Urine Ketones Urine Blood Urine Nitrate Urine Bilirubin Urine Urobilinogen Ur Leukocyte Esterase Urine Glucose Urine Ascorbic Acid Salicylates < 2.50 Urine Opiates Screen None detected Acetaminophen < 15 Ur Barbiturates Screen None detected Ur Phencyclidine Scrn None detected Ur Amphetamines Screen None detected U Benzodiazepines Scrn Presumptive positive A Urine Cocaine Screen None detected U Cannabinoids Screen None detected Serum Alcohol < 10 11/09/18 16:29 WBC RBC Hgb Hct MCV MCH MCHC RDW Plt Count MPV Neut % (Auto) Lymph % (Auto) [place] % (Auto) Eos % (Auto) Baso % (Auto) Absolute Neuts (auto) Absolute Lymphs (auto) Absolute Monos (auto) Absolute Eos (auto) Absolute Basos (auto) Absolute Nucleated RBC Nucleated RBC % Sodium Potassium Chloride Carbon Dioxide Anion Gap BUN Creatinine Est GFR ( Amer) Est GFR (Non-Af Amer) BUN/Creatinine Ratio Glucose Calcium Total Bilirubin AST ALT Alkaline Phosphatase Total Protein Albumin Globulin Albumin/Globulin Ratio TSH Urine Color Yellow Urine Appearance Clear Urine pH 6.0 Ur Specific Kendall 1.014 Urine Protein Negative Urine Ketones Negative Urine Blood Negative Urine Nitrate Negative Urine Bilirubin Negative Urine Urobilinogen Negative Ur Leukocyte Esterase Negative Urine Glucose 3+(>=500 mg/dl) A Urine Ascorbic Acid * A Salicylates Urine Opiates Screen Acetaminophen Ur Barbiturates Screen Ur Phencyclidine Scrn Ur Amphetamines Screen U Benzodiazepines Scrn Urine Cocaine Screen U Cannabinoids Screen Serum Alcohol
[2018-11-10] MEDS ORDERED: amLODIPine TAB* 5 MG PO ONE (08:57)
[2018-11-10] MEDS ORDERED: Hydrochlorothiazide TAB* 25 MG PO ONE (08:57)
[2018-11-10 10:36] VITALS: BP 188/95
== END 2018-11-10 11:30 | disposition home or self-care (01) ==
LOC: ED 15:55
DX: F98.9 Unspecified behavioral and emotional disorders with onset usually occurring in childhood and adolescence (principal); F41.9 Anxiety disorder, unspecified; I10 Essential (primary) hypertension; E11.9 Type 2 diabetes mellitus without complications; Z79.4 Long term (current) use of insulin; J44.9 Chronic obstructive pulmonary disease, unspecified; B19.20 Unspecified viral hepatitis C without hepatic coma; F17.210 Nicotine dependence, cigarettes, uncomplicated
CPT/HCPCS: 36415; 80053; 80307; 80320; 80329; 81003; 84443; 85025; 99285; A9270-GY; G0480

== ENCOUNTER 2019-04-04 13:47 | Emergency (ER) | payer MEDICARE ==
[2019-04-04 15:36] VITALS: BP 210/90
== END 2019-04-04 17:08 | disposition left against medical advice (07) ==
LOC: ED 13:47
DX: Z53.21 Procedure and treatment not carried out due to patient leaving prior to being seen by health care provider (principal)
CPT/HCPCS: 99281

== ENCOUNTER 2019-04-05 09:55 | Emergency (ER) | payer MEDICARE ==
[2019-04-05 10:08] VITALS: BP 153/86
--- NOTE | 2019-04-05 10:57 | UC ---
Lower Extremity/Ankle HPI - HPI Summary HPI Summary: 73-year-old male comes in with a chief complaint of a wound the right great toe. He reports about 2 weeks ago he had a blister on the medial aspect of his right great toe which he broke. Since then the area has expanded and is a dark area in the middle and some erythema around the wound. No fevers or chills. Patient has chronic bilateral foot pain. He is a diabetic. - History of Current Complaint Chief Complaint: UCSkin Stated Complaint: TOE INJURY Time Seen by Provider: 04/05/19 10:35 Pain Intensity: 7 - Allergies/Home Medications Allergies/Adverse Reactions: Allergies Allergy/AdvReac Type Severity Reaction Status Date / Time No Known Allergies Allergy Verified 04/05/19 10:12 Home Medications: Home Medications Aspirin 81 mg PO DAILY 04/05/19 [History Confirmed 04/05/19] Gabapentin 300 mg PO TID 04/05/19 [History Confirmed 04/05/19] Lisinopril/HCTZ 20/25(NF) [Zestoretic 20/25(NF)] 1 tab PO DAILY 04/05/19 [ History Confirmed 04/05/19] Ondansetron HCl [Zofran 4 MG TAB] 4 mg PO Q6HR 04/05/19 [History Confirmed 04/05] PMH/Surg Hx/FS Hx/Imm Hx Previously Healthy: No - SEE ACTIVE PROBLEM LIST FOR PMH Endocrine History: Diabetes - Surgical History Surgical History: Yes Surgery Procedure, Year, and Place: cataracts - Family History Known Family History: Positive: Hypertension - parents, Diabetes - parents Negative: Cardiac Disease - Social History Alcohol Use: None Substance Use Type: None Substance Use Comment - Amount & Last Used: unable to obtain answer Smoking Status (MU): Heavy Every Day Tobacco Smoker Type: Cigarettes Amount Used/How Often: 1/2 PPD X 40+ YEARS Have You Smoked in the Last Year: Yes - Immunization History Most Recent Influenza Vaccination: 2018 Most Recent Pneumonia Vaccination: "in the past" Review of Systems All Other Systems Reviewed And Are Negative: Yes Constitutional: Positive: Negative Skin: Positive: Other - SEE HPI Eyes: Positive: Negative ENT: Positive: Negative Respiratory: Positive: Negative Cardiovascular: Positive: Negative Gastrointestinal: Positive: Negative Motor: Positive: Negative Neurovascular: Positive: Other - SEE HPI Musculoskeletal: Positive: Other: - SEE HPI Neurological: Positive: Other - SEE HPI Psychological: Positive: Negative Is Patient Immunocompromised?: No Physical Exam Triage Information Reviewed: Yes Appearance: Well-Appearing, No Pain Distress, Well-Nourished Vital Signs: Initial Vital Signs Temp 98 F 04/05/19 10:05 Pulse 100 04/05/19 10:05 Resp 20 04/05/19 10:05 BP 153/86 04/05/19 10:05 Pulse Ox 99 04/05/19 10:05 Vital Signs Reviewed: Yes Eye Exam: Normal Eyes: Positive: Conjunctiva Clear Neck: Positive: Supple Respiratory: Positive: No respiratory distress Musculoskeletal: Positive: Strength Intact Neurological: Positive: Alert, Muscle Tone Normal Psychological: Positive: Age Appropriate Behavior Skin: Positive: Other - The medial aspect of the right great toe has a 2.5 cm ulceration that has a dark center and is surrounded by erythema. There is no drainage. The erythema does extend 1-2 cm. There is no streaking. Decreased capillary refill on the distal toe. Capillary refill is normal on the dorsal aspect of the great toe. Patient reports decreased sensation of the toe but he tells me this is a chronic issue. Lower Extremity Course/Dx - Course Course Of Treatment: Patient Name: CEM MÉNDEZ JR Medical Record#: [id number] Ordering Physician: John Castillo MD Acct.#: [id number] : 1945 Age: 73 Sex: M Location: [facility] Exam Date: 04/05/19 1016 ADM Status: REG ER Order Information: FOOT RIGHT 3+ VWS Accession Number: [id number] CPT: 43868 Indication: Right great toe swelling. 3 views of the right foot demonstrates degenerative changes of the first metatarsophalangeal joint. No fracture is identified. No other bone or joint abnormalities identified. IMPRESSION: Degenerative changes of the first metatarsophalangeal joint of the right foot. <Electronically signed by Eugenia Zaldivar MD in OV> 04/05/19 1040 I discussed the foot x-ray results with the patient. The ulceration does have erythema around it. Therefore I will start on Augmentin 870 mg by mouth twice a day. I called the wound care clinic to help facilitate follow-up. I left a voicemail message asking them to contact him to arrange follow-up. I discussed with the patient that he should follow-up with wound care clinic and if anything got worse he is to go the emergency department. I told the patient that he could lose his toe if this is not cared for. Patient did walk out of the clinic prior to receiving his discharge paperwork. - Differential Dx/Diagnosis Provider Diagnosis: Infected blister of great toe of right foot, Diabetic infection of right foot, Diabetic foot ulcer Discharge - Sign-Out/Discharge Documenting (check all that apply): Patient Departure All imaging exams completed and their final reports reviewed: Yes - Discharge Plan Condition: Stable Disposition: HOME Prescriptions: Amoxicillin/Clavulanate TAB* [Augmentin TAB 875*] 875 mg PO BID #20 tab Patient Education Materials: Foot Care for People with Diabetes (ED), Diabetic Foot Ulcers (ED), Blister (ED) Referrals: Erwin Toro DO [Primary Care Provider] - Additional Instructions: FOLLOW UP WITH THE WOUND CARE CLINIC AT [facility], [phone]. CLOSE FOLLOW UP WITH THE WOUND CARE CLINIC IS IMPORTANT TO AVOID LOSS OF YOUR GREAT TOE OR FOOT. GET RECHECKED SOONER IF YOUR CONDITION WORSENS; SPREAD OF INFECTION OR ULCER, YOU ARE NOT IMPROVED OR ANY QUESTIONS OR CONCERNS. - Billing Disposition and Condition Condition: STABLE Disposition: Home
== END 2019-04-05 11:05 | disposition home or self-care (01) ==
LOC: UCEAST 09:55
DX: E11.621 Type 2 diabetes mellitus with foot ulcer (principal); L97.519 Non-pressure chronic ulcer of other part of right foot with unspecified severity; F17.210 Nicotine dependence, cigarettes, uncomplicated; Z79.82 Long term (current) use of aspirin
CPT/HCPCS: 99212; G0463

== ENCOUNTER 2019-05-11 10:30 | Emergency (ER) | payer MEDICARE ==
[2019-05-11 10:39] VITALS: BP 136/67
--- NOTE | 2019-05-11 11:00 | UC ---
Lower Extremity/Ankle HPI - HPI Summary HPI Summary: 73 year old male with PMH + for DM presents with multiple wounds on b/l feet, some ~ 3 months old, the youngest 1 weeks old. - Patient was seen here ~ 1 month ago with same complaint, stated wounds were the same age at that time. He was set up with the [facility], and did go to his appointment, however left before being seen after waiting for > 1 hr. He did take Augmentin for 1 week as instructed without improvement - + pain- throbbing sensation b/l feet, no better with rest or standing. denies fever, chills. Currently taking oxycodone for pain without any improvement. Noted eschar was scrapped on R toe wound ~ 1 week ago, + drainage since that time. + drainage from heel wound. - Patient does not make eye contact throughout exam, continues to read the newspaper during HPI. - History of Current Complaint Chief Complaint: UCSkin Stated Complaint: FOOT WOUND Time Seen by Provider: 05/11/19 10:32 Hx Obtained From: Patient Onset/Duration: Sudden Onset, Lasting Weeks, Still Present Severity Initially: Severe Severity Currently: Severe Pain Intensity: 7 Aggravating Factor(s): Standing, Ambulation Alleviating Factor(s): Rest Able to Bear Weight: Yes - Allergies/Home Medications Allergies/Adverse Reactions: Allergies Allergy/AdvReac Type Severity Reaction Status Date / Time No Known Allergies Allergy Verified 05/11/19 10:43 Home Medications: Home Medications Amlodipine Besylate [Norvasc] 10 mg PO DAILY 05/11/19 [History Confirmed ] Atorvastatin* [Lipitor*] 40 mg PO DAILY 05/11/19 [History Confirmed 05/11/19] Glipizide/Metformin HCl [Glipizide/Metformin HCl 2.5-250 mg] 1 tab PO DAILY 05/22 [History Confirmed 05/11/19] Permethrin 5% CREAM* 1 applic TOPICAL SEE INSTRUCTIONS 05/11/19 [History Confirmed 05/11/19] oxyCODONE/Acetamin 10/325(NF) [Percocet 10/325 (NF)] 1 tab PO DAILY 05/11/19 [ History Confirmed 05/11/19] PMH/Surg Hx/FS Hx/Imm Hx Previously Healthy: Yes Endocrine History: Diabetes Cardiovascular History: Cardiac Disease - Surgical History Surgical History: Yes Surgery Procedure, Year, and Place: cataracts - Family History Known Family History: Positive: Hypertension - parents, Diabetes - parents, Non- Contributory Negative: Cardiac Disease - Social History Alcohol Use: None Substance Use Type: None Substance Use Comment - Amount & Last Used: unable to obtain answer Smoking Status (MU): Heavy Every Day Tobacco Smoker Type: Cigarettes Amount Used/How Often: 1/2 PPD X 40+ YEARS Have You Smoked in the Last Year: Yes - Immunization History Most Recent Influenza Vaccination: 2018 Most Recent Pneumonia Vaccination: "in the past" Review of Systems All Other Systems Reviewed And Are Negative: Yes Constitutional: Negative: Fever, Chills Neurovascular: Positive: Negative Musculoskeletal: Positive: Arthralgia, Decreased ROM, Edema, Myalgia Is Patient Immunocompromised?: No Physical Exam Triage Information Reviewed: Yes Appearance: Well-Appearing, No Pain Distress, Well-Nourished Vital Signs: Initial Vital Signs Temp 98.9 F 05/11/19 10:37 Pulse 98 05/11/19 10:37 Resp 20 05/11/19 10:37 BP 136/67 05/11/19 10:37 Pulse Ox 100 05/11/19 10:37 Vital Signs Reviewed: Yes Eyes: Positive: Conjunctiva Clear ENT: Positive: Other - decreased hearing Musculoskeletal: Positive: Strength Intact, ROM Intact, Edema @ - b/l great toes , R>L Neurological: Positive: Alert, Muscle Tone Normal, Other: - patient states SITLT b/l to ankles throughout toes Psychological: Positive: Other: - irritable, mildly aggressive behavior Skin: Positive: Other - Right great toe- black eschar noted over wound covering entire plantar surface of great toes, no drainage noted, + granulation tissue seen beneath eschar on sides, mile erythema extending throughout great toe to MTP. ~ 2,5 Cm Left great toe- + eschar over plantaar surface, no drianage noted, eschar covering entire surface. ~ 2cm L heel- posterior area with large, circular region with granulation tissue, + serous/ prurlent drianage noted, good granulation tissues seen after debridement with gauze All regions TTP Lower Extremity Course/Dx - Course Course Of Treatment: radiograph: Patient Name: HONEYCEM Tj BILLS Medical Record#: [id number] Ordering Physician: Nicole DIAZ Acct.#: [id number] : 1945 Age: 73 Sex: M Location: [facility] Exam Date: 05/11/19 1058 ADM Status: REG ER Order Information: FEET BILATERAL Accession Number: [id number] CPT: 57079 INDICATION: Foot pain. TECHNIQUE: 3 views of both feet were obtained. FINDINGS: There is mild soft tissue swelling about the first toes bilaterally. The bone mineralization is within normal limits. No fracture or destructive osseous process is identified. Anatomic alignment is maintained. 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 IMPRESSION: NO RADIOGRAPHIC EVIDENCE OF OSTEOMYELITIS (POOR SENSITIVITY). IF THE PATIENT'S SYMPTOMS PERSIST, REPEAT IMAGING IS RECOMMENDED. - Follow up with orthopedics or wound care clinic for continued management- within 3-5 days - Antibiotics started- continue until seen by Orthopedic. - Return with increasing redness, swelling, pain, fever, numbness/ tingling or increase in redness. - Elevate foot as much as possible. Wear shoes without backs to avoid irritation. Decrease ambulation as much as possible - change dressing as shown once daily or more frequently if sweating, working outside. - No swimming/ soaking/ submerging wound. OK to shower. FOLLOW UP WITH THE WOUND CARE CLINIC AT [facility], [phone]. CLOSE FOLLOW UP WITH THE WOUND CARE CLINIC IS IMPORTANT TO AVOID LOSS OF YOUR GREAT TOE OR FOOT. GET RECHECKED SOONER IF YOUR CONDITION WORSENS; SPREAD OF INFECTION OR ULCER, YOU ARE NOT IMPROVED OR ANY QUESTIONS OR CONCERNS. - Differential Dx/Diagnosis Provider Diagnosis: Cellulitis Discharge - Sign-Out/Discharge Documenting (check all that apply): Patient Departure All imaging exams completed and their final reports reviewed: Yes - Discharge Plan Condition: Stable Disposition: HOME Prescriptions: Clindamycin Cap(NF) [Clindamycin Cap 300 mg Cap(NF)] 300 mg PO Q6H #40 cap Silver Sulfadiazine 1%* [SILVadine 1%*] 1 applic TOPICAL DAILY #1 tube Patient Education Materials: Cellulitis (ED) Referrals: Erwin Toro DO [Primary Care Provider] - Pal Choi MD [Medical Doctor] - Additional Instructions: - Radiograph negative for osteomyelitis. - Follow up with orthopedics or wound care clinic for continued management- within 3-5 days - Antibiotics started- continue until seen by Orthopedic. - Return with increasing redness, swelling, pain, fever, numbness/ tingling or increase in redness. - Elevate foot as much as possible. Wear shoes without backs to avoid irritation. Decrease ambulation as much as possible - change dressing as shown once daily or more frequently if sweating, working outside. - No swimming/ soaking/ submerging wound. OK to shower. FOLLOW UP WITH THE WOUND CARE CLINIC AT [facility], [phone]. CLOSE FOLLOW UP WITH THE WOUND CARE CLINIC IS IMPORTANT TO AVOID LOSS OF YOUR GREAT TOE OR FOOT. GET RECHECKED SOONER IF YOUR CONDITION WORSENS; SPREAD OF INFECTION OR ULCER, YOU ARE NOT IMPROVED OR ANY QUESTIONS OR CONCERNS. - Billing Disposition and Condition Condition: STABLE Disposition: Home
[2019-05-11] MEDS ORDERED: Silver Sulfadiazine 1%* 20 GM TOPICAL ONE (12:05)
== END 2019-05-11 12:25 | disposition home or self-care (01) ==
LOC: UCEAST 10:30
DX: L03.116 Cellulitis of left lower limb (principal); L03.115 Cellulitis of right lower limb; F17.210 Nicotine dependence, cigarettes, uncomplicated
CPT/HCPCS: 87070; 87077; 87186; 87205; 87640; 87641; 99212; A9270-GY; G0463

== ENCOUNTER 2019-06-16 23:32 | Observation (INO) | payer MEDICARE ==
--- OUTSIDE RECORDS SUMMARY | 2019-06-17 00:02 | XMS REPORT | Summary of Care ---
:1945 Author Organization [facility] Address [address] [place] [address] Care Team Providers Name Role Phone Erwin Toro DO Primary Care Provider Brinda Buchanan RNtrack supervisor Reason for Visit Reason Comments Back Pain here continues to have increased pain in feet and back and increased difficulty sleeping at night and having dry heaves as result. Medication Refill need refill on pain meds Encounter Details Date Type Department Care Team Description 06/08/2019 Office Visit [facility] Erwin Toro DO Other diabetic neurological complication associated with type 2 diabetes mellitus (HCC) (Primary Dx); Practice [address] [facility] Hypertension, unspecified type; [address] [place] [address] Type 2 diabetes mellitus with other neurologic complication, without long- term current use of insulin (HCC) [place] [address] [phone] Allergies No Known Allergiesdocumented as of this encounter (statuses as of 06/08/2019) Medications Medication Sig Dispensed Refills Start Date End Date Status Blood Glucose 1 Device by 1 Device 0 08/05/2018 Active Monitor Software Does not apply Does not apply route TWICE Device DAILY. diabetes. Brand: Insurance preferred (one ouch ultra) Glucose Blood In 1 Strip by In 100 Strip 5 08/08/2018 Active Vitro Strip Vitro route TWICE DAILY. Lancets Does not by Does not 100 Each 5 08/08/2018 Active apply Misc apply route TWICE DAILY. Brand: generic Dx: diabetes Test Blood Glucose 2 time(s) A DAY Insulin Glargine 100 Inject 10 Units 18 mL 1 02/02/2019 Active UNIT/ML Subcutaneous beneath the Solution skin EVERY Pen-injectorIndicati BEDTIME. ons: Uncontrolled type 2 diabetes mellitus with hyperglycemia (HCC) Aspirin 81 MG Oral Take 81 mg by 0 Active Tab mouth. amLodipine (NORVASC) Take 1 Tab by 90 Tab 1 05/04/2019 Active 10 MG Oral Tab mouth DAILY. atorvastatin Take 1 Tab by 90 Tab 1 05/04/2019 Active (LIPITOR) 40 MG Oral mouth DAILY. TabIndications: Hyperlipidemia, unspecified hyperlipidemia type LISINOPRIL-HCTZ Take 1 Tab by 90 Tab 1 05/04/2019 Active 20-25 MG Oral mouth DAILY. TabIndications: Hypertension, unspecified type GLIPIZIDE-METFORMIN Take 1 Tab by 180 Tab 1 05/04/2019 Active 5-500 MG Oral Tab mouth DIRECTED. 1 tab twice daily for 2 weeks then 2 tabs twice daily onwards oxyCODONE ER 9 MG Take 1 Cap by 60 Each 0 06/08/2019 Active Oral Capsule mouth TWICE Extended Release 12 DAILY. Max hour Daily Amount: 2 Abuse-DeterrentIndic Caps. ations: Other diabetic neurological complication associated with type 2 diabetes mellitus (HCC) carvedilol (COREG) Take 1 Tab by 60 Tab 0 06/08/2019 Active 6.25 MG Oral mouth TWO TIMES TabIndications: DAILY WITH Hypertension, MEALS. unspecified type OXYcodone-acetaminop Take 1 Tab by 60 Tab 0 05/04/2019 Discontinued hen (PERCOCET) mouth TWO TIMES 9 10-325 MG Oral DAILY NEEDED TabIndications: (feet pain). Other diabetic Max Daily neurological Amount: 2 Tabs. complication associated with type 2 diabetes mellitus (HCC) documented as of this encounter (statuses as of 06/08/2019) Active Problems Problem Noted Date COPD exacerbation 04/13/2019 Chronic hepatitis C without hepatic coma 04/13/2019 Uncontrolled type 2 diabetes mellitus Chronic low back pain Diabetic neuropathy, painful Hepatitis C Hyperlipidemia Lacunar stroke documented as of this encounter (statuses as of 06/08/2019) Immunizations Name Administration Dates Next Due Influenza (IM) Preservative Free 07/15/2018 documented as of this encounter Social History Tobacco Use Types Packs/Day Years Used Date Current Every Day Smoker 0.5 50 Smokeless Tobacco: Current User Chew Comments: chewing sometimes Alcohol Use Drinks/Week oz/Week Comments No quit since 2003. Sex Assigned at Date Recorded Not on file Job Start Date Occupation Industry Not on file Not on file Not on file Travel History Travel Start Travel End No recent travel history available. documented as of this encounter Last Filed Vital Signs Vital Sign Reading Time Taken Comments Blood Pressure 158/68 06/08/2019 11:13 AM EDT Pulse 103 06/08/2019 11:13 AM EDT Temperature - - Respiratory Rate - - Oxygen Saturation 99% 06/08/2019 11:13 AM EDT Inhaled Oxygen Concentration - - Weight 68.5 kg (151 lb) 06/08/2019 11:13 AM EDT Height 175.3 cm (5' 9") 06/08/2019 11:13 AM EDT Body Mass Index 22.3 06/08/2019 11:13 AM EDT documented in this encounter Patient Instructions Patient InstructionsErwin Toro DO - 06/08/2019 11:20 AM EDTStart coreg twice daily for blood pressure Start back insulin Try long acting oxycodone. Will check urine drug screen today Bring all bottles next time documented in this encounter Progress Notes Erwin Toro DO - 06/08/2019 11:20 AM EDT PATIENT: Solo Sung Jr. : 1945 DATE OF SERVICE: 06/08/2019 CHIEF COMPLAINT: Chief Complaint Patient presents with Back Pain here continues to have increased pain in feet and back and increased difficulty sleeping at night and having dry heaves as result. Medication Refill need refill on pain meds Subjective HISTORY OF PRESENT ILLNESS: Solo Sung Jr. is a 73-y.o. male. HPI Chronic diabetic nerve pain: Percocet 10 helped but effect ran out in 4 hrs or so Hypertension: States taking acei-thiazide and norvasc No chest pain Not controlled Past Medical History: Diagnosis Date Back pain Chronic low back pain Diabetes mellitus (HCC) Diabetic neuropathy, painful (HCC) Hepatitis C Hyperlipidemia Lacunar stroke (HCC) Uncontrolled type 2 diabetes mellitus (HCC) Family History Problem Relation Age of Onset Cancer Mother Heart Father Current Outpatient Medications Medication Sig amLodipine (NORVASC) 10 MG Oral Tab Take 1 Tab by mouth DAILY. Aspirin 81 MG Oral Tab Take 81 mg by mouth. atorvastatin (LIPITOR) 40 MG Oral Tab Take 1 Tab by mouth DAILY. Blood Glucose Monitor Software Does not apply Device 1 Device by Does not apply route TWICE DAILY. diabetes. Brand: Insurance preferred (one ouch ultra) carvedilol (COREG) 6.25 MG Oral Tab Take 1 Tab by mouth TWO TIMES DAILY WITH MEALS. GLIPIZIDE-METFORMIN 5-500 MG Oral Tab Take 1 Tab by mouth DIRECTED. 1 tab twice daily for 2 weeks then 2 tabs twice daily onwards Glucose Blood In Vitro Strip 1 Strip by In Vitro route TWICE DAILY. Insulin Glargine 100 UNIT/ML Subcutaneous Solution Pen-injector Inject 10 Units beneath the skin EVERY BEDTIME. Lancets Does not apply Misc by Does not apply route TWICE DAILY. Brand: generic Dx: diabetes Test Blood Glucose 2 time(s) A DAY LISINOPRIL-HCTZ 20-25 MG Oral Tab Take 1 Tab by mouth DAILY. oxyCODONE ER 9 MG Oral Capsule Extended Release 12 hour Abuse-Deterrent Take 1 Cap by mouth TWICE DAILY. Max Daily Amount: 2 Caps. No current facility-administered medications for this visit. No Known Allergies Social History Socioeconomic History Marital status: Single Spouse name: Not on file Number of children: Not on file Years of education: Not on file Highest education level: Not on file Occupational History Not on file Social Needs Financial resource strain: Not on file Food insecurity: Worry: Not on file Inability: Not on file Transportation needs: Medical: Not on file Non-medical: Not on file Tobacco Use Smoking status: Current Every Day Smoker Packs/day: 0.50 Years: 50.00 Pack years: 25.00 Smokeless tobacco: Current User Types: Chew Tobacco comment: chewing sometimes Substance and Sexual Activity Alcohol use: No Comment: quit since 2003. Drug use: No Sexual activity: Not on file Lifestyle Physical activity: Days per week: Not on file Minutes per session: Not on file Stress: Not on file Relationships Social connections: Talks on phone: Not on file Gets together: Not on file Attends yazdanism service: Not on file Active member of club or organization: Not on file Attends meetings of clubs or organizations: Not on file Relationship status: Not on file Intimate partner violence: Fear of current or ex partner: Not on file Emotionally abused: Not on file Physically abused: Not on file Forced sexual activity: Not on file Other Topics Concern Back Care Not Asked Bike Helmet Not Asked Blood Transfusions Not Asked Caffeine Concern Not Asked Exercise Not Asked Hobby Hazards Not Asked International Travel Not Asked Service Not Asked Occupational Exposure Not Asked Seat Belt Not Asked Self-Exams Not Asked Sleep Concern Not Asked Special Diet Not Asked Stress Concern Not Asked Weight Concern Not Asked Social History Narrative 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 REVIEW OF SYSTEMS: Review of Systems Constitutional: Negative for fever. Cardiovascular: Negative for palpitations. Neurological: Negative for headaches. Objective PHYSICAL EXAM: VITALS: BP 158/68 (BP Location: Left arm, Patient Position: Sitting) | Pulse 103 | Ht 5' 9" (1.753 m) | Wt 151 lb (68.5 kg) | SpO2 99% | BMI 22.30 kg/m Body mass index is 22.3 kg/m. Physical Exam Constitutional: He appears well-developed and well-nourished. No distress. HENT: Head: Normocephalic and atraumatic. Eyes: Conjunctivae are normal. Right eye exhibits no discharge. Left eye exhibits no discharge. No scleral icterus. Cardiovascular: Normal rate and regular rhythm. Pulmonary/Chest: Effort normal. Skin: He is not diaphoretic. ASSESSMENT / IMPRESSION: ICD-9-CM ICD-10-CM 1. Other diabetic neurological complication associated with type 2 diabetes mellitus (HCC) 250.60 E11.49 oxyCODONE ER 9 MG Oral Capsule Extended Release 12 hour Abuse-Deterrent PAIN MGMT SCRN W/ FENTANYL, ALCOHOL W/ CONFIRMATION, URINE PAIN MGMT SCRN W/ FENTANYL, ALCOHOL W/ CONFIRMATION, URINE 2. Hypertension, unspecified type 401.9 I10 carvedilol (COREG) 6.25 MG Oral Tab 3. Type 2 diabetes mellitus with other neurologic complication, without long- term current use of insulin ([facility]) 250.60 E11.49 MICROALBUMIN, RANDOM URINE W/ CREATININE Plan Diabetic nerve pain: failing non narcotic Hence use opioid now Some relief from percocet 10 So will do oxy 10 ER 12 hr bid See him back in 4 weeks Signed new drug contract and UDS today HTN: add coreg Patient Instructions Start coreg twice daily for blood pressure Start back insulin Try long acting oxycodone. Will check urine drug screen today Bring all bottles next time Author: Erwin Toro DO 06/08/2019 12:30 documented in this encounter Plan of Treatment Date Type Specialty Care Team Description 07/05/2019 Office Visit Family Practice Erwin Toro, [address] [place] [address] [phone] Name Type Priority Associated Diagnoses Date/Time PAIN MGMT SCRN W/ Lab Routine Other diabetic 06/08/2019 11:35 AM FENTANYL, ALCOHOL W/ neurological complication EDT CONFIRMATION, URINE associated with type 2 diabetes mellitus (HCC) MICROALBUMIN, RANDOM Lab Routine Type 2 diabetes mellitus 06/08/2019 11:35 AM URINE W/ CREATININE with other neurologic EDT complication, without long-term current use of insulin (HCC) Name Type Priority Associated Diagnoses Order Schedule PAIN MGMT SCRN W/ Lab Routine Other diabetic neurological Expected: 2018 FENTANYL, ALCOHOL W/ complication associated (Approximate), CONFIRMATION, URINE with type 2 diabetes Expires: 12/05/2019 mellitus (HCC) Health Maintenance Due Date Last Done Comments Diabetic Eye Exam 1945 FOOT EXAM 12/23/1965 FALL RISK ASSESSMENT 12/23/2012 PNEUMOCOCCAL 65+YRS (1 of 2 12/23/2012 - PCV13) DEPRESSION SCREENING 01/20/2019 01/20/2018, 01/20/2018 MEDICARE ANNUAL WELLNESS 01/20/2019 01/20/2018 VISIT INFLUENZA VACCINE (#1) 2019 07/15/2018 COLONOSCOPY SCREENING 07/07/2019 Postponed from 12/23/1997 (Patient refused) HEMOGLOBIN A1C 07/14/2019 04/13/2019, 10/24/2018, 07/06/2018, Additional history exists HIV SCREENING 07/14/2019 Postponed from 12/23/1962 (Other) ZOSTER IMMUNIZATION SERIES 07/21/2019 Postponed from (1 of 2) 12/23/1997 (Other) LIPID DISORDER SCREENING 05/04/2020 05/04/2019, 12/29/2017 AAA SCREENING/SURVEILLANCE Completed 07/19/2018 HPV IMMUNIZATION SERIES Aged Out No longer eligible based on patient's age to complete this topic MENINGOCOCCAL VACCINE IMM Aged Out No longer eligible based on patient's age to complete this topic documented as of this encounter Goals Goal Patient Goal Associated Recent Patient-Stated? Author Type Problems Progress Blood Pressure Blood Pressure 158/68 No Erwin Toro < 140/90 (06/08/2019 DO Tj 11:13 AM EDT) Note: This is an individualized treatment (blood pressure) goal for Solo Sung Jr.: Displayed above (on the left) is your goal for blood pressure control. Your most recent blood pressure is also shown above, on the right. You should try to achieve blood pressures that are lower than your goal listed above (on the left). Smoking Cessation COPD No Erwin Toro DO Note: This is an individualized treatment (COPD) goal for Solo Sung Jr.: Quit smoking immediately! Your provider has information and resources that may help you to quit. Glycohemoglobin A1c < 7.0 Diabetes 9.3 (04/13/2019 1:35 PM No Erwin Toro DO EDT) Note: This is an individualized treatment (diabetes control, HgbA1C) goal for Solo Sung Jr.: Displayed above is your progress towards your HgbA1C goal. Your goal is shown above (on the left); your most recent HgbA1C is shown on the right. Note that lower numbers are better. Keep immunizations current Lifestyle No Erwin Toro DO Note: This is an individualized lifestyle goal for Solo Sung Jr.: Please be sure to keep up-to-date on recommended immunizations. For example, this would include a yearly influenza vaccine. Immunization status can be seen by looking at the Health Maintenance sections of your [facility], Plan of Care, and any After Visit Summaries. Take all prescribed medications as directed Self-management No Erwin Toro DO Note: This is an individualized self-management goal for Solo Sung Jr.: Please take all prescribed medications as directed. 1. Do not skip doses. If you cannot afford your medications, talk with your doctor. 2. Use a pill reminder system such as a pill box if needed. Your pharmacist can help you with this. 3. Contact your Pharmacy 5 days before your medication runs out. If you cannot take your medications for any reasons, talk with your doctor. 4. Please bring all of your medication bottles and inhalers (or a list of all your medications/inhalers) with you to every visit. Potential barriers to meeting all of your care plan goals will continue to be addressed on an ongoing basis. documented as of this encounter Results Not on filedocumented in this encounter Visit Diagnoses Diagnosis Other diabetic neurological complication associated with type 2 diabetes mellitus (HCC) - Primary Hypertension, unspecified type Type 2 diabetes mellitus with other neurologic complication, without long-term current use of insulin (HCC) documented in this encounter documented as of this encounter
--- NOTE | 2019-06-17 00:44 | ED ---
Throat Pain/Nasal Congestion - HPI Summary HPI Summary: This pt is a 73 Y/O M presenting to [facility] with a CC of his tongue swelling since 2229. He states that he fell asleep and when he woke up the R side of his tongue was swollen. He states that now the L side is also swelling. He has trouble breathing and has an inability to eat and drink. He denies any fever, chills, N/V/D, and headaches. He sates no aggravating or alleviating factors. He denies any allergies. He has a PMHx of type 2 diabetes and HTN. Home Medications Medication Instructions Recorded Confirmed Type Lisinopril/HCTZ (NF) 1 tab PO DAILY 04/05/19 06/17/19 History [Zestoretic (NF)] Amlodipine Besylate [Norvasc] 10 mg PO DAILY 05/11/19 06/17/19 History Atorvastatin* [Lipitor*] 40 mg PO DAILY 05/11/19 06/17/19 History Carvedilol 6.25 mg PO DAILY WITH MEAL 06/17/19 06/17/19 History Glipizide/Metformin HCl 5 - 500 mg PO DAILY WITH MEAL 06/17/19 06/17/19 History [Glipizide-Metformin 2.5-250 mg] Oxycodone Myristate [Xtampza ER] 9 mg PO DAILY WITH MEAL 06/17/19 06/17/19 History - History of Current Complaint Chief Complaint: EDGeneral Time Seen by Provider: 06/17/19 00:13 Hx Obtained From: Patient Onset/Duration: Sudden Onset - 2229, Still Present, Worse Since - onset at 2229 Severity: Moderate Cough: None - Allergies/Home Medications Allergies/Adverse Reactions: Allergies Allergy/AdvReac Type Severity Reaction Status Date / Time No Known Allergies Allergy Verified 06/16/19 23:39 Home Medications: Home Medications Carvedilol 6.25 mg PO DAILY WITH MEAL 06/17/19 [History Confirmed 06/17/19] Glipizide/Metformin HCl [Glipizide-Metformin 2.5-250 mg] 5 - 500 mg PO DAILY WITH MEAL 06/17/19 [History Confirmed 06/17/19] Oxycodone Myristate [Xtampza ER] 9 mg PO DAILY WITH MEAL 06/17/19 [History Confirmed 06/17/19] PMH/Surg Hx/FS Hx/Imm Hx Previously Healthy: Yes Endocrine/Hematology History: Reports: Hx Diabetes - type 2 Denies: Hx Thyroid Disease Cardiovascular History: Reports: Hx Hypertension - no meds Denies: Hx Pacemaker/ICD, Other Cardiovascular Problems/Disorders Respiratory History: Reports: Hx Chronic Obstructive Pulmonary Disease (COPD), Hx Pneumonia, Other Respiratory Problems/Disorders - HISTORY OF PNEUMONIA SEVERAL TIMES PER PATIENT Denies: Hx Asthma GI History: Denies: Hx Ulcer, Other GI Disorders Musculoskeletal History: Denies: Other Musculoskeletal History - CHRONIC BACK PAIN,neuropathy Sensory History: Reports: Hx Cataracts, Hx Contacts or Glasses Denies: Hx Hearing Aid Opthamlomology History: Reports: Hx Cataracts, Hx Contacts or Glasses Neurological History: Denies: Other Neuro Impairments/Disorders Psychiatric History: Reports: Hx Anxiety, Hx Suicide Attempt Denies: Hx Eating Disorder, Hx Panic Disorder, Hx of Violent Episodes Against Others - Surgical History Surgery Procedure, Year, and Place: cataracts Hx Anesthesia Reactions: No - Immunization History Date of Tetanus Vaccine: unk Date of Influenza Vaccine: fall 2016 Immunizations Up to Date: Yes Infectious Disease History: No Infectious Disease History: Reports: Hx Hepatitis - Hep C, Hx Shingles - 1998 Denies: Hx Clostridium Difficile, Hx Human Immunodeficiency Virus (HIV), Hx of Known/Suspected MRSA, Hx Tuberculosis, Hx Known/Suspected VRE, Hx Known/ Suspected VRSA, History Other Infectious Disease, Traveled Outside the [place] in Last 30 Days - Family History Known Family History: Positive: Hypertension - parents, Diabetes - parents, Non- Contributory Negative: Cardiac Disease - Social History Occupation: Retired Lives: Alone Alcohol Use: None Substance Use Type: Reports: None Substance Use Comment - Amount & Last Used: unable to obtain answer Hx Tobacco Use: Yes Smoking Status (MU): Light Every Day Tobacco Smoker Type: Cigarettes Amount Used/How Often: 1/2 PPD X 40+ YEARS Have You Smoked in the Last Year: Yes Review of Systems Positive: Other - inability to eat or drink . Negative: Fever, Chills Positive: Other - Tongue is swollen on the R and L sides Positive: Shortness Of Breath Negative: Vomiting, Diarrhea, Nausea Negative: Headache All Other Systems Reviewed And Are Negative: Yes Physical Exam - Summary Physical Exam Summary: General: Well-developed, Well-nourished male. No acute distress. HEENT: Normocephalic, Atraumatic. Eyes: Conjuctiva normal, PERRL. Ears: TMs within normal limits. Nares: (-) discharge, (-) erythema. Oropharynx: Clear, mucous membranes moist, (-) exudates. Tongue is extremely enlarged, more on the right side than the L Neck: Soft, FROM, (-) lymphadenopathy, (-) thyromegaly, (-) JVD. Cardiovascular: Normal sinus rhythm, (-) murmur. Lungs: Clear to auscultation bilaterally (-) wheezes, (-) rales, (-) rhonchi. Abdomen: Soft, non-tender, non-distended, (-) organomegaly, normal bowel sounds. Back: (-) CVA tenderness Extremities: No edema. Skin: Warm, dry, (-) rash. Neuro: Alert and oriented x3, no focal deficits. Psychiatric: Mood normal, affect normal. Triage Information Reviewed: Yes Vital Signs On Initial Exam: Initial Vitals Temp Pulse Resp BP Pulse Ox 97.8 F 118 16 231/108 98 06/16/19 23:33 06/16/19 23:33 06/16/19 23:33 06/16/19 23:33 06/16/19 23:33 Vital Signs Reviewed: Yes Diagnostics - Vital Signs Vital Signs Temp Pulse Resp BP Pulse Ox 06/17/19 00:00 101 98 06/16/19 23:51 109 245/115 98 06/16/19 23:33 97.8 F 118 16 231/108 98 - Laboratory Lab Statement: Any lab studies that have been ordered have been reviewed, and results considered in the medical decision making process. EENT Course/Dx - Course Course Of Treatment: This pt is a 73 Y/O M presenting to [facility] with a CC of his tongue swelling since 2229. He states that he fell asleep and when he woke up the R side of his tongue was swollen. His PE found that his R and L side of his tongue was swollen, but his R side was worse. Pt will be signed out to Dr. Miller at shift change 0700 06/17/19 pending re-evals to see the progress on his swollen tongue. - Diagnoses Provider Diagnoses: Angioedema Discharge ED - Sign-Out/Discharge Documenting (check all that apply): Sign-Out Patient Signing out patient TO: Genny Miller Patient Received Moderate/Deep Sedation with Procedure: No - Discharge Plan Condition: Stable Referrals: Erwin Toro DO [Primary Care Provider] - - Billing Disposition and Condition Condition: STABLE - Attestation Statements Document Initiated by Scribe: Yes Documenting Scribe: Hema Radford Provider For Whom Scribe is Documenting (Include Credential): Licha Benjamin MD Scribe Attestation: Hema Weeks scribed for Licha Benjamin MD on 06/17/19 at 0651. Scribe Documentation Reviewed: Yes Provider Attestation: The documentation as recorded by the Hema juarez accurately reflects the service I personally performed and the decisions made by , Licha Benjamin MD Status of Scribe Document: Viewed
[2019-06-17] MEDS ORDERED: diPHENhydraMINE IV* 50 MG/ML 1 ml VIAL (BENADRYL) IV ONE (00:58)
[2019-06-17] MEDS ORDERED: NS 0.9% 1000 ML** 1,000 ML IV ONE (00:58)
[2019-06-17] MEDS ORDERED: methylPREDNISolone 125 MG* 2 ML VIAL IV ONE (00:58)
[2019-06-17] MEDS ORDERED: Famotidine IV* 10 MG/ML 2 ML (20 mg) IV SLOW PU ONE (00:59)
[2019-06-17] MEDS ORDERED: Labetalol IV* 5 MG/ML 20 ML VIAL IV PUSH ONE ×2 (01:22→02:39)
[2019-06-17] MEDS ORDERED: LORazepam INJ* 2 MG/ML 1 ML VIAL IM ONE (01:23)
[2019-06-17] MEDS ORDERED: Lorazepam PYXIS KEY PRN (01:23)
--- NOTE | 2019-06-17 07:28 | ED ---
Progress - Progress Note Progress Note: Pt was signed out to Dr. Miller by Dr. Benjamin at shift change 0700 06/17/19 pending hospitalist acceptance for admission and to see the progress on angiodemea. Upon shift change, physician discusses care with hospitalist who accepts patient for admission. Patient still reporting mild difficulty swallowing and moderate tongue swelling. EWOB on RA PE w swollen tongue but no YEIMI/trouble swallowing. Course/Dx - Course Course Of Treatment: Pt was signed out to Dr. Miller at shift change 0700 pending hospitalist acceptance for admission and to see the progress on his swollen tongue. Physician discusses plan of care with hospitalist who accepts patient for admission. - Diagnoses Provider Diagnoses: Angioedema - Provider Notifications Discussed Care Of Patient With: Kavin Bales Time Discussed With Above Provider: 07:13 Instructed by Provider To: Admit As Inpatient Discharge ED - Sign-Out/Discharge Documenting (check all that apply): Patient Departure - admit Patient Received Moderate/Deep Sedation with Procedure: No - Discharge Plan Disposition: ADMITTED TO [facility] - Attestation Statements Document Initiated by Scribe: Yes Documenting Scribe: Peggy Bello Provider For Whom Jenniferibe is Documenting (Include Credential): Dr. Genny Miller MD Scribe Attestation: Peggy Weeks, scribed for Dr. Genny Miller MD on 06/17/19 at 1649. Status of Scribe Document: Ready
[2019-06-17] MEDS ORDERED: diPHENhydraMINE PO* 50 MG PO PRN (07:45)
[2019-06-17] MEDS ORDERED: Dextrose 50% VIAL 50 ml IV PUSH PRN (07:47)
[2019-06-17] MEDS ORDERED: Enoxaparin(*) 40 MG/0.4 ML SYR SUBCUT SCH (08:00)
[2019-06-17 08:18] LABS: ABS Basophils 0.1 10^3/ul (0-0.2); ABS Lymphocytes 0.4 10^3/ul (1.0-4.8); ABS Monocytes 0.1 10^3/ul (0-0.8); Eosinophil % 0.2 %; Hematocrit 41 % (42-52); Lymphocyte % 4.6 %; Mean Corpuscular HGB Conc 35 g/dL (31-36); Mean Corpuscular Hemoglobin 30 pg (27-31); Mean Corpuscular Volume 86 fL (80-94); Mean Platelet Volume 8.6 fL (7.4-10.4); Platelet Count 144 10^3/uL (150-450); Red Blood Count 4.74 10^6 /uL (4.18-5.48); Red Cell Distribution Width 14 % (10-15); White Blood Count 8.5 10^3/uL (3.5-10.8)
[2019-06-17] MEDS ORDERED: Carvedilol TAB* 6.25 MG PO SCH (08:30)
[2019-06-17] MEDS ORDERED: oxyCODONE SR TAB(*) 10 MG TAB.SR PO SCH ×2 (08:30→22:00)
[2019-06-17 08:33] LABS: Albumin 4.2 g/dL (3.2-5.2); Albumin/Globulin Ratio 1.4 (1-3); BUN/Creatinine Ratio 17.9 (8-20); Calcium 9.4 mg/dL (8.6-10.3); EGFR African American 74.4 (>60); EGFR Non-African American 61.5 (>60); Indirect Bilirubin 0.4 mg/dL (0.3-1.0); Magnesium 1.7 mg/dL (1.9-2.7); Potassium 4.2 mmol/L (3.5-5.0); Total Bilirubin 0.5 mg/dL (0.2-1.0); Total Protein 7.2 g/dL (6.4-8.9)
[2019-06-17] MEDS ORDERED: amLODIPine TAB* 5 MG PO SCH (09:00)
[2019-06-17] MEDS ORDERED: Atorvastatin* 40 MG TAB PO SCH (09:00)
[2019-06-17] MEDS ORDERED: predniSONE TAB* 20 MG PO SCH (09:00)
[2019-06-17] MEDS ORDERED: Magnesium Sulfate 1 GM IV* 1 GM/100 ML BAG IV ONE (10:59)
--- NOTE | 2019-06-17 13:09 | HP ---
CC: Dr. Erwin Toro HISTORY AND PHYSICAL: DATE OF ADMISSION: 06/17/19 HISTORY OF PRESENT ILLNESS: This is a 73-year-old male came into the emergency room for sudden onset of tongue and lip swelling around 11 p.m. last evening after he woke up from his sleep. The patient states he went to bed with normal tongue and lips, he woke up in the middle of the night and he noticed he had some difficulty breathing and unusual feeling in his lips and mouth. He looked into mirror and he found his tongue and right side of his lips were extensively swollen, had difficulty drinking or eating and difficulty breathing. Therefore , he came into the emergency room to be evaluated. In the emergency room last night, around midnight, he was seen by the ER attending and under the exam documentation, the tongue was extremely enlarged. He was given FFP, Solu- Medrol 125 IV, Benadryl 50 IV and this morning we were called to assess the patient and he still has the enlargement of his tongue, swelling. The patient was seen in the emergency room at bedside. He expressed significant improvement in his swallowing ability and breathing when he first came, but he is still having difficulty chewing or drinking in the emergency room. Therefore , in this regard, given the severity and acuity, elected to admit the patient under observation for the next 24 hours for close monitoring and improvement of his swelling under close observation. The patient denies any chest pain at this time, denies any shortness of breath at this time, taking p.o. with some difficulty specifically solid food and thin liquid. PAST MEDICAL HISTORY: 1. History of diabetes. 2. Hypertension. 3. COPD. 4. Mood disorders, antisocial personality. 5. Chronic opioid therapy. MEDICATIONS: 1. Glipizide and metformin 5/500. 2. Lisinopril/hydrochlorothiazide 20/25 daily. 3. Amlodipine 10 daily. 4. Lipitor 40 daily. 5. Coreg 6.25 daily. 6. Xtampza ER 9 mg daily. ALLERGIES: No known drug allergies. FAMILY HISTORY: Significant for diabetes, hypertension, coronary artery disease according to chart. SOCIAL HISTORY: He does have a history of excess smoking. No alcohol or illicit drug use. REVIEW OF SYSTEMS: As per HPI. PHYSICAL EXAMINATION GENERAL: He is awake, alert, frustrated during the interview for asking questions. His speech is intact. He does have no obvious cardiac or pulmonary distress. VITAL SIGNS: Temperature 97.7, pulse 82, respiratory rate 14, satting 97, blood pressure 178/68. HEAD AND NECK: He does have symmetrical, bilateral equal edema of his tongue and lips. I did not appreciate any uvular edema. Moist mucous membranes. His hygiene is poor, smells tobacco. Nicotine stain on his fingers. LUNGS: Good air flow. No wheezing or rhonchi. Transmitted upper airway breath sounds. ABDOMEN: Positive bowel sounds, soft, nontender, nondistended. EXTREMITIES: He does have poor hygiene with foot ulcer on his first big toe, does not appear to be infected. BANK MANAGER: Awake, alert, follows simple commands. DIAGNOSTIC STUDIES/LAB DATA: CBC: White count 8.5, hemoglobin 14, hematocrit 41, platelets 144. Chemistry: Sodium 133, potassium 4.2, BUN 21, creatinine 1.1, glucose 249, lactic 1.1, mag 1.7. AST, ALT 17 and 15. EKG: Normal sinus, rate 80, WV 194, QTc 399. Nonspecific T-wave changes in the lateral leads V4, V6 with slight T-wave inversion unchanged when compared to his EKG from 10/15/18. Chest x-ray ordered is pending. IMPRESSION: This is a 73-year-old man comes in with angioedema, most likely secondary to his lisinopril and JOSE. He will be admitted. We will put him on oximetry q.4 hours and vitals routine. We will hold the lisinopril. I am going to place him on prednisone 60 daily, Zyrtec 10 b.i.d., Pepcid 20 b.i.d. and Benadryl p.r.n. Diabetes mellitus. We will put him on sliding scale with coverage. I am going to hold his glipizide and metformin. For his hypertension, continue his amlodipine 10 mg. Discontinue his lisinopril and I will put him on hydrochlorothiazide 25 and hydralazine 10 mg t.i.d. Continue carvedilol. Chronic pain. Continue his oxycodone ER 10 mg daily. DVT prophylaxis. Lovenox subcu daily. [id number]/[facility] #: [id number] ADDENDUM: PLEASE MISTY THIS TO SERVE BRIEF DISCHARGE SUMMARY WELL. PATIENT SIGNED AMA SAME DAY HIS DISCHARGE FROM MEDICAL FLOOR. HE LEFT AMA AT NIGHT 2300 DATE 06/17/19 [facility]
[2019-06-17] MEDS: Carvedilol TAB* 6.25 MG PO SCH ×2 (13:19→21:30)
[2019-06-17] MEDS: Cetirizine* 10 MG TAB PO SCH ×2 (13:19→21:30)
[2019-06-17] MEDS: Famotidine TAB* 20 MG PO SCH ×2 (13:19→21:30)
[2019-06-17] MEDS: Insulin LISPRO* 1 UNITS UNIT SUBCUT SCH ×3 (13:43→22:41)
[2019-06-17 21:41] VITALS: BP 169/69
--- NOTE | 2019-07-13 22:30 | DS ---
ADDENDUM to SAME DAY H&P & LEAVING AGAINST MEDICAL ADVICE (06/17/19) documentation of Dr. Holbrook INTERVAL SUMMARY: As is documented in the nursing notes, patient was frequently agitated on the floor and refusing or objecting to interventions like rechecking his blood sugar in setting of finger stick above 400. He requested his opioid medication BID and this was ordered after confirming this frequency on his PMPR/ I Stop. He signed AMA paperwork after he demonstrated capacity to make that decision with understanding of the risks if his angioedema were to return. NEW MEDICATIONS: 1) cetirizine 10mg po BID (10 tabs) 2) famotidine 20mg po BID (10 tabs) 3) hydrochlorothiazide 25mg daily (to replaced Lisinopril/HCTZ combined pill) 4) prednisone 40mg for 5 days (20mg tabs x 10) FOLLOW-UP: He was instructed to f/u with his PCP Dr. Erwin Toro. CONDITION: Improved but Guarded. DISPO: home, against medical advice.
== END 2019-06-17 23:00 | disposition left against medical advice (07) ==
LOC: ED 23:32 → MED 06-17 07:39
PROVIDERS: ADMIT Internal Medicine; ATTEND Internal Medicine
DX: T78.3XXA Angioneurotic edema, initial encounter (principal); E11.9 Type 2 diabetes mellitus without complications; I10 Essential (primary) hypertension; J44.9 Chronic obstructive pulmonary disease, unspecified; F39 Unspecified mood [affective] disorder; F60.2 Antisocial personality disorder; Z79.891 Long term (current) use of opiate analgesic; Z79.899 Other long term (current) drug therapy; R94.31 Abnormal electrocardiogram [ECG] [EKG]
CPT/HCPCS: 36415; 36430; 80048; 80076; 82947; 83605; 83735; 84100; 85025; 86850; 86900; 86901; 86927; 93005; 96361; 96365; 96375; 96376; 99285; A9270-GY; G0378; J1200; J1650; J2930; J3475; J7512; P9017

== ENCOUNTER 2019-11-28 13:59 | Emergency (ER) | payer MEDICARE ==
[2019-11-28] MEDS ORDERED: EPINEPHRINE 1 MG/ML 1 ML VIAL IM ONE ×2 (14:02→14:47)
[2019-11-28] MEDS ORDERED: diPHENhydraMINE IV* 50 MG/ML 1 ml VIAL (BENADRYL) SLOW PUSH ONE (14:03)
[2019-11-28] MEDS ORDERED: Famotidine IV* 10 MG/ML 2 ML (20 mg) IV SLOW PU ONE (14:03)
[2019-11-28] MEDS ORDERED: methylPREDNISolone 125 MG* 2 ML VIAL IV ONE (14:05)
--- OUTSIDE RECORDS SUMMARY | 2019-11-28 14:07 | XMS REPORT | Continuity of Care Document ---
:1945 External Reference #:[id number] Author Name Matthieu Richards M.D. Address [address] [place] [address] Care Team Providers Name Role Phone Bobbi Rajan SHOW HORSE DRIVER - Nurse Care Team Information Lead Bi Developer [phone] Practitioner Problems Active Problems Provider Date Type 2 diabetes mellitus Onset: Hypertensive disorder Onset: Presence of intraocular lens Matthieu Richards M.D. Onset: 11/28/2019 Type 2 diabetes mellitus with moderate Matthieu Richards M.D. Onset: 2019 nonproliferative diabetic retinopathy with macular edema, bilateral Social History Type Date Description Comments Sex Unknown ETOH Use Denies alcohol use Tobacco Use Start: Unknown Heavy tobacco smoker (more than 10 cigarettes/day) Recreational Drug Use Denies Drug Use Smoking Status Reviewed: 11/28/19 Heavy tobacco smoker (more than 10 cigarettes/day) Allergies, Adverse Reactions, Alerts Description No Known Drug Allergies Medications Active Medications SIG Qnty Indications Ordering Provider Date Symbicort Inhale 2 Puffs PO Unknown 160-4.5mcg/Act bid Aerosol Glipizide/Metformin TK 1 T PO bid Unknown Hydrochloride For 2 Weeks Then 5-500mg 2 TS bid Onwards Tablets Lisinopril-Hydrochlorot TK 1 T PO D Unknown hiazide 20-25mg Tablets Albuterol Sulfate HFA Inhale Two Puffs Unknown By Mouth Every 4 108(90Base) mcg/Act Hours as Needed Aerosol Immunizations Description No Information Available Vital Signs Description No Information Available Results Description No Information Available Procedures Description No Information Available Medical Devices Description No Information Available Encounters Description No Information Available Assessments Date Code Description Provider 11/28/2019 E11.3313 Type 2 diabetes mellitus with moderate Matthieu Richards M.D. nonproliferative diabetic retinopathy with macular edema, bilateral 11/28/2019 Z96.1 Presence of intraocular lens Matthieu Richards M.D. Plan of Treatment 11/28/2019 - Matthieu Richards M.D.E11.3313 Type 2 diabetes mellitus with moderate nonproliferative diabetic retinopathy with macular edema, bilateralComments:Smoking can increase the risk of developing or worsening any eye related disease, as well as affect your overall health. If you are a smoker , we strongly recommend that you quit.If you are not a smoker, we strongly recommend that you do not start. Dr. Richards can detect diabetic changes that requires treatment. It is very important to follow all of Dr. Richards's instructions and keep all of your appointments. Proper control of your diabetes is important for the health of your eyes. If you have any questions, please call our office.Follow up:See Procedure Order LogZ96.1 Presence of intraocular lensComments:The artificial lens implants in both eyes appear to be stable at this time. Functional Status Description No Information Available Mental Status Description No Information Available Referrals Description No Information Available
--- OUTSIDE RECORDS SUMMARY | 2019-11-28 14:07 | XMS REPORT | Summary of Care ---
:1945 Author Organization [facility] Address [address] [place] [address] Care Team Providers Name Role Phone Brinda Buchanan RNchef manager Lashell Valverde Primary Care Provider Reason for Visit Reason Comments Follow Up 2wk to cough Encounter Details Date Type Department Care Team Description 11/20/2019 Office Visit [facility], Uncontrolled type 2 diabetes mellitus with hyperglycemia (HCC) (Primary Dx); Practice MD Lashell Chronic obstructive pulmonary disease, unspecified COPD type ([facility]); [address] [facility] [facility] Hypertension, unspecified type; [place] [address] [place] [address] Diabetic neuropathy, painful ([facility]) [phone] Allergies No Known Allergiesdocumented as of this encounter (statuses as of 11/20/2019) Medications Medication Sig Dispensed Refills Start End Date Status Date Blood Glucose 1 Device by 1 Device 0 Active Monitor Software Does not apply 8 Does not apply route TWICE Device DAILY. diabetes. Brand: Insurance preferred (one ouch ultra) Glucose Blood In 1 Strip by In 100 Strip 5 Active Vitro Strip Vitro route 8 TWICE DAILY. Lancets Does not by Does not 100 Each 5 Active apply Misc apply route 8 TWICE DAILY. Brand: generic Dx: diabetes Test Blood Glucose 2 time(s) A DAY Aspirin 81 MG Oral Take 81 mg by 0 Active Tab mouth. amLodipine Take 1 Tab by 90 Tab 1 Active (NORVASC) 10 MG mouth DAILY. 9 Oral Tab atorvastatin Take 1 Tab by 90 Tab 1 Active (LIPITOR) 40 MG mouth DAILY. 9 Oral TabIndications: Hyperlipidemia, unspecified hyperlipidemia type oxyCODONE ER 9 MG Take 1 Cap by 60 Each 0 Active Oral Capsule mouth TWICE 9 Extended Release 12 DAILY. Max hour Daily Amount: 2 Abuse-DeterrentIndi Caps. cations: Other diabetic neurological complication associated with type 2 diabetes mellitus (HCC) carvedilol (COREG) Take 1 Tab by 60 Tab 0 Active 6.25 MG Oral mouth TWO TIMES 9 TabIndications: DAILY WITH Hypertension, MEALS. unspecified type Insulin Glargine Inject 10 Units 18 mL 1 Active 100 UNIT/ML beneath the 9 Subcutaneous skin EVERY Solution BEDTIME. Pen-injectorIndicat ions: Uncontrolled type 2 diabetes mellitus with hyperglycemia (HCC) amoxicillin-clavula Take 1 Tab by 20 Tab 0 Active alma acid (AUGMENTIN mouth TWICE 0 500 MG) 500-125 MG DAILY. Oral Tab guaifenesin Take 1 Tab by 60 Tab 1 Active (MUCINEX) 600 MG mouth EVERY 0 Oral TABLET SR 12 TWELVE HOURS. HR VENTOLIN HFA 108 Take 2 Puffs by 1 Inhaler 1 Active (90 Base) MCG/ACT inhalation 0 Inhalation Aero EVERY FOUR Soln HOURS NEEDED (wheezing). fluticasone [place] 2 Sprays 0 Active (FLONASE) 50 in nose DAILY. MCG/ACT Nasal Suspension albuterol Take 2 Puffs by 0 Active (PROVENTIL,VENTOLIN inhalation FOUR ) 90 mcg/act TIMES DAILY. GLIPIZIDE-METFORMIN Take 1 Tab by 60 Tab 1 Active 5-500 MG Oral Tab mouth 0 DIRECTED. 1 tab twice daily for 2 weeks then 2 tabs twice daily onwards budesonide-formoter Take 2 INHL by 1 Inhaler 1 Active ol fumarate inhalation 0 (SYMBICORT) 160-4.5 TWICE DAILY. MCG/ACT Inhalation Aerosol LISINOPRIL-HCTZ Take 1 Tab by 30 Tab 1 Active 20-25 MG Oral mouth DAILY. 0 TabIndications: Hypertension, unspecified type gabapentin Take 1-3 Caps 90 Cap 0 Active (NEURONTIN) 100 MG by mouth EVERY 0 Oral Cap BEDTIME. GLIPIZIDE-METFORMIN Take 1 Tab by 180 Tab 1 11/20/19 Discontinued 5-500 MG Oral Tab mouth 9 20 (Reorder) DIRECTED. 1 tab twice daily for 2 weeks then 2 tabs twice daily onwards budesonide-formoter Take 2 INHL by 1 Inhaler 1 11/20/19 Discontinued ol fumarate inhalation 0 20 (Reorder) (SYMBICORT) 160-4.5 TWICE DAILY. MCG/ACT Inhalation Aerosol LISINOPRIL-HCTZ Take 1 Tab by 30 Tab 1 11/20/19 Discontinued 20-25 MG Oral mouth DAILY. 0 20 (Reorder) TabIndications: Hypertension, unspecified type documented as of this encounter (statuses as of 11/20/2019) Active Problems Problem Noted Date COPD exacerbation 04/13/2019 Chronic hepatitis C without hepatic coma 04/13/2019 Chronic low back pain Diabetic neuropathy, painful Hepatitis C Hyperlipidemia Lacunar stroke documented as of this encounter (statuses as of 11/20/2019) Immunizations Name Administration Dates Next Due Influenza (IM) Preservative Free 07/15/2018 documented as of this encounter Social History Tobacco Use Types Packs/Day Years Used Date Current Every Day Smoker 0.5 50 Smokeless Tobacco: Current User Chew Comments: chewing sometimes Alcohol Use Drinks/Week oz/Week Comments No quit since 2003. Sex Assigned at Date Recorded Not on file documented as of this encounter Last Filed Vital Signs Vital Sign Reading Time Taken Comments Blood Pressure 180/100 11/20/2019 1:53 PM EST Pulse 97 11/20/2019 1:53 PM EST Temperature 36.7 11/20/2019 1:53 PM EST C (98 F) Respiratory Rate - - Oxygen Saturation 98% 11/20/2019 1:53 PM EST Inhaled Oxygen Concentration - - Weight 75 kg (165 lb 4.8 oz) 11/20/2019 1:53 PM EST Height 175.3 cm (5' 9") 11/20/2019 1:53 PM EST Body Mass Index 24.41 11/20/2019 1:53 PM EST documented in this encounter Patient Instructions Patient InstructionsLashell Valverde MD - 11/20/2019 2:00 PM EST 1. Start Glipizide/Metformin 1 tablet 2 times a day 2. Start Symbicort 1 puff 2 times a day 3. Take Lisinopril/HCTZ once a day 4. Start Gabapentin 100 mg at the bed time, OK to increase to 200 mg in several days, and than - to 300 mg if needed for feet pain 5. Follow up in 2 weeks with sugar diary Check sugar 2 times a day: before breakfast and before dinner. Fasting sugar should be below 110, and non fasting below 140 (if checked at least 2 hours after meal) documented in this encounter Progress Notes Lashell Valverde MD - 11/20/2019 2:00 PM EST PATIENT: Solo Sung Jr. : 1945 DATE OF SERVICE: 11/20/2019 SUBJECTIVE: 73-y.o. male for follow up of diabetes. Diabetic Review of Systems - medication compliance: noncompliant much of the time, diabetic diet compliance: noncompliant some of the time, home glucose monitoring: is performed sporadically, further diabetic ROS: has dysesthesias in the feet, last eye exam approximately more than a year ago. Other symptoms and concerns: BP continues to be elevated - hasn't started Lisinopril. Also - continues to complain of exertional SOB. Cough improved with Augmentin. Hasn't started Symbicort yet Past Medical History: Diagnosis Date ? Chronic low back pain ? Diabetes mellitus (HCC) ? Diabetic neuropathy, painful (HCC) ? Hepatitis C ? Hyperlipidemia ? Lacunar stroke (HCC) Current Outpatient Medications Medication Sig ? albuterol (PROVENTIL,VENTOLIN) 90 mcg/act Take 2 Puffs by inhalation FOUR TIMES DAILY. ? amLodipine (NORVASC) 10 MG Oral Tab Take 1 Tab by mouth DAILY. ? amoxicillin-clavulanic acid (AUGMENTIN 500 MG) 500-125 MG Oral Tab Take 1 Tab by mouth TWICEDAILY. ? Aspirin 81 MG Oral Tab Take 81 mg by mouth. ? atorvastatin (LIPITOR) 40 MG Oral Tab Take 1 Tab by mouth DAILY. ? Blood Glucose Monitor Software Does not apply Device 1 Device by Does not apply route TWICE DAILY. diabetes. Brand: Insurance preferred (one ouch ultra) ? budesonide-formoterol fumarate (SYMBICORT) 160-4.5 MCG/ACT Inhalation Aerosol Take 2 INHL byinhalation TWICE DAILY. ? carvedilol (COREG) 6.25 MG Oral Tab Take 1 Tab by mouth TWO TIMES DAILY WITH MEALS. ? fluticasone (FLONASE) 50 MCG/ACT Nasal Suspension [place] 2 Sprays in nose DAILY. ? gabapentin (NEURONTIN) 100 MG Oral Cap Take 1-3 Caps by mouth EVERY BEDTIME. ? GLIPIZIDE-METFORMIN 5-500 MG Oral Tab Take 1 Tab by mouth DIRECTED. 1 tab twice daily for2 weeks then 2 tabs twice daily onwards ? Glucose Blood In Vitro Strip 1 Strip by In Vitro route TWICE DAILY. ? guaifenesin (MUCINEX) 600 MG Oral TABLET SR 12 HR Take 1 Tab by mouth EVERY TWELVE HOURS. ? Insulin Glargine 100 UNIT/ML Subcutaneous Solution Pen-injector Inject 10 Units beneath the skin EVERY BEDTIME. ? Lancets Does not apply Misc by Does not apply route TWICE DAILY. Brand: generic Dx: diabetes Test Blood Glucose 2 time(s) A DAY ? LISINOPRIL-HCTZ 20-25 MG Oral Tab Take 1 Tab by mouth DAILY. ? oxyCODONE ER 9 MG Oral Capsule Extended Release 12 hour Abuse-Deterrent Take 1 Cap by mouth TWICE DAILY. Max Daily Amount: 2 Caps. ? VENTOLIN HFA 108 (90 Base) MCG/ACT Inhalation Aero Soln Take 2 Puffs by inhalation EVERY FOUR HOURS NEEDED (wheezing). No current facility-administered medications for this visit. OBJECTIVE: BP (!) 180/100 (BP Location: Left arm, Patient Position: Sitting) | Pulse 97 | Temp 98 F (36.7C) | Ht 5' 9" (1.753 m) | Wt 165 lb 4.8 oz (75 kg) | SpO2 98% | BMI 24.41 kg/m General appearance: alert, and in no distress. Chest: clear to auscultation, no wheezes, rales or rhonchi, symmetric air entry. CVS exam: normal rate, regular rhythm, normal S1, S2, no murmurs, rubs, clicks or gallops. Examination of the feet reveals warm, good capillary refill, normal DP and PT pulses and hyperesthesia at both feet. HGA1C - high, CMP - elevated sugar, CBC - slightly low Platelets Component Latest Ref Rng & Units 11/02/2019 11/02/2019 11/02/2019 3:45 PM 3:45 PM 3:45 PM WBC COUNT 4.23 - 9.07 K/uL 9.21 (H) RBC 4.30 - 5.89 M/UL 5.27 Hemoglobin 13.7 - 17.5 g/dL 14.8 Hematocrit 40.1 - 51.0 % 44.1 MCV 79.0 - 92.2 FL 83.7 MCH 25.7 - 32.2 PG 28.1 MCHC 32.3 - 36.5 g/dL 33.6 Platelet Count 163 - 337 K/uL 144 (L) MPV 9.4 - 12.4 FL 11.2 RDW 11.6 - 14.4 % 13.1 NEUTROPHILS 34.0 - 67.9 % 70.2 (H) Lymphocyte % 21.8 - 53.1 % 15.1 (L) MONOCYTES 5.3 - 12.2 % 9.2 Eosinophils 0.8 - 7.0 % 3.8 Basophil % 0.2 - 1.2 % 1.0 nRBC % 0.0 - 0.2 % 0.0 Neutrophil # 1.78 - 5.38 K/UL 6.47 (H) Lymphocyte # 1.32 - 3.57 K/UL 1.39 Monocyte # 0.30 - 0.82 K/UL 0.85 (H) Eosinophil # 0.04 - 0.54 K/UL 0.35 Basophil # 0.01 - 0.08 K/UL 0.09 (H) Immature Gran % 0.0 - 0.4 % 0.7 (H) Immature Gran # 0.00 - 0.03 K/uL 0.06 (H) NRBC # 0.00 - 0.12 K/uL 0.00 Sodium 134 - 145 mmol/L 134 Potassium 3.5 - 5.1 mmol/L 3.8 Chloride 98 - 107 mmol/L 99 CO2 22 - 30 mmol/L 26 Calcium 8.3 - 10.1 mg/dl 9.1 Albumin 3.5 - 5.0 g/dl 4.0 BUN 9 - 20 mg/dl 15 Creatinine 0.8 - 1.5 mg/dl 1.1 Glucose (Lab) 70 - 99 mg/dl 294 (H) Protein,Total 6.3 - 8.2 g/dl 7.4 Total Bilirubin 0.0 - 1.1 MG/DL 0.5 AST 17 - 59 U/L 27 ALT 21 - 72 U/L 24 ALKALINE PHOSPHATASE 40 - 150 U/L 76 eGFR See Interpretation Below ml/min/1.73ml Sq >60 BUN/Creatinine Ratio 6 - 22 RATIO 14 Anion Gap 3 - 11 mmol/L 9 A/G Ratio 0.8 - 2.0 ratio 1.2 Glycohemoglobin - POCT <=5.6 % 10.2 (H) I have recommended the following steps for improving diabetic care and outcome to him: home glucose monitoring emphasized, annual eye examinations at Ophthalmology discussed, glycohemoglobin and other lab monitoring discussed and patient urged in the strongest terms to quit smoking. A follow up visit will be scheduled in the near future to review and reinforce the importance of careful diabetic control to improve senior care outcomes. ICD-9-CM ICD-10-CM 1. Uncontrolled type 2 diabetes mellitus with hyperglycemia (HCC) 250.02 E11.65 2. Chronic obstructive pulmonary disease, unspecified COPD type (HCC) 496 J44.9 3. Hypertension, unspecified type 401.9 I10 LISINOPRIL-HCTZ 20-25 MG Oral Tab 4. Diabetic neuropathy, painful (HCC) 250.60 E11.40 357.2 Patient Instructions 1. Start Glipizide/Metformin 1 tablet 2 times a day 2. Start Symbicort 1 puff 2 times a day 3. Take Lisinopril/HCTZ once a day 4. Start Gabapentin 100 mg at the bed time, OK to increase to 200 mg in several days, and than - to 300 mg if needed for feet pain 5. Follow up in 2 weeks with sugar diary Check sugar 2 times a day: before breakfast and before dinner. Fasting sugar should be below 110, and non fasting below 140 (if checked at least 2 hours after meal) Author: Lashell Valverde MD 11/20/2019 14:27 documented in this encounter Plan of Treatment Date Type Specialty Care Team Description 12/05/2019 Office Visit Family Practice Lashell Valverde MD [address] [place] [address] [phone] Health Maintenance Due Date Last Done Comments Diabetic Eye Exam 1945 FOOT EXAM 12/23/1965 Colonoscopy 12/23/1997 PNEUMOCOCCAL 65+YRS (1 of 2 12/23/2012 - PCV13) MEDICARE ANNUAL WELLNESS 01/20/2019 01/20/2018 VISIT HEMOGLOBIN A1C 02/01/2020 11/02/2019, 04/13/2019, 10/24/2018, Additional history exists DTaP/Tdap/Td Vaccines (1 - 02/14/2020 Postponed from Tdap) 12/23/1958 (Patient refused) LIPID DISORDER SCREENING 05/04/2020 05/04/2019, 12/29/2017 INFLUENZA VACCINE (#1) 2020 07/15/2018 Postponed from 06/04/2019 (Other) Medication Use Agreement 07/11/2020 07/11/2019 DEPRESSION SCREENING 11/20/2020 11/20/2019, 11/20/2019 FALL RISK ASSESSMENT 11/20/2020 11/20/2019, 11/20/2019 HEPATITIS A IMMUNIZATION 11/20/2020 Postponed from SERIES (1 of 2 - Risk 12/23/1948 (Patient 2-dose series) refused) HIV SCREENING 11/20/2020 Postponed from 12/23/1962 (Patient refused) ZOSTER IMMUNIZATION SERIES 11/20/2020 Postponed from (1 of 2) 12/23/1997 (Vaccine not available) AAA SCREENING/SURVEILLANCE Completed 07/19/2018 HPV IMMUNIZATION SERIES Aged Out No longer eligible based on patient's age to complete this topic MENINGOCOCCAL VACCINE IMM Aged Out No longer eligible based on patient's age to complete this topic documented as of this encounter Goals Goal Patient Goal Associated Recent Patient-Stated? Author Type Problems Progress Blood Pressure Blood Pressure 180/100 No Erwin Toro < 140/90 (11/20/2019 DO Tj 1:53 PM EST) Note: This is an individualized treatment (blood [...] to quit. Glycohemoglobin A1c < 7.0 Diabetes 10.2 (11/02/2019 3:45 PM No Erwin Toro DO EST) Note: This is an individualized treatment (diabetes [...] Take all prescribed medications as directed Self-management Erwin Ruano DO Note: This is an individualized self-management [...] ongoing basis. documented as of this encounter Procedures Procedure Name Priority Date/Time Associated Diagnosis Comments DIABETES FOOT EXAM Routine 11/20/2019 documented in this encounter Results DIABETES FOOT EXAM (11/20/2019) FOOT EXAM neuropathy [facility] Performing Organization Address City/State/Zipcode Phone Number [facility] [place] [address] [address] [place] [id number] documented in this encounter Visit Diagnoses Diagnosis Chronic obstructive pulmonary disease, unspecified COPD type (HCC) Hypertension, unspecified type Uncontrolled type 2 diabetes mellitus with hyperglycemia (HCC) Diabetic neuropathy, painful (HCC) Type II or unspecified type diabetes mellitus with neurological manifestations , not stated as uncontrolled documented in this encounter documented as of this encounter
--- OUTSIDE RECORDS SUMMARY | 2019-11-28 14:07 | XMS REPORT | Summary of Care ---
:1945 Author Organization [facility] Address [address] [facility] [place] [address] Care Team Providers Name Role Phone Brinda Buchanan RNmotion picture set worker Lashell Valverde Primary Care Provider Reason for Visit Reason Comments Cough pt presents for cough/congestion, on going for few months, getting worse. 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 1 tab twice daily for 2 [...] 500 MG) 500-125 MG DAILY. Oral Tab budesonide-formoter Take 2 INHL by 1 Inhaler 1 Active ol fumarate inhalation 0 (SYMBICORT) 160-4.5 TWICE DAILY. MCG/ACT Inhalation Aerosol albuterol HFA Take 2 Puffs by 1 Inhaler 1 Active (VENTOLIN) 108 (90 inhalation 0 Base) MCG/ACT EVERY FOUR Inhalation Aero HOURS NEEDED Soln (wheezing). LISINOPRIL-HCTZ Take 1 Tab by 30 Tab 1 Active 20-25 MG Oral mouth DAILY. 0 TabIndications: Hypertension, unspecified type guaifenesin Take 1 Tab by 60 Tab 1 Active (MUCINEX) 600 MG mouth EVERY 0 Oral TABLET SR 12 TWELVE HOURS. HR LISINOPRIL-HCTZ Take 1 Tab by 90 Tab 1 11/02/19 Discontinued 20-25 MG Oral mouth DAILY. 9 20 (Reorder) TabIndications: Hypertension, unspecified type documented as of this encounter (statuses as of 11/02/2019) Active Problems Problem Noted Date COPD exacerbation 04/13/2019 Chronic hepatitis C without hepatic coma 04/13/2019 Chronic low back pain Diabetic neuropathy, painful Hepatitis C Hyperlipidemia Lacunar stroke documented as of this encounter (statuses as of 11/02/2019) Immunizations Name Administration Dates Next Due Influenza [...] Sign Reading Time Taken Comments Blood Pressure 160/80 11/02/2019 2:51 PM EST Pulse 88 11/02/2019 2:51 PM EST Temperature 36.8 11/02/2019 2:51 PM EST C (98.3 F) Respiratory Rate - - Oxygen Saturation 98% 11/02/2019 2:51 PM EST Inhaled Oxygen Concentration - - Weight 76.3 kg (168 lb 4.8 oz) 11/02/2019 2:51 PM EST Height 175.3 cm (5' 9") 11/02/2019 2:51 PM EST Body Mass Index 24.85 11/02/2019 2:51 PM EST documented in this encounter Patient Instructions Patient InstructionsLashell Valverde MD - 11/02/2019 2:40 PM EST1. Take Augmentin 500 mg 2 times a day for 10 days 2. Start Symbicort 2 puffs 2 times a day 3. Use Albuterol 2 puffs every 4 hours as needed for wheezing 4. Take Mucinex 600 mg 2 times a day 5. Take Lisinopril 20/12.5 1 tablet once a day 6. Follow up in 2 weeks and as needed documented in this encounter Progress Notes Lashell Valverde MD - 11/02/2019 2:40 PM EST PATIENT: Solo Sung Jr. : 1945 DATE OF SERVICE: 11/02/2019 Subjective SUBJECTIVE: Solo Sung Jr. is a 73-y.o. male who presents to establish and for evaluation of productive cough with sputum described as yellow, increasing SOB and wheezing. Symptoms began 2 months ago and are gradually worsening since that time. Past history is significant for chronic obstructive pulmonary disease and tobacco abuse. He smoke 1 pack a day. Has history of DM, hypertension Stopped all his medications some time ago because the "didn't do any good" BP is high today Past Medical History: Diagnosis Date Chronic low back pain Diabetes mellitus (HCC) Diabetic neuropathy, painful (HCC) Hepatitis C Hyperlipidemia Lacunar stroke (HCC) Family History Problem Relation Age of Onset Cancer Mother Heart Father Current Outpatient Medications Medication Sig albuterol HFA (VENTOLIN) 108 (90 Base) MCG/ACT Inhalation Aero Soln Take 2 Puffs by inhalation EVERY FOUR HOURS NEEDED (wheezing). amLodipine (NORVASC) 10 MG Oral Tab Take 1 Tab by mouth DAILY. amoxicillin-clavulanic acid (AUGMENTIN 500 MG) 500-125 MG Oral Tab Take 1 Tab by mouth TWICE DAILY. Aspirin 81 MG Oral Tab Take 81 mg by mouth. atorvastatin (LIPITOR) 40 MG Oral Tab Take 1 Tab by mouth DAILY. Blood Glucose Monitor Software Does not apply Device 1 Device by Does not apply route TWICE DAILY. diabetes. Brand: Insurance preferred (one ouch ultra) budesonide-formoterol fumarate (SYMBICORT) 160-4.5 MCG/ACT Inhalation Aerosol Take 2 INHL by inhalation TWICE DAILY. carvedilol (COREG) 6.25 MG Oral Tab Take 1 Tab by mouth TWO TIMES DAILY WITH MEALS. GLIPIZIDE-METFORMIN 5-500 MG Oral Tab Take 1 Tab by mouth DIRECTED. 1 tab twice daily for 2 weeks then 2 tabs twice daily onwards Glucose Blood In Vitro Strip 1 Strip by In Vitro route TWICE DAILY. guaifenesin (MUCINEX) 600 MG Oral TABLET SR 12 HR Take 1 Tab by mouth EVERY TWELVE HOURS. Insulin Glargine 100 UNIT/ML Subcutaneous Solution Pen-injector [...] Financial resource strain: Not on file Food insecurity Worry: Not on file Inability: Not on file Transportation needs Medical: Not on file Non-medical: Not on file Tobacco Use Smoking status: Current Every Day Smoker Packs/day: 0.50 Years: 50.00 Pack years: 25.00 Smokeless tobacco: Current User Types: Chew Tobacco comment: chewing sometimes Substance and Sexual Activity Alcohol use: No Comment: quit since 2003. Drug use: No Sexual activity: Not on file Lifestyle Physical activity Days per week: Not on file Minutes per session: Not on file Stress: Not on file Relationships Social connections Talks on phone: Not on file Gets together: Not on file Attends mu-ism service: Not on file Active member of club or organization: Not on file Attends meetings of clubs or organizations: Not on file Relationship status: Not on file Intimate partner violence Fear of current or ex partner: Not [...] Sister at home only. REVIEW OF SYSTEMS: All remaining review of systems was negative. Objective OBJECTIVE: BP (!) 160/80 (BP Location: Right arm, Patient Position: Sitting) | Pulse 88 | Temp 98.3 F (36.8 C) | Ht 5' 9" (1.753 m) | Wt 168 lb 4.8 oz (76.3 kg) | SpO2 98% | BMI 24.85 kg/m GENERAL: alert, fatigued. HEENT: neck without nodes, pharynx erythematous without exudate and sinuses nontender. LUNGS: Bilaterally reduced air entry, diffuse wheezing. After Albuterol breathing - treatment - resolved wheezing, improved air entry. HEART: regular rate and rhythm, S1, S2 normal, no murmur, click, rub or gallop. Chest X-ray: no acute findings ICD-9-CM ICD-10-CM 1. COPD with exacerbation ([facility]) 491.21 J44.1 2. Cough 786.2 R05 XR CHEST 2 VIEW PA AND LATERAL (STANDARD) CBC WITH DIFFERENTIAL 3. Type 2 diabetes mellitus with other neurologic complication, without long- term current use of insulin ([facility]) 250.60 E11.49 COMPREHENSIVE METABOLIC PANEL GLYCOHEMOGLOBIN A1C 4. Hypertension, unspecified type 401.9 I10 LISINOPRIL-HCTZ 20-25 MG Oral Tab Patient Instructions 1. Take Augmentin 500 mg 2 times a day for 10 days 2. Start Symbicort 2 puffs 2 times a day 3. Use Albuterol 2 puffs every 4 hours as needed for wheezing 4. Take Mucinex 600 mg 2 times a day 5. Take Lisinopril 20/12.5 1 tablet once a day 6. Follow up in 2 weeks and as needed Author: Lashell Valverde MD 11/02/2019 16:48 documented in this encounter Plan of Treatment Date Type Specialty Care Team Description 11/17/2019 Office Visit Family Practice Lashell Valverde MD [facility] [place] [id number] [phone] Name Type Priority Associated Diagnoses Date/Time XR CHEST 2 VIEW PA AND Imaging Routine Cough 11/02/2019 3:27 PM LATERAL (STANDARD) EST COMPREHENSIVE METABOLIC Lab Routine Type 2 diabetes 11/02/2019 3:45 PM PANEL mellitus with other EST neurologic complication, without long-term current use of insulin ([facility]) GLYCOHEMOGLOBIN A1C Lab Routine Type 2 diabetes 11/02/2019 3:45 PM mellitus with other EST neurologic complication, without long-term current use of insulin ([facility]) CBC WITH DIFFERENTIAL Lab Routine Cough 11/02/2019 3:45 PM EST Health Maintenance Due Date Last Done Comments Diabetic Eye Exam 1945 HEPATITIS A IMMUNIZATION 12/23/1946 SERIES (1 of 2 - Risk 2-dose series) DTaP/Tdap/Td Vaccines (1 - 12/23/1958 Tdap) HIV SCREENING 12/23/1962 FOOT EXAM 12/23/1965 Colonoscopy 12/23/1997 ZOSTER IMMUNIZATION SERIES 12/23/1997 (1 of 2) FALL RISK ASSESSMENT 12/23/2012 PNEUMOCOCCAL 65+YRS (1 of 2 12/23/2012 - PCV13) DEPRESSION SCREENING 01/20/2019 01/20/2018, 01/20/2018 MEDICARE ANNUAL WELLNESS 01/20/2019 01/20/2018 VISIT INFLUENZA VACCINE (#1) 2019 07/15/2018 HEMOGLOBIN A1C 07/14/2019 04/13/2019, 10/24/2018, 07/06/2018, Additional history exists LIPID DISORDER SCREENING 05/04/2020 05/04/2019, 12/29/2017 Medication Use Agreement 07/11/2020 07/11/2019 AAA SCREENING/SURVEILLANCE Completed 07/19/2018 HPV IMMUNIZATION SERIES Aged Out No longer eligible based on patient's age to complete this topic MENINGOCOCCAL VACCINE IMM Aged Out No longer eligible based on patient's age to complete this topic documented as of this encounter Goals Goal Patient Goal Associated Recent Patient-Stated? Author Type Problems Progress Blood Pressure Blood Pressure 160/80 Erwin Ruano < 140/90 (11/02/2019 DO Tj 2:51 PM EST) Note: This is an individualized [...] < 7.0 Diabetes 9.3 (04/13/2019 1:35 PM Erwin Ruano DO EDT) Note: This is an individualized treatment (diabetes control, HgbA1C) goal for Solo Sung Jr.: Displayed above is your progress towards your HgbA1C goal. Your goal is shown above (on the left); your most recent HgbA1C is shown on the right. Note that lower numbers are better. Keep immunizations current Lifestyle Erwin Ruano DO Note: This is an individualized lifestyle goal for Solo Mainor Sung Jr.: Please be sure to keep up-to-date on recommended immunizations. For example, this would include a yearly influenza vaccine. Immunization status can be seen by looking at the Health Maintenance sections of your [facility], Plan of Care, and any After Visit Summaries. Take all prescribed medications as directed Self-management Erwin Ruano DO Note: This is an individualized self-management goal for Solo Mainor Sung Jr.: Please take all prescribed medications [...] filedocumented in this encounter Visit Diagnoses Diagnosis Cough Type 2 diabetes mellitus with other neurologic complication, without long-term current use of insulin (HCC) Hypertension, unspecified type COPD with exacerbation (HCC) Obstructive chronic bronchitis with exacerbation documented in this encounter documented as of this encounter
--- NOTE | 2019-11-28 14:13 | UC ---
General HPI - HPI Summary HPI Summary: Patient brought back immediately to be triaged due to tongue swelling. STates he was at eye doc - Dr. Koenig when shortly after drops were placed he started noticing his tongue swelling. He was told to be evaluated. Denies SOB. No N/ V. No rash, No throat or lip swelling or discomfort. No wheezing. States he had a similar episode a few months ago and not sure why that happened. He has adamantly refused to go by EMS to the ED. Will not state why. Explained he could from airway closure and he still won't take EMS. - History of Current Complaint Stated Complaint: TONGUE SWELLING - Allergy/Home Medications Allergies/Adverse Reactions: Allergies Allergy/AdvReac Type Severity Reaction Status Date / Time No Known Allergies Allergy Verified 06/16/19 23:39 Home Medications: Home Medications Amlodipine Besylate [Norvasc] 10 mg PO DAILY 05/11/19 [History Confirmed ] Atorvastatin* [Lipitor 40 MG*] 40 mg PO DAILY 05/11/19 [History Confirmed ] Cetirizine* [ZyrTEC 10 MG TAB*] 10 mg PO BID #10 tab 06/17/19 [Rx] Famotidine TAB* [Pepcid 20 MG TAB*] 20 mg PO BID #10 tab 06/17/19 [Rx] Glipizide/Metformin HCl [Glipizide-Metformin 2.5-250 mg] 5 - 500 mg PO DAILY WITH MEAL 06/17/19 [History Confirmed 06/17/19] Hydrochlorothiazide TAB* [Hydrodiuril TAB*] 25 mg PO DAILY #30 tab 06/17/19 [Rx] Oxycodone Myristate [Xtampza ER] 9 mg PO DAILY WITH MEAL 06/17/19 [History Confirmed 06/17/19] carvediloL [Carvedilol] 6.25 mg PO DAILY WITH MEAL 06/17/19 [History Confirmed 06/17/19] predniSONE 20 mg TAB [Deltasone 20 MG TAB*] 40 mg PO DAILY #10 tab 06/17/19 [Rx] PMH/Surg Hx/FS Hx/Imm Hx Previously Healthy: Yes - Surgical History Surgical History: Yes Surgery Procedure, Year, and Place: cataracts - Family History Known Family History: Positive: Hypertension - parents, Diabetes - parents, Non- Contributory Negative: Cardiac Disease - Social History Alcohol Use: None Substance Use Type: None Substance Use Comment - Amount & Last Used: unable to obtain answer Smoking Status (MU): Heavy Every Day Tobacco Smoker Type: Cigarettes Amount Used/How Often: 1/2 PPD X 60+ YEARS Have You Smoked in the Last Year: Yes - Immunization History Most Recent Influenza Vaccination: 2018 Most Recent Pneumonia Vaccination: "in the past" Review of Systems All Other Systems Reviewed And Are Negative: Yes ENT: Positive: Other - tongue swelling Physical Exam Triage Information Reviewed: Yes Appearance: Well-Appearing Vital Signs: refused vitals Vital Signs Reviewed: No ENT: Positive: Other - significant tongue edema - grossly visualized protruding into his right cheek No lip edema Unable to visualize throat Neck: Positive: Supple, Nontender Respiratory: Positive: Lungs clear, Normal breath sounds Cardiovascular: Positive: No Murmur, Tachycardia Skin Exam: Normal Course/Dx - Course Course Of Treatment: This is a 73 yr old who presented with anaphylaxis - significant tongue edema 03 mg IM epi given, Solumedrol 125 mg IV and benadryl 50 mg IV given Patient refused vitals taken. WHen asked if he understood what would happen if he did not get proper medical treatment he could not tell me. WHen asked why he was here, he said I am getting an IV as it was being inserted. He clearly lacked the capacity to make decisions for his life threatening illness. Dr. Busch agreed upon evaluation as well he lacked capacity. while calling [employer], patient went out to his car and locked himself in and stated his sister was coming to get him. 911 was called 3 times. While waiting outside for him with his doors locked and window closed he began drooling and coughing while trying to sip his coffee. We attempted to give a second round of epi but he refused to lower his window. [place] and police arrived - not comfortable with taking him against his advice. While I went in to fill out the 94.5 form to allow them to take him against his advice, his sister arrived and he went with her [place] [facility]. Spoke with Dr. Miller at [facility] - discussed that I recommend a a capacity evaluation prior to allowing him to leave AMA. - Diagnoses Provider Diagnosis: Anaphylaxis Discharge ED - Sign-Out/Discharge Documenting (check all that apply): Patient Departure All imaging exams completed and their final reports reviewed: No Studies - Discharge Plan Condition: Critical Disposition: AGAINST MEDICAL ADVICE Referrals: Erwin Toro DO [Primary Care Provider] - - Billing Disposition and Condition Condition: CRITICAL Disposition: Against Medical Advice
== END 2019-11-28 15:00 | disposition left against medical advice (07) ==
LOC: UCEAST 13:59
DX: T78.2XXA Anaphylactic shock, unspecified, initial encounter (principal); K14.8 Other diseases of tongue; F17.210 Nicotine dependence, cigarettes, uncomplicated; Y92.9 Unspecified place or not applicable; T78.3XXA Angioneurotic edema, initial encounter; I10 Essential (primary) hypertension; E11.9 Type 2 diabetes mellitus without complications; J44.9 Chronic obstructive pulmonary disease, unspecified; F41.9 Anxiety disorder, unspecified; Z86.19 Personal history of other infectious and parasitic diseases; Z79.4 Long term (current) use of insulin; Z79.82 Long term (current) use of aspirin; Z79.899 Other long term (current) drug therapy; Z88.8 Allergy status to other drugs, medicaments and biological substances
CPT/HCPCS: 96372; 96374; 96375; 99215; G0463; J1200; J2930

== ENCOUNTER 2019-11-28 15:01 | Emergency (ER) | payer MEDICARE ==
--- NOTE | 2019-11-28 15:17 | ED ---
Throat Pain/Nasal Congestion - HPI Summary HPI Summary: The patient is a 73 y/o F presenting to [facility] with a cc of tongue swelling beginning around 0815 this morning. He was at Dr. Burns ophthalmology office, and he received eye drops around 0800. He then felt his tongue beginning to swell. He was advised to emergency services and went to [facility]. He was administered Epinephrine, Benadryl, Pepcid, and Solu-Medrol around 1400. He states that the medications did not help with the swelling. He was advised to come here for further treatment. He endorses dysphagia but denies any SOB or rash. He is not in any pain. 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 Was previously on Lisinopril for HTN, but the ACEI was replaced a week ago by his PCP. PMHx: diabetes, COPD, hepatitis C. Current heavy smoker, no EtOH, no substance use. Medications reviewed. Allergies noted. Home Medications Medication Instructions Recorded Confirmed Type Albuterol HFA INHALER* [Ventolin 2 puff INH Q4H PRN 11/28/19 11/28/19 History HFA Inhaler*] Albuterol HFA INHALER* [Ventolin 2 puff INH Q4H PRN 11/28/19 11/28/19 History HFA Inhaler*] Aspirin EC TAB* [Ecotrin EC Low 81 mg PO DAILY 11/28/19 11/28/19 History Dose 81 MG*] Atorvastatin* [Lipitor*] 40 mg PO DAILY 11/28/19 11/28/19 History Budesonide/Formote 160/4.5(NF) 2 puff INH BID 11/28/19 11/28/19 History [Symbicort 160/4.5 (NF)] Carvedilol TAB* [Coreg TAB*] 6.25 mg PO BID WITH MEALS 11/28/19 11/28/19 History Fluticasone NASAL SPRAY 50MCG* 2 spray BOTH NARES DAILY 11/28/19 11/28/19 History [Flonase NASAL SPRAY 50MCG*] Gabapentin CAP(*) [Neurontin 100 100 - 300 mg PO BEDTIME 11/28/19 11/28/19 History mg CAP(*)] Glipizide/Metformin 5-500 1 tab PO BID 11/28/19 11/28/19 History Insulin GLARGINE(*) [Lantus 100 10 units SUBCUT BEDTIME 11/28/19 11/28/19 History units/ml 10 ml VIAL (*)] Lisinopril/HCTZ (NF) 1 tab PO DAILY 11/28/19 11/28/19 History [Zestoretic (NF)] Oxycodone Myristate [Xtampza ER] 9 mg PO BID MDD 18 mg 11/28/19 11/28/19 History amLODIPine TAB* [Norvasc 5 mg TAB*] 10 mg PO DAILY 11/28/19 11/28/19 History guaiFENesin ER TAB [Mucinex*] 600 mg PO BID 11/28/19 11/28/19 History - History of Current Complaint Chief Complaint: EDAllergicReaction Hx Obtained From: Patient Onset/Duration: Sudden Onset, Lasting Hours, Still Present Severity: Severe Associated Signs And Symptoms: Positive: Dysphagia Cough: None Related History: Other (Noted In Comments) - previous similar hx unknown etiology - Allergies/Home Medications Allergies/Adverse Reactions: Allergies Allergy/AdvReac Type Severity Reaction Status Date / Time lisinopril Allergy Severe Swelling Verified 11/28/19 17:38 Of Face,Lips,& Throat Home Medications: Home Medications Albuterol HFA INHALER* [Ventolin HFA Inhaler*] 2 puff INH Q4H PRN 11/28/19 [ History Confirmed 11/28/19] Albuterol HFA INHALER* [Ventolin HFA Inhaler*] 2 puff INH Q4H PRN 11/28/19 [ History Confirmed 11/28/19] Aspirin EC TAB* [Ecotrin EC Low Dose 81 MG*] 81 mg PO DAILY 11/28/19 [History Confirmed 11/28/19] Atorvastatin* [Lipitor*] 40 mg PO DAILY 11/28/19 [History Confirmed 11/28/19] Budesonide/Formote 160/4.5(NF) [Symbicort 160/4.5 (NF)] 2 puff INH BID 11/28/19 [History Confirmed 11/28/19] Carvedilol TAB* [Coreg TAB*] 6.25 mg PO BID WITH MEALS 11/28/19 [History Confirmed 11/28/19] Fluticasone NASAL SPRAY 50MCG* [Flonase NASAL SPRAY 50MCG*] 2 spray BOTH NARES DAILY 11/28/19 [History Confirmed 11/28/19] Gabapentin CAP(*) [Neurontin 100 mg CAP(*)] 100 - 300 mg PO BEDTIME 11/28/19 [ History Confirmed 11/28/19] Glipizide/Metformin 5-500 1 tab PO BID 11/28/19 [History Confirmed 11/28/19] Insulin GLARGINE(*) [Lantus 100 units/ml 10 ml VIAL (*)] 10 units SUBCUT BEDTIME 11/28/19 [History Confirmed 11/28/19] Lisinopril/HCTZ (NF) [Zestoretic (NF)] 1 tab PO DAILY 11/28/19 [ History Confirmed 11/28/19] Oxycodone Myristate [Xtampza ER] 9 mg PO BID MDD 18 mg 11/28/19 [History Confirmed 11/28/19] amLODIPine TAB* [Norvasc 5 mg TAB*] 10 mg PO DAILY 11/28/19 [History Confirmed 11/28/19] guaiFENesin ER TAB [Mucinex*] 600 mg PO BID 11/28/19 [History Confirmed 11/28/19 ] PMH/Surg Hx/FS Hx/Imm Hx Endocrine/Hematology History: Reports: Hx Diabetes - type 2 Denies: Hx Thyroid Disease Cardiovascular History: Reports: Hx Hypertension - no meds Denies: Hx Pacemaker/ICD, Other Cardiovascular Problems/Disorders Respiratory History: Reports: Hx Chronic Obstructive Pulmonary Disease (COPD), Hx Pneumonia, Other Respiratory Problems/Disorders - HISTORY OF PNEUMONIA SEVERAL TIMES PER PATIENT Denies: Hx Asthma GI History: Denies: Hx Ulcer, Other GI Disorders Musculoskeletal History: Denies: Other Musculoskeletal History - CHRONIC BACK PAIN,neuropathy Sensory History: Reports: Hx Cataracts, Hx Contacts or Glasses Denies: Hx Hearing Aid Opthamlomology History: Reports: Hx Cataracts, Hx Contacts or Glasses Neurological History: Denies: Other Neuro Impairments/Disorders Psychiatric History: Reports: Hx Anxiety, Hx Suicide Attempt Denies: Hx Eating Disorder, Hx Panic Disorder, Hx of Violent Episodes Against Others - Surgical History Surgical History: Yes Surgery Procedure, Year, and Place: cataracts Hx Anesthesia Reactions: No - Immunization History Date of Tetanus Vaccine: unk Date of Influenza Vaccine: fall 2016 Infectious Disease History: No Infectious Disease History: Reports: Hx Hepatitis - Hep C, Hx Shingles - 1998 Denies: Hx Clostridium Difficile, Hx Human Immunodeficiency Virus (HIV), Hx of Known/Suspected MRSA, Hx Tuberculosis, Hx Known/Suspected VRE, Hx Known/ Suspected VRSA, History Other Infectious Disease, Traveled Outside the [place] in Last 30 Days - Family History Known Family History: Positive: Hypertension - parents, Diabetes - parents Negative: Cardiac Disease - Social History Alcohol Use: None Hx Substance Use: No Substance Use Type: Reports: None Hx Tobacco Use: Yes Smoking Status (MU): Heavy Every Day Tobacco Smoker Type: Cigarettes Amount Used/How Often: 1/2 PPD X 60+ YEARS Have You Smoked in the Last Year: Yes Review of Systems Positive: Other - swelling of the tongue, dysphagia Negative: Shortness Of Breath Negative: Rash All Other Systems Reviewed And Are Negative: Yes Physical Exam - Summary Physical Exam Summary: Constitutional: Well-developed, Well-nourished, Alert. (-) Distressed Skin: Warm, Dry HENT: Significant R greater than L tongue swelling, No uvular swelling; Atraumatic Eyes: Conjunctiva normal Neck: Musculoskeletal ROM normal neck. (-) JVD, (-) Stridor, (-) Nuchal rigidity Cardio: Rhythm regular, rate normal, Heart sounds normal; Intact distal pulses; Radial pulses are 2+ and symmetric. (-) Murmur Pulmonary/Chest wall: Effort normal. (-) Respiratory distress, (-) Wheezes, (-) Rales Abd: Soft, (-) tenderness, (-) Distension, (-) Guarding, (-) Rebound Musculoskeletal: (-) Edema Lymph: (-) Cervical adenopathy Neuro: Alert, Oriented x3 Psych: Mood and affect Normal Triage Information Reviewed: Yes Vital Signs On Initial Exam: Initial Vitals Temp Pulse Resp BP Pulse Ox 97.4 F 120 18 236/121 98 11/28/19 15:02 11/28/19 15:02 11/28/19 15:02 11/28/19 15:02 11/28/19 15:02 Vital Signs Reviewed: Yes Procedures - Sedation Patient Received Moderate/Deep Sedation with Procedure: No Diagnostics - Vital Signs Vital Signs Temp Pulse Resp BP Pulse Ox 02/25/20 15:02 97.4 F 120 18 236/121 98 - Laboratory Lab Statement: Any lab studies that have been ordered have been reviewed, and results considered in the medical decision making process. Re-Evaluation - Re-Evaluation First Eval Re-Evaluation Time: 16:15 Change: Improved - resting NAD. Second Eval Re-Evaluation Time: 17:55 Comment: Patient would like to leave AMA. Tongue swelling decreased, easy work of breathing on room air. He is AAOx4 with clear sensorium, no signs of intoxication, no SI/HI, a normal gait and normal speech pattern and capacity to refuse care. I explained to the patient the risks of leaving AMA to include worsening of symptoms, airway compromise, , disability, and loss of function. I had an extensive conversation with the patient regarding return precautions and encouraged them to return sooner for any worsening condition, new symptoms or ANY other concerns. EENT Course/Dx - Course Course Of Treatment: 73 y/o male p/w angioedema likely 2/2 to lisinopril. - PE w significant R>L tongue swelling, mild dysphagia no uvular swelling. - willing to be observed, already got epinephrine. We'll try FFP. - improved w FFP. Patient declining to stay depsite my concerns over possible airway compromise. - Diagnoses Provider Diagnoses: Angioedema - Provider Notifications Discussed Care Of Patient With: Lashell Valverde - PCP Time Discussed With Above Provider: 17:40 Instructed by Provider To: Other - I spoke with the patient's PCP's office, and left a message for Dr. Valverde, concerning stopping the Lisinopril as it is causing angioedema [1205]. Dr. Cabrera, hospitalist, aware of the patient's case for admission. She recommends ICU consult. - Critical Care Time Critical Care Time: 30-74 min - 35 minutes Discharge ED - Sign-Out/Discharge Documenting (check all that apply): Patient Departure - Patient would like to leave AMA. - Discharge Plan Condition: Stable Disposition: AGAINST MEDICAL ADVICE Patient Education Materials: Angioedema (ED) Referrals: Erwin Toro DO [Primary Care Provider] - 3 Days Additional Instructions: You were seen in the emergency department for angioedema or tongue swelling. Please do not take lisinopril. We advise that you stay for observation, you declined. Please return to the ER if you have worsening symptoms including trouble breathing, tongue swelling, trouble swallowing or feel like to be reevaluated.. Please follow up with your primary care doctor in the next 2-3 days and return to the emergency department for worsening or concerning symptoms. It was a pleasure taking care of you today. - Billing Disposition and Condition Condition: STABLE Disposition: Against Medical Advice - Attestation Statements Document Initiated by Lisa: Yes Documenting Scribe: Geeta Monet Provider For Whom Lisa is Documenting (Include Credential): Dr. Genny Miller MD Scribe Attestation: I, Geeta Monet, scribed for Dr. Genny Miller MD on 11/28/19 at 2117. Scribe Documentation Reviewed: Yes Provider Attestation: The documentation as recorded by the Geeta juarez accurately reflects the service I personally performed and the decisions made by me, Dr. Genny Miller MD Status of Scribe Document: Viewed
[2019-11-28] MEDS ORDERED: fentaNYL* 50 MCG/ML 2 ML VIAL (100 MCG VIAL) IV SLOW PU ONE (15:26)
[2019-11-28 18:06] VITALS: BP 198/125
== END 2019-11-28 18:15 | disposition left against medical advice (07) ==
LOC: ED 15:01
DX: T78.3XXA Angioneurotic edema, initial encounter (principal); I10 Essential (primary) hypertension; E11.9 Type 2 diabetes mellitus without complications; J44.9 Chronic obstructive pulmonary disease, unspecified; F41.9 Anxiety disorder, unspecified; F17.210 Nicotine dependence, cigarettes, uncomplicated; Z86.19 Personal history of other infectious and parasitic diseases; Z79.4 Long term (current) use of insulin; Z79.82 Long term (current) use of aspirin; Z79.899 Other long term (current) drug therapy; Z88.8 Allergy status to other drugs, medicaments and biological substances
CPT/HCPCS: 36415; 86850; 86900; 86901; 86927; 96374; 99283; J3010; P9017

== ENCOUNTER 2020-01-26 13:06 | Inpatient (IN) | payer MEDICARE, OTHER ==
[2020-01-26] MEDS ORDERED: Albuterol/Ipratropium NEB.SOL (2.5/0.5 MG) 3 ML NEB.SOLN INH ONE ×2 (13:13→14:01)
[2020-01-26 13:39] LABS: ABS Basophils 0.1 10^3/ul (0-0.2); ABS Eosinophils 0.2 10^3/ul (0-0.6); ABS Lymphocytes 0.8 10^3/ul (1.0-4.8); ABS Monocytes 0.8 10^3/ul (0-0.8); Eosinophil % 1.3 %; Hematocrit 40 % (42-52); Hemoglobin 13.5 g/dL (14.0-18.0); Lymphocyte % 5.1 %; Mean Corpuscular HGB Conc 34 g/dL (31-36); Mean Corpuscular Hemoglobin 28 pg (27-31); Mean Corpuscular Volume 83 fL (80-94); Mean Platelet Volume 8.1 fL (7.4-10.4); Nucleated Red Blood Cells % 0.1; Platelet Count 217 10^3/uL (150-450); Red Cell Distribution Width 15 % (10-15); White Blood Count 15.8 10^3/uL (3.5-10.8)
[2020-01-26 13:53] LABS: Activated Partial Thrombo Time 39.8 seconds (26.0-38.0); INR 1.05 (0.82-1.09)
[2020-01-26 13:57] LABS: ALT 16 U/L (7-52); AST 17 U/L (13-39); Albumin 4.7 g/dL (3.2-5.2); Albumin/Globulin Ratio 1.3 (1-3); Alkaline Phosphatase 75 U/L (34-104); Anion Gap 10 mmol/L (2-11); BUN/Creatinine Ratio 13.1 (8-20); Blood Urea Nitrogen 16 mg/dL (6-24); C Reactive Protein 7.88 mg/L (<8.01); CO2 Carbon Dioxide 24 mmol/L (22-32); Calcium 9.5 mg/dL (8.6-10.3); Chloride 100 mmol/L (101-111); Creatine Kinase 108 U/L (10-223); EGFR African American 70.7 (>60); EGFR Non-African American 58.4 (>60); Globulin 3.7 g/dL (2-4); Glucose 240 mg/dL (70-100); Potassium 3.9 mmol/L (3.5-5.0); Sodium 134 mmol/L (135-145); Total Protein 8.4 g/dL (6.4-8.9)
[2020-01-26 14:01] LABS: CKMB ng/mL 4.3 ng/mL (0.6-6.3)
[2020-01-26 14:05] LABS: Troponin I 0.03 ng/mL (<0.03)
[2020-01-26] MEDS ORDERED: Furosemide 20 mg/2 ml IV VIAL IV SLOW PU ONE (14:20)
[2020-01-26] MEDS ORDERED: cefTRIAXone ADVAN VIAL 1 GM in NS 0.9% 50 ML 50 ML IVPB ONE (14:34)
[2020-01-26] MEDS ORDERED: Azithromycin 500 mg/250 ml NS 500 MG/250 ML BAG IVPB ONE (15:45)
[2020-01-26] MEDS ORDERED: cefTRIAXone ADVAN VIAL 1 GM in NS 0.9% 50 ML 50 ML IVPB SCH (16:00)
[2020-01-26] MEDS ORDERED: Dextrose 50% Syringe 50 ml 25 GM/50 ML SYRINGE IV PUSH PRN (16:14)
[2020-01-26 16:47] LABS: Urine Appearance Cloudy; Urine Bilirubin Negative (Negative); Urine Blood 2+ (Negative); Urine Color Yellow; Urine Glucose 1+(50 mg/dL) (Negative); Urine Ketones Negative (Negative); Urine Nitrite Negative (Negative); Urine Protein 2+(100 mg/dL) (Negative); Urine Specific Gravity 1.014 (1.010-1.030); Urine Urobilinogen Negative (Negative)
[2020-01-26 17:01] LABS: Urine Bacteria Absent (Absent); Urine Granular Casts Present (Absent); Urine Red Blood Cell 2+(6-10/hpf) (Absent); Urine White Blood Cell Trace(0-5/hpf) (Absent)
[2020-01-26] MEDS: Enoxaparin 40 MG/0.4 ML SYR(*) SUBCUT SCH (17:05)
[2020-01-26] MEDS: Insulin LISPRO 100 units/ml(*) SUBCUT SCH ×2 (17:41→23:06)
[2020-01-26 17:44] LABS: Glucose 171 mg/dL (70-100)
[2020-01-26 17:49] LABS: Influenza A Molecular Negative (Negative); Influenza B Molecular Negative (Negative)
[2020-01-26 18:00] LABS: Troponin I 0.13 ng/mL (<0.03)
[2020-01-26] MEDS ORDERED: Haloperidol 5 mg/ml SDV IV/IM 5 MG/ML AMP IV SLOW PU PRN (18:18)
[2020-01-26] MEDS ORDERED: Albuterol/Ipratropium NEB.SOL (2.5/0.5 MG) 3 ML NEB.SOLN INH SCH (19:00)
[2020-01-26] MEDS: Insulin GLARGINE 100 un/ml (*) 10 ml VIAL SUBCUT SCH (22:34)
[2020-01-26] MEDS: Mometasone/Formoter 200/5 MDI INH SCH (22:54)
[2020-01-26] MEDS: Albuterol HFA INHALER 8 gm MDI INH SCH (22:59)
[2020-01-26 23:28] LABS: Troponin I 0.21 ng/mL (<0.03)
[2020-01-27 05:14] LABS: ABS Lymphocytes 0.5 10^3/ul (1.0-4.8); ABS Monocytes 0.6 10^3/ul (0-0.8); Eosinophil % 0.1 %; Hematocrit 34 % (42-52); Hemoglobin 11.4 g/dL (14.0-18.0); Lymphocyte % 4.1 %; Mean Corpuscular HGB Conc 34 g/dL (31-36); Mean Corpuscular Hemoglobin 28 pg (27-31); Mean Corpuscular Volume 83 fL (80-94); Mean Platelet Volume 8.2 fL (7.4-10.4); Platelet Count 173 10^3/uL (150-450); Red Blood Count 4.06 10^6 /uL (4.18-5.48); Red Cell Distribution Width 15 % (10-15); White Blood Count 11.1 10^3/uL (3.5-10.8)
[2020-01-27 05:38] LABS: Troponin I 0.24 ng/mL (<0.03)
[2020-01-27 05:55] LABS: Albumin/Globulin Ratio 1.4 (1-3); BUN/Creatinine Ratio 21.5 (8-20); Calcium 8.8 mg/dL (8.6-10.3); EGFR African American 62.9 (>60); Globulin 2.9 g/dL (2-4); Potassium 4.7 mmol/L (3.5-5.0); Total Bilirubin 0.4 mg/dL (0.2-1.0); Total Protein 6.9 g/dL (6.4-8.9)
[2020-01-27] MEDS: Insulin LISPRO 100 units/ml(*) SUBCUT SCH ×4 (06:33→21:10)
[2020-01-27] MEDS: SPIRIVA Respimat (tiotropium) 2.5 mcg/inh Inhaler INH SCH ×2 (06:58→07:32)
[2020-01-27] MEDS: Albuterol HFA INHALER 8 gm MDI INH SCH ×4 (06:58→19:20)
[2020-01-27] MEDS: Mometasone/Formoter 200/5 MDI INH SCH ×2 (07:31→19:23)
[2020-01-27] MEDS: Nicotine PATCH 21 MG/24 HR PATCH TRANSDERM SCH (09:08)
[2020-01-27] MEDS: Aspirin EC 81 mg TAB.EC (enteric coated) PO SCH (09:09)
[2020-01-27] MEDS: Spironolactone/HCTZ 25-25 mg PO SCH (09:10)
[2020-01-27] MEDS ORDERED: Lorazepam PYXIS KEY PRN (10:02)
[2020-01-27] MEDS ORDERED: Buprenorp/Nalox 8-2 MG SL TAB PO SCH (10:05)
[2020-01-27 10:50] LABS: Troponin I 0.24 ng/mL (<0.03)
[2020-01-27] MEDS ORDERED: Thiamine 100 MG/ML 2 ml VIAL (200 mg) IV ONE (10:51)
[2020-01-27] MEDS ORDERED: Thiamine IV 100 MG in NS 0.9% 50 ML IV ONE (12:00)
[2020-01-27] MEDS: LORazepam 2 mg VIAL 1 ml IV PUSH PRN (12:40)
[2020-01-27] MEDS: Azithromycin IV(*) 250 MG in NS 0.9% 250 ml 250 ML IVPB SCH (16:12)
[2020-01-27] MEDS: Enoxaparin 40 MG/0.4 ML SYR(*) SUBCUT SCH (16:12)
[2020-01-27] MEDS: cefTRIAXone ADVAN VIAL 1 GM in NS 0.9% 50 ML 50 ML IVPB SCH (16:12)
[2020-01-27] MEDS: Insulin GLARGINE 100 un/ml (*) 10 ml VIAL SUBCUT SCH (20:00)
[2020-01-28] MEDS: Albuterol HFA INHALER 8 gm MDI INH SCH ×5 (00:45→19:49)
[2020-01-28] MEDS: hydrALAZINE 20 mg/ml 1 ML Vial IV IV SLOW PU PRN ×2 (02:08→21:45)
[2020-01-28] MEDS: SPIRIVA Respimat (tiotropium) 2.5 mcg/inh Inhaler INH SCH (08:15)
[2020-01-28] MEDS: Mometasone/Formoter 200/5 MDI INH SCH ×2 (08:16→19:49)
[2020-01-28] MEDS: Insulin LISPRO 100 units/ml(*) SUBCUT SCH ×4 (08:48→21:48)
[2020-01-28] MEDS: Aspirin EC 81 mg TAB.EC (enteric coated) PO SCH (08:49)
[2020-01-28] MEDS: Nicotine PATCH 21 MG/24 HR PATCH TRANSDERM SCH (08:53)
[2020-01-28] MEDS: Spironolactone/HCTZ 25-25 mg PO SCH (12:14)
[2020-01-28] MEDS: cefTRIAXone ADVAN VIAL 1 GM in NS 0.9% 50 ML 50 ML IVPB SCH (14:14)
[2020-01-28] MEDS: Azithromycin IV(*) 250 MG in NS 0.9% 250 ml 250 ML IVPB SCH (15:32)
[2020-01-28] MEDS: Enoxaparin 40 MG/0.4 ML SYR(*) SUBCUT SCH (15:34)
[2020-01-28] MEDS: Insulin GLARGINE 100 un/ml (*) 10 ml VIAL SUBCUT SCH (21:48)
[2020-01-28] MEDS: LORazepam 2 mg VIAL 1 ml IV PUSH PRN (23:27)
[2020-01-29] MEDS: Albuterol HFA INHALER 8 gm MDI INH SCH ×3 (06:40→14:02)
[2020-01-29] MEDS: Aspirin EC 81 mg TAB.EC (enteric coated) PO SCH (07:36)
[2020-01-29] MEDS: Nicotine PATCH 21 MG/24 HR PATCH TRANSDERM SCH (07:40)
[2020-01-29] MEDS: Mometasone/Formoter 200/5 MDI INH SCH ×2 (07:42→19:24)
[2020-01-29] MEDS: Insulin LISPRO 100 units/ml(*) SUBCUT SCH ×4 (08:00→21:13)
[2020-01-29 08:39] LABS: Cholesterol 171 mg/dL; HDL Cholesterol 50.2 mg/dL; LDL Cholesterol 97 mg/dL; Triglycerides 118 mg/dL
[2020-01-29 08:52] LABS: Troponin I 0.09 ng/mL (<0.03)
[2020-01-29] MEDS: SPIRIVA Respimat (tiotropium) 2.5 mcg/inh Inhaler INH SCH (09:24)
[2020-01-29] MEDS ORDERED: Albuterol HFA INHALER 8 gm MDI INH PRN (14:03)
[2020-01-29] MEDS: cefTRIAXone ADVAN VIAL 1 GM in NS 0.9% 50 ML 50 ML IVPB SCH (15:27)
[2020-01-29] MEDS: Enoxaparin 40 MG/0.4 ML SYR(*) SUBCUT SCH (15:37)
[2020-01-29] MEDS: hydrALAZINE 20 mg/ml 1 ML Vial IV IV SLOW PU PRN ×2 (15:37→23:20)
[2020-01-29] MEDS: Azithromycin IV(*) 250 MG in NS 0.9% 250 ml 250 ML IVPB SCH (17:28)
[2020-01-29] MEDS: Insulin GLARGINE 100 un/ml (*) 10 ml VIAL SUBCUT SCH (21:12)
[2020-01-29] MEDS ORDERED: Albuterol 2.5mg/3 ml (0.083%) NEB.SOLN INH PRN (23:45)
[2020-01-29] MEDS: LORazepam 2 mg VIAL 1 ml IV PUSH PRN (23:54)
[2020-01-30] MEDS: SPIRIVA Respimat (tiotropium) 2.5 mcg/inh Inhaler INH SCH (07:57)
[2020-01-30] MEDS: Mometasone/Formoter 200/5 MDI INH SCH ×2 (07:57→19:42)
[2020-01-30] MEDS: Insulin LISPRO 100 units/ml(*) SUBCUT SCH ×4 (09:38→20:37)
[2020-01-30] MEDS: Nicotine PATCH 21 MG/24 HR PATCH TRANSDERM SCH (09:48)
[2020-01-30] MEDS: Aspirin EC 81 mg TAB.EC (enteric coated) PO SCH (09:50)
[2020-01-30] MEDS: LORazepam 2 mg VIAL 1 ml IV PUSH PRN (14:04)
[2020-01-30] MEDS: Enoxaparin 40 MG/0.4 ML SYR(*) SUBCUT SCH (15:26)
[2020-01-30] MEDS: cefTRIAXone ADVAN VIAL 1 GM in NS 0.9% 50 ML 50 ML IVPB SCH (15:26)
[2020-01-30] MEDS: Azithromycin IV(*) 250 MG in NS 0.9% 250 ml 250 ML IVPB SCH (16:36)
[2020-01-30] MEDS: Insulin GLARGINE 100 un/ml (*) 10 ml VIAL SUBCUT SCH (20:37)
[2020-01-30] MEDS ORDERED: LORazepam 1 mg TAB (*) PO PRN (20:42)
[2020-01-31 06:49] LABS: Hematocrit 32 % (42-52); Mean Corpuscular HGB Conc 34 g/dL (31-36); Mean Corpuscular Hemoglobin 28 pg (27-31); Mean Corpuscular Volume 83 fL (80-94); Mean Platelet Volume 9.2 fL (7.4-10.4); Platelet Count 150 10^3/uL (150-450); Red Cell Distribution Width 15 % (10-15); White Blood Count 11.5 10^3/uL (3.5-10.8)
[2020-01-31 07:03] LABS: BUN/Creatinine Ratio 22.4 (8-20); Calcium 8.5 mg/dL (8.6-10.3); EGFR African American 51.3 (>60); EGFR Non-African American 42.4 (>60); Magnesium 1.8 mg/dL (1.9-2.7)
[2020-01-31] MEDS: Insulin LISPRO 100 units/ml(*) SUBCUT SCH ×4 (08:20→21:46)
[2020-01-31] MEDS: Nicotine PATCH 21 MG/24 HR PATCH TRANSDERM SCH (08:22)
[2020-01-31] MEDS: Aspirin EC 81 mg TAB.EC (enteric coated) PO SCH (08:26)
[2020-01-31] MEDS: Mometasone/Formoter 200/5 MDI INH SCH ×2 (08:35→19:36)
[2020-01-31] MEDS: SPIRIVA Respimat (tiotropium) 2.5 mcg/inh Inhaler INH SCH (08:36)
[2020-01-31] MEDS: Enoxaparin 40 MG/0.4 ML SYR(*) SUBCUT SCH (15:33)
[2020-01-31] MEDS: cefTRIAXone ADVAN VIAL 1 GM in NS 0.9% 50 ML 50 ML IVPB SCH (15:33)
[2020-01-31] MEDS: Insulin GLARGINE 100 un/ml (*) 10 ml VIAL SUBCUT SCH (21:43)
[2020-02-01 07:06] LABS: Hematocrit 36 % (42-52); Hemoglobin 12.3 g/dL (14.0-18.0); Mean Corpuscular HGB Conc 34 g/dL (31-36); Mean Corpuscular Hemoglobin 28 pg (27-31); Mean Corpuscular Volume 83 fL (80-94); Platelet Count 189 10^3/uL (150-450); Red Blood Count 4.36 10^6 /uL (4.18-5.48); Red Cell Distribution Width 15 % (10-15); White Blood Count 12.1 10^3/uL (3.5-10.8)
[2020-02-01] MEDS: Nicotine PATCH 21 MG/24 HR PATCH TRANSDERM SCH (07:19)
[2020-02-01] MEDS: Insulin LISPRO 100 units/ml(*) SUBCUT SCH ×2 (07:20→12:31)
[2020-02-01] MEDS: Aspirin EC 81 mg TAB.EC (enteric coated) PO SCH (07:23)
[2020-02-01 07:27] LABS: BUN/Creatinine Ratio 22.4 (8-20); Calcium 8.6 mg/dL (8.6-10.3); EGFR African American 53.2 (>60); Magnesium 1.9 mg/dL (1.9-2.7); Potassium 4.4 mmol/L (3.5-5.0)
[2020-02-01] MEDS: SPIRIVA Respimat (tiotropium) 2.5 mcg/inh Inhaler INH SCH ×2 (08:30→12:08)
[2020-02-01] MEDS: Mometasone/Formoter 200/5 MDI INH SCH ×2 (08:30→12:08)
[2020-02-01] MEDS: hydrALAZINE 20 mg/ml 1 ML Vial IV IV SLOW PU PRN (12:01)
[2020-02-01 14:36] VITALS: BP 170/70
== END 2020-02-01 14:30 | disposition home or self-care (01) | DRG 190 ==
LOC: ED 13:06 → ICU 15:38 → MED 01-28 01:41 → MEDTELE 01-29 17:24 → MED 02-01 07:08
PROVIDERS: ADMIT Internal Medicine; ATTEND Family Medicine

== ENCOUNTER 2020-03-09 23:01 | Inpatient (IN) ==
[2020-03-09] MEDS ORDERED: Albuterol/Ipratropium NEB.SOL (2.5/0.5 MG) 3 ML NEB.SOLN INH ONE ×2 (23:27→23:44)
[2020-03-10 00:29] LABS: ABS Basophils 0.1 10^3/ul (0-0.2); ABS Eosinophils 0.4 10^3/ul (0-0.6); ABS Lymphocytes 1.2 10^3/ul (1.0-4.8); Eosinophil % 2.2 %; Hematocrit 40 % (42-52); Hemoglobin 13.7 g/dL (14.0-18.0); Lymphocyte % 5.8 %; Mean Corpuscular HGB Conc 34 g/dL (31-36); Mean Corpuscular Hemoglobin 29 pg (27-31); Mean Corpuscular Volume 84 fL (80-94); Mean Platelet Volume 9.1 fL (7.4-10.4); Platelet Count 167 10^3/uL (150-450); Red Blood Count 4.78 10^6 /uL (4.18-5.48); Red Cell Distribution Width 15 % (10-15); White Blood Count 20.1 10^3/uL (3.5-10.8)
[2020-03-10 00:45] LABS: ALT 22 U/L (7-52); AST 17 U/L (13-39); Albumin 4.1 g/dL (3.2-5.2); Albumin/Globulin Ratio 1.2 (1-3); Alkaline Phosphatase 99 U/L (34-104); Anion Gap 8 mmol/L (2-11); BUN/Creatinine Ratio 11.7 (8-20); Blood Urea Nitrogen 15 mg/dL (6-24); CO2 Carbon Dioxide 25 mmol/L (22-32); Calcium 8.6 mg/dL (8.6-10.3); Chloride 101 mmol/L (101-111); EGFR African American 66.8 (>60); EGFR Non-African American 55.2 (>60); Globulin 3.4 g/dL (2-4); Glucose 183 mg/dL (70-100); Sodium 134 mmol/L (135-145); Total Protein 7.5 g/dL (6.4-8.9)
[2020-03-10] MEDS ORDERED: Albuterol/Ipratropium NEB.SOL (2.5/0.5 MG) 3 ML NEB.SOLN INH ONE (00:50)
[2020-03-10] MEDS ORDERED: methylPREDNISolone 125 mg 2 ML VIAL IV ONE (00:50)
[2020-03-10] MEDS ORDERED: Piperacillin/Tazobac ADVAN(*) 3.375 GM in NS 0.9% 100 ml BAG 100 ML IVPB ONE ×2 (00:52→02:59)
[2020-03-10 00:53] LABS: Troponin I 0.04 ng/mL (<0.03)
[2020-03-10 00:54] LABS: INR 1.01 (0.82-1.09)
[2020-03-10] MEDS ORDERED: Furosemide 40 mg/4 ml IV VIAL IV SLOW PU ONE (00:56)
[2020-03-10] MEDS ORDERED: oxyCODONE/Acetamin 5/325 mg TAB PO PRN (02:00)
[2020-03-10] MEDS ORDERED: Enoxaparin 40 MG/0.4 ML SYR(*) SUBCUT SCH (02:00)
[2020-03-10] MEDS ORDERED: Dextrose 50% Syringe 50 ml 25 GM/50 ML SYRINGE IV PUSH PRN (02:09)
[2020-03-10] MEDS ORDERED: Albuterol 2.5mg/3 ml (0.083%) NEB.SOLN INH PRN (02:10)
[2020-03-10] MEDS ORDERED: Zosyn per Pharmacy NOTE FOLLOW UP SCH (03:00)
[2020-03-10] MEDS ORDERED: ZOSYN 3.375 GM Q8H per EXTENDED INFUSION IV SCH (05:00)
[2020-03-10] MEDS ORDERED: Insulin LISPRO 100 units/ml(*) SUBCUT SCH (07:30)
[2020-03-10] MEDS ORDERED: Aspirin EC 81 mg TAB.EC (enteric coated) PO SCH (09:00)
[2020-03-10] MEDS ORDERED: Mometasone/Formoter 200/5 MDI INH SCH (09:00)
[2020-03-10 09:24] VITALS: BP 148/103
[2020-03-10] MEDS ORDERED: Insulin GLARGINE 100 un/ml (*) 10 ml VIAL SUBCUT SCH (21:00)
== END 2020-03-10 10:02 | disposition left against medical advice (07) | DRG 189 ==
LOC: ED 23:01 → ICU 03-10 01:56
PROVIDERS: ADMIT Nurse Practitioner Family; ATTEND Hospitalist

== ENCOUNTER 2020-05-09 06:20 | Inpatient (IN) ==
[2020-05-09] MEDS ORDERED: Albuterol 0.5% CONC NEB.SOL 5 mg/ml 20 ml BOT INH ONE (06:24)
[2020-05-09] MEDS ORDERED: Albuterol 0.5% CONC NEB.SOL 5 mg/ml 20 ml BOT ONE (06:25)
[2020-05-09 07:04] LABS: ABS Basophils 0.1 10^3/ul (0-0.2); ABS Lymphocytes 0.7 10^3/ul (1.0-4.8); ABS Monocytes 1.3 10^3/ul (0-0.8); ABS Neutrophils 18.1 10^3/ul (1.5-7.7); Eosinophil % 0.2 %; Hematocrit 36 % (42-52); Hemoglobin 12.5 g/dL (14.0-18.0); Lymphocyte % 3.4 %; Mean Corpuscular HGB Conc 35 g/dL (31-36); Mean Corpuscular Hemoglobin 29 pg (27-31); Mean Corpuscular Volume 84 fL (80-94); Platelet Count 205 10^3/uL (150-450); Red Blood Count 4.26 10^6 /uL (4.18-5.48); Red Cell Distribution Width 14 % (10-15); White Blood Count 20.2 10^3/uL (3.5-10.8)
[2020-05-09 07:28] LABS: Albumin 3.9 g/dL (3.2-5.2); Albumin/Globulin Ratio 1.2 (1-3); BUN/Creatinine Ratio 21.1 (8-20); Calcium 8.9 mg/dL (8.6-10.3); EGFR African American 54.8 (>60); EGFR Non-African American 45.3 (>60); Globulin 3.2 g/dL (2-4); Potassium 4.4 mmol/L (3.5-5.0); Total Bilirubin 0.4 mg/dL (0.2-1.0); Total Protein 7.1 g/dL (6.4-8.9)
[2020-05-09] MEDS ORDERED: cefTRIAXone 1 gm/50 mL NS BAG 1 GM/50 ML BAG IV ONE (07:29)
[2020-05-09 07:30] LABS: Troponin I 0.02 ng/mL (<0.03)
[2020-05-09] MEDS ORDERED: Azithromycin 500 mg/250 ml NS 500 MG/250 ML BAG IVPB ONE (07:30)
[2020-05-09] MEDS ORDERED: NS 0.9% 1000 ml BAG 1,000 ML IV ONE (09:04)
[2020-05-09] MEDS ORDERED: Albuterol/Ipratropium NEB.SOL (2.5/0.5 MG) 3 ML NEB.SOLN INH ONE (09:06)
[2020-05-09] MEDS ORDERED: Ondansetron 4 mg VIAL 2 MG/ML 2 ml VIAL IV PRN (09:43)
[2020-05-09] MEDS ORDERED: Furosemide 20 mg/2 ml IV VIAL IV ONE (09:59)
[2020-05-09] MEDS ORDERED: NS 0.9% 1000 ml BAG 2,180 ML IV ONE (11:15)
[2020-05-09] MEDS: SPIRIVA Respimat (tiotropium) 2.5 mcg/inh Inhaler INH SCH (12:07)
[2020-05-09] MEDS: Enoxaparin 40 MG/0.4 ML SYR SUBCUT SCH (12:28)
[2020-05-09] MEDS: Aspirin EC 81 mg TAB.EC (enteric coated) PO SCH (12:28)
[2020-05-09] MEDS: oxyCODONE/Acetamin 5/325 mg TAB PO PRN ×2 (12:29→20:55)
[2020-05-09] MEDS: Fluticasone NASAL SPRAY 50MCG 16 gm SPRAY BTL INTRANASAL SCH (12:29)
[2020-05-09] MEDS: Nicotine PATCH 21 MG/24 HR PATCH TRANSDERM SCH (12:30)
[2020-05-09] MEDS: Albuterol HFA INHALER 8 gm MDI INH PRN ×2 (15:51→20:25)
[2020-05-09] MEDS: Prochlorperazine 5 mg/ml 2 ml VIAL (10 mg) IV PRN (17:37)
[2020-05-09] MEDS: Mometasone/Formoter 200/5 MDI INH SCH (19:20)
[2020-05-09] MEDS: Insulin GLARGINE 100 un/ml 10 ml VIAL SUBCUT SCH (20:53)
[2020-05-10] MEDS: oxyCODONE/Acetamin 5/325 mg TAB PO PRN ×3 (04:42→20:58)
[2020-05-10 05:59] LABS: ABS Basophils 0.1 10^3/ul (0-0.2); ABS Eosinophils 0.2 10^3/ul (0-0.6); ABS Monocytes 1.5 10^3/ul (0-0.8); Eosinophil % 1.4 %; Hematocrit 31 % (42-52); Hemoglobin 10.5 g/dL (14.0-18.0); Lymphocyte % 6.7 %; Mean Corpuscular HGB Conc 34 g/dL (31-36); Mean Corpuscular Hemoglobin 28 pg (27-31); Mean Corpuscular Volume 84 fL (80-94); Mean Platelet Volume 8.9 fL (7.4-10.4); Platelet Count 150 10^3/uL (150-450); Red Blood Count 3.69 10^6 /uL (4.18-5.48); Red Cell Distribution Width 15 % (10-15); White Blood Count 14.9 10^3/uL (3.5-10.8)
[2020-05-10 06:16] LABS: Calcium 8.7 mg/dL (8.6-10.3); Potassium 3.9 mmol/L (3.5-5.0)
[2020-05-10 06:21] LABS: BUN/Creatinine Ratio 21.4 (8-20); EGFR African American 60.3 (>60); EGFR Non-African American 49.8 (>60)
[2020-05-10] MEDS: Mometasone/Formoter 200/5 MDI INH SCH ×2 (07:30→19:41)
[2020-05-10] MEDS: SPIRIVA Respimat (tiotropium) 2.5 mcg/inh Inhaler INH SCH (07:30)
[2020-05-10] MEDS: Azithromycin 500 mg/250 ml NS 500 MG/250 ML BAG IVPB SCH (09:21)
[2020-05-10] MEDS: Enoxaparin 40 MG/0.4 ML SYR SUBCUT SCH (09:28)
[2020-05-10] MEDS: Fluticasone NASAL SPRAY 50MCG 16 gm SPRAY BTL INTRANASAL SCH (09:28)
[2020-05-10] MEDS: Nicotine PATCH 21 MG/24 HR PATCH TRANSDERM SCH (09:28)
[2020-05-10] MEDS: Aspirin EC 81 mg TAB.EC (enteric coated) PO SCH (09:29)
[2020-05-10] MEDS: cefTRIAXone 1 gm/50 mL NS BAG 1 GM/50 ML BAG IVPB SCH (10:32)
[2020-05-10] MEDS: Albuterol HFA INHALER 8 gm MDI INH PRN (19:43)
[2020-05-10] MEDS: Prochlorperazine 5 mg/ml 2 ml VIAL (10 mg) IV PRN (20:53)
[2020-05-10] MEDS: Insulin GLARGINE 100 un/ml 10 ml VIAL SUBCUT SCH (20:55)
[2020-05-11] MEDS: Ondansetron 4 mg VIAL 2 MG/ML 2 ml VIAL IV PRN ×2 (02:42→21:16)
[2020-05-11 06:33] LABS: ABS Basophils 0.1 10^3/ul (0-0.2); ABS Eosinophils 0.5 10^3/ul (0-0.6); ABS Lymphocytes 1.5 10^3/ul (1.0-4.8); ABS Monocytes 1.1 10^3/ul (0-0.8); ABS Neutrophils 6.2 10^3/ul (1.5-7.7); Eosinophil % 5.4 %; Hematocrit 27 % (42-52); Hemoglobin 9.9 g/dL (14.0-18.0); Lymphocyte % 15.9 %; Mean Corpuscular HGB Conc 36 g/dL (31-36); Mean Corpuscular Hemoglobin 30 pg (27-31); Mean Corpuscular Volume 84 fL (80-94); Mean Platelet Volume 8.9 fL (7.4-10.4); Platelet Count 119 10^3/uL (150-450); Red Blood Count 3.28 10^6 /uL (4.18-5.48); Red Cell Distribution Width 14 % (10-15); White Blood Count 9.4 10^3/uL (3.5-10.8)
[2020-05-11 06:46] LABS: BUN/Creatinine Ratio 20.9 (8-20); Calcium 8.4 mg/dL (8.6-10.3); EGFR African American 60.8 (>60); EGFR Non-African American 50.2 (>60); Potassium 3.9 mmol/L (3.5-5.0)
[2020-05-11] MEDS: Albuterol HFA INHALER 8 gm MDI INH PRN ×2 (07:44→20:04)
[2020-05-11] MEDS: Mometasone/Formoter 200/5 MDI INH SCH ×2 (07:44→20:04)
[2020-05-11] MEDS: SPIRIVA Respimat (tiotropium) 2.5 mcg/inh Inhaler INH SCH (07:45)
[2020-05-11] MEDS: oxyCODONE/Acetamin 5/325 mg TAB PO PRN ×3 (07:56→21:20)
[2020-05-11] MEDS: Aspirin EC 81 mg TAB.EC (enteric coated) PO SCH (07:56)
[2020-05-11] MEDS: Nicotine PATCH 21 MG/24 HR PATCH TRANSDERM SCH (07:57)
[2020-05-11] MEDS: cefTRIAXone 1 gm/50 mL NS BAG 1 GM/50 ML BAG IVPB SCH (07:58)
[2020-05-11] MEDS: Azithromycin 500 mg/250 ml NS 500 MG/250 ML BAG IVPB SCH (09:03)
[2020-05-11] MEDS: Fluticasone NASAL SPRAY 50MCG 16 gm SPRAY BTL INTRANASAL SCH (09:03)
[2020-05-11] MEDS ORDERED: Furosemide 20 mg/2 ml IV VIAL IV ONE (09:41)
[2020-05-11] MEDS: Enoxaparin 40 MG/0.4 ML SYR SUBCUT SCH (10:22)
[2020-05-11] MEDS: Insulin GLARGINE 100 un/ml 10 ml VIAL SUBCUT SCH (21:41)
[2020-05-12] MEDS: Albuterol HFA INHALER 8 gm MDI INH PRN (02:48)
[2020-05-12] MEDS: Prochlorperazine 5 mg/ml 2 ml VIAL (10 mg) IV PRN (05:08)
[2020-05-12] MEDS: oxyCODONE/Acetamin 5/325 mg TAB PO PRN ×2 (05:08→12:46)
[2020-05-12 06:17] LABS: ABS Basophils 0.1 10^3/ul (0-0.2); ABS Eosinophils 0.5 10^3/ul (0-0.6); ABS Lymphocytes 1.2 10^3/ul (1.0-4.8); ABS Monocytes 0.8 10^3/ul (0-0.8); ABS Neutrophils 6.7 10^3/ul (1.5-7.7); Eosinophil % 5.8 %; Hematocrit 28 % (42-52); Hemoglobin 10.1 g/dL (14.0-18.0); Lymphocyte % 13.1 %; Mean Corpuscular HGB Conc 36 g/dL (31-36); Mean Corpuscular Hemoglobin 30 pg (27-31); Mean Corpuscular Volume 83 fL (80-94); Mean Platelet Volume 8.8 fL (7.4-10.4); Platelet Count 134 10^3/uL (150-450); Red Blood Count 3.37 10^6 /uL (4.18-5.48); Red Cell Distribution Width 14 % (10-15); White Blood Count 9.4 10^3/uL (3.5-10.8)
[2020-05-12 06:33] LABS: BUN/Creatinine Ratio 20.8 (8-20); Calcium 8.5 mg/dL (8.6-10.3); EGFR Non-African American 44.6 (>60); Potassium 4.1 mmol/L (3.5-5.0)
[2020-05-12] MEDS: SPIRIVA Respimat (tiotropium) 2.5 mcg/inh Inhaler INH SCH (07:39)
[2020-05-12] MEDS: Mometasone/Formoter 200/5 MDI INH SCH (07:39)
[2020-05-12] MEDS: Aspirin EC 81 mg TAB.EC (enteric coated) PO SCH (09:08)
[2020-05-12] MEDS: Enoxaparin 40 MG/0.4 ML SYR SUBCUT SCH (09:08)
[2020-05-12] MEDS: Nicotine PATCH 21 MG/24 HR PATCH TRANSDERM SCH (09:11)
[2020-05-12] MEDS: Fluticasone NASAL SPRAY 50MCG 16 gm SPRAY BTL INTRANASAL SCH (09:19)
[2020-05-12] MEDS: cefTRIAXone 1 gm/50 mL NS BAG 1 GM/50 ML BAG IVPB SCH (09:19)
[2020-05-12] MEDS: Azithromycin 500 mg/250 ml NS 500 MG/250 ML BAG IVPB SCH (10:10)
[2020-05-12 10:55] VITALS: BP 142/48
[2020-05-12] MEDS ORDERED: Magnesium Hydroxide LIQ 30 ML UDC PO PRN (12:13)
[2020-05-12] MEDS: Ondansetron 4 mg VIAL 2 MG/ML 2 ml VIAL IV PRN (12:47)
== END 2020-05-12 14:15 | disposition home or self-care (01) | DRG 871 ==
LOC: ED 06:20 → MED 06:20
PROVIDERS: ADMIT Internal Medicine; ATTEND Internal Medicine

== ENCOUNTER 2020-05-27 04:55 | Inpatient (IN) ==
[2020-05-27] MEDS ORDERED: Albuterol 0.5% CONC NEB.SOL 5 mg/ml 20 ml BOT INH ONE (05:02)
[2020-05-27] MEDS ORDERED: methylPREDNISolone 125 mg 2 ML VIAL IV ONE (05:04)
[2020-05-27 05:49] LABS: ABS Basophils 0.1 10^3/ul (0-0.2); ABS Eosinophils 0.4 10^3/ul (0-0.6); ABS Lymphocytes 2.3 10^3/ul (1.0-4.8); ABS Monocytes 1.5 10^3/ul (0-0.8); ABS Neutrophils 10.2 10^3/ul (1.5-7.7); Eosinophil % 3.1 %; Hematocrit 33 % (42-52); Hemoglobin 11.3 g/dL (14.0-18.0); Lymphocyte % 15.5 %; Mean Corpuscular HGB Conc 34 g/dL (31-36); Mean Corpuscular Hemoglobin 29 pg (27-31); Mean Corpuscular Volume 84 fL (80-94); Nucleated Red Blood Cells % 0.1; Platelet Count 201 10^3/uL (150-450); Red Blood Count 3.89 10^6 /uL (4.18-5.48); Red Cell Distribution Width 14 % (10-15); White Blood Count 14.5 10^3/uL (3.5-10.8)
[2020-05-27] MEDS ORDERED: Furosemide 40 mg/4 ml IV VIAL IV SLOW PU ONE (05:54)
[2020-05-27 06:08] LABS: ALT 24 U/L (7-52); AST 17 U/L (13-39); Albumin/Globulin Ratio 1.1 (1-3); Alkaline Phosphatase 96 U/L (34-104); Anion Gap 11 mmol/L (2-11); BUN/Creatinine Ratio 16.4 (8-20); Blood Urea Nitrogen 25 mg/dL (6-24); CO2 Carbon Dioxide 22 mmol/L (22-32); Calcium 9.2 mg/dL (8.6-10.3); Chloride 96 mmol/L (101-111); EGFR African American 54.8 (>60); EGFR Non-African American 45.3 (>60); Globulin 3.5 g/dL (2-4); Glucose 271 mg/dL (70-100); Potassium 3.9 mmol/L (3.5-5.0); Sodium 129 mmol/L (135-145); Total Protein 7.5 g/dL (6.4-8.9)
[2020-05-27 06:15] LABS: Troponin I 0.03 ng/mL (<0.03)
[2020-05-27] MEDS ORDERED: Furosemide 40 mg/4 ml IV VIAL IV ONE (08:41)
[2020-05-27] MEDS ORDERED: Albuterol 2.5mg/3 ml (0.083%) NEB.SOLN INH PRN (08:43)
[2020-05-27] MEDS ORDERED: Dextrose 50% Syringe 50 ml 25 GM/50 ML SYRINGE IV PUSH PRN (08:45)
[2020-05-27 10:07] LABS: Troponin I 0.08 ng/mL (<0.03)
[2020-05-27] MEDS: Nicotine PATCH 21 MG/24 HR PATCH TRANSDERM SCH (10:13)
[2020-05-27] MEDS: oxyCODONE/Acetamin 5/325 mg TAB PO PRN ×2 (10:13→19:29)
[2020-05-27] MEDS: Aspirin EC 81 mg TAB.EC (enteric coated) PO SCH (10:14)
[2020-05-27] MEDS: Mometasone/Formoter 200/5 MDI INH SCH ×2 (11:30→19:34)
[2020-05-27] MEDS: SPIRIVA Respimat (tiotropium) 2.5 mcg/inh Inhaler INH SCH (11:32)
[2020-05-27] MEDS: Fluticasone NASAL SPRAY 50MCG 16 gm SPRAY BTL INTRANASAL SCH (12:02)
[2020-05-27 12:32] LABS: Troponin I 0.08 ng/mL (<0.03)
[2020-05-27] MEDS ORDERED: NS 0.9% 1000 ml BAG 1,000 ML IV SCH (13:45)
[2020-05-27] MEDS ORDERED: Insulin Infusion 100unit/100mL 100 UNIT/100 ML BAG IV SCH ×2 (14:00→22:00)
[2020-05-27] MEDS: Heparin 5000 UNITS/ML 1 mL VIAL SUBCUT SCH ×2 (15:19→21:34)
[2020-05-27 15:20] LABS: Troponin I 0.09 ng/mL (<0.03)
[2020-05-27 15:25] LABS: Anion Gap 11 mmol/L (2-11); BUN/Creatinine Ratio 21.8 (8-20); Blood Urea Nitrogen 39 mg/dL (6-24); CO2 Carbon Dioxide 22 mmol/L (22-32); Calcium 8.9 mg/dL (8.6-10.3); Chloride 91 mmol/L (101-111); EGFR African American 45.4 (>60); EGFR Non-African American 37.5 (>60); Sodium 124 mmol/L (135-145)
[2020-05-27 15:30] LABS: Glucose 573 mg/dL (70-100)
[2020-05-27] MEDS ORDERED: Insulin GLARGINE 100 un/ml 10 ml VIAL SUBCUT ONE (15:32)
[2020-05-27 19:54] LABS: Troponin I 0.07 ng/mL (<0.03)
[2020-05-27] MEDS ORDERED: Insulin GLARGINE 100 un/ml 10 ml VIAL SUBCUT SCH (21:00)
[2020-05-27] MEDS ORDERED: methylPREDNISolone SOD 40 mg/ml 1 ml VIAL IV SCH (21:00)
[2020-05-27] MEDS: Al Hydrox/Mg Hydrox/Simet LIQ 30 ML UDC PO PRN (21:29)
[2020-05-28] MEDS ORDERED: Dextrose 50% Syringe 50 ml 25 GM/50 ML SYRINGE IV PUSH PRN ×2 (00:24→00:25)
[2020-05-28] MEDS: Al Hydrox/Mg Hydrox/Simet LIQ 30 ML UDC PO PRN ×3 (01:48→16:09)
[2020-05-28] MEDS: Heparin 5000 UNITS/ML 1 mL VIAL SUBCUT SCH ×3 (05:06→20:54)
[2020-05-28] MEDS: oxyCODONE/Acetamin 5/325 mg TAB PO PRN ×3 (05:10→21:14)
[2020-05-28 05:26] LABS: ABS Lymphocytes 0.4 10^3/ul (1.0-4.8); ABS Monocytes 0.9 10^3/ul (0-0.8); ABS Neutrophils 17.8 10^3/ul (1.5-7.7); Eosinophil % 0.1 %; Hematocrit 28 % (42-52); Hemoglobin 9.6 g/dL (14.0-18.0); Lymphocyte % 2.2 %; Mean Corpuscular HGB Conc 34 g/dL (31-36); Mean Corpuscular Hemoglobin 29 pg (27-31); Mean Corpuscular Volume 84 fL (80-94); Mean Platelet Volume 9.8 fL (7.4-10.4); Platelet Count 152 10^3/uL (150-450); Red Blood Count 3.32 10^6 /uL (4.18-5.48); Red Cell Distribution Width 15 % (10-15); White Blood Count 19.2 10^3/uL (3.5-10.8)
[2020-05-28 05:32] LABS: Magnesium 1.7 mg/dL (1.9-2.7); Potassium 4.7 mmol/L (3.5-5.0)
[2020-05-28 05:37] LABS: EGFR African American 55.7 (>60)
[2020-05-28] MEDS ORDERED: Magnesium Sulfate 2 gm BAG 2 GM/50 ML BAG IVPB ONE (07:17)
[2020-05-28] MEDS: Nicotine PATCH 21 MG/24 HR PATCH TRANSDERM SCH (08:11)
[2020-05-28] MEDS: Aspirin EC 81 mg TAB.EC (enteric coated) PO SCH (08:11)
[2020-05-28] MEDS: Insulin GLARGINE 100 un/ml 10 ml VIAL SUBCUT SCH (09:03)
[2020-05-28] MEDS: SPIRIVA Respimat (tiotropium) 2.5 mcg/inh Inhaler INH SCH (09:31)
[2020-05-28] MEDS: Mometasone/Formoter 200/5 MDI INH SCH ×2 (09:33→19:19)
[2020-05-28] MEDS ORDERED: Furosemide 40 mg/4 ml IV VIAL IV ONE (10:30)
[2020-05-28] MEDS: Fluticasone NASAL SPRAY 50MCG 16 gm SPRAY BTL INTRANASAL SCH (11:51)
[2020-05-28 14:10] LABS: Albumin 3.6 g/dL (3.2-5.2)
[2020-05-29] MEDS ORDERED: Dextrose 50% Syringe 50 ml 25 GM/50 ML SYRINGE IV PUSH PRN (00:18)
[2020-05-29] MEDS: oxyCODONE/Acetamin 5/325 mg TAB PO PRN ×3 (05:08→21:50)
[2020-05-29] MEDS: Heparin 5000 UNITS/ML 1 mL VIAL SUBCUT SCH ×3 (05:08→21:53)
[2020-05-29 07:37] LABS: Hematocrit 26 % (42-52); Mean Corpuscular HGB Conc 35 g/dL (31-36); Mean Corpuscular Hemoglobin 29 pg (27-31); Mean Corpuscular Volume 83 fL (80-94); Mean Platelet Volume 9.6 fL (7.4-10.4); Platelet Count 178 10^3/uL (150-450); Red Blood Count 3.08 10^6 /uL (4.18-5.48); Red Cell Distribution Width 14 % (10-15)
[2020-05-29 07:54] LABS: BUN/Creatinine Ratio 30.8 (8-20); Calcium 9.2 mg/dL (8.6-10.3); EGFR African American 47.5 (>60); EGFR Non-African American 39.3 (>60); Potassium 4.9 mmol/L (3.5-5.0)
[2020-05-29] MEDS: SPIRIVA Respimat (tiotropium) 2.5 mcg/inh Inhaler INH SCH (08:38)
[2020-05-29] MEDS: Mometasone/Formoter 200/5 MDI INH SCH ×2 (08:38→21:58)
[2020-05-29 08:51] LABS: ABS Lymphocytes 1.2 10^3/ul (1.0-4.8); ABS Monocytes 1.7 10^3/ul (0-0.8); Eosinophil % 0.2 %; Lymphocyte % 5.5 %
[2020-05-29] MEDS: Nicotine PATCH 21 MG/24 HR PATCH TRANSDERM SCH (08:51)
[2020-05-29] MEDS: Aspirin EC 81 mg TAB.EC (enteric coated) PO SCH (08:51)
[2020-05-29] MEDS: Fluticasone NASAL SPRAY 50MCG 16 gm SPRAY BTL INTRANASAL SCH (08:52)
[2020-05-29] MEDS: Insulin GLARGINE 100 un/ml 10 ml VIAL SUBCUT SCH ×2 (09:18→09:56)
[2020-05-30] MEDS: oxyCODONE/Acetamin 5/325 mg TAB PO PRN ×3 (04:59→21:17)
[2020-05-30] MEDS: Heparin 5000 UNITS/ML 1 mL VIAL SUBCUT SCH ×3 (05:00→20:35)
[2020-05-30] MEDS: SPIRIVA Respimat (tiotropium) 2.5 mcg/inh Inhaler INH SCH (07:24)
[2020-05-30] MEDS: Mometasone/Formoter 200/5 MDI INH SCH ×2 (07:25→19:58)
[2020-05-30] MEDS: Aspirin EC 81 mg TAB.EC (enteric coated) PO SCH (07:56)
[2020-05-30] MEDS: Insulin GLARGINE 100 un/ml 10 ml VIAL SUBCUT SCH (07:58)
[2020-05-30] MEDS: Nicotine PATCH 21 MG/24 HR PATCH TRANSDERM SCH (07:58)
[2020-05-30] MEDS: Fluticasone NASAL SPRAY 50MCG 16 gm SPRAY BTL INTRANASAL SCH (08:02)
[2020-05-30] MEDS ORDERED: Furosemide 20 mg/2 ml IV VIAL IV ONE (09:11)
[2020-05-31] MEDS: Heparin 5000 UNITS/ML 1 mL VIAL SUBCUT SCH (05:43)
[2020-05-31] MEDS: SPIRIVA Respimat (tiotropium) 2.5 mcg/inh Inhaler INH SCH (07:17)
[2020-05-31] MEDS: Mometasone/Formoter 200/5 MDI INH SCH (07:17)
[2020-05-31] MEDS: Insulin GLARGINE 100 un/ml 10 ml VIAL SUBCUT SCH (09:16)
[2020-05-31] MEDS: Aspirin EC 81 mg TAB.EC (enteric coated) PO SCH (09:18)
[2020-05-31] MEDS: oxyCODONE/Acetamin 5/325 mg TAB PO PRN (09:18)
[2020-05-31] MEDS: Fluticasone NASAL SPRAY 50MCG 16 gm SPRAY BTL INTRANASAL SCH (09:19)
[2020-05-31] MEDS: Nicotine PATCH 21 MG/24 HR PATCH TRANSDERM SCH (09:22)
[2020-05-31 10:49] VITALS: BP 166/60
== END 2020-05-31 11:00 | disposition home or self-care (01) | DRG 291 ==
LOC: ED 04:55 → MEDTELE 08:35 → ICU 13:36 → MED 05-29 12:11
PROVIDERS: ADMIT Internal Medicine; ATTEND Student in an Organized Health Care Education/Training Program

== ENCOUNTER 2020-11-30 09:15 | Inpatient (IN) ==
[2020-11-30] MEDS ORDERED: Albuterol/Ipratropium NEB.SOL (2.5/0.5 MG) 3 ML NEB.SOLN INH ONE (09:29)
[2020-11-30 09:44] LABS: ABS Basophils 0.2 10^3/ul (0-0.2); ABS Eosinophils 0.3 10^3/ul (0-0.6); ABS Lymphocytes 0.8 10^3/ul (1.0-4.8); ABS Monocytes 1.2 10^3/ul (0-0.8); ABS Neutrophils 17.7 10^3/ul (1.5-7.7); Eosinophil % 1.6 %; Hematocrit 30 % (42-52); Hemoglobin 10.1 g/dL (14.0-18.0); Mean Corpuscular HGB Conc 33 g/dL (31-36); Mean Corpuscular Hemoglobin 28 pg (27-31); Mean Corpuscular Volume 84 fL (80-94); Mean Platelet Volume 8.3 fL (7.4-10.4); Platelet Count 276 10^3/uL (150-450); Red Blood Count 3.61 10^6 /uL (4.18-5.48); Red Cell Distribution Width 14 % (10-15); White Blood Count 20.2 10^3/uL (3.5-10.8)
[2020-11-30] MEDS ORDERED: LORazepam 2 mg VIAL 1 ml IV ONE (10:07)
[2020-11-30] MEDS ORDERED: Lorazepam PYXIS KEY PRN (10:07)
[2020-11-30 10:08] LABS: Albumin 4.2 g/dL (3.2-5.2); Albumin/Globulin Ratio 1.4 (1-3); BUN/Creatinine Ratio 15.7 (8-20); C Reactive Protein 4.27 mg/L (<8.01); Calcium 8.8 mg/dL (8.6-10.3); Globulin 3.1 g/dL (2-4); Potassium 4.1 mmol/L (3.5-5.0); Total Bilirubin 0.6 mg/dL (0.2-1.0); Total Protein 7.3 g/dL (6.4-8.9)
[2020-11-30 10:11] LABS: Troponin I 0.02 ng/mL (<0.03)
[2020-11-30 10:12] LABS: Influenza A Molecular Negative (Negative); Influenza B Molecular Negative (Negative)
[2020-11-30] MEDS ORDERED: Cefepime 2 GM in NS 0.9% 50 ML 50 ML IVPB ONE (10:12)
[2020-11-30] MEDS ORDERED: NS 0.9% 1000 ml BAG 2,000 ML IV ONE (10:12)
[2020-11-30 10:17] LABS: INR 1.18 (0.82-1.09)
[2020-11-30] MEDS ORDERED: Lorazepam PYXIS KEY ONE (10:27)
[2020-11-30] MEDS ORDERED: Furosemide 40 mg/4 ml IV VIAL IV SLOW PU ONE (10:54)
[2020-11-30] MEDS ORDERED: Cefepime 2 GM IV - ED ONCE IV ONE (11:00)
[2020-11-30] MEDS ORDERED: Dextrose 50% Syringe 50 ml 25 GM/50 ML SYRINGE IV PUSH PRN (14:01)
[2020-11-30] MEDS: Hydrocortisone INJ 100 MG/2ML 2 ML VIAL IV SCH (14:18)
[2020-11-30] MEDS: Insulin GLARGINE 100 un/ml 10 ml VIAL SUBCUT SCH (21:30)
[2020-11-30] MEDS: Heparin 5000 UNITS/ML 1 mL VIAL SUBCUT SCH (21:30)
[2020-12-01] MEDS ORDERED: Saline NASAL SPRAY 0.65% BTL BOTH NARES PRN (00:25)
[2020-12-01] MEDS: Ondansetron 4 mg VIAL 2 MG/ML 2 ml VIAL IV PRN ×2 (02:51→10:46)
[2020-12-01] MEDS: Hydrocortisone INJ 100 MG/2ML 2 ML VIAL IV SCH ×2 (02:52→12:41)
[2020-12-01 06:13] LABS: ABS Lymphocytes 0.5 10^3/ul (1.0-4.8); ABS Monocytes 1.2 10^3/ul (0-0.8); ABS Neutrophils 15.2 10^3/ul (1.5-7.7); Eosinophil % 0.1 %; Hematocrit 25 % (42-52); Hemoglobin 8.3 g/dL (14.0-18.0); Lymphocyte % 2.9 %; Mean Corpuscular HGB Conc 34 g/dL (31-36); Mean Corpuscular Hemoglobin 28 pg (27-31); Mean Corpuscular Volume 84 fL (80-94); Mean Platelet Volume 8.1 fL (7.4-10.4); Platelet Count 174 10^3/uL (150-450); Red Blood Count 2.96 10^6 /uL (4.18-5.48); Red Cell Distribution Width 14 % (10-15); White Blood Count 16.9 10^3/uL (3.5-10.8)
[2020-12-01 06:36] LABS: Calcium 8.7 mg/dL (8.6-10.3); EGFR African American 41.1 (>60); Potassium 4.8 mmol/L (3.5-5.0)
[2020-12-01] MEDS: Nicotine PATCH 21 MG/24 HR PATCH TRANSDERM SCH (08:28)
[2020-12-01] MEDS: Aspirin EC 81 mg TAB.EC (enteric coated) PO SCH (08:29)
[2020-12-01] MEDS: Heparin 5000 UNITS/ML 1 mL VIAL SUBCUT SCH ×2 (08:29→22:13)
[2020-12-01] MEDS ORDERED: Furosemide 40 mg/4 ml IV VIAL IV SLOW PU ONE (14:25)
[2020-12-01] MEDS: Insulin GLARGINE 100 un/ml 10 ml VIAL SUBCUT SCH (22:12)
[2020-12-02] MEDS: Hydrocortisone INJ 100 MG/2ML 2 ML VIAL IV SCH ×2 (02:05→15:15)
[2020-12-02 07:40] LABS: BUN/Creatinine Ratio 22.9 (8-20); Calcium 8.4 mg/dL (8.6-10.3); EGFR African American 33.8 (>60); Potassium 4.9 mmol/L (3.5-5.0)
[2020-12-02] MEDS: Heparin 5000 UNITS/ML 1 mL VIAL SUBCUT SCH ×2 (08:03→21:27)
[2020-12-02] MEDS: Nicotine PATCH 21 MG/24 HR PATCH TRANSDERM SCH (08:04)
[2020-12-02] MEDS: Aspirin EC 81 mg TAB.EC (enteric coated) PO SCH (08:04)
[2020-12-02 08:39] LABS: ABS Lymphocytes 0.4 10^3/ul (1.0-4.8); ABS Neutrophils 14.5 10^3/ul (1.5-7.7); Hematocrit 24 % (42-52); Hemoglobin 7.8 g/dL (14.0-18.0); Lymphocyte % 2.4 %; Mean Corpuscular HGB Conc 33 g/dL (31-36); Mean Corpuscular Hemoglobin 28 pg (27-31); Mean Corpuscular Volume 83 fL (80-94); Platelet Count 159 10^3/uL (150-450); Red Blood Count 2.82 10^6 /uL (4.18-5.48); Red Cell Distribution Width 14 % (10-15); White Blood Count 15.9 10^3/uL (3.5-10.8)
[2020-12-02] MEDS ORDERED: NS 0.9% 1000 ml BAG 1,000 ML IV SCH (09:30)
[2020-12-02] MEDS: Ondansetron 4 mg VIAL 2 MG/ML 2 ml VIAL IV PRN ×2 (10:46→21:16)
[2020-12-02 11:08] LABS: Urine Appearance Cloudy; Urine Bilirubin Negative (Negative); Urine Blood 1+ (Negative); Urine Color Yellow; Urine Glucose 1+(50 mg/dL) (Negative); Urine Ketones Negative (Negative); Urine Nitrite Negative (Negative); Urine Protein 2+(100 mg/dL) (Negative); Urine Urobilinogen Negative (Negative)
[2020-12-02 11:17] LABS: Urine Bacteria Absent (Absent); Urine Red Blood Cell Trace(0-2/hpf) (Absent); Urine White Blood Cell Trace(0-5/hpf) (Absent)
[2020-12-02] MEDS ORDERED: Bumetanide IV 0.25 MG/ML 4 ml VIAL (1 mg) SLOW PUSH ONE (16:30)
[2020-12-02] MEDS: Insulin GLARGINE 100 un/ml 10 ml VIAL SUBCUT SCH (21:37)
[2020-12-03] MEDS: Hydrocortisone INJ 100 MG/2ML 2 ML VIAL IV SCH ×2 (02:44→14:37)
[2020-12-03] MEDS ORDERED: Bumetanide IV 0.25 MG/ML 4 ml VIAL (1 mg) SLOW PUSH ONE (08:00)
[2020-12-03] MEDS: Aspirin EC 81 mg TAB.EC (enteric coated) PO SCH (09:10)
[2020-12-03] MEDS: Nicotine PATCH 21 MG/24 HR PATCH TRANSDERM SCH (09:16)
[2020-12-03 09:23] LABS: ABS Lymphocytes 0.4 10^3/ul (1.0-4.8); ABS Monocytes 1.1 10^3/ul (0-0.8); ABS Neutrophils 12.5 10^3/ul (1.5-7.7); Eosinophil % 0.1 %; Hematocrit 25 % (42-52); Hemoglobin 8.5 g/dL (14.0-18.0); Mean Corpuscular HGB Conc 33 g/dL (31-36); Mean Corpuscular Hemoglobin 28 pg (27-31); Mean Corpuscular Volume 84 fL (80-94); Mean Platelet Volume 8.3 fL (7.4-10.4); Platelet Count 184 10^3/uL (150-450); Red Blood Count 3.03 10^6 /uL (4.18-5.48); Red Cell Distribution Width 14 % (10-15); White Blood Count 14.1 10^3/uL (3.5-10.8)
[2020-12-03 09:41] LABS: BUN/Creatinine Ratio 26.6 (8-20); Calcium 8.5 mg/dL (8.6-10.3); EGFR African American 32.8 (>60); EGFR Non-African American 27.1 (>60); Potassium 4.9 mmol/L (3.5-5.0)
[2020-12-03] MEDS: Heparin 5000 UNITS/ML 1 mL VIAL SUBCUT SCH ×2 (09:56→20:54)
[2020-12-03 17:11] LABS: Urine Kappa Total Light Chain 2.98 mg/dL (<0.9000); Urine Kappa/Lambda Light Chain 3.7
[2020-12-03] MEDS: Insulin GLARGINE 100 un/ml 10 ml VIAL SUBCUT SCH (21:41)
[2020-12-04] MEDS: Hydrocortisone INJ 100 MG/2ML 2 ML VIAL IV SCH ×2 (02:13→12:47)
[2020-12-04 06:13] LABS: ABS Lymphocytes 0.4 10^3/ul (1.0-4.8); ABS Monocytes 1.1 10^3/ul (0-0.8); ABS Neutrophils 12.7 10^3/ul (1.5-7.7); Eosinophil % 0.2 %; Hematocrit 24 % (42-52); Hemoglobin 8.1 g/dL (14.0-18.0); Lymphocyte % 3.1 %; Mean Corpuscular HGB Conc 34 g/dL (31-36); Mean Corpuscular Hemoglobin 28 pg (27-31); Mean Corpuscular Volume 84 fL (80-94); Mean Platelet Volume 8.9 fL (7.4-10.4); Platelet Count 172 10^3/uL (150-450); Red Blood Count 2.87 10^6 /uL (4.18-5.48); Red Cell Distribution Width 14 % (10-15); White Blood Count 14.2 10^3/uL (3.5-10.8)
[2020-12-04 06:32] LABS: BUN/Creatinine Ratio 29.7 (8-20); Calcium 8.9 mg/dL (8.6-10.3); EGFR African American 33.7 (>60); EGFR Non-African American 27.8 (>60)
[2020-12-04] MEDS: Nicotine PATCH 21 MG/24 HR PATCH TRANSDERM SCH (08:28)
[2020-12-04] MEDS: Heparin 5000 UNITS/ML 1 mL VIAL SUBCUT SCH ×2 (08:28→21:31)
[2020-12-04] MEDS: Aspirin EC 81 mg TAB.EC (enteric coated) PO SCH (08:28)
[2020-12-04] MEDS ORDERED: Bumetanide IV 0.25 MG/ML 4 ml VIAL (1 mg) SLOW PUSH ONE ×2 (09:00→18:50)
[2020-12-04] MEDS ORDERED: LORazepam 2 mg VIAL 1 ml IV PUSH ONE ×2 (12:08→14:37)
[2020-12-04] MEDS ORDERED: Lorazepam PYXIS KEY PRN ×2 (12:08→14:37)
[2020-12-04] MEDS: Magnesium Hydroxide LIQ 30 ML UDC PO PRN (12:46)
[2020-12-04] MEDS: Polyethylene Glycol 3350 17 GM PACKET PO SCH (15:17)
[2020-12-04 15:30] LABS: Albumin/Globulin Ratio 0.99; Gamma Globulin 0.8 g/dL (0.6-1.6)
[2020-12-04 20:48] LABS: Kappa Free Light Chain 4.52 mg/dL; Lambda Free Light Chain, S 2.15 mg/dL
[2020-12-04] MEDS: Insulin GLARGINE 100 un/ml 10 ml VIAL SUBCUT SCH (21:31)
[2020-12-05] MEDS: Hydrocortisone INJ 100 MG/2ML 2 ML VIAL IV SCH ×2 (03:07→13:10)
[2020-12-05] MEDS ORDERED: Haloperidol 5 mg/ml SDV IV/IM 5 MG/ML AMP IV SLOW PU ONE ×2 (03:22→03:57)
[2020-12-05] MEDS ORDERED: Haloperidol 5 mg/ml SDV IV/IM 5 MG/ML AMP IM ONE (03:22)
[2020-12-05] MEDS ORDERED: Haloperidol 5 mg/ml SDV IV/IM 5 MG/ML AMP ONE (03:30)
[2020-12-05 07:22] LABS: ABS Lymphocytes 0.5 10^3/ul (1.0-4.8); ABS Monocytes 1.2 10^3/ul (0-0.8); ABS Neutrophils 16.8 10^3/ul (1.5-7.7); Eosinophil % 0.1 %; Hematocrit 24 % (42-52); Lymphocyte % 2.5 %; Mean Corpuscular HGB Conc 34 g/dL (31-36); Mean Corpuscular Hemoglobin 28 pg (27-31); Mean Corpuscular Volume 84 fL (80-94); Mean Platelet Volume 9.2 fL (7.4-10.4); Platelet Count 182 10^3/uL (150-450); Red Blood Count 2.83 10^6 /uL (4.18-5.48); Red Cell Distribution Width 14 % (10-15); White Blood Count 18.5 10^3/uL (3.5-10.8)
[2020-12-05 07:39] LABS: Albumin 4.1 g/dL (3.2-5.2); Albumin/Globulin Ratio 1.6 (1-3); BUN/Creatinine Ratio 30.7 (8-20); EGFR African American 33.8 (>60); Globulin 2.6 g/dL (2-4); Magnesium 2.1 mg/dL (1.9-2.7); Potassium 4.8 mmol/L (3.5-5.0); Total Bilirubin 0.5 mg/dL (0.2-1.0); Total Protein 6.7 g/dL (6.4-8.9)
[2020-12-05] MEDS: Nicotine PATCH 21 MG/24 HR PATCH TRANSDERM SCH (08:44)
[2020-12-05] MEDS: Polyethylene Glycol 3350 17 GM PACKET PO SCH (08:45)
[2020-12-05 08:46] LABS: C Reactive Protein 1.07 mg/L (<8.01)
[2020-12-05] MEDS: Aspirin EC 81 mg TAB.EC (enteric coated) PO SCH (08:46)
[2020-12-05] MEDS: Heparin 5000 UNITS/ML 1 mL VIAL SUBCUT SCH ×2 (08:46→21:17)
[2020-12-05] MEDS ORDERED: Levalbuterol 1.25MG/0.5ML NEB.SOL INH PRN (11:22)
[2020-12-05] MEDS: cefTRIAXone 1 gm/50 mL NS BAG 1 GM/50 ML BAG IVPB SCH (12:22)
[2020-12-05 12:27] LABS: Erythrocyte Sed Rate 13 mm/Hr (0-19)
[2020-12-05 12:48] LABS: Glucose Confirmatory 417 mg/dL (70-100)
[2020-12-05] MEDS: Azithromycin 500 mg/250 ml NS 500 MG/250 ML BAG IVPB SCH (13:08)
[2020-12-05] MEDS: Levalbuterol 1.25MG/0.5ML NEB.SOL INH SCH ×2 (14:09→19:20)
[2020-12-05 20:54] LABS: Glucose Confirmatory 413 mg/dL (70-100)
[2020-12-05] MEDS: Insulin GLARGINE 100 un/ml 10 ml VIAL SUBCUT SCH (21:17)
[2020-12-06] MEDS: Levalbuterol 1.25MG/0.5ML NEB.SOL INH SCH ×3 (01:01→07:24)
[2020-12-06] MEDS: Hydrocortisone INJ 100 MG/2ML 2 ML VIAL IV SCH ×2 (04:07→14:08)
[2020-12-06 06:49] LABS: ABS Eosinophils 0.1 10^3/ul (0-0.6); ABS Lymphocytes 0.8 10^3/ul (1.0-4.8); ABS Monocytes 1.3 10^3/ul (0-0.8); ABS Neutrophils 14.8 10^3/ul (1.5-7.7); Eosinophil % 0.4 %; Hematocrit 24 % (42-52); Hemoglobin 7.8 g/dL (14.0-18.0); Lymphocyte % 4.4 %; Mean Corpuscular HGB Conc 33 g/dL (31-36); Mean Corpuscular Hemoglobin 28 pg (27-31); Mean Corpuscular Volume 85 fL (80-94); Mean Platelet Volume 8.8 fL (7.4-10.4); Platelet Count 173 10^3/uL (150-450); Red Blood Count 2.82 10^6 /uL (4.18-5.48); Red Cell Distribution Width 15 % (10-15)
[2020-12-06 07:13] LABS: BUN/Creatinine Ratio 29.7 (8-20); Blood Urea Nitrogen 69 mg/dL (6-24); CO2 Carbon Dioxide 26 mmol/L (22-32); Chloride 95 mmol/L (101-111); EGFR African American 33.7 (>60); EGFR Non-African American 27.8 (>60); Glucose 210 mg/dL (70-100); Magnesium 2.1 mg/dL (1.9-2.7); Sodium 129 mmol/L (135-145)
[2020-12-06 07:25] LABS: Anion Gap 8 mmol/L (2-11); Potassium 5.3 mmol/L (3.5-5.0)
[2020-12-06] MEDS: Aspirin EC 81 mg TAB.EC (enteric coated) PO SCH (10:00)
[2020-12-06] MEDS: Heparin 5000 UNITS/ML 1 mL VIAL SUBCUT SCH ×2 (10:01→20:49)
[2020-12-06] MEDS: Polyethylene Glycol 3350 17 GM PACKET PO SCH ×2 (10:02→10:29)
[2020-12-06] MEDS: Nicotine PATCH 21 MG/24 HR PATCH TRANSDERM SCH (10:02)
[2020-12-06 10:49] LABS: % Iron Saturation 15 % (15-55); Iron 48 ug/dL (50-212); Total Iron Binding Capacity 323 mcg/dL (250-450); Transferrin 231 mg/dL (203-362); Unsaturated Iron Binding < 308 ug/dL
[2020-12-06 11:09] LABS: Ferritin 188.6 ng/mL (24-336)
[2020-12-06] MEDS: cefTRIAXone 1 gm/50 mL NS BAG 1 GM/50 ML BAG IVPB SCH (12:49)
[2020-12-06] MEDS: Azithromycin 500 mg/250 ml NS 500 MG/250 ML BAG IVPB SCH (14:08)
[2020-12-06 17:23] LABS: Troponin I 0.38 ng/mL (<0.03)
[2020-12-06 20:40] LABS: Troponin I 0.36 ng/mL (<0.03)
[2020-12-06] MEDS: Insulin GLARGINE 100 un/ml 10 ml VIAL SUBCUT SCH (20:50)
[2020-12-07 04:59] LABS: Hematocrit 23 % (42-52); Hemoglobin 7.4 g/dL (14.0-18.0); Mean Corpuscular HGB Conc 33 g/dL (31-36); Mean Corpuscular Hemoglobin 28 pg (27-31); Mean Corpuscular Volume 86 fL (80-94); Platelet Count 149 10^3/uL (150-450); Red Blood Count 2.63 10^6 /uL (4.18-5.48); Red Cell Distribution Width 15 % (10-15); White Blood Count 16.6 10^3/uL (3.5-10.8)
[2020-12-07 05:17] LABS: Albumin 3.7 g/dL (3.2-5.2); Albumin/Globulin Ratio 1.4 (1-3); BUN/Creatinine Ratio 31.3 (8-20); EGFR African American 31.5 (>60); Globulin 2.6 g/dL (2-4); Magnesium 2.2 mg/dL (1.9-2.7); Potassium 4.9 mmol/L (3.5-5.0); Total Bilirubin 0.3 mg/dL (0.2-1.0); Total Protein 6.3 g/dL (6.4-8.9)
[2020-12-07 05:27] LABS: ABS Eosinophils 0.1 10^3/ul (0-0.6); ABS Lymphocytes 1.4 10^3/ul (1.0-4.8); ABS Monocytes 1.5 10^3/ul (0-0.8); ABS Neutrophils 13.6 10^3/ul (1.5-7.7); Eosinophil % 0.4 %; Lymphocyte % 8.4 %
[2020-12-07] MEDS: Nicotine PATCH 21 MG/24 HR PATCH TRANSDERM SCH (08:12)
[2020-12-07] MEDS: Heparin 5000 UNITS/ML 1 mL VIAL SUBCUT SCH ×2 (08:14→22:19)
[2020-12-07] MEDS: Aspirin EC 81 mg TAB.EC (enteric coated) PO SCH (08:14)
[2020-12-07] MEDS: Polyethylene Glycol 3350 17 GM PACKET PO SCH (08:15)
[2020-12-07] MEDS: cefTRIAXone 1 gm/50 mL NS BAG 1 GM/50 ML BAG IVPB SCH (13:25)
[2020-12-07] MEDS: Azithromycin 500 mg/250 ml NS 500 MG/250 ML BAG IVPB SCH (14:14)
[2020-12-07] MEDS: Insulin GLARGINE 100 un/ml 10 ml VIAL SUBCUT SCH (22:20)
[2020-12-07] MEDS: Magnesium Hydroxide LIQ 30 ML UDC PO PRN (23:11)
[2020-12-08 05:59] LABS: Hematocrit 23 % (42-52); Hemoglobin 7.6 g/dL (14.0-18.0); Mean Corpuscular HGB Conc 33 g/dL (31-36); Mean Corpuscular Hemoglobin 29 pg (27-31); Mean Corpuscular Volume 86 fL (80-94); Mean Platelet Volume 9.3 fL (7.4-10.4); Platelet Count 156 10^3/uL (150-450); Red Blood Count 2.68 10^6 /uL (4.18-5.48); Red Cell Distribution Width 15 % (10-15); White Blood Count 14.8 10^3/uL (3.5-10.8)
[2020-12-08 06:09] LABS: BUN/Creatinine Ratio 29.4 (8-20); Calcium 8.5 mg/dL (8.6-10.3); EGFR Non-African American 23.1 (>60); HDL Cholesterol 65.1 mg/dL; Potassium 5.1 mmol/L (3.5-5.0)
[2020-12-08] MEDS: Polyethylene Glycol 3350 17 GM PACKET PO SCH (09:11)
[2020-12-08] MEDS: Heparin 5000 UNITS/ML 1 mL VIAL SUBCUT SCH ×2 (09:11→19:58)
[2020-12-08] MEDS: Nicotine PATCH 21 MG/24 HR PATCH TRANSDERM SCH (09:11)
[2020-12-08] MEDS: Aspirin EC 81 mg TAB.EC (enteric coated) PO SCH (09:12)
[2020-12-08] MEDS: cefTRIAXone 1 gm/50 mL NS BAG 1 GM/50 ML BAG IVPB SCH (12:47)
[2020-12-08] MEDS: Insulin GLARGINE 100 un/ml 10 ml VIAL SUBCUT SCH (19:58)
[2020-12-09] MEDS: Aspirin EC 81 mg TAB.EC (enteric coated) PO SCH (08:31)
[2020-12-09] MEDS: Heparin 5000 UNITS/ML 1 mL VIAL SUBCUT SCH ×2 (08:32→20:38)
[2020-12-09] MEDS: Nicotine PATCH 21 MG/24 HR PATCH TRANSDERM SCH (08:34)
[2020-12-09 08:35] LABS: Hematocrit 24 % (42-52); Hemoglobin 7.8 g/dL (14.0-18.0); Mean Corpuscular HGB Conc 33 g/dL (31-36); Mean Corpuscular Hemoglobin 29 pg (27-31); Mean Corpuscular Volume 86 fL (80-94); Mean Platelet Volume 9.3 fL (7.4-10.4); Platelet Count 158 10^3/uL (150-450); Red Blood Count 2.74 10^6 /uL (4.18-5.48); Red Cell Distribution Width 15 % (10-15); White Blood Count 16.9 10^3/uL (3.5-10.8)
[2020-12-09] MEDS: Polyethylene Glycol 3350 17 GM PACKET PO SCH (08:48)
[2020-12-09 08:54] LABS: BUN/Creatinine Ratio 26.7 (8-20); Blood Urea Nitrogen 74 mg/dL (6-24); C Reactive Protein < 1.00 mg/L (<8.01); CO2 Carbon Dioxide 24 mmol/L (22-32); Calcium 8.7 mg/dL (8.6-10.3); Chloride 101 mmol/L (101-111); EGFR African American 27.4 (>60); EGFR Non-African American 22.7 (>60); Glucose 236 mg/dL (70-100); Sodium 133 mmol/L (135-145)
[2020-12-09 08:58] LABS: Anion Gap 8 mmol/L (2-11); Potassium 5.2 mmol/L (3.5-5.0)
[2020-12-09] MEDS: cefTRIAXone 1 gm/50 mL NS BAG 1 GM/50 ML BAG IVPB SCH (11:30)
[2020-12-09] MEDS ORDERED: LORazepam 2 mg VIAL 1 ml IV PUSH ONE ×2 (15:57→23:55)
[2020-12-09 16:30] LABS: C Reactive Protein 1.02 mg/L (<8.01)
[2020-12-09 19:22] LABS: HIV 4th Generation Nonreactive (Nonreactive)
[2020-12-09] MEDS: Insulin GLARGINE 100 un/ml 10 ml VIAL SUBCUT SCH (20:40)
[2020-12-09] MEDS: Bumetanide IV 0.25 MG/ML 4 ml VIAL (1 mg) SLOW PUSH SCH (21:29)
[2020-12-09 21:38] LABS: Hepatitis B Surface Antigen Nonreactive (Nonreactive)
[2020-12-09 23:55] LABS: Hepatitis C Antibody Reactive (Negative)
[2020-12-09] MEDS ORDERED: Lorazepam PYXIS KEY PRN (23:55)
[2020-12-10] MEDS ORDERED: LORazepam 2 mg VIAL 1 ml IV PUSH ONE (00:31)
[2020-12-10 05:56] LABS: Hematocrit 22 % (42-52); Hemoglobin 7.3 g/dL (14.0-18.0); Mean Corpuscular HGB Conc 33 g/dL (31-36); Mean Corpuscular Hemoglobin 29 pg (27-31); Mean Corpuscular Volume 86 fL (80-94); Mean Platelet Volume 9.7 fL (7.4-10.4); Platelet Count 133 10^3/uL (150-450); Red Blood Count 2.55 10^6 /uL (4.18-5.48); Red Cell Distribution Width 15 % (10-15); White Blood Count 14.7 10^3/uL (3.5-10.8)
[2020-12-10 06:19] LABS: BUN/Creatinine Ratio 28.7 (8-20); Calcium 8.5 mg/dL (8.6-10.3); EGFR African American 30.3 (>60); EGFR Non-African American 25.1 (>60); Potassium 4.9 mmol/L (3.5-5.0)
[2020-12-10 08:20] LABS: Hepatitis B Surface Ab Indeterminate (Immune)
[2020-12-10] MEDS: Aspirin EC 81 mg TAB.EC (enteric coated) PO SCH (08:41)
[2020-12-10] MEDS: Bumetanide IV 0.25 MG/ML 4 ml VIAL (1 mg) SLOW PUSH SCH ×2 (08:42→21:26)
[2020-12-10] MEDS: Heparin 5000 UNITS/ML 1 mL VIAL SUBCUT SCH ×2 (08:42→21:27)
[2020-12-10] MEDS: Polyethylene Glycol 3350 17 GM PACKET PO SCH (08:43)
[2020-12-10] MEDS: Nicotine PATCH 21 MG/24 HR PATCH TRANSDERM SCH (08:49)
[2020-12-10] MEDS ORDERED: Lidocaine 2% PF 5 ML VIAL INJ ONE (11:30)
[2020-12-10 16:20] LABS: Urine Creatinine 61.15 mg/dL; Urine Creatinine Concentration 61.15 mg/dL
[2020-12-10 17:46] LABS: UR Microalbumin (mg/L) 486.2 mg/L
[2020-12-10] MEDS: Ondansetron 4 mg VIAL 2 MG/ML 2 ml VIAL IV PRN (18:10)
[2020-12-10] MEDS: Insulin GLARGINE 100 un/ml 10 ml VIAL SUBCUT SCH (21:27)
[2020-12-11 05:01] LABS: Hematocrit 21 % (42-52); Hemoglobin 7.4 g/dL (14.0-18.0); Mean Corpuscular HGB Conc 36 g/dL (31-36); Mean Corpuscular Hemoglobin 31 pg (27-31); Mean Corpuscular Volume 87 fL (80-94); Mean Platelet Volume 9.6 fL (7.4-10.4); Platelet Count 107 10^3/uL (150-450); Red Blood Count 2.39 10^6 /uL (4.18-5.48); Red Cell Distribution Width 15 % (10-15); White Blood Count 12.6 10^3/uL (3.5-10.8)
[2020-12-11 05:20] LABS: BUN/Creatinine Ratio 23.9 (8-20); Calcium 8.3 mg/dL (8.6-10.3); EGFR Non-African American 23.1 (>60); Potassium 4.9 mmol/L (3.5-5.0)
[2020-12-11 05:26] LABS: ABS Basophils 0.1 10^3/ul (0-0.2); ABS Eosinophils 0.4 10^3/ul (0-0.6); ABS Lymphocytes 1.6 10^3/ul (1.0-4.8); ABS Monocytes 1.1 10^3/ul (0-0.8); ABS Neutrophils 9.3 10^3/ul (1.5-7.7); Eosinophil % 3.3 %; Lymphocyte % 12.3 %
[2020-12-11] MEDS: Heparin 5000 UNITS/ML 1 mL VIAL SUBCUT SCH (07:58)
[2020-12-11] MEDS: Aspirin EC 81 mg TAB.EC (enteric coated) PO SCH (07:59)
[2020-12-11] MEDS: Polyethylene Glycol 3350 17 GM PACKET PO SCH (08:02)
[2020-12-11] MEDS: Nicotine PATCH 21 MG/24 HR PATCH TRANSDERM SCH (08:04)
[2020-12-11] MEDS: Bumetanide IV 0.25 MG/ML 4 ml VIAL (1 mg) SLOW PUSH SCH (08:12)
[2020-12-11 10:26] VITALS: BP 133/53
[2020-12-11 14:46] LABS: Albumin 3.3 g/dL (3.4-4.7); Albumin/Globulin Ratio 1.03; Gamma Globulin 0.9 g/dL (0.6-1.6); Total Protein(PEP) 6.4 g/dL (6.3 - 7.9)
[2020-12-11 14:54] LABS: Albumin 3.3 g/dL (3.4-4.7); Albumin/Globulin Ratio 1.07; Gamma Globulin 0.9 g/dL (0.6-1.6); Total Protein(PEP) 6.4 g/dL (6.3 - 7.9)
[2020-12-11 17:13] LABS: C-ANCA Negative (Negative); P-ANCA Negative (Negative)
[2020-12-11 18:26] LABS: Urine Kappa Total Light Chain 4.8 mg/dL (<0.9000); Urine Kappa/Lambda Light Chain 2.65
[2020-12-11 21:56] LABS: Complement C3 87 mg/dL (75 - 175)
[2020-12-11 23:42] LABS: Lambda Free Light Chain, S 2.32 mg/dL
[2020-12-13 14:17] LABS: Phospholipase A2 Receptor IFA Negative (Negative); Phospholipase A2 ReceptorELISA <2 RU/mL
[2020-12-13 18:24] LABS: BCR/ABL PCR Specimen WHOLE BLOOD (LAV); BCR/ABL p210 Result see interpretation
== END 2020-12-11 09:45 | disposition left against medical advice (07) | DRG 291 ==
LOC: ED 09:15 → ICU 12:48 → MED 12-01 21:57
PROVIDERS: ADMIT Internal Medicine Critical Care Medicine; ATTEND Internal Medicine

== ENCOUNTER 2020-12-12 12:18 | Inpatient (IN) ==
[2020-12-12 13:33] LABS: Hematocrit 23 % (42-52); Hemoglobin 7.6 g/dL (14.0-18.0); Mean Corpuscular HGB Conc 33 g/dL (31-36); Mean Corpuscular Hemoglobin 29 pg (27-31); Mean Corpuscular Volume 87 fL (80-94); Mean Platelet Volume 9.4 fL (7.4-10.4); Platelet Count 112 10^3/uL (150-450); Red Blood Count 2.64 10^6 /uL (4.18-5.48); Red Cell Distribution Width 16 % (10-15); White Blood Count 16.7 10^3/uL (3.5-10.8)
[2020-12-12 13:51] LABS: ALT 42 U/L (7-52); AST 18 U/L (13-39); Albumin 3.6 g/dL (3.2-5.2); Albumin/Globulin Ratio 1.3 (1-3); Alkaline Phosphatase 90 U/L (34-104); BUN/Creatinine Ratio 22.9 (8-20); Blood Urea Nitrogen 58 mg/dL (6-24); CO2 Carbon Dioxide 24 mmol/L (22-32); Calcium 8.9 mg/dL (8.6-10.3); Chloride 97 mmol/L (101-111); EGFR African American 30.4 (>60); EGFR Non-African American 25.2 (>60); Globulin 2.8 g/dL (2-4); Glucose 159 mg/dL (70-100); Sodium 129 mmol/L (135-145); Total Protein 6.4 g/dL (6.4-8.9)
[2020-12-12 13:58] LABS: Anion Gap 8 mmol/L (2-11); Potassium 5.3 mmol/L (3.5-5.0); Troponin I 0.12 ng/mL (<0.03)
[2020-12-12 14:00] LABS: ABS Basophils 0.1 10^3/ul (0-0.2); ABS Eosinophils 0.3 10^3/ul (0-0.6); ABS Lymphocytes 0.6 10^3/ul (1.0-4.8); ABS Monocytes 0.9 10^3/ul (0-0.8); ABS Neutrophils 14.8 10^3/ul (1.5-7.7); Eosinophil % 2.1 %; Lymphocyte % 3.8 %
[2020-12-12 14:18] LABS: TSH Ultra Thyroid Stim Horm 2.97 mcIU/mL (0.34-5.60)
[2020-12-12 16:12] LABS: Urine Appearance Clear; Urine Bilirubin Negative (Negative); Urine Blood Negative (Negative); Urine Color Yellow; Urine Glucose Negative (Negative); Urine Ketones Negative (Negative); Urine Nitrite Negative (Negative); Urine Protein 2+(100 mg/dL) (Negative); Urine Specific Gravity 1.016 (1.010-1.030); Urine Urobilinogen Negative (Negative)
[2020-12-12 16:24] LABS: Urine Bacteria 1+ (Absent); Urine Red Blood Cell Trace(0-2/hpf) (Absent); Urine Squamous Epithelial Cell Present (Absent); Urine White Blood Cell Trace(0-5/hpf) (Absent)
[2020-12-12] MEDS ORDERED: Zaleplon 10 mg CAP (NF) PO PRN (16:57)
[2020-12-12] MEDS ORDERED: Dextrose 50% Syringe 50 ml 25 GM/50 ML SYRINGE IV PUSH PRN (17:02)
[2020-12-12] MEDS: oxyCODONE/Acetamin 5/325 mg TAB PO PRN (17:06)
[2020-12-12] MEDS: Nicotine PATCH 21 MG/24 HR PATCH TRANSDERM SCH (17:12)
[2020-12-12 17:41] LABS: C Reactive Protein 3.81 mg/L (<8.01)
[2020-12-12] MEDS: Mometasone/Formoter 200/5 MDI INH SCH (19:35)
[2020-12-12] MEDS: Insulin GLARGINE 100 un/ml 10 ml VIAL SUBCUT SCH (21:40)
[2020-12-12] MEDS: Heparin 5000 UNITS/ML 1 mL VIAL SUBCUT SCH (21:40)
[2020-12-13] MEDS: oxyCODONE/Acetamin 5/325 mg TAB PO PRN ×3 (00:56→16:51)
[2020-12-13] MEDS: Heparin 5000 UNITS/ML 1 mL VIAL SUBCUT SCH ×3 (05:30→21:08)
[2020-12-13 06:41] LABS: ABS Basophils 0.1 10^3/ul (0-0.2); ABS Eosinophils 0.3 10^3/ul (0-0.6); ABS Lymphocytes 0.8 10^3/ul (1.0-4.8); ABS Monocytes 0.8 10^3/ul (0-0.8); ABS Neutrophils 6.9 10^3/ul (1.5-7.7); Eosinophil % 3.2 %; Hematocrit 21 % (42-52); Hemoglobin 7.2 g/dL (14.0-18.0); Lymphocyte % 9.1 %; Mean Corpuscular HGB Conc 34 g/dL (31-36); Mean Corpuscular Hemoglobin 30 pg (27-31); Mean Corpuscular Volume 87 fL (80-94); Red Blood Count 2.44 10^6 /uL (4.18-5.48); Red Cell Distribution Width 16 % (10-15); White Blood Count 8.9 10^3/uL (3.5-10.8)
[2020-12-13 07:04] LABS: BUN/Creatinine Ratio 23.7 (8-20); Calcium 8.3 mg/dL (8.6-10.3); EGFR African American 27.2 (>60); EGFR Non-African American 22.5 (>60)
[2020-12-13] MEDS: Mometasone/Formoter 200/5 MDI INH SCH ×2 (07:20→20:05)
[2020-12-13] MEDS: SPIRIVA Respimat (tiotropium) 2.5 mcg/inh Inhaler INH SCH (07:20)
[2020-12-13] MEDS: Nicotine PATCH 21 MG/24 HR PATCH TRANSDERM SCH (08:43)
[2020-12-13] MEDS: Fluticasone NASAL SPRAY 50MCG 16 gm SPRAY BTL INTRANASAL SCH (08:48)
[2020-12-13 08:56] LABS: Platelet Count 86 10^3/uL (150-450)
[2020-12-13] MEDS ORDERED: Morphine ORAL.SOLN 10 mg 2 mg/ml UDC 5 ml (10 mg) PO ONE (10:23)
[2020-12-13] MEDS ORDERED: Lidocaine 2% PF 5 ML VIAL INJ ONE (10:34)
[2020-12-13] MEDS ORDERED: Ondansetron ODT 4 mg TAB 4 MG TAB PO ONE (11:12)
[2020-12-13] MEDS ORDERED: Enoxaparin 40 MG/0.4 ML SYR SUBCUT SCH (15:00)
[2020-12-13] MEDS: Insulin GLARGINE 100 un/ml 10 ml VIAL SUBCUT SCH (21:07)
[2020-12-14] MEDS: oxyCODONE/Acetamin 5/325 mg TAB PO PRN ×3 (00:50→18:09)
[2020-12-14 07:00] LABS: BUN/Creatinine Ratio 21.3 (8-20); Calcium 8.5 mg/dL (8.6-10.3); EGFR Non-African American 20.7 (>60); Potassium 5.3 mmol/L (3.5-5.0)
[2020-12-14] MEDS: Nicotine PATCH 21 MG/24 HR PATCH TRANSDERM SCH (07:47)
[2020-12-14] MEDS: Fluticasone NASAL SPRAY 50MCG 16 gm SPRAY BTL INTRANASAL SCH (07:49)
[2020-12-14 07:54] LABS: ABS Basophils 0.1 10^3/ul (0-0.2); ABS Eosinophils 0.2 10^3/ul (0-0.6); ABS Lymphocytes 0.9 10^3/ul (1.0-4.8); ABS Monocytes 0.8 10^3/ul (0-0.8); Eosinophil % 3.1 %; Hematocrit 23 % (42-52); Hemoglobin 7.5 g/dL (14.0-18.0); Lymphocyte % 10.7 %; Mean Corpuscular HGB Conc 33 g/dL (31-36); Mean Corpuscular Hemoglobin 29 pg (27-31); Mean Corpuscular Volume 87 fL (80-94); Mean Platelet Volume 10.6 fL (7.4-10.4); Platelet Count 78 10^3/uL (150-450); Red Blood Count 2.58 10^6 /uL (4.18-5.48); Red Cell Distribution Width 16 % (10-15)
[2020-12-14] MEDS: Mometasone/Formoter 200/5 MDI INH SCH ×2 (07:56→19:32)
[2020-12-14] MEDS: SPIRIVA Respimat (tiotropium) 2.5 mcg/inh Inhaler INH SCH (07:56)
[2020-12-14] MEDS: Heparin 5000 UNITS/ML 1 mL VIAL SUBCUT SCH ×3 (07:57→22:01)
[2020-12-14] MEDS: Bumetanide IV 0.25 MG/ML 4 ml VIAL (1 mg) SLOW PUSH SCH ×2 (07:57→21:12)
[2020-12-14] MEDS: Insulin GLARGINE 100 un/ml 10 ml VIAL SUBCUT SCH (21:20)
[2020-12-15] MEDS: Heparin 5000 UNITS/ML 1 mL VIAL SUBCUT SCH ×3 (06:03→23:02)
[2020-12-15 08:13] LABS: ABS Basophils 0.1 10^3/ul (0-0.2); ABS Eosinophils 0.1 10^3/ul (0-0.6); ABS Lymphocytes 0.3 10^3/ul (1.0-4.8); ABS Monocytes 0.6 10^3/ul (0-0.8); ABS Neutrophils 10.5 10^3/ul (1.5-7.7); Eosinophil % 0.5 %; Hematocrit 22 % (42-52); Hemoglobin 7.3 g/dL (14.0-18.0); Lymphocyte % 2.9 %; Mean Corpuscular HGB Conc 33 g/dL (31-36); Mean Corpuscular Hemoglobin 29 pg (27-31); Mean Corpuscular Volume 88 fL (80-94); Mean Platelet Volume 10.5 fL (7.4-10.4); Platelet Count 69 10^3/uL (150-450); Red Blood Count 2.54 10^6 /uL (4.18-5.48); Red Cell Distribution Width 16 % (10-15); White Blood Count 11.6 10^3/uL (3.5-10.8)
[2020-12-15 08:27] LABS: BUN/Creatinine Ratio 22.2 (8-20); Calcium 8.4 mg/dL (8.6-10.3); EGFR African American 24.4 (>60); EGFR Non-African American 20.2 (>60)
[2020-12-15] MEDS: SPIRIVA Respimat (tiotropium) 2.5 mcg/inh Inhaler INH SCH (08:43)
[2020-12-15] MEDS: Mometasone/Formoter 200/5 MDI INH SCH ×2 (08:43→20:12)
[2020-12-15] MEDS: oxyCODONE/Acetamin 5/325 mg TAB PO PRN ×2 (09:39→17:51)
[2020-12-15] MEDS: Nicotine PATCH 21 MG/24 HR PATCH TRANSDERM SCH (09:42)
[2020-12-15] MEDS: Bumetanide IV 0.25 MG/ML 4 ml VIAL (1 mg) SLOW PUSH SCH ×2 (09:42→23:00)
[2020-12-15] MEDS: Fluticasone NASAL SPRAY 50MCG 16 gm SPRAY BTL INTRANASAL SCH (09:47)
[2020-12-15] MEDS: Insulin GLARGINE 100 un/ml 10 ml VIAL SUBCUT SCH (23:18)
[2020-12-16] MEDS: oxyCODONE/Acetamin 5/325 mg TAB PO PRN ×3 (02:32→20:07)
[2020-12-16] MEDS: Heparin 5000 UNITS/ML 1 mL VIAL SUBCUT SCH ×2 (06:20→15:17)
[2020-12-16 06:49] LABS: ABS Basophils 0.1 10^3/ul (0-0.2); ABS Eosinophils 0.1 10^3/ul (0-0.6); ABS Lymphocytes 0.6 10^3/ul (1.0-4.8); ABS Monocytes 0.9 10^3/ul (0-0.8); Eosinophil % 1.1 %; Hematocrit 21 % (42-52); Hemoglobin 7.2 g/dL (14.0-18.0); Lymphocyte % 5.7 %; Mean Corpuscular HGB Conc 34 g/dL (31-36); Mean Corpuscular Hemoglobin 30 pg (27-31); Mean Corpuscular Volume 87 fL (80-94); Mean Platelet Volume 10.4 fL (7.4-10.4); Platelet Count 65 10^3/uL (150-450); Red Blood Count 2.44 10^6 /uL (4.18-5.48); Red Cell Distribution Width 16 % (10-15); White Blood Count 10.8 10^3/uL (3.5-10.8)
[2020-12-16 06:57] LABS: BUN/Creatinine Ratio 21.1 (8-20); Calcium 8.3 mg/dL (8.6-10.3); EGFR African American 21.9 (>60); EGFR Non-African American 18.1 (>60)
[2020-12-16 06:59] LABS: Potassium 5.5 mmol/L (3.5-5.0)
[2020-12-16] MEDS: SPIRIVA Respimat (tiotropium) 2.5 mcg/inh Inhaler INH SCH (07:37)
[2020-12-16] MEDS: Mometasone/Formoter 200/5 MDI INH SCH ×3 (07:38→18:59)
[2020-12-16] MEDS: Nicotine PATCH 21 MG/24 HR PATCH TRANSDERM SCH (08:12)
[2020-12-16] MEDS: Bumetanide IV 0.25 MG/ML 4 ml VIAL (1 mg) SLOW PUSH SCH (08:13)
[2020-12-16] MEDS: Fluticasone NASAL SPRAY 50MCG 16 gm SPRAY BTL INTRANASAL SCH (09:00)
[2020-12-16] MEDS ORDERED: Sodium Polystyrene ORAL.SUSP 15 GM/60 ML BTL PO ONE (10:58)
[2020-12-16] MEDS: Insulin GLARGINE 100 un/ml 10 ml VIAL SUBCUT SCH (20:08)
[2020-12-16] MEDS: Bumetanide IV 10 MG in Premix IV 0 ML IV SCH (20:56)
[2020-12-17] MEDS: oxyCODONE/Acetamin 5/325 mg TAB PO PRN ×3 (06:38→23:32)
[2020-12-17 06:46] LABS: ABS Basophils 0.1 10^3/ul (0-0.2); ABS Eosinophils 0.2 10^3/ul (0-0.6); ABS Lymphocytes 0.6 10^3/ul (1.0-4.8); ABS Neutrophils 8.4 10^3/ul (1.5-7.7); Eosinophil % 1.9 %; Hematocrit 22 % (42-52); Hemoglobin 7.5 g/dL (14.0-18.0); Lymphocyte % 5.4 %; Mean Corpuscular HGB Conc 34 g/dL (31-36); Mean Corpuscular Hemoglobin 30 pg (27-31); Mean Corpuscular Volume 88 fL (80-94); Mean Platelet Volume 10.6 fL (7.4-10.4); Platelet Count 72 10^3/uL (150-450); Red Blood Count 2.53 10^6 /uL (4.18-5.48); Red Cell Distribution Width 17 % (10-15); White Blood Count 10.3 10^3/uL (3.5-10.8)
[2020-12-17 07:00] LABS: BUN/Creatinine Ratio 19.5 (8-20); Calcium 8.4 mg/dL (8.6-10.3); EGFR African American 22.6 (>60); EGFR Non-African American 18.6 (>60); Potassium 4.5 mmol/L (3.5-5.0)
[2020-12-17] MEDS: Mometasone/Formoter 200/5 MDI INH SCH ×2 (07:30→19:15)
[2020-12-17] MEDS: SPIRIVA Respimat (tiotropium) 2.5 mcg/inh Inhaler INH SCH (07:30)
[2020-12-17] MEDS: Fluticasone NASAL SPRAY 50MCG 16 gm SPRAY BTL INTRANASAL SCH (08:53)
[2020-12-17] MEDS: Nicotine PATCH 21 MG/24 HR PATCH TRANSDERM SCH (08:59)
[2020-12-17 12:29] LABS: BUN/Creatinine Ratio 19.4 (8-20); Calcium 8.8 mg/dL (8.6-10.3); EGFR African American 22.9 (>60); EGFR Non-African American 18.9 (>60); Potassium 4.3 mmol/L (3.5-5.0)
[2020-12-17] MEDS ORDERED: Bumetanide IV 0.25 MG/ML 4 ml VIAL (1 mg) IV ONE (14:15)
[2020-12-17] MEDS: Bumetanide IV 10 MG in Premix IV 0 ML IV SCH ×2 (14:38→21:01)
[2020-12-17] MEDS ORDERED: Senna TAB 8.6 mg TAB PO PRN (18:20)
[2020-12-17] MEDS ORDERED: Polyethylene Glycol 3350 17 GM PACKET PO PRN (18:20)
[2020-12-17] MEDS: Insulin GLARGINE 100 un/ml 10 ml VIAL SUBCUT SCH (20:57)
[2020-12-18] MEDS: Bumetanide IV 10 MG in Premix IV 0 ML IV SCH ×2 (07:50→18:39)
[2020-12-18] MEDS: oxyCODONE/Acetamin 5/325 mg TAB PO PRN ×2 (08:00→17:46)
[2020-12-18] MEDS: SPIRIVA Respimat (tiotropium) 2.5 mcg/inh Inhaler INH SCH (08:03)
[2020-12-18] MEDS: Nicotine PATCH 21 MG/24 HR PATCH TRANSDERM SCH (08:03)
[2020-12-18] MEDS: Fluticasone NASAL SPRAY 50MCG 16 gm SPRAY BTL INTRANASAL SCH (08:03)
[2020-12-18] MEDS: Mometasone/Formoter 200/5 MDI INH SCH ×2 (08:03→19:11)
[2020-12-18 08:35] LABS: BUN/Creatinine Ratio 19.9 (8-20); Calcium 8.4 mg/dL (8.6-10.3); EGFR African American 25.8 (>60); EGFR Non-African American 21.3 (>60)
[2020-12-18 10:31] LABS: Potassium 3.8 mmol/L (3.5-5.0)
[2020-12-18 21:21] LABS: HIT ELISA < 0.075 OD (<0.400)
[2020-12-18] MEDS: Insulin GLARGINE 100 un/ml 10 ml VIAL SUBCUT SCH (21:37)
[2020-12-19] MEDS: Bumetanide IV 10 MG in Premix IV 0 ML IV SCH ×2 (03:00→10:25)
[2020-12-19] MEDS: oxyCODONE/Acetamin 5/325 mg TAB PO PRN ×3 (03:00→19:29)
[2020-12-19 07:43] LABS: BUN/Creatinine Ratio 17.4 (8-20); Calcium 8.2 mg/dL (8.6-10.3); EGFR African American 25.7 (>60); EGFR Non-African American 21.2 (>60); Potassium 3.8 mmol/L (3.5-5.0)
[2020-12-19] MEDS: SPIRIVA Respimat (tiotropium) 2.5 mcg/inh Inhaler INH SCH (08:32)
[2020-12-19] MEDS: Mometasone/Formoter 200/5 MDI INH SCH ×2 (08:33→19:25)
[2020-12-19] MEDS: Nicotine PATCH 21 MG/24 HR PATCH TRANSDERM SCH (09:10)
[2020-12-19] MEDS: Fluticasone NASAL SPRAY 50MCG 16 gm SPRAY BTL INTRANASAL SCH (09:24)
[2020-12-19] MEDS: Insulin GLARGINE 100 un/ml 10 ml VIAL SUBCUT SCH (21:42)
[2020-12-20] MEDS: Bumetanide IV 10 MG in Premix IV 0 ML IV SCH ×2 (05:26→23:33)
[2020-12-20 07:06] LABS: BUN/Creatinine Ratio 17.5 (8-20); Calcium 8.2 mg/dL (8.6-10.3); EGFR African American 28.4 (>60); EGFR Non-African American 23.4 (>60); Potassium 3.9 mmol/L (3.5-5.0)
[2020-12-20] MEDS: Mometasone/Formoter 200/5 MDI INH SCH ×2 (07:32→19:37)
[2020-12-20] MEDS: SPIRIVA Respimat (tiotropium) 2.5 mcg/inh Inhaler INH SCH (07:33)
[2020-12-20] MEDS: oxyCODONE/Acetamin 5/325 mg TAB PO PRN ×2 (08:32→17:01)
[2020-12-20] MEDS: Nicotine PATCH 21 MG/24 HR PATCH TRANSDERM SCH (08:32)
[2020-12-20] MEDS: Fluticasone NASAL SPRAY 50MCG 16 gm SPRAY BTL INTRANASAL SCH ×2 (08:33→08:37)
[2020-12-20] MEDS: Insulin GLARGINE 100 un/ml 10 ml VIAL SUBCUT SCH (20:55)
[2020-12-21] MEDS: oxyCODONE/Acetamin 5/325 mg TAB PO PRN ×3 (03:43→18:49)
[2020-12-21 06:42] LABS: ABS Basophils 0.1 10^3/ul (0-0.2); ABS Eosinophils 0.3 10^3/ul (0-0.6); ABS Lymphocytes 1.2 10^3/ul (1.0-4.8); ABS Monocytes 0.8 10^3/ul (0-0.8); ABS Neutrophils 4.1 10^3/ul (1.5-7.7); Eosinophil % 5.1 %; Hematocrit 25 % (42-52); Hemoglobin 8.4 g/dL (14.0-18.0); Lymphocyte % 18.2 %; Mean Corpuscular HGB Conc 33 g/dL (31-36); Mean Corpuscular Hemoglobin 29 pg (27-31); Mean Corpuscular Volume 88 fL (80-94); Mean Platelet Volume 8.5 fL (7.4-10.4); Platelet Count 91 10^3/uL (150-450); Red Blood Count 2.86 10^6 /uL (4.18-5.48); Red Cell Distribution Width 17 % (10-15); White Blood Count 6.5 10^3/uL (3.5-10.8)
[2020-12-21 06:52] LABS: Albumin 3.6 g/dL (3.2-5.2); Albumin/Globulin Ratio 1.3 (1-3); BUN/Creatinine Ratio 14.9 (8-20); Calcium 8.5 mg/dL (8.6-10.3); EGFR African American 27.5 (>60); EGFR Non-African American 22.8 (>60); Globulin 2.7 g/dL (2-4); Magnesium 1.9 mg/dL (1.9-2.7); Potassium 4.3 mmol/L (3.5-5.0); Total Bilirubin 0.4 mg/dL (0.2-1.0); Total Protein 6.3 g/dL (6.4-8.9)
[2020-12-21] MEDS: SPIRIVA Respimat (tiotropium) 2.5 mcg/inh Inhaler INH SCH (07:04)
[2020-12-21] MEDS: Mometasone/Formoter 200/5 MDI INH SCH ×2 (07:04→19:42)
[2020-12-21] MEDS: Nicotine PATCH 21 MG/24 HR PATCH TRANSDERM SCH (09:16)
[2020-12-21] MEDS: Fluticasone NASAL SPRAY 50MCG 16 gm SPRAY BTL INTRANASAL SCH (09:18)
[2020-12-21] MEDS: Triamcinolone 0.5% OINT 1 TUBE TOPICAL SCH ×2 (09:19→21:46)
[2020-12-21] MEDS ORDERED: Morphine 2 MG/ML SYRINGE IV ONE (21:18)
[2020-12-21] MEDS: Insulin GLARGINE 100 un/ml 10 ml VIAL SUBCUT SCH (21:45)
[2020-12-21] MEDS: Bumetanide IV 10 MG in Premix IV 0 ML IV SCH (21:46)
[2020-12-22] MEDS: Bumetanide IV 10 MG in Premix IV 0 ML IV SCH (03:47)
[2020-12-22] MEDS: oxyCODONE/Acetamin 5/325 mg TAB PO PRN ×4 (03:49→23:55)
[2020-12-22] MEDS: SPIRIVA Respimat (tiotropium) 2.5 mcg/inh Inhaler INH SCH (08:04)
[2020-12-22] MEDS: Mometasone/Formoter 200/5 MDI INH SCH ×2 (08:04→20:27)
[2020-12-22] MEDS: Triamcinolone 0.5% OINT 1 TUBE TOPICAL SCH ×2 (08:26→19:39)
[2020-12-22] MEDS: Fluticasone NASAL SPRAY 50MCG 16 gm SPRAY BTL INTRANASAL SCH (08:27)
[2020-12-22] MEDS: Nicotine PATCH 21 MG/24 HR PATCH TRANSDERM SCH (08:34)
[2020-12-22] MEDS ORDERED: Iron Sucrose 200 MG in NS 0.9% 100 ml BAG 100 ML IVPB ONE (09:00)
[2020-12-22 11:14] LABS: BUN/Creatinine Ratio 15.2 (8-20); Calcium 8.8 mg/dL (8.6-10.3); EGFR African American 25.3 (>60); EGFR Non-African American 20.9 (>60); Potassium 4.5 mmol/L (3.5-5.0)
[2020-12-22] MEDS ORDERED: Ondansetron 4 mg VIAL 2 MG/ML 2 ml VIAL IV ONE (18:47)
[2020-12-22] MEDS: Insulin GLARGINE 100 un/ml 10 ml VIAL SUBCUT SCH (19:55)
[2020-12-23] MEDS: Bumetanide IV 10 MG in Premix IV 0 ML IV SCH ×2 (00:40→00:41)
[2020-12-23] MEDS: Mometasone/Formoter 200/5 MDI INH SCH ×2 (07:30→19:37)
[2020-12-23] MEDS: SPIRIVA Respimat (tiotropium) 2.5 mcg/inh Inhaler INH SCH (07:31)
[2020-12-23 08:03] LABS: Hematocrit 28 % (42-52); Hemoglobin 9.3 g/dL (14.0-18.0); Mean Corpuscular HGB Conc 33 g/dL (31-36); Mean Corpuscular Hemoglobin 29 pg (27-31); Mean Corpuscular Volume 88 fL (80-94); Mean Platelet Volume 9.1 fL (7.4-10.4); Platelet Count 115 10^3/uL (150-450); Red Blood Count 3.22 10^6 /uL (4.18-5.48); Red Cell Distribution Width 16 % (10-15); White Blood Count 7.4 10^3/uL (3.5-10.8)
[2020-12-23 08:19] LABS: BUN/Creatinine Ratio 15.8 (8-20); Calcium 9.2 mg/dL (8.6-10.3); EGFR African American 21.9 (>60); EGFR Non-African American 18.1 (>60); Potassium 4.6 mmol/L (3.5-5.0)
[2020-12-23] MEDS: oxyCODONE/Acetamin 5/325 mg TAB PO PRN ×3 (08:19→19:57)
[2020-12-23] MEDS: Fluticasone NASAL SPRAY 50MCG 16 gm SPRAY BTL INTRANASAL SCH (08:24)
[2020-12-23] MEDS: Nicotine PATCH 21 MG/24 HR PATCH TRANSDERM SCH (08:26)
[2020-12-23] MEDS: Triamcinolone 0.5% OINT 1 TUBE TOPICAL SCH ×2 (09:01→22:56)
[2020-12-23] MEDS: Insulin GLARGINE 100 un/ml 10 ml VIAL SUBCUT SCH (19:58)
[2020-12-24] MEDS: oxyCODONE/Acetamin 5/325 mg TAB PO PRN ×4 (02:13→20:09)
[2020-12-24 07:17] LABS: BUN/Creatinine Ratio 16.8 (8-20); EGFR Non-African American 16.5 (>60)
[2020-12-24] MEDS: Mometasone/Formoter 200/5 MDI INH SCH ×2 (07:46→19:11)
[2020-12-24] MEDS: SPIRIVA Respimat (tiotropium) 2.5 mcg/inh Inhaler INH SCH (07:47)
[2020-12-24] MEDS: Fluticasone NASAL SPRAY 50MCG 16 gm SPRAY BTL INTRANASAL SCH (08:17)
[2020-12-24] MEDS: Triamcinolone 0.5% OINT 1 TUBE TOPICAL SCH ×2 (08:17→21:58)
[2020-12-24] MEDS: Nicotine PATCH 21 MG/24 HR PATCH TRANSDERM SCH (08:17)
[2020-12-24] MEDS: Iron Sucrose 200 MG in NS 0.9% 100 ml BAG 100 ML IVPB SCH (14:04)
[2020-12-24] MEDS ORDERED: Ondansetron 4 mg VIAL 2 MG/ML 2 ml VIAL IV PRN (20:46)
[2020-12-24] MEDS: Insulin GLARGINE 100 un/ml 10 ml VIAL SUBCUT SCH (21:11)
[2020-12-25] MEDS: oxyCODONE/Acetamin 5/325 mg TAB PO PRN ×3 (02:10→14:05)
[2020-12-25 08:05] LABS: Calcium 9.1 mg/dL (8.6-10.3); EGFR African American 23.6 (>60); EGFR Non-African American 19.5 (>60)
[2020-12-25] MEDS: Fluticasone NASAL SPRAY 50MCG 16 gm SPRAY BTL INTRANASAL SCH (08:08)
[2020-12-25] MEDS: Nicotine PATCH 21 MG/24 HR PATCH TRANSDERM SCH (08:08)
[2020-12-25] MEDS: Triamcinolone 0.5% OINT 1 TUBE TOPICAL SCH (08:09)
[2020-12-25 08:10] LABS: Potassium 5.1 mmol/L (3.5-5.0)
[2020-12-25] MEDS: Mometasone/Formoter 200/5 MDI INH SCH (08:30)
[2020-12-25] MEDS: SPIRIVA Respimat (tiotropium) 2.5 mcg/inh Inhaler INH SCH (08:31)
[2020-12-25 11:42] VITALS: BP 163/56
[2020-12-25] MEDS: Iron Sucrose 200 MG in NS 0.9% 100 ml BAG 100 ML IVPB SCH (14:06)
== END 2020-12-25 14:50 | disposition home or self-care (01) | DRG 683 ==
LOC: ED 12:18 → MED 12:18
PROVIDERS: ADMIT Internal Medicine; ATTEND Student in an Organized Health Care Education/Training Program